=== PATIENT | female | born 1975 | race Two or more races ===

== ENCOUNTER 2018-09-24 15:28 | Inpatient (IN) | payer BC ==
[~2018-09-24] VITALS: Ht 165.1 cm; Wt 68.2 kg
[2018-09-24 15:48] VITALS: BP 108/70
--- NOTE | 2018-09-24 15:48 | NUR ---
ED Nurse Note: Pt came in due to abd pain when she eats with N/V x weeks. Had a bowel surgery 2 weeks ago at [facility]. Pt states that she was referred by Dr Ferreira for evaluation. Also noted bilateral leg + 3 pitting edema. Pt is AAO x4, ambulatory with unlabored breathing. Skin is warm and pale.
[2018-09-24] MEDS ORDERED: Isovue-300 100ml vial INJ PRN (16:00)
[2018-09-24 16:37] LABS: HEMATOCRIT 28.2 % (37.0-47.0); HEMOGLOBIN 9.3 G/DL (12.0-16.0); MEAN CORPUSCULAR VOLUME 92 FL (80-99); PLATELET COUNT 213 K/UL (150-450); RED BLOOD COUNT 3.05 M/UL (4.20-5.40); RED CELL DISTRIBUTION WIDTH 17.5 % (11.6-14.8); WHITE BLOOD COUNT 2.8 K/UL (4.8-10.8)
[2018-09-24 16:48] LABS: ANION GAP 8 mmol/L (5-15); BLOOD UREA NITROGEN 10 mg/dL (7-18); CALCIUM 6.4 MG/DL (8.5-10.1); CARBON DIOXIDE 26 MMOL/L (21-32); CHLORIDE 110 MMOL/L (98-107); CREATININE 0.7 MG/DL (0.55-1.30); POTASSIUM 3.1 MMOL/L (3.5-5.1); SODIUM 143 MMOL/L (136-145)
[2018-09-24 16:59] LABS: ALANINE AMINOTRANSFERASE 41 U/L (12-78); ALBUMIN 1.6 G/DL (3.4-5.0); ALBUMIN/GLOBULIN RATIO 0.7 (1.0-2.7); ALKALINE PHOSPHATASE 83 U/L (46-116); ASPARTATE AMINO TRANSFERASE 22 U/L (15-37); BILIRUBIN,TOTAL 0.7 MG/DL (0.2-1.0)
[2018-09-24 17:30] VITALS: BP 112/70
--- NOTE | 2018-09-24 17:57 | Diagnostic Imaging Report ---
Indication: Shortness of breath Technique: One view of the chest Comparison: none Findings: Lungs and pleural spaces are clear. There is a left chest port catheter. Impression: No acute process
--- NOTE | 2018-09-24 18:05 | NUR ---
ED Nurse Note: Blankets provided. Pt is calm and cooperative. VSS. Pt is aware of her admission.
--- NOTE | 2018-09-24 18:07 | Emergency Room Report ---
History of Present Illness General Chief Complaint: Vomiting Source: Patient Present Illness HPI Patient presents with complaints of continuous nausea vomiting Patient reports previous significant history of gastric bypass Competitions from that leading to malnutrition Patient has had previous abdominal surgeries for adhesions Recently had surgery at [facility] for similar problems Patient has not remained increasingly nauseated persistently vomiting Denies any chest pain denies any fevers or chills Patient has a Port-A-Cath which she has had for many years Also secondary to malnutrition reasons And presents for further evaluation Allergies: Coded Allergies: GABAPENTIN (Verified Allergy, Unknown, 09/24/18) METAXALONE (Verified Allergy, Unknown, 09/24/18) MORPHINE (Verified Allergy, Unknown, 09/24/18) QUETIAPINE (Verified Allergy, Unknown, 09/24/18) Patient History Past Medical History: see triage record Pertinent Family History: none Last Menstrual Period: 2008 Now: No Reviewed Nursing Documentation: PMH: Agreed; PSxH: Agreed Nursing Documentation-PMH Past Medical History: No History, Except For Hx Cardiac Problems: No - HYPOTHYROIDISM History Of Psychiatric Problem: No - ANXIETY Hx Neurological Problems: Yes - FIBROMYALGIA Review of Systems All Other Systems: negative except mentioned in HPI Physical Exam Vital Signs Date Time Temp Pulse Resp B/P (MAP) Pulse Ox O2 Delivery O2 Flow Rate FiO2 09/24/18 15:38 97.5 96 18 102/66 96 Room Air Sp02 EP Interpretation: reviewed, normal General Appearance: mild distress - Uncomfortable Head: normocephalic, atraumatic ENT: dry mucus membranes Neck: supple Respiratory: lungs clear, no retraction, no accessory muscle use Cardiovascular #1: regular rate, rhythm Gastrointestinal: other - Some questionable decreased bowel sounds diffusely however no obvious rebound effect, patient has evidence of laparoscopic surgical sites in the left in the upper lower abdominal region Musculoskeletal: normal inspection Neurologic: alert, oriented x3, responsive Psychiatric: normal inspection Skin: other - Pallor Lymphatic: no adenopathy Medical Decision Making Diagnostic Impression: Primary Impression: Vomiting Additional Impressions: Dehydration Electrolyte imbalance Nausea and vomiting ER Course With the history exam and presentation, multiple differentials considered, including but not limited to appendicitis, gastritis, cholecystitis, diverticulitis Patient has multiple comorbidities has had previous abdominal surgeries at this time the patient's abdominal exam does not reveal any obvious peritoneal findings Patient has further imaging initiated as well given the complaints however blood work reveal a low white count Electrolyte abnormality patient remains persistently nauseated and is admitted for further care Labs Test 09/24/18 16:20 09/24/18 17:55 09/25/18 04:30 White Blood Count 2.8 K/UL (4.8-10.8) 2.1 K/UL (4.8-10.8) Red Blood Count 3.05 M/UL (4.20-5.40) 2.78 M/UL (4.20-5.40) Hemoglobin 9.3 G/DL (12.0-16.0) 8.6 G/DL (12.0-16.0) Hematocrit 28.2 % (37.0-47.0) 26.4 % (37.0-47.0) Mean Corpuscular Volume 92 FL (80-99) 95 FL (80-99) Mean Corpuscular Hemoglobin 30.5 PG (27.0-31.0) 31.0 PG (27.0-31.0) Mean Corpuscular Hemoglobin Concent 33.0 G/DL (32.0-36.0) 32.6 G/DL (32.0-36.0) Red Cell Distribution Width 17.5 % (11.6-14.8) 17.9 % (11.6-14.8) Platelet Count 213 K/UL (150-450) 196 K/UL (150-450) Mean Platelet Volume 4.8 FL (6.5-10.1) 5.6 FL (6.5-10.1) Neutrophils (%) (Auto) % (45.0-75.0) % (45.0-75.0) Lymphocytes (%) (Auto) % (20.0-45.0) % (20.0-45.0) Monocytes (%) (Auto) % (1.0-10.0) % (1.0-10.0) Eosinophils (%) (Auto) % (0.0-3.0) % (0.0-3.0) Basophils (%) (Auto) % (0.0-2.0) % (0.0-2.0) Differential Total Cells Counted 100 100 Neutrophils % (Manual) 52 % (45-75) 30 % (45-75) Lymphocytes % (Manual) 36 % (20-45) 52 % (20-45) Monocytes % (Manual) 7 % (1-10) 17 % (1-10) Eosinophils % (Manual) 1 % (0-3) 1 % (0-3) Basophils % (Manual) 1 % (0-2) 0 % (0-2) Band Neutrophils 3 % (0-8) 0 % (0-8) Platelet Estimate Adequate Adequate Platelet Morphology Normal Normal Hypochromasia 1+ Anisocytosis 1+ 1+ Sodium Level 143 MMOL/L (136-145) 145 MMOL/L (136-145) Potassium Level 3.1 MMOL/L (3.5-5.1) 3.0 MMOL/L (3.5-5.1) Chloride Level 110 MMOL/L (98-107) 112 MMOL/L (98-107) Carbon Dioxide Level 26 MMOL/L (21-32) 29 MMOL/L (21-32) Anion Gap 8 mmol/L (5-15) 4 mmol/L (5-15) Blood Urea Nitrogen 10 mg/dL (7-18) 10 mg/dL (7-18) Creatinine 0.7 MG/DL (0.55-1.30) 0.9 MG/DL (0.55-1.30) Estimat Glomerular Filtration Rate > 60 mL/min (>60) > 60 mL/min (>60) Glucose Level 76 MG/DL (74-106) 110 MG/DL (74-106) Calcium Level 6.4 MG/DL (8.5-10.1) 6.9 MG/DL (8.5-10.1) Total Bilirubin 0.7 MG/DL (0.2-1.0) 0.4 MG/DL (0.2-1.0) Aspartate Amino Transf (AST/SGOT) 22 U/L (15-37) 18 U/L (15-37) Alanine Aminotransferase (ALT/SGPT) 41 U/L (12-78) 38 U/L (12-78) Alkaline Phosphatase 83 U/L (46-116) 74 U/L (46-116) Pro-B-Type Natriuretic Peptide 178 pg/mL (0-125) Total Protein 4.0 G/DL (6.4-8.2) 3.6 G/DL (6.4-8.2) Albumin 1.6 G/DL (3.4-5.0) 1.4 G/DL (3.4-5.0) Globulin 2.4 g/dL 2.2 g/dL Albumin/Globulin Ratio 0.7 (1.0-2.7) 0.6 (1.0-2.7) Urine Color Brown Urine Appearance Clear Urine pH 6 (4.5-8.0) Urine Specific [place] 1.010 (1.005-1.035) Urine Protein Negative (NEGATIVE) Urine Glucose (UA) Negative (NEGATIVE) Urine Ketones Negative (NEGATIVE) Urine Blood Negative (NEGATIVE) Urine Nitrite Negative (NEGATIVE) Urine Bilirubin 1+ (NEGATIVE) Urine Ictotest Negative (NEGATIVE) Urine Urobilinogen 8 MG/DL (0.0-1.0) Urine Leukocyte Esterase 3+ (NEGATIVE) Urine RBC 0-2 /HPF (0 - 2) Urine WBC 2-4 /HPF (0 - 2) Urine Squamous Epithelial Cells Few /LPF (NONE/OCC) Urine Bacteria Few /HPF (NONE) Hemoglobin A1c 4.7 % (4.3-6.0) Amylase Level 14 U/L (25-115) Lipase 47 U/L (73-393) Chest X-Ray Diagnostic Results Chest X-Ray Diagnostic Results : Chest X-Ray Ordered: Yes # of Views/Limited/Complete: 1 View Indication: Chest Pain EP Interpretation: Yes Interpretation: no consolidation, no effusion, no pneumothorax Impression: No acute disease Electronically Signed by: Shira Tyler DO CT/MRI/US Diagnostic Results CT/MRI/US Diagnostic Results : Impression CT abdomen pelvisIMPRESSION: Evidence of prior Marine-en-Y gastric bypass. Additional surgical clips noted anterior and midline to the enteroenteric anastomosis. There is also an anastomotic suture line in the right mid/lower abdomen as well. Correlation with surgical history is recommended. There is air-fluid levels and dilatation of portions of the proximal jejunum/biliopancreatic limb leading up to the enteroenteric anastomosis (axial image #37; coronal image #20) concerning for a degree of obstruction or stasis. No evidence of free intraperitoneal air, ascites, pneumatosis intestinalis or portal venous gas. Status post cholecystectomy. Morphis high attenuation material noted in the subcutaneous tissues of the midline anterior abdominal wall which may be surgical in etiology. Some small foci of air within the urinary bladder which may be related to recent catheterization. If there is no history of such the possibility of a fistulous connection to the bladder can be considered. Last Vital Signs Date Time Temp Pulse Resp B/P (MAP) Pulse Ox O2 Delivery O2 Flow Rate FiO2 09/24/18 15:48 96 18 Room Air 09/24/18 15:38 97.5 102/66 96 Status: improved Disposition: ADMITTED INPATIENT Condition: Serious Referrals: NON PHYSICIAN (PCP) Shira Tyler DO Sep 24, 2018 18:07
[2018-09-24 18:38] LABS: APPEARANCE,URINE CLEAR; BILIRUBIN, URINE 1+ (NEGATIVE); COLOR,URINE BROWN; GLUCOSE, URINE (UA) NEGATIVE (NEGATIVE); KETONES,URINE NEGATIVE (NEGATIVE); LEUKOCYTE ESTERASE ,URINE 3+ (NEGATIVE); NITRITE,URINE NEGATIVE (NEGATIVE); PH,URINE 6 (4.5-8.0); PROTEIN,URINE NEGATIVE (NEGATIVE); UROBILINOGEN,URINE 8 MG/DL (0.0-1.0)
--- NOTE | 2018-09-24 18:43 | NUR ---
ED Nurse Note: Tried to call for report to Med Surg unit and was told that they can receive report after 0700.
--- NOTE | 2018-09-24 19:11 | NUR ---
HAND-OFF: Report given to Donald Leahy RN.
[2018-09-24] MEDS ORDERED: PROTONIX40 MG ORAL (19:29)
[2018-09-24] MEDS ORDERED: ROBAXIN500 MG PO (19:29)
[2018-09-24] MEDS ORDERED: ZOFRAN4 M3 ORAL (19:29)
[2018-09-24] MEDS ORDERED: BUSPAR10 MG ORAL (19:29)
[2018-09-24] MEDS ORDERED: CYCLOBENZAPRINE10 MG ORAL (19:29)
[2018-09-24] MEDS ORDERED: SYNTHROID25 MCG ORAL (19:29)
[2018-09-24] MEDS ORDERED: VISTARIL50 MG ORAL (19:29)
[2018-09-24] MEDS ORDERED: MAXALT10 MG PO (19:29)
[2018-09-24 19:48] VITALS: BP 104/67
[2018-09-24 20:00] VITALS: BP 93/62
--- NOTE | 2018-09-24 20:30 | NUR ---
TRANSFER TO FLOOR: Patient transferred to [facility] 403-1 as ordered, per MD POLLY. Report given to TAWNY MCELROY. PATIENT IN STABLE CONDITION. PT TRANSFERRED TO FLOOR WITH TOWER OPERATOR. BELONGINGS LIST COMPLETED.
--- NOTE | 2018-09-24 21:00 | NUR ---
NURSE NOTES: Patient arrived from ER via gurney. Pt ambulatory, steady gait. Belongings list reviewed, cellphone at the bedside. port-a-cath noted, dressing changed. Fall and safety precautions, call light and belongings within reach.
[2018-09-24] MEDS: D5NS 1,000 ML IV SCH (22:14)
[2018-09-24] MEDS: Methocarbamol 500mg tab ORAL SCH (22:50)
[2018-09-24] MEDS ORDERED: BusPIRone 10mg Tab ORAL SCH (23:00)
[2018-09-24] MEDS: HydrOXYzine 50mg tab ORAL SCH (23:22)
[2018-09-24] MEDS: Cyclobenzaprine 10mg Tab ORAL SCH (23:23)
[2018-09-25] VITALS (7 sets, daily range): BP systolic 78–95; BP diastolic 53–64
[2018-09-25] MEDS ORDERED: HYDROcodone/Acetamin 5/325 tab ORAL PRN ×2 (01:30→07:30)
[2018-09-25] MEDS: HYDROcodone/Acetamin 10/325 tab ORAL PRN ×4 (02:03→21:14)
[2018-09-25] MEDS: Doxepin 25mg Cap ORAL SCH ×2 (02:03→20:22)
[2018-09-25 06:03] LABS: HEMATOCRIT 26.4 % (37.0-47.0); HEMOGLOBIN 8.6 G/DL (12.0-16.0); MEAN CORPUSCULAR VOLUME 95 FL (80-99); PLATELET COUNT 196 K/UL (150-450); RED BLOOD COUNT 2.78 M/UL (4.20-5.40); RED CELL DISTRIBUTION WIDTH 17.9 % (11.6-14.8)
[2018-09-25 06:23] LABS: WHITE BLOOD COUNT 2.1 K/UL (4.8-10.8)
[2018-09-25] MEDS: Levothyroxine 25mcg tab ORAL SCH (06:35)
[2018-09-25] MEDS: HydrOXYzine 50mg tab ORAL SCH ×3 (06:35→17:06)
[2018-09-25 06:43] LABS: ALANINE AMINOTRANSFERASE 38 U/L (12-78); ALBUMIN 1.4 G/DL (3.4-5.0); ALBUMIN/GLOBULIN RATIO 0.6 (1.0-2.7); ALKALINE PHOSPHATASE 74 U/L (46-116); AMYLASE 14 U/L (25-115); ANION GAP 4 mmol/L (5-15); ASPARTATE AMINO TRANSFERASE 18 U/L (15-37); BILIRUBIN,TOTAL 0.4 MG/DL (0.2-1.0); BLOOD UREA NITROGEN 10 mg/dL (7-18); CALCIUM 6.9 MG/DL (8.5-10.1); CARBON DIOXIDE 29 MMOL/L (21-32); CHLORIDE 112 MMOL/L (98-107); CREATININE 0.9 MG/DL (0.55-1.30); SODIUM 145 MMOL/L (136-145)
--- NOTE | 2018-09-25 07:30 | NUR ---
NURSE NOTES: Received pt from TAWNY MCELROY. Pt is alert and orient x4. pt is in RA, NO SOB or acute respiratory distress noted. pt has portal cath BREANA chest is running well. pt is NPO. all needs attended, bed is locked and is in the lowest position, call light within easy reach. will continue to monitor.
--- NOTE | 2018-09-25 07:43 | NUR ---
HAND-OFF: Report given to TAWNY Tracey.
--- NOTE | 2018-09-25 08:20 | NUR ---
NURSE NOTES: Dr Ferreira is aware about hypotension, WBC, K, and other lab results, ordered banana bag once, MVI, FOLIC ACID. noted nand carried out. will continue to monitor.
--- NOTE | 2018-09-25 08:50 | NUR ---
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
[2018-09-25] MEDS ORDERED: BusPIRone 10mg Tab ORAL SCH (09:00)
[2018-09-25] MEDS ORDERED: Cyclobenzaprine 10mg Tab ORAL SCH (09:00)
[2018-09-25] MEDS: D5NS 1,000 ML IV SCH ×2 (09:34→18:00)
[2018-09-25] MEDS: Enoxaparin 40mg Inj SUBQ SCH (09:36)
[2018-09-25] MEDS: Cyclobenzaprine 10mg Tab ORAL SCH ×3 (09:37→17:07)
[2018-09-25] MEDS: Methocarbamol 500mg tab ORAL SCH ×4 (09:37→20:22)
[2018-09-25] MEDS: BusPIRone 5mg Tab ORAL SCH ×3 (09:37→17:07)
--- NOTE | 2018-09-25 10:46 | Diagnostic Imaging Report ---
Indication: Abdominal pain for weeks Technique: CT of the abdomen and pelvis utilizing automated exposure control with intravenous contrast. Venous scanning performed. Axial, sagittal and coronal reformats presented. CT dose: Total DLP 822.65 mGycm; CTDI vol 15.47 mGy Comparison: None Findings: Minimal dependent atelectatic changes noted in the posterior lower lobes bilaterally. There is no pleural effusion or pneumothorax. No focal airspace consolidation is identified. Bilateral breast implants are partially imaged. Heart size is within normal limits. Portions of a Port-A-Cath are partially visualized. The patient is status post cholecystectomy. Hepatic contour is smooth. No focal hepatic mass lesion appreciated on this single phase exam. Hepatic steatosis is suggested. Hepatic veins and portal veins appear patent. No biliary ductal dilatation. Spleen is normal in size. Adrenal glands unremarkable in appearance. Pancreas is without evidence of peripancreatic inflammatory change. Pancreatic enhancement is uniform. No pancreatic ductal dilatation. Kidneys enhance symmetrically. There is no urinary tract stone or hydronephrosis bilaterally. Patient appears to be status post hysterectomy. Some air is noted within the bladder which may be related to recent catheterization. If no history of such is known then the possibility of a fistulous connection can be considered. Note that evaluation of the gastrointestinal tract is limited without the use of oral contrast. The patient is status post marine-en Y gastric bypass. Additionally there are surgical clips more anterior and medial to the enteroenteric anastomosis. There is also an anastomotic suture line in the right mid abdomen as well. Prominence and air-fluid levels within the duodenal sleep and proximal jejunum/biliopancreatic limb leading to the distal enteroenteric anastomosis which is associated is some bubbly intraluminal material concerning for degree of developing obstruction or stasis at the adjacent anastomosis. There is no free intraperitoneal air, ascites, pneumatosis intestinalis or portal venous gas. Remainder of the small bowel remains normal in caliber. Colon is normal in caliber. Abdominal aorta is normal in caliber. No acute osseous abnormality is identified. Some high attenuation material is noted in the subcutaneous tissues of the midline which may represent surgical material (axial images #49). There is no subcutaneous well-defined fluid collection to suggest abscess. IMPRESSION: Evidence of prior Marine-en-Y gastric bypass. Additional surgical clips noted anterior and midline to the enteroenteric anastomosis. There is also an anastomotic suture line in the right mid/lower abdomen as well. Correlation with surgical history is recommended. There is air-fluid levels and dilatation of portions of the proximal jejunum/biliopancreatic limb leading up to the enteroenteric anastomosis (axial image #37; coronal image #20) concerning for a degree of obstruction or stasis. No evidence of free intraperitoneal air, ascites, pneumatosis intestinalis or portal venous gas. Status post cholecystectomy. Morphis high attenuation material noted in the subcutaneous tissues of the midline anterior abdominal wall which may be surgical in etiology. Some small foci of air within the urinary bladder which may be related to recent catheterization. If there is no history of such the possibility of a fistulous connection to the bladder can be considered. Additional incidental findings as above. This corresponds with the preliminary report. The CT scanner at [facility] is accredited by the [employer] and the scans are performed using protocols designed to limit radiation exposure to as low as reasonably achievable to attain images of sufficient resolution adequate for diagnostic evaluation.
[2018-09-25] MEDS ORDERED: Folic Acid 1 MG, Magnesium Sulfate 2,000 MG, Multivitamin - 12 Injection 10 ML in Sodiu... IV ONE (11:00)
[2018-09-25] MEDS ORDERED: Thiamine 100mg in D5W 55ml IVPB ONE (11:00)
--- NOTE | 2018-09-25 11:12 | GI Initial Consult Note ---
History of Present Illness General Date patient seen: Sep 25, 2018 Time patient seen: 11:01 Reason for Hospitalization: Vomiting Referring physician: POLLY Reason for Consultation: Persistent nausea and vomiting Present Illness HPI Patient presents with complaints of continuous nausea vomiting for approximately 1 week. The patient reports chronic history of episodes of nausea and vomiting. Patient reports previous significant history of gastric bypass. The patient had her gastric bypass in 2004, she had a revision in 2012. The patient states that she had recent small bowel obstruction status post exploratory laparoscopically lysis of adhesions done at [facility] approximately 3 weeks ago. The patient does report bowel movements and passing gas. Competitions from that leading to malnutrition Patient has not remained increasingly nauseated persistently vomiting Denies any chest pain denies any fevers or chills Patient has a Port-A-Cath which she has had for many years Also secondary to malnutrition reasons And presents for further evaluation Home Meds Reported Medications Ondansetron* (ZOFRAN*) 4 Mg Tablet, 4 MG ORAL Q6H PRN for Nausea & Vomiting, TAB 09/24/18 Rizatriptan Benzoate (MAXALT) 10 Mg Tablet, 10 MG PO, TAB 09/24/18 Pantoprazole* (PROTONIX*) 40 Mg Tablet.dr, 40 MG ORAL DAILY, TAB 09/24/18 Hydroxyzine Pamoate* (VISTARIL*) 50 Mg Capsule, 100 MG ORAL EVERY 6 HOURS, #20 TAB 0 Refills 09/24/18 Buspirone Hcl* (BUSPAR*) 10 Mg Tablet, 10 MG ORAL THREE TIMES A DAY, #15 TAB 0 Refills 09/24/18 Levothyroxine Sodium* (SYNTHROID*) 25 Mcg Tablet, 50 MCG ORAL DAILY, TAB Take in the morning on an empty stomach, at least 30 minutes before food. 09/24/18 Cyclobenzaprine Hcl* (FLEXERIL*) 10 Mg Tablet, 10 MG ORAL THREE TIMES A DAY, TAB 09/24/18 Methocarbamol* (ROBAXIN*) 500 Mg Tablet, 500 MG PO QID, #28 TAB 0 Refills 09/24/18 Med list reviewed/reconciled: Yes Allergies: Coded Allergies: GABAPENTIN (Verified Allergy, Unknown, 09/24/18) METAXALONE (Verified Allergy, Unknown, 09/24/18) MORPHINE (Verified Allergy, Unknown, 09/24/18) QUETIAPINE (Verified Allergy, Unknown, 09/24/18) Patient History History Provided By: Patient, Medical Record PMH Narrative Past Medical History: No History, Except For Hx Cardiac Problems: No - HYPOTHYROIDISM History Of Psychiatric Problem: No - ANXIETY Hx Neurological Problems: Yes - FIBROMYALGIA Social History: Reports: smoking Review of Systems All Other Systems: negative except mentioned in HPI Physical Exam Vital Signs Date Time Temp Pulse Resp B/P (MAP) Pulse Ox O2 Delivery O2 Flow Rate FiO2 09/24/18 15:38 97.5 96 18 102/66 96 Room Air Sp02 EP Interpretation: reviewed, normal Labs Laboratory Tests Test 09/24/18 16:20 09/24/18 17:55 09/25/18 04:30 White Blood Count 2.8 K/UL (4.8-10.8) L 2.1 K/UL (4.8-10.8) *L Red Blood Count 3.05 M/UL (4.20-5.40) L 2.78 M/UL (4.20-5.40) L Hemoglobin 9.3 G/DL (12.0-16.0) L 8.6 G/DL (12.0-16.0) L Hematocrit 28.2 % (37.0-47.0) L 26.4 % (37.0-47.0) L Mean Corpuscular Volume 92 FL (80-99) 95 FL (80-99) Mean Corpuscular Hemoglobin 30.5 PG (27.0-31.0) 31.0 PG (27.0-31.0) Mean Corpuscular Hemoglobin Concent 33.0 G/DL (32.0-36.0) 32.6 G/DL (32.0-36.0) Red Cell Distribution Width 17.5 % (11.6-14.8) H 17.9 % (11.6-14.8) H Platelet Count 213 K/UL (150-450) 196 K/UL (150-450) Mean Platelet Volume 4.8 FL (6.5-10.1) L 5.6 FL (6.5-10.1) L Neutrophils (%) (Auto) % (45.0-75.0) % (45.0-75.0) Lymphocytes (%) (Auto) % (20.0-45.0) % (20.0-45.0) Monocytes (%) (Auto) % (1.0-10.0) % (1.0-10.0) Eosinophils (%) (Auto) % (0.0-3.0) % (0.0-3.0) Basophils (%) (Auto) % (0.0-2.0) % (0.0-2.0) Differential Total Cells Counted 100 100 Neutrophils % (Manual) 52 % (45-75) 30 % (45-75) L Lymphocytes % (Manual) 36 % (20-45) 52 % (20-45) H Monocytes % (Manual) 7 % (1-10) 17 % (1-10) H Eosinophils % (Manual) 1 % (0-3) 1 % (0-3) Basophils % (Manual) 1 % (0-2) 0 % (0-2) Band Neutrophils 3 % (0-8) 0 % (0-8) Platelet Estimate Adequate Adequate Platelet Morphology Normal Normal Hypochromasia 1+ Anisocytosis 1+ 1+ Sodium Level 143 MMOL/L (136-145) 145 MMOL/L (136-145) Potassium Level 3.1 MMOL/L (3.5-5.1) L 3.0 MMOL/L (3.5-5.1) L Chloride Level 110 MMOL/L (98-107) H 112 MMOL/L (98-107) H Carbon Dioxide Level 26 MMOL/L (21-32) 29 MMOL/L (21-32) Anion Gap 8 mmol/L (5-15) 4 mmol/L (5-15) L Blood Urea Nitrogen 10 mg/dL (7-18) 10 mg/dL (7-18) Creatinine 0.7 MG/DL (0.55-1.30) 0.9 MG/DL (0.55-1.30) Estimat Glomerular Filtration Rate > 60 mL/min (>60) > 60 mL/min (>60) Glucose Level 76 MG/DL (74-106) 110 MG/DL (74-106) H Calcium Level 6.4 MG/DL (8.5-10.1) L 6.9 MG/DL (8.5-10.1) L Total Bilirubin 0.7 MG/DL (0.2-1.0) 0.4 MG/DL (0.2-1.0) Aspartate Amino Transf (AST/SGOT) 22 U/L (15-37) 18 U/L (15-37) Alanine Aminotransferase (ALT/SGPT) 41 U/L (12-78) 38 U/L (12-78) Alkaline Phosphatase 83 U/L (46-116) 74 U/L (46-116) Pro-B-Type Natriuretic Peptide 178 pg/mL (0-125) H Total Protein 4.0 G/DL (6.4-8.2) L 3.6 G/DL (6.4-8.2) L Albumin 1.6 G/DL (3.4-5.0) L 1.4 G/DL (3.4-5.0) L Globulin 2.4 g/dL 2.2 g/dL Albumin/Globulin Ratio 0.7 (1.0-2.7) L 0.6 (1.0-2.7) L Urine Color Brown Urine Appearance Clear Urine pH 6 (4.5-8.0) Urine Specific [place] 1.010 (1.005-1.035) Urine Protein Negative (NEGATIVE) Urine Glucose (UA) Negative (NEGATIVE) Urine Ketones Negative (NEGATIVE) Urine Blood Negative (NEGATIVE) Urine Nitrite Negative (NEGATIVE) Urine Bilirubin 1+ (NEGATIVE) H Urine Ictotest Negative (NEGATIVE) Urine Urobilinogen 8 MG/DL (0.0-1.0) H Urine Leukocyte Esterase 3+ (NEGATIVE) H Urine RBC 0-2 /HPF (0 - 2) Urine WBC 2-4 /HPF (0 - 2) Urine Squamous Epithelial Cells Few /LPF (NONE/OCC) Urine Bacteria Few /HPF (NONE) Hemoglobin A1c 4.7 % (4.3-6.0) Amylase Level 14 U/L (25-115) L Lipase 47 U/L (73-393) L General Appearance: well appearing, no apparent distress, alert Head: normocephalic EENT: PERRL/EOMI, normal ENT inspection Neck: supple Respiratory: normal breath sounds, no respiratory distress Cardiovascular: normal rate Gastrointestinal: normal inspection, non tender, soft, normal bowel sounds, non -distended, other - Surgical incision site Rectal: deferred Genitourinary: no CVA tenderness Musculoskeletal: normal inspection, back normal Neurologic: normal inspection, alert, oriented x3, responsive Psychiatric: normal inspection, judgement/insight normal, memory normal Skin: normal inspection, normal color, no rash, warm/dry, palpation normal, well hydrated Lymphatic: normal inspection, no adenopathy Current Medications Current Medications Medications (Trade) Dose Ordered Sig/[place] Route PRN Reason Start Time Stop Time Status Last Admin Dose Admin Acetaminophen (Tylenol) 650 mg Q4H PRN ORAL Mild Pain/Temp > 100.5 09/24/18 22:00 10/24/18 21:59 Acetaminophen/ Hydrocodone Bitart ([place] 10/325) 1 tab QID PRN ORAL Severe Pain (Pain Scale 7-10) 09/25/18 01:30 10/02/18 01:29 09/25/18 09:38 Acetaminophen/ Hydrocodone Bitart ([place] 5/325) 1 tab Q6H PRN ORAL Moderate Breakthru Pain (5-7) 09/25/18 07:30 10/02/18 01:29 Buspirone HCl (Buspar) 10 mg THREE TIMES A DAY ORAL 09/25/18 09:00 10/25/18 08:59 09/25/18 09:37 Cyclobenzaprine HCl (Flexeril) 10 mg THREE TIMES A DAY ORAL 09/24/18 23:00 10/25/18 08:59 09/25/18 09:37 Dextrose/Sodium Chloride 1,000 ml @ 100 mls/hr Q10H IV 09/24/18 22:00 10/24/18 21:59 09/25/18 09:34 Doxepin HCl (SINEquan) 50 mg BEDTIME ORAL 09/25/18 01:30 10/25/18 01:29 09/25/18 02:03 Enoxaparin Sodium (Lovenox) 40 mg DAILY SUBQ 09/25/18 09:00 10/25/18 08:59 09/25/18 09:36 Folic Acid (Folate) 1 mg DAILY ORAL 09/26/18 09:00 10/26/18 08:59 Folic Acid 1 mg/ Magnesium Sulfate 2000 mg/ Multivitamins 10 ml/Sodium Chloride 1,014.2 ml @ 100 mls/ hr Q24H ONCE IV 09/25/18 11:00 09/25/18 21:08 Hydroxyzine HCl (Atarax) 100 mg EVERY 6 HOURS ORAL 09/25/18 00:00 10/25/18 00:00 09/25/18 06:35 Iopamidol (Isovue-300 100ml) 100 ml NOW PRN INJ Radiology Procedure 09/24/18 16:00 Levothyroxine Sodium (Synthroid) 50 mcg ACBREAKFAST ORAL 09/25/18 06:30 10/25/18 06:29 09/25/18 06:35 Methocarbamol (Robaxin) 500 mg QID ORAL 09/24/18 22:15 10/24/18 22:14 09/25/18 09:37 Multivitamins (Multivitamins) 1 tab DAILY ORAL 09/26/18 09:00 10/26/18 08:59 Ondansetron HCl (Zofran) 4 mg Q6H PRN ORAL Nausea & Vomiting 09/24/18 22:00 10/24/18 21:59 09/25/18 09:34 Pantoprazole (Protonix) 40 mg DAILY ORAL 09/25/18 09:00 10/25/18 08:59 09/25/18 09:36 Piperacillin Sod/ Tazobactam Sod 3.375 gm/Sodium Chloride 110 ml @ 27.5 mls/hr EVERY 8 HOURS IVPB 09/25/18 13:00 09/30/18 12:59 Thiamine HCl 100 mg/Dextrose 56 ml @ 112 mls/hr ONCE ONCE IVPB 09/25/18 11:00 09/25/18 11:29 GI: Plan Problems: (1) History of gastric bypass (2) Small bowel obstruction due to adhesions (3) Nausea and vomiting (4) Electrolyte imbalance (5) Dehydration (6) Vomiting Plan Abdominal pelvis CT reviewed. - Evidence of prior Marine-en-Y gastric bypass. - There is air-fluid levels and dilatation of portions of the proximal jejunum/ biliopancreatic limb leading up to the enteroenteric anastomosis concerning for a degree of obstruction or stasis. - No evidence of free intraperitoneal air, ascites, pneumatosis intestinalis or portalvenous gas. - Status post cholecystectomy. Follow up surgical recommendations, possible SBFT maintain NPO + IVFs zofran prn, reglan prn for persistent vomiting anemia work up OB stool r/o GI bleed monitor H&H, prn transfusions ppi electrolyte correction fu labs Discussed with Dr. Rosenberg. Thank you for this patient referral, we will follow. The patient was seen and examined at bedside and all new and available data was reviewed in the patients chart. I agree with the above findings, impression and plan. (Patient seen earlier today. Signature stamp does not reflect patient encounter time.). - MD Laura Mckeon,[facility] JUDICIAL CLERK Sep 25, 2018 11:12
[2018-09-25] MEDS: Piperacillin/Tazobactam 3.375 GM in NS 110 ML IVPB SCH ×2 (12:58→22:22)
--- NOTE | 2018-09-25 13:00 | NUR ---
NURSE NOTES: Dr Ferreira asked to get the number of facility to call them to send SUBOXONE for pt but pt refused to give number and asked don't call them. Dr Ferreira is aware. will continue to monitor.
--- NOTE | 2018-09-25 14:05 | NUR ---
RD ASSESSMENT & RECOMMENDATIONS SEE CARE ACTIVITY FOR COMPLETE ASSESSMENT DAILY ESTIMATED NEEDS: Needs based on Wt loss, 64.6kg 25-30 kcals/kg 9806-6697 total kcals 1-1.5 g protein/kg 65-97 g total protein 25-30 mL/kg 1341-2692 total fluid mLs NUTRITION DIAGNOSIS: Altered GI function R/T h/o multiple GI surgeries including Marine-en-Y gastric bypass and revision, s/p recent exploratory laparoscopically lysis of adhesions for SBO as evidenced by pt c/o abdominal pain, N/V. CURRENT DIET:Full Liquid diet PO DIET RECOMMENDATIONS: Advance diet as tolerated to soft diet, 6 small meals ADDITIONAL RECOMMENDATIONS: * Standing wt for accurate CBW, rec weekly wt monitoring given possible recent wt loss of >8#/5% in less than 1 mo * Neutropenic precaution to diet order- wbc=2.1* * Ensure Clear x 1 - pt reports cannot tolerate dairy based Ensure, willing to try Ensure Clear (240kcal, 8g prot each) * Monitor lytes, replete as needed (low K) * Consider DIRECTOR OF [employer]ATE[employer] MARKETING eval- pt reports dry mouth, some swallowing difficulty
--- NOTE | 2018-09-25 14:35 | Consultation ---
History of Present Illness General Date patient seen: Sep 25, 2018 Reason for Hospitalization: Vomiting Present Illness HPI this is a very pleasant 43 year old female with complex medical and surgical history. had gastric bypass years ago, cholecystectomy, reversal of gastric bypass, abdominoplasty, and only a few weeks ago required urgent laparoscopic lysis of adhesions for SBO. was home with nausea and decreased oral intake. went to see her pcp and recommended to come to ED given not tolerating oral intake, dehydration, and abdominal pain. has left chest port for hx of dehydration and prior TPN. surgery called to assist with care. states pain has been present since surgery. Allergies: Coded Allergies: GABAPENTIN (Verified Allergy, Unknown, 09/24/18) METAXALONE (Verified Allergy, Unknown, 09/24/18) MORPHINE (Verified Allergy, Unknown, 09/24/18) QUETIAPINE (Verified Allergy, Unknown, 09/24/18) Medication History Scheduled Buspirone Hcl* (Buspar*), 10 MG ORAL THREE TIMES A DAY, (Reported) Cyclobenzaprine Hcl* (Flexeril*), 10 MG ORAL THREE TIMES A DAY, (Reported) Hydroxyzine Pamoate* (Vistaril*), 100 MG ORAL EVERY 6 HOURS, (Reported) Levothyroxine Sodium* (Synthroid*), 50 MCG ORAL DAILY, (Reported) Methocarbamol* (Robaxin*), 500 MG PO QID, (Reported) Pantoprazole* (Protonix*), 40 MG ORAL DAILY, (Reported) Scheduled PRN Ondansetron* (Zofran*), 4 MG ORAL Q6H PRN for Nausea & Vomiting, (Reported) Miscellaneous Medications Rizatriptan Benzoate (Maxalt), 10 MG PO, (Reported) Patient History History Provided By: Patient, Medical Record, PMD Healthcare decision maker Resuscitation status Full Code Advanced Directive on File Review of Systems Review of Symptoms General ROS: no weight loss or fever Psychological ROS: no depression or mood changes, no memory loss Ophthalmic ROS: no visual changes or eye irritation ENT ROS: no nasal congestion, hearing loss, dizziness Allergy and Immunology ROS: no allergic symptoms or urticaria Hematological and Lymphatic ROS: no swollen glands, unusual bleeding or bruising Endocrine ROS: no polyuria, polydipsia, weight changes, temperature intolerance Respiratory ROS: no cough, shortness of breath, or wheezing Cardiovascular ROS: no chest pain or dyspnea on exertion Gastrointestinal ROS: abdominal pain, no bright red blood in stool. Musculoskeletal ROS: no myalgias or arthralgias Neurological ROS: no TIA or stroke symptoms Dermatological ROS: no new or changing skin lesions, rashes or pruritis Physical Exam Physical Exam General appearance: alert, cooperative, no distress, appears stated age Head: Normocephalic, without obvious abnormality, atraumatic Eyes: conjunctivae/corneas clear. PERRL, EOM's intact. Fundi benign Throat: Lips, mucosa, and tongue normal. Teeth and gums normal Neck: supple, symmetrical, trachea midline, no adenopathy, thyroid: not enlarged, symmetric, no tenderness/mass/nodules, no carotid bruit and no JVD Lungs: clear to auscultation bilaterally Heart: regular rate and rhythm, S1, S2 normal, no murmur, click, rub or gallop Abdomen: soft, non-tender. Bowel sounds normal. No masses, no organomegaly Extremities: extremities normal, atraumatic, no cyanosis or edema Pulses: 2+ and symmetric Skin: Skin color, texture, turgor normal. No rashes or lesions Neurologic: Grossly normal Last 24 Hour Vital Signs Date Time Temp Pulse Resp B/P (MAP) Pulse Ox O2 Delivery O2 Flow Rate FiO2 09/25/18 13:20 97.7 09/25/18 12:00 97.7 82 16 81/55 (64) 96 09/25/18 10:31 Room Air 09/25/18 10:07 97.7 09/25/18 08:00 97.7 85 17 85/53 (64) 96 09/25/18 04:00 97.5 87 20 90/54 (66) 97 09/25/18 01:46 Room Air 09/25/18 00:00 97.9 90 18 94/64 (74) 99 09/24/18 20:30 98.3 87 18 93/62 96 Room Air 80 09/24/18 20:00 98.3 87 18 93/62 (72) 96 09/24/18 19:48 97.5 80 16 104/67 100 Room Air 09/24/18 17:30 97.5 98 16 112/70 98 Room Air 09/24/18 15:48 96 18 Room Air 4/16/19 15:48 98.0 82 14 108/70 100 Room Air 09/24/18 15:38 97.5 96 18 102/66 96 Room Air Intake and Output 09/24/18 09/25/18 19:00 07:00 Intake Total 1000 ml 750 ml Balance 1000 ml 750 ml Intake Oral 50 ml IV Total 1000 ml 700 ml # Voids 1 1 Laboratory Tests Test 09/24/18 16:20 09/24/18 17:55 09/25/18 04:30 White Blood Count 2.8 K/UL (4.8-10.8) L 2.1 K/UL (4.8-10.8) *L Red Blood Count 3.05 M/UL (4.20-5.40) L 2.78 M/UL (4.20-5.40) L Hemoglobin 9.3 G/DL (12.0-16.0) L 8.6 G/DL (12.0-16.0) L Hematocrit 28.2 % (37.0-47.0) L 26.4 % (37.0-47.0) L Mean Corpuscular Volume 92 FL (80-99) 95 FL (80-99) Mean Corpuscular Hemoglobin 30.5 PG (27.0-31.0) 31.0 PG (27.0-31.0) Mean Corpuscular Hemoglobin Concent 33.0 G/DL (32.0-36.0) 32.6 G/DL (32.0-36.0) Red Cell Distribution Width 17.5 % (11.6-14.8) H 17.9 % (11.6-14.8) H Platelet Count 213 K/UL (150-450) 196 K/UL (150-450) Mean Platelet Volume 4.8 FL (6.5-10.1) L 5.6 FL (6.5-10.1) L Neutrophils (%) (Auto) % (45.0-75.0) % (45.0-75.0) Lymphocytes (%) (Auto) % (20.0-45.0) % (20.0-45.0) Monocytes (%) (Auto) % (1.0-10.0) % (1.0-10.0) Eosinophils (%) (Auto) % (0.0-3.0) % (0.0-3.0) Basophils (%) (Auto) % (0.0-2.0) % (0.0-2.0) Differential Total Cells Counted 100 100 Neutrophils % (Manual) 52 % (45-75) 30 % (45-75) L Lymphocytes % (Manual) 36 % (20-45) 52 % (20-45) H Monocytes % (Manual) 7 % (1-10) 17 % (1-10) H Eosinophils % (Manual) 1 % (0-3) 1 % (0-3) Basophils % (Manual) 1 % (0-2) 0 % (0-2) Band Neutrophils 3 % (0-8) 0 % (0-8) Platelet Estimate Adequate Adequate Platelet Morphology Normal Normal Hypochromasia 1+ Anisocytosis 1+ 1+ Sodium Level 143 MMOL/L (136-145) 145 MMOL/L (136-145) Potassium Level 3.1 MMOL/L (3.5-5.1) L 3.0 MMOL/L (3.5-5.1) L Chloride Level 110 MMOL/L (98-107) H 112 MMOL/L (98-107) H Carbon Dioxide Level 26 MMOL/L (21-32) 29 MMOL/L (21-32) Anion Gap 8 mmol/L (5-15) 4 mmol/L (5-15) L Blood Urea Nitrogen 10 mg/dL (7-18) 10 mg/dL (7-18) Creatinine 0.7 MG/DL (0.55-1.30) 0.9 MG/DL (0.55-1.30) Estimat Glomerular Filtration Rate > 60 mL/min (>60) > 60 mL/min (>60) Glucose Level 76 MG/DL (74-106) 110 MG/DL (74-106) H Calcium Level 6.4 MG/DL (8.5-10.1) L 6.9 MG/DL (8.5-10.1) L Total Bilirubin 0.7 MG/DL (0.2-1.0) 0.4 MG/DL (0.2-1.0) Aspartate Amino Transf (AST/SGOT) 22 U/L (15-37) 18 U/L (15-37) Alanine Aminotransferase (ALT/SGPT) 41 U/L (12-78) 38 U/L (12-78) Alkaline Phosphatase 83 U/L (46-116) 74 U/L (46-116) Pro-B-Type Natriuretic Peptide 178 pg/mL (0-125) H Total Protein 4.0 G/DL (6.4-8.2) L 3.6 G/DL (6.4-8.2) L Albumin 1.6 G/DL (3.4-5.0) L 1.4 G/DL (3.4-5.0) L Globulin 2.4 g/dL 2.2 g/dL Albumin/Globulin Ratio 0.7 (1.0-2.7) L 0.6 (1.0-2.7) L Urine Color Brown Urine Appearance Clear Urine pH 6 (4.5-8.0) Urine Specific [place] 1.010 (1.005-1.035) Urine Protein Negative (NEGATIVE) Urine Glucose (UA) Negative (NEGATIVE) Urine Ketones Negative (NEGATIVE) Urine Blood Negative (NEGATIVE) Urine Nitrite Negative (NEGATIVE) Urine Bilirubin 1+ (NEGATIVE) H Urine Ictotest Negative (NEGATIVE) Urine Urobilinogen 8 MG/DL (0.0-1.0) H Urine Leukocyte Esterase 3+ (NEGATIVE) H Urine RBC 0-2 /HPF (0 - 2) Urine WBC 2-4 /HPF (0 - 2) Urine Squamous Epithelial Cells Few /LPF (NONE/OCC) Urine Bacteria Few /HPF (NONE) Hemoglobin A1c 4.7 % (4.3-6.0) Amylase Level 14 U/L (25-115) L Lipase 47 U/L (73-393) L Height (Feet): 5 Height (Inches): 4.00 Weight (Pounds): 142 Medications Current Medications Medications (Trade) Dose Ordered Sig/[place] Route PRN Reason Start Time Stop Time Status Last Admin Dose Admin Acetaminophen (Tylenol) 650 mg Q4H PRN ORAL Mild Pain/Temp > 100.5 09/24/18 22:00 10/24/18 21:59 Acetaminophen/ Hydrocodone Bitart ([place] 10/325) 1 tab QID PRN ORAL Severe Pain (Pain Scale 7-10) 09/25/18 01:30 10/02/18 01:29 09/25/18 09:38 Acetaminophen/ Hydrocodone Bitart ([place] 5/325) 1 tab Q6H PRN ORAL Moderate Breakthru Pain (5-7) 09/25/18 07:30 10/02/18 01:29 Buspirone HCl (Buspar) 10 mg THREE TIMES A DAY ORAL 09/25/18 09:00 10/25/18 08:59 09/25/18 12:49 Cyclobenzaprine HCl (Flexeril) 10 mg THREE TIMES A DAY ORAL 09/24/18 23:00 10/25/18 08:59 09/25/18 12:50 Dextrose/Sodium Chloride 1,000 ml @ 100 mls/hr Q10H IV 09/24/18 22:00 10/24/18 21:59 09/25/18 09:34 Doxepin HCl (SINEquan) 50 mg BEDTIME ORAL 09/25/18 01:30 10/25/18 01:29 09/25/18 02:03 Enoxaparin Sodium (Lovenox) 40 mg DAILY SUBQ 09/25/18 09:00 10/25/18 08:59 09/25/18 09:36 Folic Acid (Folate) 1 mg DAILY ORAL 09/26/18 09:00 10/26/18 08:59 Folic Acid 1 mg/ Magnesium Sulfate 2000 mg/ Multivitamins 10 ml/Sodium Chloride 1,014.2 ml @ 100 mls/ hr Q24H ONCE IV 09/25/18 11:00 09/25/18 21:08 09/25/18 11:20 Hydroxyzine HCl (Atarax) 100 mg EVERY 6 HOURS ORAL 09/25/18 00:00 10/25/18 00:00 09/25/18 12:50 Iopamidol (Isovue-300 100ml) 100 ml NOW PRN INJ Radiology Procedure 09/24/18 16:00 Levothyroxine Sodium (Synthroid) 50 mcg ACBREAKFAST ORAL 09/25/18 06:30 10/25/18 06:29 09/25/18 06:35 Methocarbamol (Robaxin) 500 mg QID ORAL 09/24/18 22:15 10/24/18 22:14 09/25/18 12:49 Multivitamins (Multivitamins) 1 tab DAILY ORAL 09/26/18 09:00 10/26/18 08:59 Ondansetron HCl (Zofran) 4 mg Q6H PRN ORAL Nausea & Vomiting 09/24/18 22:00 10/24/18 21:59 09/25/18 09:34 Pantoprazole (Protonix) 40 mg DAILY ORAL 09/25/18 09:00 10/25/18 08:59 09/25/18 09:36 Piperacillin Sod/ Tazobactam Sod 3.375 gm/Sodium Chloride 110 ml @ 27.5 mls/hr EVERY 8 HOURS IVPB 09/25/18 13:00 09/30/18 12:59 09/25/18 12:58 Assessment/Plan Problem List: (1) Vomiting ICD Codes: R11.10 - Vomiting, unspecified SNOMED: 634075839 (2) Dehydration ICD Codes: E86.0 - Dehydration SNOMED: 81545818 (3) Electrolyte imbalance ICD Codes: E87.8 - Other disorders of electrolyte and fluid balance, not elsewhere classified SNOMED: 543641917 (4) Nausea and vomiting ICD Codes: R11.2 - Nausea with vomiting, unspecified SNOMED: 15257978 (5) Small bowel obstruction due to adhesions Assessment & Plan: CT noted exam with tenderness but incisional labs noted no acute surgical intervention planned okay for clears upper GI with small bowel follow through. am labs will follow with serial exams thank you ICD Codes: K56.50 - Intestinal adhesions [bands], unspecified as to partial versus complete obstruction SNOMED: 299416649 [facility] declaration Glynn Michelle Sep 25, 2018 14:35
[2018-09-25] MEDS ORDERED: Gastrograffin 30ml ORAL PRN (14:45)
--- NOTE | 2018-09-25 15:49 | NUR ---
NURSE NOTES: Dr menard cancelled order due to pt's heart problem and insurance. will continue to monitor.
--- NOTE | 2018-09-25 16:00 | NUR ---
NURSE NOTES: Dr Ferreira notified about BP 78/58, orders noted and carried out. will continue to monitor.
--- NOTE | 2018-09-25 16:30 | NUR ---
*-* NO INSURANCE INFORMATION IN THE BAR TO SEND CLINICALS *-*
--- NOTE | 2018-09-25 17:58 | Infectious Diseases Prog Note ---
Assessment/Plan Problems: (1) Hypotension Assessment & Plan: rule out sepsis, with H/O sepsis twice in the past , will send blood culture x2 and start zosyn and vancomycin empirically (2) Small bowel obstruction due to adhesions Assessment & Plan: S/P recent adhesions lysis recently , keep, npo, CONTINUE HYDRATION, SURGICAL EVAL (3) Dehydration Assessment & Plan: continue IVF with bolus as needed. (4) Nausea and vomiting Assessment & Plan: continue supportive care Subjective Allergies: Coded Allergies: GABAPENTIN (Verified Allergy, Unknown, 09/24/18) METAXALONE (Verified Allergy, Unknown, 09/24/18) MORPHINE (Verified Allergy, Unknown, 09/24/18) QUETIAPINE (Verified Allergy, Unknown, 09/24/18) Objective Vital Signs Last 24 Hour Vital Signs Date Time Temp Pulse Resp B/P (MAP) Pulse Ox O2 Delivery O2 Flow Rate FiO2 09/25/18 16:00 98.1 87 17 78/53 (61) 100 09/25/18 13:20 97.7 09/25/18 12:00 97.7 82 16 81/55 (64) 96 09/25/18 10:31 Room Air 09/25/18 10:07 97.7 09/25/18 08:00 97.7 85 17 85/53 (64) 96 09/25/18 04:00 97.5 87 20 90/54 (66) 97 09/25/18 01:46 Room Air 09/25/18 00:00 97.9 90 18 94/64 (74) 99 09/24/18 20:30 98.3 87 18 93/62 96 Room Air 80 09/24/18 20:00 98.3 87 18 93/62 (72) 96 09/24/18 19:48 97.5 80 16 104/67 100 Room Air Height (Feet): 5 Height (Inches): 4.00 Weight (Pounds): 142 Laboratory Tests Test 09/24/18 17:55 09/25/18 04:30 Urine Color Brown Urine Appearance Clear Urine pH 6 (4.5-8.0) Urine Specific [place] 1.010 (1.005-1.035) Urine Protein Negative (NEGATIVE) Urine Glucose (UA) Negative (NEGATIVE) Urine Ketones Negative (NEGATIVE) Urine Blood Negative (NEGATIVE) Urine Nitrite Negative (NEGATIVE) Urine Bilirubin 1+ (NEGATIVE) H Urine Ictotest Negative (NEGATIVE) Urine Urobilinogen 8 MG/DL (0.0-1.0) H Urine Leukocyte Esterase 3+ (NEGATIVE) H Urine RBC 0-2 /HPF (0 - 2) Urine WBC 2-4 /HPF (0 - 2) Urine Squamous Epithelial Cells Few /LPF (NONE/OCC) Urine Bacteria Few /HPF (NONE) White Blood Count 2.1 K/UL (4.8-10.8) *L Red Blood Count 2.78 M/UL (4.20-5.40) L Hemoglobin 8.6 G/DL (12.0-16.0) L Hematocrit 26.4 % (37.0-47.0) L Mean Corpuscular Volume 95 FL (80-99) Mean Corpuscular Hemoglobin 31.0 PG (27.0-31.0) Mean Corpuscular Hemoglobin Concent 32.6 G/DL (32.0-36.0) Red Cell Distribution Width 17.9 % (11.6-14.8) H Platelet Count 196 K/UL (150-450) Mean Platelet Volume 5.6 FL (6.5-10.1) L Neutrophils (%) (Auto) % (45.0-75.0) Lymphocytes (%) (Auto) % (20.0-45.0) Monocytes (%) (Auto) % (1.0-10.0) Eosinophils (%) (Auto) % (0.0-3.0) Basophils (%) (Auto) % (0.0-2.0) Differential Total Cells Counted 100 Neutrophils % (Manual) 30 % (45-75) L Lymphocytes % (Manual) 52 % (20-45) H Monocytes % (Manual) 17 % (1-10) H Eosinophils % (Manual) 1 % (0-3) Basophils % (Manual) 0 % (0-2) Band Neutrophils 0 % (0-8) Platelet Estimate Adequate Platelet Morphology Normal Anisocytosis 1+ Sodium Level 145 MMOL/L (136-145) Potassium Level 3.0 MMOL/L (3.5-5.1) L Chloride Level 112 MMOL/L (98-107) H Carbon Dioxide Level 29 MMOL/L (21-32) Anion Gap 4 mmol/L (5-15) L Blood Urea Nitrogen 10 mg/dL (7-18) Creatinine 0.9 MG/DL (0.55-1.30) Estimat Glomerular Filtration Rate > 60 mL/min (>60) Glucose Level 110 MG/DL (74-106) H Hemoglobin A1c 4.7 % (4.3-6.0) Calcium Level 6.9 MG/DL (8.5-10.1) L Total Bilirubin 0.4 MG/DL (0.2-1.0) Aspartate Amino Transf (AST/SGOT) 18 U/L (15-37) Alanine Aminotransferase (ALT/SGPT) 38 U/L (12-78) Alkaline Phosphatase 74 U/L (46-116) Total Protein 3.6 G/DL (6.4-8.2) L Albumin 1.4 G/DL (3.4-5.0) L Globulin 2.2 g/dL Albumin/Globulin Ratio 0.6 (1.0-2.7) L Amylase Level 14 U/L (25-115) L Lipase 47 U/L (73-393) L Current Medications Medications (Trade) Dose Ordered Sig/[place] Route PRN Reason Start Time Stop Time Status Last Admin Dose Admin Acetaminophen (Tylenol) 650 mg Q4H PRN ORAL Mild Pain/Temp > 100.5 09/24/18 22:00 10/24/18 21:59 Acetaminophen/ Hydrocodone Bitart ([place] 10/325) 1 tab QID PRN ORAL Severe Pain (Pain Scale 7-10) 09/25/18 01:30 10/02/18 01:29 09/25/18 17:08 Acetaminophen/ Hydrocodone Bitart ([place] 5/325) 1 tab Q6H PRN ORAL Moderate Breakthru Pain (5-7) 09/25/18 07:30 10/02/18 01:29 Buspirone HCl (Buspar) 10 mg THREE TIMES A DAY ORAL 09/25/18 09:00 10/25/18 08:59 09/25/18 17:07 Cyclobenzaprine HCl (Flexeril) 10 mg THREE TIMES A DAY ORAL 09/24/18 23:00 10/25/18 08:59 09/25/18 17:07 Dextrose/Sodium Chloride 1,000 ml @ 100 mls/hr Q10H IV 09/24/18 22:00 10/24/18 21:59 09/25/18 09:34 Diatrizoate Meglum/ Diatrizoate Sod (Gastrografin) 30 ml NOW PRN ORAL Radiology Procedure 09/25/18 14:45 09/28/18 14:36 Doxepin HCl (SINEquan) 50 mg BEDTIME ORAL 09/25/18 01:30 10/25/18 01:29 09/25/18 02:03 Enoxaparin Sodium (Lovenox) 40 mg DAILY SUBQ 09/25/18 09:00 10/25/18 08:59 09/25/18 09:36 Folic Acid (Folate) 1 mg DAILY ORAL 09/26/18 09:00 10/26/18 08:59 Folic Acid 1 mg/ Magnesium Sulfate 2000 mg/ Multivitamins 10 ml/Sodium Chloride 1,014.2 ml @ 100 mls/ hr Q24H ONCE IV 09/25/18 11:00 09/25/18 21:08 09/25/18 11:20 Hydroxyzine HCl (Atarax) 100 mg EVERY 6 HOURS ORAL 09/25/18 00:00 10/25/18 00:00 09/25/18 17:06 Iopamidol (Isovue-300 100ml) 100 ml NOW PRN INJ Radiology Procedure 09/24/18 16:00 Levothyroxine Sodium (Synthroid) 50 mcg ACBREAKFAST ORAL 09/25/18 06:30 10/25/18 06:29 09/25/18 06:35 Methocarbamol (Robaxin) 500 mg QID ORAL 09/24/18 22:15 10/24/18 22:14 09/25/18 17:06 Multivitamins (Multivitamins) 1 tab DAILY ORAL 09/26/18 09:00 10/26/18 08:59 Ondansetron HCl (Zofran) 4 mg Q6H PRN ORAL Nausea & Vomiting 09/24/18 22:00 10/24/18 21:59 09/25/18 09:34 Oxycodone/ Acetaminophen (Percocet 10/325) 1 tab Q4H PRN ORAL moderate to severe pain (4-10) 09/25/18 16:15 10/02/18 16:14 Pantoprazole (Protonix) 40 mg DAILY ORAL 09/25/18 09:00 10/25/18 08:59 09/25/18 09:36 Piperacillin Sod/ Tazobactam Sod 3.375 gm/Sodium Chloride 110 ml @ 27.5 mls/hr EVERY 8 HOURS IVPB 09/25/18 13:00 09/30/18 12:59 09/25/18 12:58 Oralia Mohan M.D. Sep 25, 2018 17:58
--- NOTE | 2018-09-25 18:38 | Consultation ---
History of Present Illness General Chief Complaint: Vomiting Referring physician: POLLY Reason for Consultation: Persistent nausea and vomiting Present Illness Allergies: Coded Allergies: GABAPENTIN (Verified Allergy, Unknown, 09/24/18) METAXALONE (Verified Allergy, Unknown, 09/24/18) MORPHINE (Verified Allergy, Unknown, 09/24/18) QUETIAPINE (Verified Allergy, Unknown, 09/24/18) Medication History Scheduled Buspirone Hcl* (Buspar*), 10 MG ORAL THREE TIMES A DAY, (Reported) Cyclobenzaprine Hcl* (Flexeril*), 10 MG ORAL THREE TIMES A DAY, (Reported) Hydroxyzine Pamoate* (Vistaril*), 100 MG ORAL EVERY 6 HOURS, (Reported) Levothyroxine Sodium* (Synthroid*), 50 MCG ORAL DAILY, (Reported) Methocarbamol* (Robaxin*), 500 MG PO QID, (Reported) Pantoprazole* (Protonix*), 40 MG ORAL DAILY, (Reported) Scheduled PRN Ondansetron* (Zofran*), 4 MG ORAL Q6H PRN for Nausea & Vomiting, (Reported) Miscellaneous Medications Rizatriptan Benzoate (Maxalt), 10 MG PO, (Reported) Patient History Healthcare decision maker Resuscitation status Full Code Advanced Directive on File Physical Exam Last 24 Hour Vital Signs Date Time Temp Pulse Resp B/P (MAP) Pulse Ox O2 Delivery O2 Flow Rate FiO2 09/25/18 17:37 98.1 09/25/18 17:37 98.1 09/25/18 16:00 98.1 87 17 78/53 (61) 100 09/25/18 12:00 97.7 82 16 81/55 (64) 96 09/25/18 10:31 Room Air 09/25/18 08:00 97.7 85 17 85/53 (64) 96 09/25/18 04:00 97.5 87 20 90/54 (66) 97 09/25/18 01:46 Room Air 09/25/18 00:00 97.9 90 18 94/64 (74) 99 09/24/18 20:30 98.3 87 18 93/62 96 Room Air 80 09/24/18 20:00 98.3 87 18 93/62 (72) 96 09/24/18 19:48 97.5 80 16 104/67 100 Room Air Intake and Output 09/24/18 09/25/18 18:59 06:59 Intake Total 1000 ml 750 ml Balance 1000 ml 750 ml Intake Oral 50 ml IV Total 1000 ml 700 ml # Voids 1 1 Laboratory Tests Test 09/25/18 04:30 White Blood Count 2.1 K/UL (4.8-10.8) *L Red Blood Count 2.78 M/UL (4.20-5.40) L Hemoglobin 8.6 G/DL (12.0-16.0) L Hematocrit 26.4 % (37.0-47.0) L Mean Corpuscular Volume 95 FL (80-99) Mean Corpuscular Hemoglobin 31.0 PG (27.0-31.0) Mean Corpuscular Hemoglobin Concent 32.6 G/DL (32.0-36.0) Red Cell Distribution Width 17.9 % (11.6-14.8) H Platelet Count 196 K/UL (150-450) Mean Platelet Volume 5.6 FL (6.5-10.1) L Neutrophils (%) (Auto) % (45.0-75.0) Lymphocytes (%) (Auto) % (20.0-45.0) Monocytes (%) (Auto) % (1.0-10.0) Eosinophils (%) (Auto) % (0.0-3.0) Basophils (%) (Auto) % (0.0-2.0) Differential Total Cells Counted 100 Neutrophils % (Manual) 30 % (45-75) L Lymphocytes % (Manual) 52 % (20-45) H Monocytes % (Manual) 17 % (1-10) H Eosinophils % (Manual) 1 % (0-3) Basophils % (Manual) 0 % (0-2) Band Neutrophils 0 % (0-8) Platelet Estimate Adequate Platelet Morphology Normal Anisocytosis 1+ Sodium Level 145 MMOL/L (136-145) Potassium Level 3.0 MMOL/L (3.5-5.1) L Chloride Level 112 MMOL/L (98-107) H Carbon Dioxide Level 29 MMOL/L (21-32) Anion Gap 4 mmol/L (5-15) L Blood Urea Nitrogen 10 mg/dL (7-18) Creatinine 0.9 MG/DL (0.55-1.30) Estimat Glomerular Filtration Rate > 60 mL/min (>60) Glucose Level 110 MG/DL (74-106) H Hemoglobin A1c 4.7 % (4.3-6.0) Calcium Level 6.9 MG/DL (8.5-10.1) L Total Bilirubin 0.4 MG/DL (0.2-1.0) Aspartate Amino Transf (AST/SGOT) 18 U/L (15-37) Alanine Aminotransferase (ALT/SGPT) 38 U/L (12-78) Alkaline Phosphatase 74 U/L (46-116) Total Protein 3.6 G/DL (6.4-8.2) L Albumin 1.4 G/DL (3.4-5.0) L Globulin 2.2 g/dL Albumin/Globulin Ratio 0.6 (1.0-2.7) L Amylase Level 14 U/L (25-115) L Lipase 47 U/L (73-393) L Height (Feet): 5 Height (Inches): 4.00 Weight (Pounds): 142 Medications Current Medications Medications (Trade) Dose Ordered Sig/[place] Route PRN Reason Start Time Stop Time Status Last Admin Dose Admin Acetaminophen (Tylenol) 650 mg Q4H PRN ORAL Mild Pain/Temp > 100.5 09/24/18 22:00 10/24/18 21:59 Acetaminophen/ Hydrocodone Bitart ([place] 10/325) 1 tab QID PRN ORAL Severe Pain (Pain Scale 7-10) 09/25/18 01:30 10/02/18 01:29 09/25/18 17:08 Acetaminophen/ Hydrocodone Bitart ([place] 5/325) 1 tab Q6H PRN ORAL Moderate Breakthru Pain (5-7) 09/25/18 07:30 10/02/18 01:29 Buspirone HCl (Buspar) 10 mg THREE TIMES A DAY ORAL 09/25/18 09:00 10/25/18 08:59 09/25/18 17:07 Cyclobenzaprine HCl (Flexeril) 10 mg THREE TIMES A DAY ORAL 09/24/18 23:00 10/25/18 08:59 09/25/18 17:07 Dextrose/Sodium Chloride 1,000 ml @ 100 mls/hr Q10H IV 09/24/18 22:00 10/24/18 21:59 09/25/18 09:34 Diatrizoate Meglum/ Diatrizoate Sod (Gastrografin) 30 ml NOW PRN ORAL Radiology Procedure 09/25/18 14:45 09/28/18 14:36 Doxepin HCl (SINEquan) 50 mg BEDTIME ORAL 09/25/18 01:30 10/25/18 01:29 09/25/18 02:03 Enoxaparin Sodium (Lovenox) 40 mg DAILY SUBQ 09/25/18 09:00 10/25/18 08:59 09/25/18 09:36 Folic Acid (Folate) 1 mg DAILY ORAL 09/26/18 09:00 10/26/18 08:59 Folic Acid 1 mg/ Magnesium Sulfate 2000 mg/ Multivitamins 10 ml/Sodium Chloride 1,014.2 ml @ 100 mls/ hr Q24H ONCE IV 09/25/18 11:00 09/25/18 21:08 09/25/18 11:20 Hydroxyzine HCl (Atarax) 100 mg EVERY 6 HOURS ORAL 09/25/18 00:00 10/25/18 00:00 09/25/18 17:06 Iopamidol (Isovue-300 100ml) 100 ml NOW PRN INJ Radiology Procedure 09/24/18 16:00 Levothyroxine Sodium (Synthroid) 50 mcg ACBREAKFAST ORAL 09/25/18 06:30 10/25/18 06:29 09/25/18 06:35 Methocarbamol (Robaxin) 500 mg QID ORAL 09/24/18 22:15 10/24/18 22:14 09/25/18 17:06 Multivitamins (Multivitamins) 1 tab DAILY ORAL 09/26/18 09:00 10/26/18 08:59 Ondansetron HCl (Zofran) 4 mg Q6H PRN ORAL Nausea & Vomiting 09/24/18 22:00 10/24/18 21:59 09/25/18 09:34 Oxycodone/ Acetaminophen (Percocet 10/325) 1 tab Q4H PRN ORAL moderate to severe pain (4-10) 09/25/18 16:15 10/02/18 16:14 Pantoprazole (Protonix) 40 mg DAILY ORAL 09/25/18 09:00 10/25/18 08:59 09/25/18 09:36 Piperacillin Sod/ Tazobactam Sod 3.375 gm/Sodium Chloride 110 ml @ 27.5 mls/hr EVERY 8 HOURS IVPB 09/25/18 13:00 09/30/18 12:59 09/25/18 12:58 Assessment/Plan Assessment: Hematology Consultation DOS: 09/25/18 RFC: Severe leukopenia LOLIS MD: Caty Ferreira Chief Complaint: Vomiting Present Illness HPI 43y female presents with complaints of continuous nausea vomiting Patient reports previous significant history of gastric bypass Competitions from that leading to malnutrition Patient has had previous abdominal surgeries for adhesions Recently had surgery at [facility] for similar problems Patient has not remained increasingly nauseated persistently vomiting Denies any chest pain denies any fevers or chills Patient has a Port-A-Cath which she has had for many years Also secondary to malnutrition reasons And presents for further evaluation Has been by surgery and gi as well Allergies: GABAPENTIN (Verified Allergy, Unknown, 09/24/18) METAXALONE (Verified Allergy, Unknown, 09/24/18) MORPHINE (Verified Allergy, Unknown, 09/24/18) QUETIAPINE (Verified Allergy, Unknown, 09/24/18) Past Medical History: see triage record Pertinent Family History: none Last Menstrual Period: 2008 Now: No Reviewed Nursing Documentation: PMH: Agreed; PSxH: Agreed Nursing Documentation-PMH Past Medical History: No History, Except For Hx Cardiac Problems: No - HYPOTHYROIDISM History Of Psychiatric Problem: No - ANXIETY Hx Neurological Problems: Yes - FIBROMYALGIA Review of Systems: negative except mentioned in HPI PE Vital Signs Date Time Temp Pulse Resp B/P (MAP) Pulse Ox O2 Delivery O2 Flow Rate FiO2 09/25/18 15:38 97.5 96 18 102/66 96 Room Air Vitals: reviewed, normal Gen: mild distress - Uncomfortable Head: normocephalic, atraumatic ENT: dry mucus membranes Neck: supple Respiratory: lungs clear, no retraction, no accessory muscle use Cardiovascular: regular rate, rhythm Gastrointestinal: other - Some questionable decreased bowel sounds, patient has evidence of laparoscopic surgical sites in the left in the upper lower abdominal region Musculoskeletal: normal inspection Neurologic: alert, oriented x3, responsive Psychiatric: normal inspection Skin: other - Pallor Lymphatic: no adenopathy Laboratory Tests Test 09/25/18 04:30 White Blood Count 2.1 K/UL (4.8-10.8) *L Red Blood Count 2.78 M/UL (4.20-5.40) L Hemoglobin 8.6 G/DL (12.0-16.0) L Hematocrit 26.4 % (37.0-47.0) L Mean Corpuscular Volume 95 FL (80-99) Mean Corpuscular Hemoglobin 31.0 PG (27.0-31.0) Mean Corpuscular Hemoglobin Concent 32.6 G/DL (32.0-36.0) Red Cell Distribution Width 17.9 % (11.6-14.8) H Platelet Count 196 K/UL (150-450) Mean Platelet Volume 5.6 FL (6.5-10.1) L Neutrophils (%) (Auto) % (45.0-75.0) Lymphocytes (%) (Auto) % (20.0-45.0) Monocytes (%) (Auto) % (1.0-10.0) Eosinophils (%) (Auto) % (0.0-3.0) Basophils (%) (Auto) % (0.0-2.0) Differential Total Cells Counted 100 Neutrophils % (Manual) 30 % (45-75) L Lymphocytes % (Manual) 52 % (20-45) H Monocytes % (Manual) 17 % (1-10) H Eosinophils % (Manual) 1 % (0-3) Basophils % (Manual) 0 % (0-2) Band Neutrophils 0 % (0-8) Platelet Estimate Adequate Platelet Morphology Normal Anisocytosis 1+ Sodium Level 145 MMOL/L (136-145) Potassium Level 3.0 MMOL/L (3.5-5.1) L Chloride Level 112 MMOL/L (98-107) H Carbon Dioxide Level 29 MMOL/L (21-32) Anion Gap 4 mmol/L (5-15) L Blood Urea Nitrogen 10 mg/dL (7-18) Creatinine 0.9 MG/DL (0.55-1.30) Estimat Glomerular Filtration Rate > 60 mL/min (>60) Glucose Level 110 MG/DL (74-106) H Hemoglobin A1c 4.7 % (4.3-6.0) Calcium Level 6.9 MG/DL (8.5-10.1) L Total Bilirubin 0.4 MG/DL (0.2-1.0) Aspartate Amino Transf (AST/SGOT) 18 U/L (15-37) Alanine Aminotransferase (ALT/SGPT) 38 U/L (12-78) Alkaline Phosphatase 74 U/L (46-116) Total Protein 3.6 G/DL (6.4-8.2) L Albumin 1.4 G/DL (3.4-5.0) L Globulin 2.2 g/dL Albumin/Globulin Ratio 0.6 (1.0-2.7) L Amylase Level 14 U/L (25-115) L Lipase 47 U/L (73-393) L Assessment/Recs: # Decreased white blood cell count, unspec (aka leukopenia) - wbc under 4k, could be related to infection v meds (Did have a bone marrow biopsy at [facility] with Dr. Rosenthal) obtain this record --> if the total ANC is less than 2000, consider neupogen --> continue antibiotics with ID service, appreciate recs --> medications have been reviewed --> hepatitis and hiv have been ordered --> obtain [facility] records of bone marrow biopsy completed a week ago --> consider neupogen if wbc decreases any further # Anemia of chronic disease (or of iron deficiency) due to underlying chronic medical issues, multifactorial --> Anemia workup has been ordered, rule out gi bleed --> No evidence of hemolysis is noted, peripheral smear has been reviewed. --> Hgb goal >7. Transfuse prn. --> Epogen or iron at this time is not particularly indicated --> Medications have been reviewed --> evaluate with Gi team prn --> transfuse if hgb is < 7 (will trend CBC daily) --> low threshold for gi evaluation in case has occult + # Adhesions of the abd --> may need exp lap as per surg # Nausea and vomiting --> zofran iv prn has been started # Dehydration -- on ivf prn # Electrolyte abnml as per renal The timing of this note does not necessarily reflect the time of the patient was seen. Greatly appreciate consultation! Scott Smyth MD Sep 25, 2018 18:38
--- NOTE | 2018-09-25 19:41 | NUR ---
NURSE NOTES: Received patient in bed, awake, alert, oriented, on room air, no acute distress noted, call light is within reach, bed is in low position, locked and alarm is on. Will continue to monitor for safety and comfort.
--- NOTE | 2018-09-25 19:59 | NUR ---
HAND-OFF: Report given to TAWNY MCCORMICK.
--- NOTE | 2018-09-25 23:29 | Diagnostic Imaging Report ---
APPROVED REPORT CPT Code: 98654 Present Symptoms Comments: Abdominal pain BILATERAL: Imaging reveals a patent deep venous system bilaterally. There is no evidence of thrombus within the common femoral, superficial femoral, popliteal or tibial segments. The greater saphenous veins are within normal limits. Doppler indicates normal spontaneous flow within these segments.
--- NOTE | 2018-09-25 23:45 | History and Physical Report ---
DATE OF ADMISSION: 09/24/2018 SOURCE OF INFORMATION: The patient and EMR. HISTORY OF PRESENT ILLNESS: The patient is a 43-year-old female with history of partial bowel obstruction, status post surgery in [facility]. The patient today complaining of not tolerating the p.o. diet and multiple persistent episodes of vomitus and nausea. Also complaining of swelling and edema of the lower extremities. At the time of evaluation, the patient is denying chest pain or shortness of breath. No fever. No chills. Mild abdominal pain. ALLERGIES: including morphine and Seroquel. FAMILY HISTORY: Positive for history of cancer in the mother and heart disease in the father. SOCIAL HISTORY: The patient has 4 children. Positive for prior history of heavy alcohol intake, also positive for tobacco use on a daily basis. The patient is currently actively registered in the sober living. PAST SURGICAL HISTORY: Including but not limited to bowel obstruction, status post laparoscopic surgery at [facility]. CURRENT HOSPITAL MEDICATIONS: Including but not limited to following. Buspirone, doxepin, Lovenox, levothyroxine, multivitamin. PAST MEDICAL HISTORY: History of alcoholism, , hypothyroidism, leukemia and migraine. PHYSICAL EXAMINATION: VITAL SIGNS: Blood pressure of 100/80, temperature 98.2, pulse oximetry 98% on room air, respiratory rate 18. HEAD AND NECK: Atraumatic and normocephalic. CHEST: Clear to auscultation. HEART: S1 and S2. Regular rate and rhythm. ABDOMEN: Soft. No organomegaly. MUSCULOSKELETAL: Positive for 2+ edema in the lower extremities. NEUROLOGIC: Awake, alert, and oriented x3. LABORATORY DATA: Labs dated September 24, shows WBC 2.8, hemoglobin 9.3, platelets 213,000. Sodium 132, potassium 3.1, BUN 10, creatinine 0.7, albumin 1.6. ASSESSMENT: 1. Abdominal pain, status post small-bowel obstruction surgery at [facility], 2. Cachexia. 3. Alcohol Abuse, h.o of. 4. Anemia, microcytic. 5. Leukemia - history of, reported by the patient. 6. Hypokalemia. 7. GI/DVT prophylaxis. PLAN OF CARE: I will consult GI and Surgeron. We will keep the patient NPO.Nutrition consult. We will hold on the Lovenox. We have consulted psychiatrist regarding the need for tapering on the psychotropic medication causing potential bone marrow suppression . Caty Ferreira M.D. DR: VERONICA JOB#: [id number] CC: JACKELINE
[2018-09-26] VITALS: BP 81/55
[2018-09-26] MEDS: HydrOXYzine 50mg tab ORAL SCH ×4 (00:24→18:38)
[2018-09-26] MEDS: Vancomycin 1.25gm Premix q24h IVPB SCH ×2 (00:25→12:21)
[2018-09-26] MEDS: HYDROcodone/Acetamin 10/325 tab ORAL PRN ×3 (01:57→12:22)
[2018-09-26 04:00] VITALS: BP 78/56
[2018-09-26] MEDS: D5NS 1,000 ML IV SCH ×2 (04:56→14:00)
[2018-09-26 05:09] LABS: HEMATOCRIT 27.6 % (37.0-47.0); HEMOGLOBIN 8.7 G/DL (12.0-16.0); MEAN CORPUSCULAR VOLUME 97 FL (80-99); PLATELET COUNT 205 K/UL (150-450); RED BLOOD COUNT 2.85 M/UL (4.20-5.40); RED CELL DISTRIBUTION WIDTH 18.7 % (11.6-14.8)
[2018-09-26] MEDS: Piperacillin/Tazobactam 3.375 GM in NS 110 ML IVPB SCH ×3 (05:12→22:18)
--- NOTE | 2018-09-26 05:21 | NUR ---
NURSE NOTES: Notified MD of the WBC value of 2.0.
[2018-09-26 05:22] LABS: INR 1.2 (0.9-1.1)
[2018-09-26] MEDS: Levothyroxine 25mcg tab ORAL SCH (05:59)
[2018-09-26 06:04] LABS: ALANINE AMINOTRANSFERASE 37 U/L (12-78); ALBUMIN 1.3 G/DL (3.4-5.0); ALBUMIN/GLOBULIN RATIO 0.6 (1.0-2.7); ALKALINE PHOSPHATASE 78 U/L (46-116); ANION GAP 6 mmol/L (5-15); ASPARTATE AMINO TRANSFERASE 22 U/L (15-37); BILIRUBIN,TOTAL 0.5 MG/DL (0.2-1.0); BLOOD UREA NITROGEN 8 mg/dL (7-18); CALCIUM 6.7 MG/DL (8.5-10.1); CARBON DIOXIDE 25 MMOL/L (21-32); CHLORIDE 113 MMOL/L (98-107); CREATININE 0.9 MG/DL (0.55-1.30); FERRITIN 95 NG/ML (8-388); POTASSIUM 3.6 MMOL/L (3.5-5.1); SODIUM 144 MMOL/L (136-145)
[2018-09-26 06:29] LABS: % IRON SATURATION 77 % (15-50); IRON 77 ug/dL (50-175); TOTAL IRON BINDING CAPACITY 100 ug/dL (250-450)
--- NOTE | 2018-09-26 06:55 | NUR ---
HAND-OFF: Report given to Sukhdeep HECTOR.
--- NOTE | 2018-09-26 07:45 | NUR ---
NURSE NOTES: Received patient on bed, awake. Portacath left upper chest intact and patent. Bed in low and locked position, call light in reach. No signs of respiratory distress. Patient complains of pain will give scheduled and PRN medications. Room board updated, will continue to monitor.
[2018-09-26 08:00] VITALS: BP 80/58
--- NOTE | 2018-09-26 08:24 | NUR ---
NURSE NOTES: Patient WBC is 2.0. MD Ferreira aware. Notified MD Smyth.
[2018-09-26] MEDS: Methocarbamol 500mg tab ORAL SCH ×4 (09:06→19:59)
[2018-09-26] MEDS: Cyclobenzaprine 10mg Tab ORAL SCH ×3 (09:06→18:39)
[2018-09-26] MEDS: BusPIRone 5mg Tab ORAL SCH ×3 (09:06→18:38)
[2018-09-26] MEDS: Enoxaparin 40mg Inj SUBQ SCH (09:07)
--- NOTE | 2018-09-26 10:10 | NUR ---
NURSE NOTES: Patient off floor for procedure.
--- NOTE | 2018-09-26 10:43 | GI Progress Note ---
Assessment/Plan Problems: (1) Nausea and vomiting ICD Codes: R11.2 - Nausea with vomiting, unspecified SNOMED: 18485946 (2) Dehydration ICD Codes: E86.0 - Dehydration SNOMED: 59980186 (3) Small bowel obstruction due to adhesions ICD Codes: K56.50 - Intestinal adhesions [bands], unspecified as to partial versus complete obstruction SNOMED: 439682193 (4) History of gastric bypass ICD Codes: Z98.84 - Bariatric surgery status SNOMED: 057408933 (5) Electrolyte imbalance ICD Codes: E87.8 - Other disorders of electrolyte and fluid balance, not elsewhere classified SNOMED: 391759281 Status: stable Status Narrative Discussed Dr. Rosenberg Assessment/Plan Abdominal pelvis CT reviewed. - Evidence of prior Marine-en-Y gastric bypass. - There is air-fluid levels and dilatation of portions of the proximal jejunum/ biliopancreatic limb leading up to the enteroenteric anastomosis concerning for a degree of obstruction or stasis. - No evidence of free intraperitoneal air, ascites, pneumatosis intestinalis or portalvenous gas. - Status post cholecystectomy. Follow up surgical recommendations, patient scheduled for upper GI series with small bowel follow-through regular diet zofran prn, reglan prn for persistent vomiting anemia work up OB stool r/o GI bleed monitor H&H, prn transfusions ppi electrolyte correction fu labs The patient was seen and examined at bedside and all new and available data was reviewed in the patients chart. I agree with the above findings, impression and plan. (Patient seen earlier today. Signature stamp does not reflect patient encounter time.). - Teddy Rosenberg MD Subjective Subjective No nausea or vomiting today Objective Last 24 Hour Vital Signs Date Time Temp Pulse Resp B/P (MAP) Pulse Ox O2 Delivery O2 Flow Rate FiO2 09/26/18 09:00 Room Air 09/26/18 08:00 97.7 86 18 80/58 (65) 98 09/26/18 04:00 97.6 85 17 78/56 (63) 09/26/18 00:00 98.2 83 20 81/55 (64) 83 09/25/18 21:00 Room Air 09/25/18 20:00 97.9 64 20 81/54 (63) 64 09/25/18 18:00 95/60 (72) 4/17/19 17:37 98.1 09/25/18 17:37 98.1 09/25/18 16:00 98.1 87 17 78/53 (61) 100 09/25/18 12:00 97.7 82 16 81/55 (64) 96 Intake and Output 09/25/18 09/26/18 18:59 06:59 Intake Total 2346.0 ml 700 ml Balance 2346.0 ml 700 ml Intake Oral 680 ml IV Total 1666.0 ml 700 ml # Voids 3 2 # Bowel Movements 1 Laboratory Tests Test 09/26/18 04:15 White Blood Count 2.0 K/UL (4.8-10.8) *L Red Blood Count 2.85 M/UL (4.20-5.40) L Hemoglobin 8.7 G/DL (12.0-16.0) L Hematocrit 27.6 % (37.0-47.0) L Mean Corpuscular Volume 97 FL (80-99) Mean Corpuscular Hemoglobin 30.7 PG (27.0-31.0) Mean Corpuscular Hemoglobin Concent 31.7 G/DL (32.0-36.0) L Red Cell Distribution Width 18.7 % (11.6-14.8) H Platelet Count 205 K/UL (150-450) Mean Platelet Volume 5.2 FL (6.5-10.1) L Neutrophils (%) (Auto) % (45.0-75.0) Lymphocytes (%) (Auto) % (20.0-45.0) Monocytes (%) (Auto) % (1.0-10.0) Eosinophils (%) (Auto) % (0.0-3.0) Basophils (%) (Auto) % (0.0-2.0) Differential Total Cells Counted 100 Neutrophils % (Manual) 16 % (45-75) L Lymphocytes % (Manual) 68 % (20-45) H Monocytes % (Manual) 13 % (1-10) H Eosinophils % (Manual) 2 % (0-3) Basophils % (Manual) 1 % (0-2) Band Neutrophils 0 % (0-8) Platelet Estimate Adequate Platelet Morphology Normal Hypochromasia 1+ Anisocytosis 1+ Reticulocyte Count 2.8 % (0.0-2.0) H Prothrombin Time 12.4 SEC (9.30-11.50) H Prothromb Time International Ratio 1.2 (0.9-1.1) H Activated Partial Thromboplast Time 26 SEC (23-33) Sodium Level 144 MMOL/L (136-145) Potassium Level 3.6 MMOL/L (3.5-5.1) Chloride Level 113 MMOL/L (98-107) H Carbon Dioxide Level 25 MMOL/L (21-32) Anion Gap 6 mmol/L (5-15) Blood Urea Nitrogen 8 mg/dL (7-18) Creatinine 0.9 MG/DL (0.55-1.30) Estimat Glomerular Filtration Rate > 60 mL/min (>60) Glucose Level 87 MG/DL (74-106) Calcium Level 6.7 MG/DL (8.5-10.1) L Iron Level 77 ug/dL (50-175) Total Iron Binding Capacity 100 ug/dL (250-450) L Percent Iron Saturation 77 % (15-50) H Unsaturated Iron Binding 23 ug/dL (112-346) L Ferritin 95 NG/ML (8-388) Total Bilirubin 0.5 MG/DL (0.2-1.0) Aspartate Amino Transf (AST/SGOT) 22 U/L (15-37) Alanine Aminotransferase (ALT/SGPT) 37 U/L (12-78) Alkaline Phosphatase 78 U/L (46-116) Total Protein 3.6 G/DL (6.4-8.2) L Albumin 1.3 G/DL (3.4-5.0) L Globulin 2.3 g/dL Albumin/Globulin Ratio 0.6 (1.0-2.7) L Carcinoembryonic Antigen Pending Vitamin B12 Level 1840 PG/ML (193-986) H Folate 22.5 NG/ML (8.6-58.9) Thyroid Stimulating Hormone (TSH) 3.909 uiU/mL (0.358-3.740) Free Thyroxine 0.91 NG/DL (0.76-1.46) Cortisol AM Sample Pending Height (Feet): 5 Height (Inches): 4.00 Weight (Pounds): 142 General Appearance: WD/WN, no apparent distress, alert Cardiovascular: normal rate Respiratory/Chest: normal breath sounds, no respiratory distress Abdominal Exam: normal bowel sounds, non tender, soft Extremities: normal range of motion, non-tender Cassie Sanchez NP Sep 26, 2018 10:43
[2018-09-26 12:00] VITALS: BP 92/66
--- NOTE | 2018-09-26 13:06 | General Progress Note ---
Assessment/Plan Plan: S: I am feeling pain all over O: tolerating only liquid diet PHYSICAL EXAMINATION: HEAD AND NECK: Atraumatic and normocephalic. CHEST: Clear to auscultation. HEART: S1 and S2. Regular rate and rhythm. ABDOMEN: Soft. No organomegaly. MUSCULOSKELETAL: Positive for 2+ edema in the lower extremities. NEUROLOGIC: Awake, alert, and oriented x3. meds: including Vanco and zosyn ASSESSMENT: 1. Abdominal pain, status post small-bowel obstruction surgery at [facility], 2. Cachexia. Sever Protein malnourishment 3. Alcohol Abuse, h.o of. 4. Anemia, microcytic. 5. Leukemia - history of, reported by the patient. 6. Hypokalemia. 7. GI/DVT prophylaxis. Plan: HypoAlbuminemia Will optimize pain medication Subjective Allergies: Coded Allergies: GABAPENTIN (Verified Allergy, Unknown, 09/24/18) METAXALONE (Verified Allergy, Unknown, 09/24/18) MORPHINE (Verified Allergy, Unknown, 09/24/18) QUETIAPINE (Verified Allergy, Unknown, 09/24/18) Objective Last 24 Hour Vital Signs Date Time Temp Pulse Resp B/P (MAP) Pulse Ox O2 Delivery O2 Flow Rate FiO2 09/26/18 09:00 Room Air 09/26/18 08:00 97.7 86 18 80/58 (65) 98 09/26/18 04:00 97.6 85 17 78/56 (63) 09/26/18 00:00 98.2 83 20 81/55 (64) 83 09/25/18 21:00 Room Air 09/25/18 20:00 97.9 64 20 81/54 (63) 64 09/25/18 18:00 95/60 (72) 09/25/18 17:37 98.1 09/25/18 17:37 98.1 09/25/18 16:00 98.1 87 17 78/53 (61) 100 Intake and Output 09/25/18 09/26/18 19:00 07:00 Intake Total 2346.0 ml 700 ml Balance 2346.0 ml 700 ml Intake Oral 680 ml IV Total 1666.0 ml 700 ml # Voids 3 2 # Bowel Movements 1 Laboratory Tests 09/26/18 04:15: White Blood Count 2.0*L, Red Blood Count 2.85L, Hemoglobin 8.7L, Hematocrit 27.6L, Mean Corpuscular Volume 97, Mean Corpuscular Hemoglobin 30.7, Mean Corpuscular Hemoglobin Concent 31.7L, Red Cell Distribution Width 18.7H, Platelet Count 205, Mean Platelet Volume 5.2L, Neutrophils (%) (Auto) , Lymphocytes (%) (Auto) , Monocytes (%) (Auto) , Eosinophils (%) (Auto) , Basophils (%) (Auto) , Differential Total Cells Counted 100, Neutrophils % ( Manual) 16L, Lymphocytes % (Manual) 68H, Monocytes % (Manual) 13H, Eosinophils % (Manual) 2, Basophils % (Manual) 1, Band Neutrophils 0, Platelet Estimate Adequate, Platelet Morphology Normal, Hypochromasia 1+, Anisocytosis 1+, Reticulocyte Count 2.8H, Prothrombin Time 12.4H, Prothromb Time International Ratio 1.2H, Activated Partial Thromboplast Time 26, Sodium Level 144, Potassium Level 3.6, Chloride Level 113H, Carbon Dioxide Level 25, Anion Gap 6, Blood Urea Nitrogen 8, Creatinine 0.9, Estimat Glomerular Filtration Rate > 60, Glucose Level 87, Calcium Level 6.7L, Iron Level 77, Total Iron Binding Capacity 100L, Percent Iron Saturation 77H, Unsaturated Iron Binding 23L, Ferritin 95, Total Bilirubin 0.5, Aspartate Amino Transf (AST/SGOT) 22, Alanine Aminotransferase (ALT/SGPT) 37, Alkaline Phosphatase 78, Total Protein 3.6L, Albumin 1.3L, Globulin 2.3, Albumin/Globulin Ratio 0.6L, Carcinoembryonic Antigen [Pending], Vitamin B12 Level 1840H, Folate 22.5, Thyroid Stimulating Hormone (TSH) 3.909H, Free Thyroxine 0.91, Cortisol AM Sample [Pending] Height (Feet): 5 Height (Inches): 4.00 Weight (Pounds): 142 Caty Ferreira MD Sep 26, 2018 13:06
--- NOTE | 2018-09-26 13:44 | NUR ---
*-* NO INSURANCE INFORMATION IN THE BAR TO SEND CLINICALS *-*
--- NOTE | 2018-09-26 14:03 | Diagnostic Imaging Report ---
Indication: Abdominal pain history of obstruction Technique: Upper GI series is obtained. Medical Research Associate radiograph were obtained. Subsequently patient ingested water-soluble contrast and multiple fluoroscopic images were obtained up to one hour post enteric contrast administration. Comparison: CT abdomen pelvis 09/24/2018 Findings: Medical Research Associate radiograph demonstrates surgical material projecting in the region of the epigastrium as well as some surgical clips in the right upper quadrant. Additional surgical material material noted in the mid abdomen on both sides of the spine as well as a surgical clip in the pelvis. Oral contrast was administered. Imaged 15 minutes after oral contrast demonstrate prompt passage of contrast into the alimentary limb and through the small bowel. Administered enteric contrast reaches the ascending colon by 30 minutes. By 45 minutes contrast is noted in the descending colon. Throughout the study there is a prominent loop of small bowel noted projecting to the right of the spine most likely presenting the dilated loop of proximal jejunum adjacent to the enteric anastomosis noted on CT. This is concerning for a degree of partial obstruction versus stasis versus impediment of flow across the biliopancreatic limb. IMPRESSION: No evidence of obstruction of the alimentary limb or distal small bowel. Administered oral contrast reaches the colon by 30 minutes. Mild distention of a loop of small bowel to the right of the spine in the region of the anastomosis of the biliopancreatic limb consistent with findings of CT 09/24/2018. Again, findings are concerning for a degree of either stasis or obstruction.
[2018-09-26] MEDS: oxyCONTIN 10mg tab ORAL SCH ×2 (14:07→19:59)
--- NOTE | 2018-09-26 15:23 | Surgery Progress Note ---
Surgery Progress Note Subjective Additional Comments no acute events. had upper gi study today. states some emesis of contrast as it did not taste well. labs noted. exam stable. min abd pain Objective Last 24 Hour Vital Signs Date Time Temp Pulse Resp B/P (MAP) Pulse Ox O2 Delivery O2 Flow Rate FiO2 09/26/18 12:00 97.9 84 19 92/66 (75) 99 09/26/18 09:00 Room Air 09/26/18 08:00 97.7 86 18 80/58 (65) 98 09/26/18 04:00 97.6 85 17 78/56 (63) 09/26/18 00:00 98.2 83 20 81/55 (64) 83 09/25/18 21:00 Room Air 09/25/18 20:00 97.9 64 20 81/54 (63) 64 09/25/18 18:00 95/60 (72) 09/25/18 17:37 98.1 09/25/18 17:37 98.1 09/25/18 16:00 98.1 87 17 78/53 (61) 100 I&O Intake and Output 09/25/18 09/26/18 19:00 07:00 Intake Total 2346.0 ml 700 ml Balance 2346.0 ml 700 ml Intake Oral 680 ml IV Total 1666.0 ml 700 ml # Voids 3 2 # Bowel Movements 1 Dressing: dry Wound: clean Drains: none Cardiovascular: RSR Respiratory: clear Abdomen: soft, flat, non-tender, present bowel sounds Extremities: no cyanosis Laboratory Tests Test 09/26/18 04:15 White Blood Count 2.0 K/UL (4.8-10.8) *L Red Blood Count 2.85 M/UL (4.20-5.40) L Hemoglobin 8.7 G/DL (12.0-16.0) L Hematocrit 27.6 % (37.0-47.0) L Mean Corpuscular Volume 97 FL (80-99) Mean Corpuscular Hemoglobin 30.7 PG (27.0-31.0) Mean Corpuscular Hemoglobin Concent 31.7 G/DL (32.0-36.0) L Red Cell Distribution Width 18.7 % (11.6-14.8) H Platelet Count 205 K/UL (150-450) Mean Platelet Volume 5.2 FL (6.5-10.1) L Neutrophils (%) (Auto) % (45.0-75.0) Lymphocytes (%) (Auto) % (20.0-45.0) Monocytes (%) (Auto) % (1.0-10.0) Eosinophils (%) (Auto) % (0.0-3.0) Basophils (%) (Auto) % (0.0-2.0) Differential Total Cells Counted 100 Neutrophils % (Manual) 16 % (45-75) L Lymphocytes % (Manual) 68 % (20-45) H Monocytes % (Manual) 13 % (1-10) H Eosinophils % (Manual) 2 % (0-3) Basophils % (Manual) 1 % (0-2) Band Neutrophils 0 % (0-8) Platelet Estimate Adequate Platelet Morphology Normal Hypochromasia 1+ Anisocytosis 1+ Reticulocyte Count 2.8 % (0.0-2.0) H Prothrombin Time 12.4 SEC (9.30-11.50) H Prothromb Time International Ratio 1.2 (0.9-1.1) H Activated Partial Thromboplast Time 26 SEC (23-33) Sodium Level 144 MMOL/L (136-145) Potassium Level 3.6 MMOL/L (3.5-5.1) Chloride Level 113 MMOL/L (98-107) H Carbon Dioxide Level 25 MMOL/L (21-32) Anion Gap 6 mmol/L (5-15) Blood Urea Nitrogen 8 mg/dL (7-18) Creatinine 0.9 MG/DL (0.55-1.30) Estimat Glomerular Filtration Rate > 60 mL/min (>60) Glucose Level 87 MG/DL (74-106) Calcium Level 6.7 MG/DL (8.5-10.1) L Iron Level 77 ug/dL (50-175) Total Iron Binding Capacity 100 ug/dL (250-450) L Percent Iron Saturation 77 % (15-50) H Unsaturated Iron Binding 23 ug/dL (112-346) L Ferritin 95 NG/ML (8-388) Total Bilirubin 0.5 MG/DL (0.2-1.0) Aspartate Amino Transf (AST/SGOT) 22 U/L (15-37) Alanine Aminotransferase (ALT/SGPT) 37 U/L (12-78) Alkaline Phosphatase 78 U/L (46-116) Total Protein 3.6 G/DL (6.4-8.2) L Albumin 1.3 G/DL (3.4-5.0) L Globulin 2.3 g/dL Albumin/Globulin Ratio 0.6 (1.0-2.7) L Carcinoembryonic Antigen Pending Vitamin B12 Level 1840 PG/ML (193-986) H Folate 22.5 NG/ML (8.6-58.9) Thyroid Stimulating Hormone (TSH) 3.909 uiU/mL (0.358-3.740) Free Thyroxine 0.91 NG/DL (0.76-1.46) Cortisol AM Sample Pending Plan Problems: (1) Vomiting (2) Dehydration (3) Electrolyte imbalance (4) Nausea and vomiting (5) Small bowel obstruction due to adhesions Assessment & Plan: CT noted exam with tenderness but incisional labs noted upper GI without obstruction no acute surgical intervention planned okay for diet am labs will follow with serial exams thank you Glynn Michelle Sep 26, 2018 15:23
--- NOTE | 2018-09-26 15:29 | NUR ---
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
[2018-09-26 16:00] VITALS: BP 88/61
--- NOTE | 2018-09-26 17:14 | Infectious Diseases Prog Note ---
Assessment/Plan Problems: (1) Hypotension Assessment & Plan: rule out sepsis, with H/O sepsis twice in the past , await blood culture x2 , continue zosyn and vancomycin empirically. will stop antibiotics if no evidence of bacterial growth in 24 hours (2) Small bowel obstruction due to adhesions Assessment & Plan: S/P recent adhesions lysis recently , advance diet as tolerated , continue hydration and pain management as needed (3) Dehydration Assessment & Plan: continue IVF with bolus as needed. (4) Nausea and vomiting Assessment & Plan: continue supportive care Subjective Constitutional: Reports: anorexia HEENT: Reports: no symptoms Respiratory: Reports: no symptoms Breasts: Reports: no symptoms Cardiovascular: Reports: no symptoms Gastrointestinal/Abdominal: Reports: nausea, bloating Genitourinary: Reports: no symptoms Neurologic: Reports: no symptoms Psychiatric: Reports: no symptoms Skin: Reports: no symptoms Endocrine: Reports: no symptoms Hematologic: Reports: no symptoms Musculoskeletal: Reports: no symptoms Allergies: Coded Allergies: GABAPENTIN (Verified Allergy, Unknown, 09/24/18) METAXALONE (Verified Allergy, Unknown, 09/24/18) MORPHINE (Verified Allergy, Unknown, 09/24/18) QUETIAPINE (Verified Allergy, Unknown, 09/24/18) Objective Vital Signs Last 24 Hour Vital Signs Date Time Temp Pulse Resp B/P (MAP) Pulse Ox O2 Delivery O2 Flow Rate FiO2 09/26/18 12:00 97.9 84 19 92/66 (75) 99 09/26/18 09:00 Room Air 09/26/18 08:00 97.7 86 18 80/58 (65) 98 09/26/18 04:00 97.6 85 17 78/56 (63) 09/26/18 00:00 98.2 83 20 81/55 (64) 83 09/25/18 21:00 Room Air 09/25/18 20:00 97.9 64 20 81/54 (63) 64 09/25/18 18:00 95/60 (72) 09/25/18 17:37 98.1 09/25/18 17:37 98.1 Height (Feet): 5 Height (Inches): 4.00 Weight (Pounds): 142 General Appearance: no acute distress, cachetic HEENT: normocephalic, atraumatic, anicteric, mucous membranes moist, PERRL Respiratory/Chest: chest wall non-tender, lungs clear, normal breath sounds, no respiratory distress, no accessory muscle use Cardiovascular: normal peripheral pulses, normal rate, regular rhythm, no gallop/murmur, no JVD Abdomen: normal bowel sounds, soft, non tender, no organomegaly, non distended , no mass, no scars Genitourinary: normal external genitalia Extremities: no cyanosis, no clubbing Skin: no rash, no lesions, no ulcers Neurologic/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 normal, alert, oriented x 3, responsive Lymphatic: no neck adenopathy, no groin adenopathy Musculoskeletal: normal muscle bulk, no effusion Laboratory Tests Test 09/26/18 04:15 White Blood Count 2.0 K/UL (4.8-10.8) *L Red Blood Count 2.85 M/UL (4.20-5.40) L Hemoglobin 8.7 G/DL (12.0-16.0) L Hematocrit 27.6 % (37.0-47.0) L Mean Corpuscular Volume 97 FL (80-99) Mean Corpuscular Hemoglobin 30.7 PG (27.0-31.0) Mean Corpuscular Hemoglobin Concent 31.7 G/DL (32.0-36.0) L Red Cell Distribution Width 18.7 % (11.6-14.8) H Platelet Count 205 K/UL (150-450) Mean Platelet Volume 5.2 FL (6.5-10.1) L Neutrophils (%) (Auto) % (45.0-75.0) Lymphocytes (%) (Auto) % (20.0-45.0) Monocytes (%) (Auto) % (1.0-10.0) Eosinophils (%) (Auto) % (0.0-3.0) Basophils (%) (Auto) % (0.0-2.0) Differential Total Cells Counted 100 Neutrophils % (Manual) 16 % (45-75) L Lymphocytes % (Manual) 68 % (20-45) H Monocytes % (Manual) 13 % (1-10) H Eosinophils % (Manual) 2 % (0-3) Basophils % (Manual) 1 % (0-2) Band Neutrophils 0 % (0-8) Platelet Estimate Adequate Platelet Morphology Normal Hypochromasia 1+ Anisocytosis 1+ Reticulocyte Count 2.8 % (0.0-2.0) H Prothrombin Time 12.4 SEC (9.30-11.50) H Prothromb Time International Ratio 1.2 (0.9-1.1) H Activated Partial Thromboplast Time 26 SEC (23-33) Sodium Level 144 MMOL/L (136-145) Potassium Level 3.6 MMOL/L (3.5-5.1) Chloride Level 113 MMOL/L (98-107) H Carbon Dioxide Level 25 MMOL/L (21-32) Anion Gap 6 mmol/L (5-15) Blood Urea Nitrogen 8 mg/dL (7-18) Creatinine 0.9 MG/DL (0.55-1.30) Estimat Glomerular Filtration Rate > 60 mL/min (>60) Glucose Level 87 MG/DL (74-106) Calcium Level 6.7 MG/DL (8.5-10.1) L Iron Level 77 ug/dL (50-175) Total Iron Binding Capacity 100 ug/dL (250-450) L Percent Iron Saturation 77 % (15-50) H Unsaturated Iron Binding 23 ug/dL (112-346) L Ferritin 95 NG/ML (8-388) Total Bilirubin 0.5 MG/DL (0.2-1.0) Aspartate Amino Transf (AST/SGOT) 22 U/L (15-37) Alanine Aminotransferase (ALT/SGPT) 37 U/L (12-78) Alkaline Phosphatase 78 U/L (46-116) Total Protein 3.6 G/DL (6.4-8.2) L Albumin 1.3 G/DL (3.4-5.0) L Globulin 2.3 g/dL Albumin/Globulin Ratio 0.6 (1.0-2.7) L Carcinoembryonic Antigen Pending Vitamin B12 Level 1840 PG/ML (193-986) H Folate 22.5 NG/ML (8.6-58.9) Thyroid Stimulating Hormone (TSH) 3.909 uiU/mL (0.358-3.740) Free Thyroxine 0.91 NG/DL (0.76-1.46) Cortisol AM Sample Pending Current Medications Medications (Trade) Dose Ordered Sig/[place] Route PRN Reason Start Time Stop Time Status Last Admin Dose Admin Acetaminophen (Tylenol) 650 mg Q4H PRN ORAL Mild Pain/Temp > 100.5 09/24/18 22:00 10/24/18 21:59 Buspirone HCl (Buspar) 10 mg THREE TIMES A DAY ORAL 09/25/18 09:00 10/25/18 08:59 09/26/18 14:06 Cyclobenzaprine HCl (Flexeril) 10 mg THREE TIMES A DAY ORAL 09/24/18 23:00 10/25/18 08:59 09/26/18 14:06 Dextrose/Sodium Chloride 1,000 ml @ 100 mls/hr Q10H IV 09/24/18 22:00 10/24/18 21:59 09/26/18 04:56 Diatrizoate Meglum/ Diatrizoate Sod (Gastrografin) 30 ml NOW PRN ORAL Radiology Procedure 09/25/18 14:45 09/28/18 14:36 Doxepin HCl (SINEquan) 50 mg BEDTIME ORAL 09/25/18 01:30 10/25/18 01:29 09/25/18 20:22 Folic Acid (Folate) 1 mg DAILY ORAL 09/26/18 09:00 10/26/18 08:59 09/26/18 09:06 Hydroxyzine HCl (Atarax) 100 mg EVERY 6 HOURS ORAL 09/25/18 00:00 10/25/18 00:00 09/26/18 12:21 Iopamidol (Isovue-300 100ml) 100 ml NOW PRN INJ Radiology Procedure 09/24/18 16:00 Levothyroxine Sodium (Synthroid) 50 mcg ACBREAKFAST ORAL 09/25/18 06:30 10/25/18 06:29 09/26/18 05:59 Methocarbamol (Robaxin) 500 mg QID ORAL 09/24/18 22:15 10/24/18 22:14 09/26/18 14:06 Multivitamins (Multivitamins) 1 tab DAILY ORAL 09/26/18 09:00 10/26/18 08:59 09/26/18 09:06 Ondansetron HCl (Zofran) 4 mg Q6H PRN ORAL Nausea & Vomiting 09/24/18 22:00 10/24/18 21:59 09/26/18 12:28 Oxycodone HCl (OxyCONTIN) 10 mg Q12HR ORAL 09/26/18 13:20 10/03/18 13:19 09/26/18 14:07 Oxycodone HCl (Roxicodone) 5 mg Q4H PRN ORAL Breakthrough Pain 09/26/18 13:20 10/03/18 13:19 Pantoprazole (Protonix) 40 mg DAILY ORAL 09/25/18 09:00 10/25/18 08:59 09/26/18 09:06 Piperacillin Sod/ Tazobactam Sod 3.375 gm/Sodium Chloride 110 ml @ 27.5 mls/hr EVERY 8 HOURS IVPB 09/25/18 13:00 09/30/18 12:59 09/26/18 14:07 Vancomycin HCl (Vanco rx to dose) 1 ea DAILY PRN MISC Per rx protocol 09/25/18 22:15 10/25/18 22:14 Vancomycin HCl/ Dextrose 275 ml @ 183.333 mls/hr Q12H IVPB 09/25/18 23:00 09/30/18 22:59 09/26/18 12:21 Oralia Mohan M.D. Sep 26, 2018 17:14
--- NOTE | 2018-09-26 18:36 | General Progress Note ---
Assessment/Plan Assessment: Assessment/Recs: # PANCYTOPENIA, CHRONIC -- with Decreased white blood cell count, unspec (aka leukopenia) - wbc under 4k, could be related to infection v meds v ethanol use she reports. Bone marrow biopsy from [facility] 09/[address] Pena show hypocellular marrow with trilineage hematopoiesis with no evidence of dysplasia , no evidence of myelophystic process, lymphoma, granduloma or metastatic disease, rare small lympjh aggregates is snoted and potentially some small deccreased iron storage, and normal karyotype, flow cytometry is negative for any blast population --> if the total ANC is less than 2000, consider neupogen --> continue antibiotics with ID service, appreciate recs --> medications have been reviewed --> hepatitis and hiv have been ordered --> consider neupogen if wbc decreases any further --> recommend better diet, does have severe protein caloric malnutrition # Anemia of chronic disease due to underlying chronic medical issues, multifactorial --> Anemia workup has been ordered, rule out gi bleed --> No evidence of hemolysis is noted, peripheral smear has been reviewed. --> Hgb goal >7. Transfuse prn. --> Epogen or iron at this time is not particularly indicated --> Medications have been reviewed --> evaluate with Gi team prn --> transfuse if hgb is < 7 (will trend CBC daily) --> low threshold for gi evaluation in case has occult + # Adhesions of the abd --> may need exp lap as per surg # Nausea and vomiting --> zofran iv prn has been started # Dehydration -- on ivf prn # Electrolyte abnml as per renal The timing of this note does not necessarily reflect the time of the patient was seen. Greatly appreciate consultation! Subjective HEENT: Denies: no symptoms, eye pain, blurred vision, tearing, double vision, ear pain, ear discharge, nose pain, nose congestion, throat pain, throat swelling, mouth pain, mouth swelling, other Cardiovascular: Denies: no symptoms, chest pain, edema, irregular heart rate, lightheadedness, palpitations, syncope, other Gastrointestinal/Abdominal: Denies: no symptoms, abdomen distended, abdominal pain, black stools, tarry stools, blood in stool, constipated, diarrhea, difficulty swallowing, nausea, poor appetite, poor fluid intake, rectal bleeding , vomiting, other Genitourinary: Denies: no symptoms, burning, discharge, frequency, flank pain, hematuria, incontinence, pain, urgency, other Neurologic/Psychiatric: Denies: no symptoms, anxiety, depressed, emotional problems, headache, numbness, paresthesia, pre-existing deficit, seizure, tingling, tremors, weakness, other Allergies: Coded Allergies: GABAPENTIN (Verified Allergy, Unknown, 09/24/18) METAXALONE (Verified Allergy, Unknown, 09/24/18) MORPHINE (Verified Allergy, Unknown, 09/24/18) QUETIAPINE (Verified Allergy, Unknown, 09/24/18) Subjective 09/26: no events, no fevers or chills, no changes, labs reviewed Objective Last 24 Hour Vital Signs Date Time Temp Pulse Resp B/P (MAP) Pulse Ox O2 Delivery O2 Flow Rate FiO2 09/26/18 16:00 98.0 80 19 88/61 (70) 100 09/26/18 12:00 97.9 84 19 92/66 (75) 99 09/26/18 09:00 Room Air 09/26/18 08:00 97.7 86 18 80/58 (65) 98 09/26/18 04:00 97.6 85 17 78/56 (63) 09/26/18 00:00 98.2 83 20 81/55 (64) 83 09/25/18 21:00 Room Air 09/25/18 20:00 97.9 64 20 81/54 (63) 64 Intake and Output 09/25/18 09/26/18 19:00 07:00 Intake Total 2346.0 ml 700 ml Balance 2346.0 ml 700 ml Intake Oral 680 ml IV Total 1666.0 ml 700 ml # Voids 3 2 # Bowel Movements 1 Laboratory Tests 09/26/18 04:15: White Blood Count 2.0*L, Red Blood Count 2.85L, Hemoglobin 8.7L, Hematocrit 27.6L, Mean Corpuscular Volume 97, Mean Corpuscular Hemoglobin 30.7, Mean Corpuscular Hemoglobin Concent 31.7L, Red Cell Distribution Width 18.7H, Platelet Count 205, Mean Platelet Volume 5.2L, Neutrophils (%) (Auto) , Lymphocytes (%) (Auto) , Monocytes (%) (Auto) , Eosinophils (%) (Auto) , Basophils (%) (Auto) , Differential Total Cells Counted 100, Neutrophils % ( Manual) 16L, Lymphocytes % (Manual) 68H, Monocytes % (Manual) 13H, Eosinophils % (Manual) 2, Basophils % (Manual) 1, Band Neutrophils 0, Platelet Estimate Adequate, Platelet Morphology Normal, Hypochromasia 1+, Anisocytosis 1+, Reticulocyte Count 2.8H, Prothrombin Time 12.4H, Prothromb Time International Ratio 1.2H, Activated Partial Thromboplast Time 26, Sodium Level 144, Potassium Level 3.6, Chloride Level 113H, Carbon Dioxide Level 25, Anion Gap 6, Blood Urea Nitrogen 8, Creatinine 0.9, Estimat Glomerular Filtration Rate > 60, Glucose Level 87, Calcium Level 6.7L, Iron Level 77, Total Iron Binding Capacity 100L, Percent Iron Saturation 77H, Unsaturated Iron Binding 23L, Ferritin 95, Total Bilirubin 0.5, Aspartate Amino Transf (AST/SGOT) 22, Alanine Aminotransferase (ALT/SGPT) 37, Alkaline Phosphatase 78, Total Protein 3.6L, Albumin 1.3L, Globulin 2.3, Albumin/Globulin Ratio 0.6L, Carcinoembryonic Antigen [Pending], Vitamin B12 Level 1840H, Folate 22.5, Thyroid Stimulating Hormone (TSH) 3.909H, Free Thyroxine 0.91, Cortisol AM Sample [Pending] Height (Feet): 5 Height (Inches): 4.00 Weight (Pounds): 142 Objective Gen: mild distress - Uncomfortable Head: normocephalic, atraumatic ENT: dry mucus membranes Neck: supple Respiratory: lungs clear, no retraction, no accessory muscle use Cardiovascular: regular rate, rhythm Gastrointestinal: other - Some questionable decreased bowel sounds, patient has evidence of laparoscopic surgical sites in the left in the upper lower abdominal region Musculoskeletal: normal inspection Neurologic: alert, oriented x3, responsive Psychiatric: normal inspection Skin: other - Pallor Lymphatic: no adenopathy Scott Smyth MD Sep 26, 2018 18:36
--- NOTE | 2018-09-26 19:36 | NUR ---
HAND-OFF: Report given to TAWNY Randall.
--- NOTE | 2018-09-26 19:47 | NUR ---
NURSE NOTES: Received patient in bed, awake, alert, oriented, VSS, afebrile, no acute distress noted. Call light is within reach, bed is in low position, locked and alarm is on. Will continue to monitor for safety and comfort.
[2018-09-26] MEDS: Doxepin 25mg Cap ORAL SCH (19:59)
[2018-09-26 20:00] VITALS: BP 113/67
--- NOTE | 2018-09-26 22:00 | Consultation ---
DATE OF CONSULTATION: 09/26/2018 INFECTIOUS DISEASES CONSULTATION CONSULTING PHYSICIAN: Oralia Mohan M.D. REQUESTING PHYSICIAN: Caty Ferreira M.D. REASON FOR CONSULTATION: Hypotension and possible sepsis in a patient who had recent small-bowel adhesions lysis with history of sepsis twice in the past and recommendation for antibiotics treatment. HISTORY OF PRESENT ILLNESS: The patient is a 43-year-old female, originally from [place] with history of gastric bypass surgery, goes back to 2004 who underwent revision in 2011, which was complicated with adhesions, led to multiple surgeries and malnutrition with history of TPN. The patient had her recent small-bowel adhesion lysis surgery at [facility] in September of 2018 and she was found to be pancytopenic at that time, so she received blood transfusion and Neupogen injection to improve her WBC. 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 The patient developed persistent nausea and vomiting for the last 48 hours and she could not tolerate anything by mouth, became dehydrated, so she was brought into [facility] for evaluation. The patient had a CT scan, which showed evidence of small bowel obstruction, mainly at Marine-en-Y loop. The patient's blood pressure was found to be low in spite of being on hydration, which is concerning for sepsis and she had a significant history. So, Infectious Disease consultation was requested for antibiotics treatment and further management. The patient complained of persistent abdominal pain with recurrent nausea and vomiting. No fever or chills. No redness or tenderness at the Port-A-Cath site. No other associated symptoms. REVIEW OF SYSTEMS: A 14-point of system reviewed were all negative apart from the one I mentioned above in my history and physical. PAST MEDICAL HISTORY: Significant for hypothyroidism, anxiety, fibromyalgia, morbid obesity, status post gastric bypass surgery, later adhesion lysis on multiple occasion, and pancytopenia, status post bone marrow biopsy. PAST SURGICAL HISTORY: She had gastric bypass surgery in 2004, gastric revision surgery in 2011, and recently small-bowel adhesions lysis in September of 2018 and bone marrow biopsy. FAMILY HISTORY: Not contributory. SOCIAL HISTORY: The patient lives originally in [place]. She travelled to [place] occasionally. She lives with . No employment. Denied using any drugs, tobacco, or alcohol. ALLERGIES: She is allergic to gabapentin, metaxalone, morphine, and quetiapine. MEDICATIONS: The patient is on OxyContin, oxycodone, multivitamin, folate, pantoprazole, BuSpar, Synthroid, doxepin, Atarax, Flexeril, Robaxin, Zofran, and Tylenol. LABORATORY DATA: Labs showed white count of 2.1, hemoglobin of 8.6, and platelet count of 196,000. BUN of 10, creatinine of 0.9. AST of 18, ALT of 38, alkaline phosphatase of 74. Amylase of 14, lipase of 47. Urinalysis showed +3 leukocyte esterase, wbc's 2 to 4, and few bacteria. IMAGING: Chest x-ray showed no acute process on admission. CT scan of abdomen and pelvis with contrast on admission showed Marine-en-Y gastric bypass with additional surgical clips, anterior and midline to the enteroenteric anastomosis, anatomic suture line in the right mid lower abdomen, air-filled fluids and dilatation of a portion of the proximal jejunum by the pancreatic limb, bleeding up to the enteroenteric anastomosis, concerning for degree of obstruction or stasis. No free air, intraperitoneal air, ascites, Pneumatosis intestinalis, or portal venous gas. PHYSICAL EXAMINATION: VITAL SIGNS: Temperature 97.7, pulse 82, respiration 16, blood pressure 81/55, and saturation 96% on room air. GENERAL: Young female, lying in bed, malnourished and looking awake, alert, and not in acute distress. HEENT: Normocephalic, atraumatic. Pupils are reactive to light. Pale sclerae. Moist oral mucosa. No exudate or thrush. Poor dental hygiene. NECK: Supple. No lymphadenopathy. CARDIOVASCULAR: Regular rate and rhythm. No murmur or gallop. LUNGS: Clear bilaterally. Diminished breathing sounds at the bases. No wheezing or rhonchi. ABDOMEN: Soft, tender, not distended. Hypoactive bowel sounds. Multiple skin scars. Wound, dry and clean with no drainage or dehiscences at the previous surgical incision. No rebound. No organomegaly. No ascites. EXTREMITIES: No edema or cyanosis. SKIN: No rash. No hives. No ulceration. ASSESSMENT AND RECOMMENDATION: 1. Hypotension, rule out sepsis. We will send blood culture x2. The patient was noted to have sepsis in the past with chronic Port-A-Cath in place. We will start Zosyn and vancomycin, empiric coverage pending blood culture. We will discontinue antibiotics if no evidence of bacterial growth within 24 hours. 2. Small bowel obstruction due to adhesions, status post recent adhesion lysis surgery. Keep NPO. Continue hydration. Surgical evaluation as needed. 3. Dehydration. Continue IV fluids with bolus as needed and IV fluids with electrolyte replacement. 4. Nausea and vomiting. Continue supportive care and nausea medication as per primary team. Thank you for the consult. ID will continue to follow. Please feel free to call with any question. Oralia Mohan M.D. DR: GARRETT JOB#: [id number] CC:
[2018-09-27] MEDS: HydrOXYzine 50mg tab ORAL SCH ×4 (00:37→18:36)
[2018-09-27] MEDS: Vancomycin 1.25gm Premix q24h IVPB SCH (00:37)
[2018-09-27] MEDS: oxyCODONE 5mg IR tab ORAL PRN ×2 (03:46→14:32)
[2018-09-27 04:00] VITALS: BP 108/60
[2018-09-27 05:14] LABS: HEMATOCRIT 26.2 % (37.0-47.0); HEMOGLOBIN 8.8 G/DL (12.0-16.0); MEAN CORPUSCULAR VOLUME 94 FL (80-99); PLATELET COUNT 200 K/UL (150-450); RED BLOOD COUNT 2.78 M/UL (4.20-5.40); RED CELL DISTRIBUTION WIDTH 18.3 % (11.6-14.8); WHITE BLOOD COUNT 2.4 K/UL (4.8-10.8)
[2018-09-27 05:19] LABS: ANION GAP 5 mmol/L (5-15); BLOOD UREA NITROGEN 9 mg/dL (7-18); CALCIUM 6.8 MG/DL (8.5-10.1); CARBON DIOXIDE 27 MMOL/L (21-32); CHLORIDE 112 MMOL/L (98-107); PHOSPHORUS 3.7 MG/DL (2.5-4.9); POTASSIUM 3.4 MMOL/L (3.5-5.1); SODIUM 144 MMOL/L (136-145)
[2018-09-27] MEDS: Levothyroxine 25mcg tab ORAL SCH (06:14)
[2018-09-27] MEDS: Piperacillin/Tazobactam 3.375 GM in NS 110 ML IVPB SCH (06:15)
--- NOTE | 2018-09-27 07:00 | NUR ---
HAND-OFF: Report given to Evon HECTOR.
--- NOTE | 2018-09-27 07:59 | NUR ---
NURSE NOTES: Follow up required with MD. Pt complaining of heartburn, does not have medication for it. Pt is also on Robaxin and Oxycodone. base line bp 80/60 will inform
[2018-09-27 08:00] VITALS: BP 97/70
--- NOTE | 2018-09-27 08:25 | NUR ---
NURSE NOTES: phoned parameters obtained for Oxycodone 10 mg to hold for systolic bp less than 90, He also gave orders for Protonix 40 mg IV q 12. Per pt prefers IV Protonix. Did not understand pt teaching in regards to narcotics diminishing blood pressure. Refered to pharmacy for cross sensitivity to Morphine. Pt has been tolerating Oxycodone
[2018-09-27 08:36] LABS: ALANINE AMINOTRANSFERASE 37 U/L (12-78); ALBUMIN 1.4 G/DL (3.4-5.0); ALKALINE PHOSPHATASE 78 U/L (46-116); ASPARTATE AMINO TRANSFERASE 20 U/L (15-37); BILIRUBIN,DIRECT 0.2 MG/DL (0.0-0.3); BILIRUBIN,TOTAL 0.4 MG/DL (0.2-1.0)
[2018-09-27] MEDS: Sucralfate 1gm tab ORAL SCH ×4 (08:39→21:02)
[2018-09-27] MEDS: BusPIRone 5mg Tab ORAL SCH ×3 (08:39→18:36)
[2018-09-27] MEDS: Cyclobenzaprine 10mg Tab ORAL SCH ×3 (08:40→18:37)
[2018-09-27] MEDS ORDERED: Pantoprazole Inj IVP SCH (09:00)
--- NOTE | 2018-09-27 09:21 | Consultation ---
Consult Note Consult Note asked to evaluate at the request of Dr garcia data reviewed patient interviewed and examined Assessment/Plan Severe HypoAlbuminemia, WITHOUT PROTEINURIA per ua likely nutritional and related to liver disease HypoCalcemia , fairly corrects by Hypoalbuminemia Leukopenia and Anemia , likely of chronic disease UTI Low cortisol level Hypotension Suggest: Vit D Hydrocortisone correct electrolytes antibiotics per consultants Umberto Causye MD Sep 27, 2018 09:21
[2018-09-27] MEDS ORDERED: Vitamin D 50,000 units cap ORAL SCH (09:30)
[2018-09-27] MEDS ORDERED: Hydrocortisone 100mg Inj IV SCH (09:30)
[2018-09-27] MEDS: oxyCONTIN 10mg tab ORAL SCH ×2 (09:35→21:03)
[2018-09-27 10:00] LABS: CHOLESTEROL 81 MG/DL (< 200); HDL CHOLESTEROL 53 MG/DL (40-60); TRIGLYCERIDES 55 MG/DL (30-150)
[2018-09-27] MEDS: Methocarbamol 500mg tab ORAL SCH ×4 (10:43→22:12)
--- NOTE | 2018-09-27 10:55 | Physician Query ---
Clarification is required for compliance, coding accuracy, and to reflect severity of illness for this patient Dear Dr. Mohan Date: 09/27/[address] and place X in appropriate box Patient is admitted with small bowel obstruction. Rule out Sepsis has been documented in medical records. WBC: 2.8 HR: 96 RR: 18 BP: 102/66 Rx: IV Zosyn, Vancomysin Can you please clarify the status of diagnosis Sepsis? [ ] Treated and resolved [ ] Currently under treatment [ ] Presumed and treated [ ] Still being worked up [ ] Ruled out Present on Admission: [ ] Yes [ ] No [ ] Clinically Undetermined Physician signature Date Please also document in your Progress Notes and/or Discharge Summary and indicate if the condition was present on admission.
[2018-09-27] MEDS: D5NS 1,000 ML IV SCH ×2 (11:54)
[2018-09-27 12:00] VITALS: BP 114/72
--- NOTE | 2018-09-27 12:03 | NUR ---
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 98.0 HR 92 RR 19 B/P 113/67 WBC 2.4 H/H 8.8/26.2 K 3.4 IS: SOLU CORTEF IV IVF D5NS @ 50ML/HR ZOSYN IV VANCO IV MED/SURG STATUS
[2018-09-27] MEDS ORDERED: Docusate 100mg cap ORAL SCH (13:00)
--- NOTE | 2018-09-27 13:00 | Initial Psychiatric Evaluation ---
Psychiatry Consultation Psychiatry Consultation Chief Complaint: Vomiting History of Present Illness: 43-year-old female with history of mdd, anxiety, partial bowel obstruction, status post surgery in [facility]. In addition, the pt has a hx of alcohol dependence. the pt has severe anxiety and depression. the pt stated that she was coming from a sober living. the pt stated that most of the antidepressants and antipsychotic made her more "crazy." Allergies: Coded Allergies: GABAPENTIN (Verified Allergy, Unknown, 09/24/18) METAXALONE (Verified Allergy, Unknown, 09/24/18) MORPHINE (Verified Allergy, Unknown, 09/24/18) QUETIAPINE (Verified Allergy, Unknown, 09/24/18) Medication History Scheduled Buspirone Hcl* (Buspar*), 10 MG ORAL THREE TIMES A DAY, (Reported) Cyclobenzaprine Hcl* (Flexeril*), 10 MG ORAL THREE TIMES A DAY, (Reported) Hydrocortisone (Cortef), 50 MG ORAL DAILY@0700 Hydrocortisone (Cortef), 25 MG ORAL DAILY@1400 Hydroxyzine Pamoate* (Vistaril*), 100 MG ORAL EVERY 6 HOURS, (Reported) Levothyroxine Sodium* (Synthroid*), 50 MCG ORAL DAILY, (Reported) Methocarbamol* (Robaxin*), 500 MG PO QID, (Reported) Pantoprazole* (Protonix*), 40 MG ORAL DAILY, (Reported) Potassium Chloride (K-Tab ER), 40 MEQ ORAL BID Scheduled PRN Ondansetron* (Zofran*), 4 MG ORAL Q6H PRN for Nausea & Vomiting, (Reported) Sumatriptan Succinate* (Imitrex*), 25 MG ORAL Q6H PRN Miscellaneous Medications Rizatriptan Benzoate (Maxalt), 10 MG PO, (Reported) Objective Data Height (Feet): 5 Height (Inches): 4.00 Weight (Pounds): 142 Sugey Meléndez MD Sep 27, 2018 13:00
--- NOTE | 2018-09-27 13:02 | NUR ---
NURSE NOTES: Jalilpar did not save given.
[2018-09-27] MEDS: Hydrocortisone 100mg Inj IV SCH ×2 (13:20→22:13)
[2018-09-27] MEDS: Thiamine HCl 100 MG in D5W 55 ML IVPB SCH (13:21)
--- NOTE | 2018-09-27 13:52 | NUR ---
*-* NO INSURANCE INFORMATION IN THE BAR TO SEND CLINICALS *-*
--- NOTE | 2018-09-27 14:54 | Surgery Progress Note ---
Surgery Progress Note Subjective Additional Comments GERD symptoms today no n/v/f/c. tolerating some diet +flatus +BM no pain Objective Last 24 Hour Vital Signs Date Time Temp Pulse Resp B/P (MAP) Pulse Ox O2 Delivery O2 Flow Rate FiO2 09/27/18 04:00 98.3 78 18 108/60 (76) 09/26/18 21:53 Room Air 09/26/18 20:43 98.0 09/26/18 20:00 98.0 92 18 113/67 (82) 09/26/18 16:00 98.0 80 19 88/61 (70) 100 I&O Intake and Output 09/26/18 09/27/18 19:00 07:00 Intake Total 1295.000 ml 340 ml Output Total 900 ml Balance 1295.000 ml -560 ml Intake Oral 500 ml IV Total 795.000 ml 100 ml Other 240 ml Output Urine Total 900 ml # Bowel Movements 1 Cardiovascular: RSR Respiratory: clear Abdomen: soft, flat, non-tender, present bowel sounds, non-distended Extremities: no tenderness, no cyanosis Laboratory Tests Test 09/26/18 19:05 09/27/18 04:25 09/27/18 10:50 Stool Occult Blood Negative (NEGATIVE) White Blood Count 2.4 K/UL (4.8-10.8) L Red Blood Count 2.78 M/UL (4.20-5.40) L Hemoglobin 8.8 G/DL (12.0-16.0) L Hematocrit 26.2 % (37.0-47.0) L Mean Corpuscular Volume 94 FL (80-99) Mean Corpuscular Hemoglobin 31.7 PG (27.0-31.0) H Mean Corpuscular Hemoglobin Concent 33.6 G/DL (32.0-36.0) Red Cell Distribution Width 18.3 % (11.6-14.8) H Platelet Count 200 K/UL (150-450) Mean Platelet Volume 5.1 FL (6.5-10.1) L Neutrophils (%) (Auto) % (45.0-75.0) Lymphocytes (%) (Auto) % (20.0-45.0) Monocytes (%) (Auto) % (1.0-10.0) Eosinophils (%) (Auto) % (0.0-3.0) Basophils (%) (Auto) % (0.0-2.0) Differential Total Cells Counted 100 Neutrophils % (Manual) 40 % (45-75) L Lymphocytes % (Manual) 45 % (20-45) Monocytes % (Manual) 6 % (1-10) Eosinophils % (Manual) 7 % (0-3) H Basophils % (Manual) 2 % (0-2) Band Neutrophils 0 % (0-8) Platelet Estimate Adequate Platelet Morphology Normal Hypochromasia 2+ Anisocytosis 2+ Spherocytes 1+ Erythrocyte Sedimentation Rate 1 MM/HR (0-20) Sodium Level 144 MMOL/L (136-145) Potassium Level 3.4 MMOL/L (3.5-5.1) L Chloride Level 112 MMOL/L (98-107) H Carbon Dioxide Level 27 MMOL/L (21-32) Anion Gap 5 mmol/L (5-15) Blood Urea Nitrogen 9 mg/dL (7-18) Creatinine 1.0 MG/DL (0.55-1.30) Estimat Glomerular Filtration Rate > 60 mL/min (>60) Glucose Level 101 MG/DL (74-106) Calcium Level 6.8 MG/DL (8.5-10.1) L Phosphorus Level 3.7 MG/DL (2.5-4.9) Magnesium Level 1.9 MG/DL (1.8-2.4) Total Bilirubin 0.4 MG/DL (0.2-1.0) Direct Bilirubin 0.2 MG/DL (0.0-0.3) Gamma Glutamyl Transpeptidase 34 U/L (5-85) Aspartate Amino Transf (AST/SGOT) 20 U/L (15-37) Alanine Aminotransferase (ALT/SGPT) 37 U/L (12-78) Alkaline Phosphatase 78 U/L (46-116) C-Reactive Protein, Quantitative < 0.4 mg/dL (0.00-0.90) Total Protein 3.7 G/DL (6.4-8.2) L Albumin 1.4 G/DL (3.4-5.0) L Triglycerides Level 55 MG/DL (30-150) Cholesterol Level 81 MG/DL (< 200) LDL Cholesterol 18 mg/dL (<100) HDL Cholesterol 53 MG/DL (40-60) Cholesterol/HDL Ratio 1.5 (3.3-4.4) L Vancomycin Level Trough 25.1 ug/mL (5.0-12.0) H Anti-Nuclear Antibody Screen Pending Plan Problems: (1) Vomiting (2) Dehydration (3) Electrolyte imbalance (4) Nausea and vomiting (5) Small bowel obstruction due to adhesions Assessment & Plan: CT noted exam with tenderness but incisional labs noted upper GI without obstruction no acute surgical intervention planned okay for diet PPI am labs will follow with serial exams thank you Glynn Michelle Sep 27, 2018 14:54
--- NOTE | 2018-09-27 15:28 | General Progress Note ---
Subjective Allergies: Coded Allergies: GABAPENTIN (Verified Allergy, Unknown, 09/24/18) METAXALONE (Verified Allergy, Unknown, 09/24/18) MORPHINE (Verified Allergy, Unknown, 09/24/18) QUETIAPINE (Verified Allergy, Unknown, 09/24/18) Subjective feels cannot eat on pain medications wants to have an endoscopy sunday for abd pain also wants f/u [facility] last exam 2 years ago Objective Last 24 Hour Vital Signs Date Time Temp Pulse Resp B/P (MAP) Pulse Ox O2 Delivery O2 Flow Rate FiO2 09/27/18 04:00 98.3 78 18 108/60 (76) 09/26/18 21:53 Room Air 09/26/18 20:43 98.0 09/26/18 20:00 98.0 92 18 113/67 (82) 09/26/18 16:00 98.0 80 19 88/61 (70) 100 Intake and Output 09/26/18 09/27/18 19:00 07:00 Intake Total 1295.000 ml 340 ml Output Total 900 ml Balance 1295.000 ml -560 ml Intake Oral 500 ml IV Total 795.000 ml 100 ml Other 240 ml Output Urine Total 900 ml # Bowel Movements 1 Laboratory Tests 09/26/18 19:05: Stool Occult Blood Negative 09/27/18 04:25: White Blood Count 2.4L, Red Blood Count 2.78L, Hemoglobin 8.8L, Hematocrit 26.2L , Mean Corpuscular Volume 94, Mean Corpuscular Hemoglobin 31.7H, Mean Corpuscular Hemoglobin Concent 33.6, Red Cell Distribution Width 18.3H, Platelet Count 200, Mean Platelet Volume 5.1L, Neutrophils (%) (Auto) , Lymphocytes (%) (Auto) , Monocytes (%) (Auto) , Eosinophils (%) (Auto) , Basophils (%) (Auto) , Differential Total Cells Counted 100, Neutrophils % ( Manual) 40L, Lymphocytes % (Manual) 45, Monocytes % (Manual) 6, Eosinophils % ( Manual) 7H, Basophils % (Manual) 2, Band Neutrophils 0, Platelet Estimate Adequate, Platelet Morphology Normal, Hypochromasia 2+, Anisocytosis 2+, Spherocytes 1+, Erythrocyte Sedimentation Rate 1, Sodium Level 144, Potassium Level 3.4L, Chloride Level 112H, Carbon Dioxide Level 27, Anion Gap 5, Blood Urea Nitrogen 9, Creatinine 1.0, Estimat Glomerular Filtration Rate > 60, Glucose Level 101, Calcium Level 6.8L, Phosphorus Level 3.7, Magnesium Level 1.9 , Total Bilirubin 0.4, Direct Bilirubin 0.2, Gamma Glutamyl Transpeptidase 34, Aspartate Amino Transf (AST/SGOT) 20, Alanine Aminotransferase (ALT/SGPT) 37, Alkaline Phosphatase 78, C-Reactive Protein, Quantitative < 0.4, Total Protein 3.7L, Albumin 1.4L, Triglycerides Level 55, Cholesterol Level 81, LDL Cholesterol 18, HDL Cholesterol 53, Cholesterol/HDL Ratio 1.5L 09/27/18 10:50: Vancomycin Level Trough 25.1H, Anti-Nuclear Antibody Screen [Pending] Height (Feet): 5 Height (Inches): 4.00 Weight (Pounds): 142 Objective Thin WW NCAT supple CTA RR abd soft, mild diffuse TTP no edema Suraj Esquivel MD Sep 27, 2018 15:28
--- NOTE | 2018-09-27 15:48 | NUR ---
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
[2018-09-27 16:00] VITALS: BP 114/76
--- NOTE | 2018-09-27 16:23 | Infectious Diseases Prog Note ---
Assessment/Plan Problems: (1) Hypotension Assessment & Plan: no evidence of sepsis, with negative blood culture x2 , will stop zosyn and vancomycin empirically. (2) Small bowel obstruction due to adhesions Assessment & Plan: S/P recent adhesions lysis recently , advance diet as tolerated , continue hydration and pain management as needed (3) Dehydration Assessment & Plan: continue IVF with bolus as needed. (4) Nausea and vomiting Assessment & Plan: continue supportive care (5) Diarrhea Assessment & Plan: will send stool for C diff , continue hydration Subjective Constitutional: Reports: no symptoms HEENT: Reports: no symptoms Respiratory: Reports: no symptoms Breasts: Reports: no symptoms Cardiovascular: Reports: no symptoms Gastrointestinal/Abdominal: Reports: nausea, diarrhea, bloating Genitourinary: Reports: no symptoms Neurologic: Reports: no symptoms Psychiatric: Reports: no symptoms Skin: Reports: no symptoms Endocrine: Reports: no symptoms Hematologic: Reports: no symptoms Musculoskeletal: Reports: no symptoms Allergies: Coded Allergies: GABAPENTIN (Verified Allergy, Unknown, 09/24/18) METAXALONE (Verified Allergy, Unknown, 09/24/18) MORPHINE (Verified Allergy, Unknown, 09/24/18) QUETIAPINE (Verified Allergy, Unknown, 09/24/18) Objective Vital Signs Last 24 Hour Vital Signs Date Time Temp Pulse Resp B/P (MAP) Pulse Ox O2 Delivery O2 Flow Rate FiO2 09/27/18 04:00 98.3 78 18 108/60 (76) 09/26/18 21:53 Room Air 09/26/18 20:43 98.0 09/26/18 20:00 98.0 92 18 113/67 (82) Height (Feet): 5 Height (Inches): 4.00 Weight (Pounds): 142 General Appearance: WD/WN, no acute distress HEENT: normocephalic, atraumatic, anicteric, mucous membranes moist, PERRL Respiratory/Chest: chest wall non-tender, lungs clear, normal breath sounds, no respiratory distress, no accessory muscle use Cardiovascular: normal peripheral pulses, normal rate, regular rhythm, no gallop/murmur, no JVD Abdomen: soft, non tender, no organomegaly, no mass, no scars, hypoactive bowel sounds, distended Extremities: no cyanosis, no clubbing Skin: no rash, no lesions, no ulcers 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, no motor/sensory deficits, alert, oriented x 3, responsive Lymphatic: no neck adenopathy, no groin adenopathy Musculoskeletal: normal muscle bulk, no effusion Microbiology Date/Time Source Procedure Growth Status 09/25/18 11:50 Blood Blood Culture - Preliminary NO GROWTH AFTER 24 HOURS Resulted 09/25/18 11:40 Blood Blood Culture - Preliminary NO GROWTH AFTER 24 HOURS Resulted Laboratory Tests Test 09/26/18 19:05 09/27/18 04:25 09/27/18 10:50 Stool Occult Blood Negative (NEGATIVE) White Blood Count 2.4 K/UL (4.8-10.8) L Red Blood Count 2.78 M/UL (4.20-5.40) L Hemoglobin 8.8 G/DL (12.0-16.0) L Hematocrit 26.2 % (37.0-47.0) L Mean Corpuscular Volume 94 FL (80-99) Mean Corpuscular Hemoglobin 31.7 PG (27.0-31.0) H Mean Corpuscular Hemoglobin Concent 33.6 G/DL (32.0-36.0) Red Cell Distribution Width 18.3 % (11.6-14.8) H Platelet Count 200 K/UL (150-450) Mean Platelet Volume 5.1 FL (6.5-10.1) L Neutrophils (%) (Auto) % (45.0-75.0) Lymphocytes (%) (Auto) % (20.0-45.0) Monocytes (%) (Auto) % (1.0-10.0) Eosinophils (%) (Auto) % (0.0-3.0) Basophils (%) (Auto) % (0.0-2.0) Differential Total Cells Counted 100 Neutrophils % (Manual) 40 % (45-75) L Lymphocytes % (Manual) 45 % (20-45) Monocytes % (Manual) 6 % (1-10) Eosinophils % (Manual) 7 % (0-3) H Basophils % (Manual) 2 % (0-2) Band Neutrophils 0 % (0-8) Platelet Estimate Adequate Platelet Morphology Normal Hypochromasia 2+ Anisocytosis 2+ Spherocytes 1+ Erythrocyte Sedimentation Rate 1 MM/HR (0-20) Sodium Level 144 MMOL/L (136-145) Potassium Level 3.4 MMOL/L (3.5-5.1) L Chloride Level 112 MMOL/L (98-107) H Carbon Dioxide Level 27 MMOL/L (21-32) Anion Gap 5 mmol/L (5-15) Blood Urea Nitrogen 9 mg/dL (7-18) Creatinine 1.0 MG/DL (0.55-1.30) Estimat Glomerular Filtration Rate > 60 mL/min (>60) Glucose Level 101 MG/DL (74-106) Calcium Level 6.8 MG/DL (8.5-10.1) L Phosphorus Level 3.7 MG/DL (2.5-4.9) Magnesium Level 1.9 MG/DL (1.8-2.4) Total Bilirubin 0.4 MG/DL (0.2-1.0) Direct Bilirubin 0.2 MG/DL (0.0-0.3) Gamma Glutamyl Transpeptidase 34 U/L (5-85) Aspartate Amino Transf (AST/SGOT) 20 U/L (15-37) Alanine Aminotransferase (ALT/SGPT) 37 U/L (12-78) Alkaline Phosphatase 78 U/L (46-116) C-Reactive Protein, Quantitative < 0.4 mg/dL (0.00-0.90) Total Protein 3.7 G/DL (6.4-8.2) L Albumin 1.4 G/DL (3.4-5.0) L Triglycerides Level 55 MG/DL (30-150) Cholesterol Level 81 MG/DL (< 200) LDL Cholesterol 18 mg/dL (<100) HDL Cholesterol 53 MG/DL (40-60) Cholesterol/HDL Ratio 1.5 (3.3-4.4) L Vancomycin Level Trough 25.1 ug/mL (5.0-12.0) H Anti-Nuclear Antibody Screen Pending Current Medications Medications (Trade) Dose Ordered Sig/C[place]etano Route PRN Reason Start Time Stop Time Status Last Admin Dose Admin Acetaminophen (Tylenol) 650 mg Q4H PRN ORAL Mild Pain/Temp > 100.5 09/24/18 22:00 10/24/18 21:59 Buspirone HCl (Buspar) 15 mg THREE TIMES A DAY ORAL 09/27/18 18:00 10/27/18 17:59 Calcium Carbonate (Tums) 1,000 mg Q4H PRN ORAL reflux symptoms 09/27/18 15:00 10/27/18 14:59 Cyclobenzaprine HCl (Flexeril) 10 mg THREE TIMES A DAY ORAL 09/24/18 23:00 10/25/18 08:59 09/27/18 12:47 Dextrose/Sodium Chloride 1,000 ml @ 50 mls/hr Q20H IV 09/27/18 09:45 10/24/18 09:44 09/27/18 11:54 Diatrizoate Meglum/ Diatrizoate Sod (Gastrografin) 30 ml NOW PRN ORAL Radiology Procedure 09/25/18 14:45 09/28/18 14:36 Docusate Sodium (Colace) 100 mg THREE TIMES A DAY ORAL 09/27/18 13:00 10/27/18 12:59 Doxepin HCl (SINEquan) 50 mg BEDTIME ORAL 09/25/18 01:30 10/25/18 01:29 09/26/18 19:59 Ergocalciferol (Drisdol) 50,000 intlu QWEEK ORAL 09/27/18 09:30 10/27/18 09:29 09/27/18 11:54 Folic Acid (Folate) 1 mg DAILY ORAL 09/26/18 09:00 10/26/18 08:59 09/27/18 08:39 Hydrocortisone (Solu-CORTEF) 100 mg EVERY 8 HOURS IV 09/27/18 14:00 09/28/18 06:01 09/27/18 13:20 Hydroxyzine HCl (Atarax) 100 mg EVERY 6 HOURS ORAL 09/25/18 00:00 10/25/18 00:00 09/27/18 12:46 Levothyroxine Sodium (Synthroid) 50 mcg ACBREAKFAST ORAL 09/25/18 06:30 10/25/18 06:29 09/27/18 06:14 Methocarbamol (Robaxin) 500 mg QID ORAL 09/24/18 22:15 10/24/18 22:14 09/27/18 13:20 Multivitamins (Multivitamins) 1 tab DAILY ORAL 09/26/18 09:00 10/26/18 08:59 09/27/18 08:39 Ondansetron HCl (Zofran) 4 mg Q6H PRN ORAL Nausea & Vomiting 09/24/18 22:00 10/24/18 21:59 09/27/18 08:02 Oxycodone HCl (OxyCONTIN) 10 mg Q12HR ORAL 09/27/18 09:00 10/03/18 13:19 09/27/18 09:35 Oxycodone HCl (Roxicodone) 5 mg Q4H PRN ORAL Breakthrough Pain 09/26/18 13:20 10/03/18 13:19 09/27/18 14:32 Pantoprazole (Protonix) 40 mg DAILY ORAL 09/25/18 09:00 10/25/18 08:59 09/27/18 08:39 Potassium Chloride (K-Dur) 40 meq DAILY ORAL 09/27/18 09:30 10/27/18 09:29 09/27/18 11:54 Sucralfate (Carafate) 1 gm FOUR TIMES A DAY ORAL 09/27/18 09:00 10/27/18 08:59 09/27/18 08:39 Thiamine HCl 100 mg/Dextrose 56 ml @ 112 mls/hr Q24H IVPB 09/27/18 12:00 10/27/18 11:59 09/27/18 13:21 Oralia Mohan M.D. Sep 27, 2018 16:22
--- NOTE | 2018-09-27 17:31 | General Progress Note ---
Assessment/Plan Assessment: Assessment/Recs: # PANCYTOPENIA, CHRONIC -- with Decreased white blood cell count, unspec (aka leukopenia) - wbc under 4k, could be related to infection v meds v ethanol use she reports. Bone marrow biopsy from [facility] 09/[address] Pena show hypocellular marrow with trilineage hematopoiesis with no evidence of dysplasia , no evidence of myelophystic process, lymphoma, granduloma or metastatic disease, rare small lympjh aggregates is snoted and potentially some small deccreased iron storage, and normal karyotype, flow cytometry is negative for any blast population --> if the total ANC is less than 2000, consider neupogen --> continue antibiotics with ID service, appreciate recs --> medications have been reviewed --> hepatitis and hiv have been ordered --> consider neupogen if wbc decreases any further --> recommend better diet, does have severe protein caloric malnutrition --> lupus anticoag ab ordered # Anemia of chronic disease due to underlying chronic medical issues, multifactorial --> Anemia workup has been ordered, rule out gi bleed --> No evidence of hemolysis is noted, peripheral smear has been reviewed. --> Hgb goal >7. Transfuse prn. --> Epogen or iron at this time is not particularly indicated --> Medications have been reviewed --> evaluate with Gi team prn --> transfuse if hgb is < 7 (will trend CBC daily) --> low threshold for gi evaluation in case has occult + # Adhesions of the abd --> may need exp lap as per surg # Nausea and vomiting --> zofran iv prn has been started # Dehydration -- on ivf prn # Electrolyte abnml as per renal The timing of this note does not necessarily reflect the time of the patient was seen. Greatly appreciate consultation! Subjective Constitutional: Denies: no symptoms, chills, diaphoresis, fever, malaise, weakness, other HEENT: Denies: no symptoms, eye pain, blurred vision, tearing, double vision, ear pain, ear discharge, nose pain, nose congestion, throat pain, throat swelling, mouth pain, mouth swelling, other Cardiovascular: Denies: no symptoms, chest pain, edema, irregular heart rate, lightheadedness, palpitations, syncope, other Respiratory: Denies: no symptoms, cough, orthopnea, shortness of breath, SOB with excertion, SOB at rest, sputum, stridor, wheezing, other Gastrointestinal/Abdominal: Denies: no symptoms, abdomen distended, abdominal pain, black stools, tarry stools, blood in stool, constipated, diarrhea, difficulty swallowing, nausea, poor appetite, poor fluid intake, rectal bleeding , vomiting, other Genitourinary: Denies: no symptoms, burning, discharge, frequency, flank pain, hematuria, incontinence, pain, urgency, other Neurologic/Psychiatric: Denies: no symptoms, anxiety, depressed, emotional problems, headache, numbness, paresthesia, pre-existing deficit, seizure, tingling, tremors, weakness, other Endocrine: Denies: no symptoms, excessive sweating, flushing, intolerance to cold, intolerance to heat, increased hunger, increased thirst, increased urine, unexplained weight gain, unexplained weight loss, other Allergies: Coded Allergies: GABAPENTIN (Verified Allergy, Unknown, 09/24/18) METAXALONE (Verified Allergy, Unknown, 09/24/18) MORPHINE (Verified Allergy, Unknown, 09/24/18) QUETIAPINE (Verified Allergy, Unknown, 09/24/18) Subjective 09/26: no events, no fevers or chills, no changes, labs reviewed 09/27: wbc is better, no complaints, no changes noted Objective Last 24 Hour Vital Signs Date Time Temp Pulse Resp B/P (MAP) Pulse Ox O2 Delivery O2 Flow Rate FiO2 09/27/18 04:00 98.3 78 18 108/60 (76) 09/26/18 21:53 Room Air 09/26/18 20:43 98.0 09/26/18 20:00 98.0 92 18 113/67 (82) Intake and Output 09/26/18 09/27/18 19:00 07:00 Intake Total 1295.000 ml 340 ml Output Total 900 ml Balance 1295.000 ml -560 ml Intake Oral 500 ml IV Total 795.000 ml 100 ml Other 240 ml Output Urine Total 900 ml # Bowel Movements 1 Laboratory Tests 09/26/18 19:05: Stool Occult Blood Negative 09/27/18 04:25: White Blood Count 2.4L, Red Blood Count 2.78L, Hemoglobin 8.8L, Hematocrit 26.2L , Mean Corpuscular Volume 94, Mean Corpuscular Hemoglobin 31.7H, Mean Corpuscular Hemoglobin Concent 33.6, Red Cell Distribution Width 18.3H, Platelet Count 200, Mean Platelet Volume 5.1L, Neutrophils (%) (Auto) , Lymphocytes (%) (Auto) , Monocytes (%) (Auto) , Eosinophils (%) (Auto) , Basophils (%) (Auto) , Differential Total Cells Counted 100, Neutrophils % ( Manual) 40L, Lymphocytes % (Manual) 45, Monocytes % (Manual) 6, Eosinophils % ( Manual) 7H, Basophils % (Manual) 2, Band Neutrophils 0, Platelet Estimate Adequate, Platelet Morphology Normal, Hypochromasia 2+, Anisocytosis 2+, Spherocytes 1+, Erythrocyte Sedimentation Rate 1, Sodium Level 144, Potassium Level 3.4L, Chloride Level 112H, Carbon Dioxide Level 27, Anion Gap 5, Blood Urea Nitrogen 9, Creatinine 1.0, Estimat Glomerular Filtration Rate > 60, Glucose Level 101, Calcium Level 6.8L, Phosphorus Level 3.7, Magnesium Level 1.9 , Total Bilirubin 0.4, Direct Bilirubin 0.2, Gamma Glutamyl Transpeptidase 34, Aspartate Amino Transf (AST/SGOT) 20, Alanine Aminotransferase (ALT/SGPT) 37, Alkaline Phosphatase 78, C-Reactive Protein, Quantitative < 0.4, Total Protein 3.7L, Albumin 1.4L, Triglycerides Level 55, Cholesterol Level 81, LDL Cholesterol 18, HDL Cholesterol 53, Cholesterol/HDL Ratio 1.5L 09/27/18 10:50: Vancomycin Level Trough 25.1H, Anti-Nuclear Antibody Screen [Pending] Height (Feet): 5 Height (Inches): 4.00 Weight (Pounds): 142 Objective Gen: mild distress - Uncomfortable Head: normocephalic, atraumatic ENT: dry mucus membranes Neck: supple Respiratory: lungs clear, no retraction, no accessory muscle use Cardiovascular: regular rate, rhythm Gastrointestinal: other - Some questionable decreased bowel sounds, patient has evidence of laparoscopic surgical sites in the left in the upper lower abdominal region Musculoskeletal: normal inspection Neurologic: alert, oriented x3, responsive Psychiatric: normal inspection Skin: other - Pallor Lymphatic: no adenopathy Scott Smyth MD Sep 27, 2018 17:31
--- NOTE | 2018-09-27 18:30 | NUR ---
NURSE NOTES: Pt has multiple sedative medications and has a pattern of low blood pressure. medications spaced out. For safety reasons . Pt does not accept pt education for safety measures , becomes very upset. Pt states she takes all of her medications together at home. Pt stated " You guys do not know your medicine, that is a muscle relaxant. Pt made aware that the heart is a muscle' " she nodded her head no'" Pt has emotional complex behavior crying when medications are given stating " Pills hurt going down" Pt complaining of esophageal irritation, requesting OxyContin for pain . Pt educated on stomach acid causing irritation, mechanism of Carafate explained Pt lacks safety awareness for medication. .
[2018-09-27 20:00] VITALS: BP 113/71
--- NOTE | 2018-09-27 20:00 | NUR ---
NURSE NOTES: Lab draw endorsed to oncoming nurse
--- NOTE | 2018-09-27 20:17 | NUR ---
HAND-OFF: Report given to Gene made aware of new parameters for Oxycontin 10mg.
--- NOTE | 2018-09-27 20:18 | NUR ---
NURSE NOTES: Received patient in bed. A&OX4. Port a cath noted on left chest, patent and intact. at bedside. Remind collect stool sample, patient fully understood. Bed in lowest position. Call light within reach. Will continue to monitor.
[2018-09-27] MEDS ORDERED: Vancomycin 1gm/D5W 275ml IVPB SCH ×2 (21:00)
[2018-09-27] MEDS: Tums 500mg ORAL PRN (21:02)
[2018-09-27] MEDS: Doxepin 25mg Cap ORAL SCH (21:02)
--- NOTE | 2018-09-27 22:00 | NUR ---
NURSE NOTES: Patient c/o migraine and asking Imitrex. Obtained Imitrex 25mg po q6hr prn order from Dr. Ferreira.
[2018-09-27] MEDS: SUMAtriptan 50mg tab ORAL PRN (22:13)
--- NOTE | 2018-09-27 22:13 | NUR ---
NURSE NOTES: Imitrex 25mg was given at 2213 but it didn't saved. Manually input the system.
[2018-09-28] VITALS: BP 119/72
[2018-09-28] MEDS: HydrOXYzine 50mg tab ORAL SCH ×5 (00:36→23:17)
[2018-09-28 04:00] VITALS: BP 124/80
[2018-09-28] MEDS: Hydrocortisone 100mg Inj IV SCH (06:29)
[2018-09-28] MEDS: Levothyroxine 25mcg tab ORAL SCH (06:30)
[2018-09-28] MEDS: D5NS 1,000 ML IV SCH (06:30)
[2018-09-28] MEDS: oxyCODONE 5mg IR tab ORAL PRN ×4 (06:43→23:17)
--- NOTE | 2018-09-28 07:30 | NUR ---
HAND-OFF: Report given to Lino HECTOR.
[2018-09-28 08:00] VITALS: BP 101/73
--- NOTE | 2018-09-28 08:15 | NUR ---
NURSE NOTES: received report from TAWNY Mayers. patient in bed alert, verbally responsive. no respiratory distress noted. portal cath on lt upper chest. intact. bed in the lowest position . call light within reach. will continue to monitor.
[2018-09-28] MEDS: Methocarbamol 500mg tab ORAL SCH ×5 (09:00→20:18)
[2018-09-28] MEDS: Sucralfate 1gm tab ORAL SCH ×4 (09:01→20:17)
[2018-09-28] MEDS: BusPIRone 5mg Tab ORAL SCH ×3 (09:01→17:59)
[2018-09-28] MEDS: oxyCONTIN 10mg tab ORAL SCH ×2 (09:02→20:17)
[2018-09-28] MEDS: Cyclobenzaprine 10mg Tab ORAL SCH ×3 (09:02→17:59)
[2018-09-28 12:00] VITALS: BP 104/75
[2018-09-28] MEDS: Thiamine HCl 100 MG in D5W 55 ML IVPB SCH (12:29)
[2018-09-28 13:40] LABS: HEMATOCRIT 30.5 % (37.0-47.0); MEAN CORPUSCULAR VOLUME 95 FL (80-99); PLATELET COUNT 238 K/UL (150-450); RED BLOOD COUNT 3.21 M/UL (4.20-5.40); WHITE BLOOD COUNT 2.6 K/UL (4.8-10.8)
--- NOTE | 2018-09-28 13:59 | Internal Med Progress Note ---
Subjective Date of Service: Sep 27, 2018 Physician Name Adam Figueroa Attending Physician Caty Ferreira MD Current Medications Medications (Trade) Dose Ordered Sig/Cayetano Route PRN Reason Start Time Stop Time Status Last Admin Dose Admin Acetaminophen (Tylenol) 650 mg Q4H PRN ORAL Mild Pain/Temp > 100.5 09/24/18 22:00 10/24/18 21:59 Buspirone HCl (Buspar) 15 mg THREE TIMES A DAY ORAL 09/27/18 18:00 10/27/18 17:59 09/28/18 13:09 Calcium Carbonate (Tums) 1,000 mg Q4H PRN ORAL reflux symptoms 09/27/18 15:00 10/27/18 14:59 09/27/18 21:02 Chlorhexidine Gluconate (Светлана-Hex 2%) 1 applic DAILY@2000 TOPIC 09/28/18 20:00 10/28/18 19:59 Cyclobenzaprine HCl (Flexeril) 10 mg THREE TIMES A DAY ORAL 09/24/18 23:00 10/25/18 08:59 09/28/18 13:10 Dextrose/Sodium Chloride 1,000 ml @ 50 mls/hr Q20H IV 09/27/18 09:45 10/24/18 09:44 09/28/18 06:30 Diatrizoate Meglum/ Diatrizoate Sod (Gastrografin) 30 ml NOW PRN ORAL Radiology Procedure 09/25/18 14:45 09/28/18 14:36 Doxepin HCl (SINEquan) 50 mg BEDTIME ORAL 09/25/18 01:30 10/25/18 01:29 09/27/18 21:02 Ergocalciferol (Drisdol) 50,000 intlu QWEEK ORAL 09/27/18 09:30 10/27/18 09:29 09/27/18 11:54 Folic Acid (Folate) 1 mg DAILY ORAL 09/26/18 09:00 10/26/18 08:59 09/28/18 09:02 Hydroxyzine HCl (Atarax) 100 mg EVERY 6 HOURS ORAL 09/25/18 00:00 10/25/18 00:00 09/28/18 11:54 Levothyroxine Sodium (Synthroid) 50 mcg ACBREAKFAST ORAL 09/25/18 06:30 10/25/18 06:29 09/28/18 06:30 Methocarbamol (Robaxin) 500 mg QID ORAL 09/24/18 22:15 10/24/18 22:14 09/28/18 13:09 Multivitamins (Multivitamins) 1 tab DAILY ORAL 09/26/18 09:00 10/26/18 08:59 09/28/18 09:02 Ondansetron HCl (Zofran) 4 mg Q6H PRN ORAL Nausea & Vomiting 09/24/18 22:00 10/24/18 21:59 09/27/18 08:02 Oxycodone HCl (OxyCONTIN) 10 mg Q12HR ORAL 09/27/18 09:00 10/03/18 13:19 09/28/18 09:02 Oxycodone HCl (Roxicodone) 5 mg Q4H PRN ORAL Breakthrough Pain 09/26/18 13:20 10/03/18 13:19 09/28/18 11:54 Pantoprazole (Protonix) 40 mg DAILY ORAL 09/25/18 09:00 10/25/18 08:59 09/28/18 09:01 Potassium Chloride (K-Dur) 40 meq DAILY ORAL 09/27/18 09:30 10/27/18 09:29 09/28/18 09:01 Sucralfate (Carafate) 1 gm FOUR TIMES A DAY ORAL 09/27/18 09:00 10/27/18 08:59 09/28/18 13:09 Sumatriptan Succinate (Imitrex) 25 mg Q6H PRN ORAL For Headache 09/27/18 22:00 10/27/18 21:59 09/27/18 22:13 Thiamine HCl 100 mg/Dextrose 56 ml @ 112 mls/hr Q24H IVPB 09/27/18 12:00 10/27/18 11:59 09/28/18 12:29 Allergies: Coded Allergies: GABAPENTIN (Verified Allergy, Unknown, 09/24/18) METAXALONE (Verified Allergy, Unknown, 09/24/18) MORPHINE (Verified Allergy, Unknown, 09/24/18) QUETIAPINE (Verified Allergy, Unknown, 09/24/18) ROS Limited/Unobtainable: No Constitutional: Reports: no symptoms HEENT: Reports: no symptoms Cardiovascular: Reports: no symptoms Respiratory: Reports: no symptoms Gastrointestinal/Abdominal: Reports: abdominal pain, nausea Genitourinary: Reports: no symptoms Neurologic/Psychiatric: Reports: no symptoms Subjective 43 YO F admitted with nausea and vomiting. Now partial small bowel obstruction. Cover for Int Archie - Dr Ferreira Objective Last Vital Signs Date Time Temp Pulse Resp B/P (MAP) Pulse Ox O2 Delivery O2 Flow Rate FiO2 09/28/18 08:00 96.8 78 16 101/73 (82) 97 09/27/18 21:00 Room Air General Appearance: WD/WN, no apparent distress, alert EENT: PERRL/EOMI, normal ENT inspection Neck: non-tender, normal alignment, supple, normal inspection Cardiovascular: normal peripheral pulses, normal rate, regular rhythm, no gallop/murmur, no JVD Respiratory/Chest: chest wall non-tender, lungs clear, normal breath sounds, no respiratory distress, no accessory muscle use Abdomen: normal bowel sounds, soft, no organomegaly, no mass, decreased bowel sounds, tender Extremities: normal range of motion 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, no motor/sensory deficits Skin: normal pigmentation, warm/dry Laboratory Tests Test 09/27/18 21:30 09/28/18 13:20 Lupus Anticoagulant Pending Lupus Anticoagulant PTT Baseline Pending Lupus Anticoag DRVVT Screen Ratio Pending DRVVT Confirmation Interpretation Pending Hexagonal Phase Comment Pending White Blood Count 2.6 K/UL (4.8-10.8) L Red Blood Count 3.21 M/UL (4.20-5.40) L Hemoglobin 10.0 G/DL (12.0-16.0) L Hematocrit 30.5 % (37.0-47.0) L Mean Corpuscular Volume 95 FL (80-99) Mean Corpuscular Hemoglobin 31.1 PG (27.0-31.0) H Mean Corpuscular Hemoglobin Concent 32.8 G/DL (32.0-36.0) Red Cell Distribution Width 18.0 % (11.6-14.8) H Platelet Count 238 K/UL (150-450) Mean Platelet Volume 5.6 FL (6.5-10.1) L Neutrophils (%) (Auto) % (45.0-75.0) Lymphocytes (%) (Auto) % (20.0-45.0) Monocytes (%) (Auto) % (1.0-10.0) Eosinophils (%) (Auto) % (0.0-3.0) Basophils (%) (Auto) % (0.0-2.0) Neutrophils % (Manual) Pending Lymphocytes % (Manual) Pending Platelet Estimate Pending Platelet Morphology Pending Sodium Level Pending Potassium Level Pending Chloride Level Pending Carbon Dioxide Level Pending Blood Urea Nitrogen Pending Creatinine Pending Estimat Glomerular Filtration Rate Pending Glucose Level Pending Calcium Level Pending Total Bilirubin Pending Aspartate Amino Transf (AST/SGOT) Pending Alanine Aminotransferase (ALT/SGPT) Pending Alkaline Phosphatase Pending Total Protein Pending Albumin Pending Globulin Pending Intake and Output 09/27/18 09/28/18 19:00 07:00 Intake Total 50 ml 1350 ml Balance 50 ml 1350 ml Intake Oral 800 ml IV Total 50 ml 550 ml # Voids 4 Assessment/Plan Problem List: (1) Pancytopenia Assessment & Plan: See Heme note. (2) Nausea and vomiting Assessment & Plan: Continue zofran (3) Dehydration (4) Small bowel obstruction due to adhesions Assessment & Plan: Await Upper GI with bowel follow through. S/P surgery at [facility]. See GI note Status: not improved Adam Figueroa MD Sep 28, 2018 13:59
--- NOTE | 2018-09-28 14:01 | Internal Med Progress Note ---
Subjective Date of Service: Sep 28, 2018 Physician Name Adam Figueroa Attending Physician Caty Ferreira MD Current Medications Medications (Trade) Dose Ordered Sig/Cayetano Route PRN Reason Start Time Stop Time Status Last Admin Dose Admin Acetaminophen (Tylenol) 650 mg Q4H PRN ORAL Mild Pain/Temp > 100.5 09/24/18 22:00 10/24/18 21:59 Buspirone HCl (Buspar) 15 mg THREE TIMES A DAY ORAL 09/27/18 18:00 10/27/18 17:59 09/28/18 13:09 Calcium Carbonate (Tums) 1,000 mg Q4H PRN ORAL reflux symptoms 09/27/18 15:00 10/27/18 14:59 09/27/18 21:02 Chlorhexidine Gluconate (Светлана-Hex 2%) 1 applic DAILY@2000 TOPIC 09/28/18 20:00 10/28/18 19:59 Cyclobenzaprine HCl (Flexeril) 10 mg THREE TIMES A DAY ORAL 09/24/18 23:00 10/25/18 08:59 09/28/18 13:10 Dextrose/Sodium Chloride 1,000 ml @ 50 mls/hr Q20H IV 09/27/18 09:45 10/24/18 09:44 09/28/18 06:30 Diatrizoate Meglum/ Diatrizoate Sod (Gastrografin) 30 ml NOW PRN ORAL Radiology Procedure 09/25/18 14:45 09/28/18 14:36 Doxepin HCl (SINEquan) 50 mg BEDTIME ORAL 09/25/18 01:30 10/25/18 01:29 09/27/18 21:02 Ergocalciferol (Drisdol) 50,000 intlu QWEEK ORAL 09/27/18 09:30 10/27/18 09:29 09/27/18 11:54 Folic Acid (Folate) 1 mg DAILY ORAL 09/26/18 09:00 10/26/18 08:59 09/28/18 09:02 Hydroxyzine HCl (Atarax) 100 mg EVERY 6 HOURS ORAL 09/25/18 00:00 10/25/18 00:00 09/28/18 11:54 Levothyroxine Sodium (Synthroid) 50 mcg ACBREAKFAST ORAL 09/25/18 06:30 10/25/18 06:29 09/28/18 06:30 Methocarbamol (Robaxin) 500 mg QID ORAL 09/24/18 22:15 10/24/18 22:14 09/28/18 13:09 Multivitamins (Multivitamins) 1 tab DAILY ORAL 09/26/18 09:00 10/26/18 08:59 09/28/18 09:02 Ondansetron HCl (Zofran) 4 mg Q6H PRN ORAL Nausea & Vomiting 09/24/18 22:00 10/24/18 21:59 09/27/18 08:02 Oxycodone HCl (OxyCONTIN) 10 mg Q12HR ORAL 09/27/18 09:00 10/03/18 13:19 09/28/18 09:02 Oxycodone HCl (Roxicodone) 5 mg Q4H PRN ORAL Breakthrough Pain 09/26/18 13:20 10/03/18 13:19 09/28/18 11:54 Pantoprazole (Protonix) 40 mg DAILY ORAL 09/25/18 09:00 10/25/18 08:59 09/28/18 09:01 Potassium Chloride (K-Dur) 40 meq DAILY ORAL 09/27/18 09:30 10/27/18 09:29 09/28/18 09:01 Sucralfate (Carafate) 1 gm FOUR TIMES A DAY ORAL 09/27/18 09:00 10/27/18 08:59 09/28/18 13:09 Sumatriptan Succinate (Imitrex) 25 mg Q6H PRN ORAL For Headache 09/27/18 22:00 10/27/18 21:59 09/27/18 22:13 Thiamine HCl 100 mg/Dextrose 56 ml @ 112 mls/hr Q24H IVPB 09/27/18 12:00 10/27/18 11:59 09/28/18 12:29 Allergies: Coded Allergies: GABAPENTIN (Verified Allergy, Unknown, 09/24/18) METAXALONE (Verified Allergy, Unknown, 09/24/18) MORPHINE (Verified Allergy, Unknown, 09/24/18) QUETIAPINE (Verified Allergy, Unknown, 09/24/18) ROS Limited/Unobtainable: No Constitutional: Reports: no symptoms HEENT: Reports: no symptoms Cardiovascular: Reports: no symptoms Respiratory: Reports: no symptoms Gastrointestinal/Abdominal: Reports: abdominal pain, nausea Genitourinary: Reports: no symptoms Neurologic/Psychiatric: Reports: no symptoms Subjective 43 YO F admitted with nausea and vomiting. Now partial small bowel obstruction. Cover for Int [facility]chie - Dr Ferreira Objective Last Vital Signs Date Time Temp Pulse Resp B/P (MAP) Pulse Ox O2 Delivery O2 Flow Rate FiO2 09/28/18 08:00 96.8 78 16 101/73 (82) 97 09/27/18 21:00 Room Air Laboratory Tests Test 09/27/18 21:30 09/28/18 13:20 Lupus Anticoagulant Pending Lupus Anticoagulant PTT Baseline Pending Lupus Anticoag DRVVT Screen Ratio Pending DRVVT Confirmation Interpretation Pending Hexagonal Phase Comment Pending White Blood Count 2.6 K/UL (4.8-10.8) L Red Blood Count 3.21 M/UL (4.20-5.40) L Hemoglobin 10.0 G/DL (12.0-16.0) L Hematocrit 30.5 % (37.0-47.0) L Mean Corpuscular Volume 95 FL (80-99) Mean Corpuscular Hemoglobin 31.1 PG (27.0-31.0) H Mean Corpuscular Hemoglobin Concent 32.8 G/DL (32.0-36.0) Red Cell Distribution Width 18.0 % (11.6-14.8) H Platelet Count 238 K/UL (150-450) Mean Platelet Volume 5.6 FL (6.5-10.1) L Neutrophils (%) (Auto) % (45.0-75.0) Lymphocytes (%) (Auto) % (20.0-45.0) Monocytes (%) (Auto) % (1.0-10.0) Eosinophils (%) (Auto) % (0.0-3.0) Basophils (%) (Auto) % (0.0-2.0) Neutrophils % (Manual) Pending Lymphocytes % (Manual) Pending Platelet Estimate Pending Platelet Morphology Pending Sodium Level Pending Potassium Level Pending Chloride Level Pending Carbon Dioxide Level Pending Blood Urea Nitrogen Pending Creatinine Pending Estimat Glomerular Filtration Rate Pending Glucose Level Pending Calcium Level Pending Total Bilirubin Pending Aspartate Amino Transf (AST/SGOT) Pending Alanine Aminotransferase (ALT/SGPT) Pending Alkaline Phosphatase Pending Total Protein Pending Albumin Pending Globulin Pending Intake and Output 09/27/18 09/28/18 19:00 07:00 Intake Total 50 ml 1350 ml Balance 50 ml 1350 ml Intake Oral 800 ml IV Total 50 ml 550 ml # Voids 4 Objective General Appearance: WD/WN, no apparent distress, alert EENT: PERRL/EOMI, normal ENT inspection Neck: non-tender, normal alignment, supple, normal inspection Cardiovascular: normal peripheral pulses, normal rate, regular rhythm, no gallop/murmur, no JVD Respiratory/Chest: chest wall non-tender, lungs clear, normal breath sounds, no respiratory distress, no accessory muscle use Abdomen: normal bowel sounds, soft, no organomegaly, no mass, decreased bowel sounds, tender Extremities: normal range of motion 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 (2) Nausea and vomiting Assessment & Plan: Continue zofran (3) Dehydration (4) Small bowel obstruction due to adhesions Assessment & Plan: See Upper GI with sm bowel follow through. S/P surgery at [facility]. See GI note Status: not improved Adam Figueroa MD Sep 28, 2018 14:01
[2018-09-28 14:07] LABS: ALANINE AMINOTRANSFERASE 40 U/L (12-78); ALBUMIN 1.7 G/DL (3.4-5.0); ALBUMIN/GLOBULIN RATIO 0.6 (1.0-2.7); ALKALINE PHOSPHATASE 99 U/L (46-116); ANION GAP 5 mmol/L (5-15); ASPARTATE AMINO TRANSFERASE 17 U/L (15-37); BILIRUBIN,TOTAL 0.5 MG/DL (0.2-1.0); BLOOD UREA NITROGEN 4 mg/dL (7-18); CALCIUM 7.4 MG/DL (8.5-10.1); CARBON DIOXIDE 26 MMOL/L (21-32); CHLORIDE 107 MMOL/L (98-107); CREATININE 0.8 MG/DL (0.55-1.30); POTASSIUM 3.5 MMOL/L (3.5-5.1); SODIUM 138 MMOL/L (136-145)
--- NOTE | 2018-09-28 15:29 | Infectious Diseases Prog Note ---
Assessment/Plan Problems: (1) Hypotension Assessment & Plan: no evidence of sepsis, with negative blood culture x2 , monitor off antibiotics (2) Small bowel obstruction due to adhesions Assessment & Plan: S/P recent adhesions lysis recently , advance diet as tolerated , continue hydration and pain management as needed (3) Dehydration Assessment & Plan: continue IVF with bolus as needed. (4) Nausea and vomiting Assessment & Plan: continue supportive care (5) Diarrhea Assessment & Plan: await stool for C diff , continue hydration Subjective Constitutional: Reports: no symptoms HEENT: Reports: no symptoms Respiratory: Reports: no symptoms Breasts: Reports: no symptoms Cardiovascular: Reports: no symptoms Gastrointestinal/Abdominal: Reports: nausea, diarrhea, bloating Genitourinary: Reports: no symptoms Neurologic: Reports: no symptoms Psychiatric: Reports: no symptoms Skin: Reports: no symptoms Endocrine: Reports: no symptoms Hematologic: Reports: no symptoms Musculoskeletal: Reports: no symptoms Allergies: Coded Allergies: GABAPENTIN (Verified Allergy, Unknown, 09/24/18) METAXALONE (Verified Allergy, Unknown, 09/24/18) MORPHINE (Verified Allergy, Unknown, 09/24/18) QUETIAPINE (Verified Allergy, Unknown, 09/24/18) Objective Vital Signs Last 24 Hour Vital Signs Date Time Temp Pulse Resp B/P (MAP) Pulse Ox O2 Delivery O2 Flow Rate FiO2 09/28/18 12:00 97.5 95 16 104/75 (85) 97 09/28/18 09:00 Room Air 09/28/18 08:00 96.8 78 16 101/73 (82) 97 09/28/18 04:00 98.7 73 16 124/80 (95) 94 09/28/18 00:00 98.2 75 16 119/72 (88) 96 09/27/18 21:00 Room Air 09/27/18 20:00 98.3 87 18 113/71 (85) 98 09/27/18 16:00 97.8 92 16 114/76 (89) Height (Feet): 5 Height (Inches): 4.00 Weight (Pounds): 142 General Appearance: WD/WN, no acute distress HEENT: normocephalic, atraumatic, anicteric, mucous membranes moist, EOMI, pharynx normal, supple, no JVD Respiratory/Chest: chest wall non-tender, lungs clear, normal breath sounds, no respiratory distress, no accessory muscle use Cardiovascular: normal peripheral pulses, normal rate, regular rhythm, no gallop/murmur, no JVD Abdomen: soft, non tender, no organomegaly, non distended, no mass, no scars, hypoactive bowel sounds Genitourinary: normal external genitalia Extremities: no cyanosis, no clubbing Skin: no rash, no lesions, no ulcers 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, no motor/sensory deficits, abnormal gait, alert, oriented x 3, responsive Lymphatic: no neck adenopathy, no groin adenopathy Musculoskeletal: normal muscle bulk, no effusion Laboratory Tests Test 09/27/18 21:30 09/28/18 13:20 Lupus Anticoagulant Pending Lupus Anticoagulant PTT Baseline Pending Lupus Anticoag DRVVT Screen Ratio Pending DRVVT Confirmation Interpretation Pending Hexagonal Phase Comment Pending White Blood Count 2.6 K/UL (4.8-10.8) L Red Blood Count 3.21 M/UL (4.20-5.40) L Hemoglobin 10.0 G/DL (12.0-16.0) L Hematocrit 30.5 % (37.0-47.0) L Mean Corpuscular Volume 95 FL (80-99) Mean Corpuscular Hemoglobin 31.1 PG (27.0-31.0) H Mean Corpuscular Hemoglobin Concent 32.8 G/DL (32.0-36.0) Red Cell Distribution Width 18.0 % (11.6-14.8) H Platelet Count 238 K/UL (150-450) Mean Platelet Volume 5.6 FL (6.5-10.1) L Neutrophils (%) (Auto) % (45.0-75.0) Lymphocytes (%) (Auto) % (20.0-45.0) Monocytes (%) (Auto) % (1.0-10.0) Eosinophils (%) (Auto) % (0.0-3.0) Basophils (%) (Auto) % (0.0-2.0) Differential Total Cells Counted 100 Neutrophils % (Manual) 68 % (45-75) Lymphocytes % (Manual) 30 % (20-45) Monocytes % (Manual) 2 % (1-10) Eosinophils % (Manual) 0 % (0-3) Basophils % (Manual) 0 % (0-2) Band Neutrophils 0 % (0-8) Platelet Estimate Adequate Platelet Morphology Normal Anisocytosis 1+ Sodium Level 138 MMOL/L (136-145) Potassium Level 3.5 MMOL/L (3.5-5.1) Chloride Level 107 MMOL/L (98-107) Carbon Dioxide Level 26 MMOL/L (21-32) Anion Gap 5 mmol/L (5-15) Blood Urea Nitrogen 4 mg/dL (7-18) L Creatinine 0.8 MG/DL (0.55-1.30) Estimat Glomerular Filtration Rate > 60 mL/min (>60) Glucose Level 162 MG/DL (74-106) H Calcium Level 7.4 MG/DL (8.5-10.1) L Total Bilirubin 0.5 MG/DL (0.2-1.0) Aspartate Amino Transf (AST/SGOT) 17 U/L (15-37) Alanine Aminotransferase (ALT/SGPT) 40 U/L (12-78) Alkaline Phosphatase 99 U/L (46-116) Total Protein 4.5 G/DL (6.4-8.2) L Albumin 1.7 G/DL (3.4-5.0) L Globulin 2.8 g/dL Albumin/Globulin Ratio 0.6 (1.0-2.7) L Current Medications Medications (Trade) Dose Ordered Sig/Cayetano Route PRN Reason Start Time Stop Time Status Last Admin Dose Admin Acetaminophen (Tylenol) 650 mg Q4H PRN ORAL Mild Pain/Temp > 100.5 09/24/18 22:00 10/24/18 21:59 Buspirone HCl (Buspar) 15 mg THREE TIMES A DAY ORAL 09/27/18 18:00 10/27/18 17:59 09/28/18 13:09 Calcium Carbonate (Tums) 1,000 mg Q4H PRN ORAL reflux symptoms 09/27/18 15:00 10/27/18 14:59 09/27/18 21:02 Chlorhexidine Gluconate (Светлана-Hex 2%) 1 applic DAILY@1999 TOPIC 09/28/18 20:00 10/28/18 19:59 Cyclobenzaprine HCl (Flexeril) 10 mg THREE TIMES A DAY ORAL 09/24/18 23:00 5/17/19 08:59 09/28/18 13:10 Dextrose/Sodium Chloride 1,000 ml @ 50 mls/hr Q20H IV 09/27/18 09:45 10/24/18 09:44 09/28/18 06:30 Doxepin HCl (SINEquan) 50 mg BEDTIME ORAL 09/25/18 01:30 10/25/18 01:29 09/27/18 21:02 Ergocalciferol (Drisdol) 50,000 intlu QWEEK ORAL 09/27/18 09:30 10/27/18 09:29 09/27/18 11:54 Folic Acid (Folate) 1 mg DAILY ORAL 09/26/18 09:00 10/26/18 08:59 09/28/18 09:02 Hydroxyzine HCl (Atarax) 100 mg EVERY 6 HOURS ORAL 09/25/18 00:00 10/25/18 00:00 09/28/18 11:54 Levothyroxine Sodium (Synthroid) 50 mcg ACBREAKFAST ORAL 09/25/18 06:30 10/25/18 06:29 09/28/18 06:30 Methocarbamol (Robaxin) 500 mg QID ORAL 09/24/18 22:15 10/24/18 22:14 09/28/18 13:09 Multivitamins (Multivitamins) 1 tab DAILY ORAL 09/26/18 09:00 10/26/18 08:59 09/28/18 09:02 Ondansetron HCl (Zofran) 4 mg Q6H PRN IVP Nausea & Vomiting 09/28/18 14:45 10/28/18 14:44 Oxycodone HCl (OxyCONTIN) 30 mg Q12HR ORAL 09/28/18 21:00 10/03/18 13:19 Oxycodone HCl (Roxicodone) 10 mg Q4H PRN ORAL Breakthrough Pain 09/28/18 14:30 10/03/18 14:29 Pantoprazole (Protonix) 40 mg DAILY ORAL 09/25/18 09:00 10/25/18 08:59 09/28/18 09:01 Potassium Chloride (K-Dur) 40 meq DAILY ORAL 09/27/18 09:30 10/27/18 09:29 09/28/18 09:01 Sucralfate (Carafate) 1 gm FOUR TIMES A DAY ORAL 09/27/18 09:00 10/27/18 08:59 09/28/18 13:09 Sumatriptan Succinate (Imitrex) 25 mg Q6H PRN ORAL For Headache 09/27/18 22:00 10/27/18 21:59 09/27/18 22:13 Thiamine HCl 100 mg/Dextrose 56 ml @ 112 mls/hr Q24H IVPB 09/27/18 12:00 10/27/18 11:59 09/28/18 12:29 Oralia Mohan M.D. Sep 28, 2018 15:29
[2018-09-28 16:00] VITALS: BP 124/90
[2018-09-28] MEDS: SUMAtriptan 50mg tab ORAL PRN (16:03)
--- NOTE | 2018-09-28 17:30 | Surgery Progress Note ---
Surgery Progress Note Subjective Additional Comments no acute events. feeling better. pain improved. tolerating diet. less reflux today. Objective Last 24 Hour Vital Signs Date Time Temp Pulse Resp B/P (MAP) Pulse Ox O2 Delivery O2 Flow Rate FiO2 09/28/18 16:00 98.9 98 19 124/90 (101) 97 09/28/18 12:00 97.5 95 16 104/75 (85) 97 09/28/18 09:00 Room Air 09/28/18 08:00 96.8 78 16 101/73 (82) 97 09/28/18 04:00 98.7 73 16 124/80 (95) 94 09/28/18 00:00 98.2 75 16 119/72 (88) 96 09/27/18 21:00 Room Air 09/27/18 20:00 98.3 87 18 113/71 (85) 98 I&O Intake and Output 09/27/18 09/28/18 19:00 07:00 Intake Total 50 ml 1350 ml Balance 50 ml 1350 ml Intake Oral 800 ml IV Total 50 ml 550 ml # Voids 4 Dressing: dry Wound: clean Cardiovascular: RSR Respiratory: clear Abdomen: soft, flat, non-tender, present bowel sounds Extremities: no tenderness, no cyanosis Laboratory Tests Test 09/27/18 21:30 09/28/18 13:20 Lupus Anticoagulant Pending Lupus Anticoagulant PTT Baseline Pending Lupus Anticoag DRVVT Screen Ratio Pending DRVVT Confirmation Interpretation Pending Hexagonal Phase Comment Pending White Blood Count 2.6 K/UL (4.8-10.8) L Red Blood Count 3.21 M/UL (4.20-5.40) L Hemoglobin 10.0 G/DL (12.0-16.0) L Hematocrit 30.5 % (37.0-47.0) L Mean Corpuscular Volume 95 FL (80-99) Mean Corpuscular Hemoglobin 31.1 PG (27.0-31.0) H Mean Corpuscular Hemoglobin Concent 32.8 G/DL (32.0-36.0) Red Cell Distribution Width 18.0 % (11.6-14.8) H Platelet Count 238 K/UL (150-450) Mean Platelet Volume 5.6 FL (6.5-10.1) L Neutrophils (%) (Auto) % (45.0-75.0) Lymphocytes (%) (Auto) % (20.0-45.0) Monocytes (%) (Auto) % (1.0-10.0) Eosinophils (%) (Auto) % (0.0-3.0) Basophils (%) (Auto) % (0.0-2.0) Differential Total Cells Counted 100 Neutrophils % (Manual) 68 % (45-75) Lymphocytes % (Manual) 30 % (20-45) Monocytes % (Manual) 2 % (1-10) Eosinophils % (Manual) 0 % (0-3) Basophils % (Manual) 0 % (0-2) Band Neutrophils 0 % (0-8) Platelet Estimate Adequate Platelet Morphology Normal Anisocytosis 1+ Sodium Level 138 MMOL/L (136-145) Potassium Level 3.5 MMOL/L (3.5-5.1) Chloride Level 107 MMOL/L (98-107) Carbon Dioxide Level 26 MMOL/L (21-32) Anion Gap 5 mmol/L (5-15) Blood Urea Nitrogen 4 mg/dL (7-18) L Creatinine 0.8 MG/DL (0.55-1.30) Estimat Glomerular Filtration Rate > 60 mL/min (>60) Glucose Level 162 MG/DL (74-106) H Calcium Level 7.4 MG/DL (8.5-10.1) L Total Bilirubin 0.5 MG/DL (0.2-1.0) Aspartate Amino Transf (AST/SGOT) 17 U/L (15-37) Alanine Aminotransferase (ALT/SGPT) 40 U/L (12-78) Alkaline Phosphatase 99 U/L (46-116) Total Protein 4.5 G/DL (6.4-8.2) L Albumin 1.7 G/DL (3.4-5.0) L Globulin 2.8 g/dL Albumin/Globulin Ratio 0.6 (1.0-2.7) L Plan Problems: (1) Vomiting (2) Dehydration (3) Electrolyte imbalance (4) Nausea and vomiting (5) Small bowel obstruction due to adhesions Assessment & Plan: CT noted exam with tenderness but incisional labs noted upper GI without obstruction possible endoscopy by GI no acute surgical intervention planned okay for diet PPI am labs will follow with serial exams thank you Glynn Michelle Sep 28, 2018 17:30
--- NOTE | 2018-09-28 17:48 | Nephrology Progress Note ---
Assessment/Plan Problem List: (1) Dehydration (2) Hypotension (3) UTI (urinary tract infection) (4) Hypocalcemia Assessment Severe HypoAlbuminemia, WITHOUT PROTEINURIA per ua likely nutritional and related to liver disease HypoCalcemia , fairly corrects by Hypoalbuminemia Leukopenia and Anemia , likely of chronic disease UTI Low cortisol level Hypotension Plan stable from renal stand Vit D Hydrocortisone maintenence dose correct electrolytes antibiotics per consultants Subjective ROS Limited/Unobtainable: No Constitutional: Reports: malaise Objective Objective Last 24 Hour Vital Signs Date Time Temp Pulse Resp B/P (MAP) Pulse Ox O2 Delivery O2 Flow Rate FiO2 09/28/18 16:00 98.9 98 19 124/90 (101) 97 09/28/18 12:00 97.5 95 16 104/75 (85) 97 09/28/18 09:00 Room Air 09/28/18 08:00 96.8 78 16 101/73 (82) 97 09/28/18 04:00 98.7 73 16 124/80 (95) 94 09/28/18 00:00 98.2 75 16 119/72 (88) 96 09/27/18 21:00 Room Air 09/27/18 20:00 98.3 87 18 113/71 (85) 98 Intake and Output 09/27/18 09/28/18 19:00 07:00 Intake Total 50 ml 1350 ml Balance 50 ml 1350 ml Intake Oral 800 ml IV Total 50 ml 550 ml # Voids 4 Laboratory Tests 09/27/18 21:30: Lupus Anticoagulant [Pending], Lupus Anticoagulant PTT Baseline [Pending], Lupus Anticoag DRVVT Screen Ratio [Pending], DRVVT Confirmation Interpretation [ Pending], Hexagonal Phase Comment [Pending] 09/28/18 13:20: White Blood Count 2.6L, Red Blood Count 3.21L, Hemoglobin 10.0L, Hematocrit 30.5L, Mean Corpuscular Volume 95, Mean Corpuscular Hemoglobin 31.1H, Mean Corpuscular Hemoglobin Concent 32.8, Red Cell Distribution Width 18.0H, Platelet Count 238, Mean Platelet Volume 5.6L, Neutrophils (%) (Auto) , Lymphocytes (%) (Auto) , Monocytes (%) (Auto) , Eosinophils (%) (Auto) , Basophils (%) (Auto) , Differential Total Cells Counted 100, Neutrophils % ( Manual) 68, Lymphocytes % (Manual) 30, Monocytes % (Manual) 2, Eosinophils % ( Manual) 0, Basophils % (Manual) 0, Band Neutrophils 0, Platelet Estimate Adequate, Platelet Morphology Normal, Anisocytosis 1+, Sodium Level 138, Potassium Level 3.5, Chloride Level 107, Carbon Dioxide Level 26, Anion Gap 5, Blood Urea Nitrogen 4L, Creatinine 0.8, Estimat Glomerular Filtration Rate > 60 , Glucose Level 162H, Calcium Level 7.4L, Total Bilirubin 0.5, Aspartate Amino Transf (AST/SGOT) 17, Alanine Aminotransferase (ALT/SGPT) 40, Alkaline Phosphatase 99, Total Protein 4.5L, Albumin 1.7L, Globulin 2.8, Albumin/ Globulin Ratio 0.6L Height (Feet): 5 Height (Inches): 4.00 Weight (Pounds): 142 General Appearance: no apparent distress, other - facial redness Cardiovascular: normal rate Respiratory/Chest: lungs clear Abdomen: soft Umberto Causey MD Sep 28, 2018 17:48
--- NOTE | 2018-09-28 18:16 | General Progress Note ---
Assessment/Plan Plan: Assessment/Plan Problems: (1) Nausea and vomiting ICD Codes: R11.2 - Nausea with vomiting, unspecified SNOMED: 49089731 (2) Dehydration ICD Codes: E86.0 - Dehydration SNOMED: 80752629 (3) Small bowel obstruction due to adhesions ICD Codes: K56.50 - Intestinal adhesions [bands], unspecified as to partial versus complete obstruction SNOMED: 164943202 (4) History of gastric bypass ICD Codes: Z98.84 - Bariatric surgery status SNOMED: 871116141 (5) Electrolyte imbalance ICD Codes: E87.8 - Other disorders of electrolyte and fluid balance, not elsewhere classified SNOMED: 154084186 Status: stable Assessment/Plan Abdominal pelvis CT reviewed. - Evidence of prior Marine-en-Y gastric bypass. - There is air-fluid levels and dilatation of portions of the proximal jejunum/ biliopancreatic limb leading up to the enteroenteric anastomosis concerning for a degree of obstruction or stasis. - No evidence of free intraperitoneal air, ascites, pneumatosis intestinalis or portalvenous gas. - Status post cholecystectomy. regular diet zofran prn, reglan prn for persistent vomiting anemia work up OB stool r/o GI bleed monitor H&H, prn transfusions ppi electrolyte correction fu labs possible EGD per Dr. Rosenberg Subjective Allergies: Coded Allergies: GABAPENTIN (Verified Allergy, Unknown, 09/24/18) METAXALONE (Verified Allergy, Unknown, 09/24/18) MORPHINE (Verified Allergy, Unknown, 09/24/18) QUETIAPINE (Verified Allergy, Unknown, 09/24/18) Subjective No new symptoms po intake poor Objective Last 24 Hour Vital Signs Date Time Temp Pulse Resp B/P (MAP) Pulse Ox O2 Delivery O2 Flow Rate FiO2 09/28/18 16:00 98.9 98 19 124/90 (101) 97 09/28/18 12:00 97.5 95 16 104/75 (85) 97 09/28/18 09:00 Room Air 09/28/18 08:00 96.8 78 16 101/73 (82) 97 09/28/18 04:00 98.7 73 16 124/80 (95) 94 09/28/18 00:00 98.2 75 16 119/72 (88) 96 09/27/18 21:00 Room Air 09/27/18 20:00 98.3 87 18 113/71 (85) 98 Intake and Output 09/27/18 09/28/18 19:00 07:00 Intake Total 50 ml 1350 ml Balance 50 ml 1350 ml Intake Oral 800 ml IV Total 50 ml 550 ml # Voids 4 Laboratory Tests 09/27/18 21:30: Lupus Anticoagulant [Pending], Lupus Anticoagulant PTT Baseline [Pending], Lupus Anticoag DRVVT Screen Ratio [Pending], DRVVT Confirmation Interpretation [ Pending], Hexagonal Phase Comment [Pending] 09/28/18 13:20: White Blood Count 2.6L, Red Blood Count 3.21L, Hemoglobin 10.0L, Hematocrit 30.5L, Mean Corpuscular Volume 95, Mean Corpuscular Hemoglobin 31.1H, Mean Corpuscular Hemoglobin Concent 32.8, Red Cell Distribution Width 18.0H, Platelet Count 238, Mean Platelet Volume 5.6L, Neutrophils (%) (Auto) , Lymphocytes (%) (Auto) , Monocytes (%) (Auto) , Eosinophils (%) (Auto) , Basophils (%) (Auto) , Differential Total Cells Counted 100, Neutrophils % ( Manual) 68, Lymphocytes % (Manual) 30, Monocytes % (Manual) 2, Eosinophils % ( Manual) 0, Basophils % (Manual) 0, Band Neutrophils 0, Platelet Estimate Adequate, Platelet Morphology Normal, Anisocytosis 1+, Sodium Level 138, Potassium Level 3.5, Chloride Level 107, Carbon Dioxide Level 26, Anion Gap 5, Blood Urea Nitrogen 4L, Creatinine 0.8, Estimat Glomerular Filtration Rate > 60 , Glucose Level 162H, Calcium Level 7.4L, Total Bilirubin 0.5, Aspartate Amino Transf (AST/SGOT) 17, Alanine Aminotransferase (ALT/SGPT) 40, Alkaline Phosphatase 99, Total Protein 4.5L, Albumin 1.7L, Globulin 2.8, Albumin/ Globulin Ratio 0.6L Height (Feet): 5 Height (Inches): 4.00 Weight (Pounds): 142 Objective Thin WW NCAT supple CTA RR abd soft, mild diffuse TTP no edema Suraj Esquivel MD Sep 28, 2018 18:16
--- NOTE | 2018-09-28 19:20 | NUR ---
CASE MANAGEMENT: REVIEW SI: DEHYDRATION . SBO T 97.5 HR 95 RR 16 HR 101/73 SAT 97% ROOM AIR WBC 2.6 H/H 10.0/30.5 IS: HYDROCORTISONE PO QD FLEXERIL PO TID ROBAXIN PO QID MED/SURG STATUS DCP: PATIENT IS FROM
--- NOTE | 2018-09-28 19:46 | NUR ---
HAND-OFF: Report given to kia harrison RN.
--- NOTE | 2018-09-28 19:46 | NUR ---
NURSE NOTES: Received patient in bed. A&OX4. Port a cath noted on left chest, patent and intact. at bedside. Remind to collect urine sample for UC. Bed in lowest position. Call light within reach. Will continue to monitor.
[2018-09-28 19:58] VITALS: BP 117/73
[2018-09-28] MEDS: Dyna-Hex 2% Top Sol 2oz TOPIC SCH (20:17)
[2018-09-28] MEDS: Doxepin 25mg Cap ORAL SCH (20:17)
[2018-09-28] MEDS: Tums 500mg ORAL PRN (20:29)
--- NOTE | 2018-09-28 23:43 | Psych Consult Progress Note ---
Psychiatry Progress Note Psychiatry Progress Note Medications Current Medications Medications (Trade) Dose Ordered Sig/Cayetano Route PRN Reason Start Time Stop Time Status Last Admin Dose Admin Acetaminophen (Tylenol) 650 mg Q4H PRN ORAL Mild Pain/Temp > 100.5 09/24/18 22:00 10/24/18 21:59 Buspirone HCl (Buspar) 15 mg THREE TIMES A DAY ORAL 09/27/18 18:00 10/27/18 17:59 09/28/18 17:59 Calcium Carbonate (Tums) 1,000 mg Q4H PRN ORAL reflux symptoms 09/27/18 15:00 10/27/18 14:59 09/28/18 20:29 Chlorhexidine Gluconate (Светлана-Hex 2%) 1 applic DAILY@2000 TOPIC 09/28/18 20:00 10/28/18 19:59 09/28/18 20:17 Cyclobenzaprine HCl (Flexeril) 10 mg THREE TIMES A DAY ORAL 09/24/18 23:00 10/25/18 08:59 09/28/18 17:59 Doxepin HCl (SINEquan) 50 mg BEDTIME ORAL 09/25/18 01:30 10/25/18 01:29 09/28/18 20:17 Ergocalciferol (Drisdol) 50,000 intlu QWEEK ORAL 09/27/18 09:30 10/27/18 09:29 09/27/18 11:54 Folic Acid (Folate) 1 mg DAILY ORAL 09/26/18 09:00 10/26/18 08:59 09/28/18 09:02 Hydrocortisone (Cortef) 25 mg DAILY@1400 ORAL 09/29/18 14:00 10/29/18 13:59 Hydrocortisone (Cortef) 50 mg DAILY@0700 ORAL 09/29/18 07:00 10/29/18 06:59 Hydroxyzine HCl (Atarax) 100 mg EVERY 6 HOURS ORAL 09/25/18 00:00 10/25/18 00:00 09/28/18 23:17 Levothyroxine Sodium (Synthroid) 50 mcg ACBREAKFAST ORAL 09/25/18 06:30 10/25/18 06:29 09/28/18 06:30 Methocarbamol (Robaxin) 500 mg QID ORAL 09/24/18 22:15 10/24/18 22:14 09/28/18 20:18 Multivitamins (Multivitamins) 1 tab DAILY ORAL 09/26/18 09:00 10/26/18 08:59 09/28/18 09:02 Ondansetron HCl (Zofran) 4 mg Q6H PRN IVP Nausea & Vomiting 09/28/18 14:45 10/28/18 14:44 09/28/18 16:01 Oxycodone HCl (OxyCONTIN) 30 mg Q12HR ORAL 09/28/18 21:00 10/03/18 13:19 09/28/18 20:17 Oxycodone HCl (Roxicodone) 10 mg Q4H PRN ORAL Breakthrough Pain 09/28/18 14:30 10/03/18 14:29 09/28/18 23:17 Pantoprazole (Protonix) 40 mg DAILY ORAL 09/25/18 09:00 10/25/18 08:59 09/28/18 09:01 Potassium Chloride (K-Dur) 40 meq DAILY ORAL 09/27/18 09:30 10/27/18 09:29 09/28/18 09:01 Sucralfate (Carafate) 1 gm FOUR TIMES A DAY ORAL 09/27/18 09:00 10/27/18 08:59 09/28/18 20:17 Sumatriptan Succinate (Imitrex) 25 mg Q6H PRN ORAL For Headache 09/27/18 22:00 10/27/18 21:59 09/28/18 16:03 Thiamine HCl (Vitamin B1) 100 mg DAILY ORAL 09/29/18 09:00 10/29/18 08:59 Neurological/Psychiatric: Reports: anxiety, depressed, emotional problems Allergies: Coded Allergies: GABAPENTIN (Verified Allergy, Unknown, 09/24/18) METAXALONE (Verified Allergy, Unknown, 09/24/18) MORPHINE (Verified Allergy, Unknown, 09/24/18) QUETIAPINE (Verified Allergy, Unknown, 09/24/18) Objective Data Height (Feet): 5 Height (Inches): 4.00 Weight (Pounds): 142 General Appearance: WD/WN, no apparent distress, alert Appearance: well groomed Behavior Mannerisms: good eye contact Mental Status Exam - Mood: anxious Mental Status Exam - Thought P: logical Mental Status Exam - Suicidal: not present Assessment/Plan Problem List: (1) Anxiety disorder ICD Codes: F41.9 - Anxiety disorder, unspecified SNOMED: 476109733 (2) Alcohol dependence ICD Codes: F10.20 - Alcohol dependence, uncomplicated SNOMED: 22015133 Sugey Meléndez MD Sep 28, 2018 23:43
[2018-09-29] VITALS: BP 105/82
[2018-09-29 01:30] LABS: APPEARANCE,URINE CLEAR; BILIRUBIN, URINE NEGATIVE (NEGATIVE); COLOR,URINE PALE YELLOW; GLUCOSE, URINE (UA) NEGATIVE (NEGATIVE); KETONES,URINE NEGATIVE (NEGATIVE); LEUKOCYTE ESTERASE ,URINE NEGATIVE (NEGATIVE); NITRITE,URINE NEGATIVE (NEGATIVE); PH,URINE 7 (4.5-8.0); PROTEIN,URINE NEGATIVE (NEGATIVE); UROBILINOGEN,URINE NORMAL MG/DL (0.0-1.0)
[2018-09-29] MEDS: oxyCODONE 5mg IR tab ORAL PRN ×3 (03:12→23:44)
[2018-09-29 04:40] VITALS: BP 118/89
[2018-09-29] MEDS: Levothyroxine 25mcg tab ORAL SCH (05:29)
[2018-09-29] MEDS: HydrOXYzine 50mg tab ORAL SCH ×4 (05:30→23:44)
[2018-09-29] MEDS: Hydrocortisone 20mg tab ORAL SCH (07:03)
[2018-09-29] MEDS: SUMAtriptan 50mg tab ORAL PRN (07:13)
[2018-09-29 07:16] LABS: BASOPHILS % (AUTO) 1.2 % (0.0-2.0); EOSINOPHILS % (AUTO) 1.2 % (0.0-3.0); HEMATOCRIT 27.3 % (37.0-47.0); HEMOGLOBIN 8.8 G/DL (12.0-16.0); MEAN CORPUSCULAR VOLUME 96 FL (80-99); MONOCYTES % (AUTO) 10.2 % (1.0-10.0); NEUTROPHILS % (AUTO) 46.5 % (45.0-75.0); PLATELET COUNT 212 K/UL (150-450); RED BLOOD COUNT 2.83 M/UL (4.20-5.40); RED CELL DISTRIBUTION WIDTH 18.1 % (11.6-14.8); WHITE BLOOD COUNT 3.9 K/UL (4.8-10.8)
--- NOTE | 2018-09-29 07:40 | NUR ---
HAND-OFF: Report given to TAWNY Huynh.
[2018-09-29] MEDS: Tums 500mg ORAL PRN (07:43)
[2018-09-29 08:00] VITALS: BP 114/77
--- NOTE | 2018-09-29 08:00 | NUR ---
NURSE NOTES: received report from TAWNY [place]. patient in bed. AOx4. verbally responsive. no respiratory distress noted. portal cath on left upper chest intact. bed in the lowest position. call light within reach. will continue to monitor.
[2018-09-29 08:53] LABS: ALANINE AMINOTRANSFERASE 38 U/L (12-78); ALBUMIN 1.5 G/DL (3.4-5.0); ALBUMIN/GLOBULIN RATIO 0.6 (1.0-2.7); ALKALINE PHOSPHATASE 85 U/L (46-116); ANION GAP 9 mmol/L (5-15); ASPARTATE AMINO TRANSFERASE 18 U/L (15-37); BILIRUBIN,TOTAL 0.3 MG/DL (0.2-1.0); BLOOD UREA NITROGEN 6 mg/dL (7-18); CALCIUM 7.2 MG/DL (8.5-10.1); CARBON DIOXIDE 24 MMOL/L (21-32); CHLORIDE 111 MMOL/L (98-107); CREATININE 0.8 MG/DL (0.55-1.30); GAMMA GLUTAMYL TRANSPEPTIDASE 38 U/L (5-85); PHOSPHORUS 2.9 MG/DL (2.5-4.9); POTASSIUM 3.4 MMOL/L (3.5-5.1); SODIUM 144 MMOL/L (136-145)
[2018-09-29] MEDS: Sucralfate 1gm tab ORAL SCH ×4 (09:23→20:02)
[2018-09-29] MEDS: BusPIRone 5mg Tab ORAL SCH ×3 (09:23→17:54)
[2018-09-29] MEDS: Cyclobenzaprine 10mg Tab ORAL SCH ×3 (09:24→17:54)
[2018-09-29] MEDS: Thiamine 100mg tab ORAL SCH (09:24)
[2018-09-29] MEDS: oxyCONTIN 10mg tab ORAL SCH ×2 (09:25→20:02)
--- NOTE | 2018-09-29 11:14 | Nephrology Progress Note ---
Assessment/Plan Problem List: (1) Dehydration (2) Hypotension (3) UTI (urinary tract infection) (4) Hypocalcemia Assessment Severe HypoAlbuminemia, WITHOUT PROTEINURIA per ua likely nutritional and related to liver disease HypoCalcemia , fairly corrects by Hypoalbuminemia Leukopenia and Anemia , likely of chronic disease UTI Low cortisol level Hypotension Plan mag and K supplement stable from renal stand Vit D Hydrocortisone maintenance dose correct electrolytes antibiotics per consultants Subjective ROS Limited/Unobtainable: No Constitutional: Reports: malaise, weakness Objective Objective Last 24 Hour Vital Signs Date Time Temp Pulse Resp B/P (MAP) Pulse Ox O2 Delivery O2 Flow Rate FiO2 09/29/18 09:00 Room Air 09/29/18 08:00 97.8 78 16 114/77 (89) 97 09/29/18 04:40 97.9 84 19 118/89 (99) 100 09/29/18 00:00 97.9 89 18 105/82 (90) 100 09/28/18 21:00 Room Air 09/28/18 20:47 98.1 09/28/18 19:58 98.1 86 19 117/73 (88) 97 09/28/18 16:00 98.9 98 19 124/90 (101) 97 09/28/18 12:00 97.5 95 16 104/75 (85) 97 Intake and Output 09/28/18 09/29/18 19:00 07:00 Intake Total 500 ml Balance 500 ml Other 500 ml # Voids 3 Laboratory Tests 09/28/18 13:20: White Blood Count 2.6L, Red Blood Count 3.21L, Hemoglobin 10.0L, Hematocrit 30.5L, Mean Corpuscular Volume 95, Mean Corpuscular Hemoglobin 31.1H, Mean Corpuscular Hemoglobin Concent 32.8, Red Cell Distribution Width 18.0H, Platelet Count 238, Mean Platelet Volume 5.6L, Neutrophils (%) (Auto) , Lymphocytes (%) (Auto) , Monocytes (%) (Auto) , Eosinophils (%) (Auto) , Basophils (%) (Auto) , Differential Total Cells Counted 100, Neutrophils % ( Manual) 68, Lymphocytes % (Manual) 30, Monocytes % (Manual) 2, Eosinophils % ( Manual) 0, Basophils % (Manual) 0, Band Neutrophils 0, Platelet Estimate Adequate, Platelet Morphology Normal, Anisocytosis 1+, Sodium Level 138, Potassium Level 3.5, Chloride Level 107, Carbon Dioxide Level 26, Anion Gap 5, Blood Urea Nitrogen 4L, Creatinine 0.8, Estimat Glomerular Filtration Rate > 60 , Glucose Level 162H, Calcium Level 7.4L, Total Bilirubin 0.5, Aspartate Amino Transf (AST/SGOT) 17, Alanine Aminotransferase (ALT/SGPT) 40, Alkaline Phosphatase 99, Total Protein 4.5L, Albumin 1.7L, Globulin 2.8, Albumin/ Globulin Ratio 0.6L 09/28/18 23:59: Urine Color Pale yellow, Urine Appearance Clear, Urine pH 7, Urine Specific [place] 1.005, Urine Protein Negative, Urine Glucose (UA) Negative, Urine Ketones Negative, Urine Blood Negative, Urine Nitrite Negative, Urine Bilirubin Negative, Urine Urobilinogen Normal, Urine Leukocyte Esterase Negative, Urine RBC 0-2, Urine WBC 0, Urine Squamous Epithelial Cells Few, Urine Bacteria None 09/29/18 05:40: White Blood Count 3.9L, Red Blood Count 2.83L, Hemoglobin 8.8L, Hematocrit 27.3L , Mean Corpuscular Volume 96, Mean Corpuscular Hemoglobin 31.1H, Mean Corpuscular Hemoglobin Concent 32.3, Red Cell Distribution Width 18.1H, Platelet Count 212, Mean Platelet Volume 5.7L, Neutrophils (%) (Auto) 46.5, Lymphocytes (%) (Auto) 41.0, Monocytes (%) (Auto) 10.2H, Eosinophils (%) (Auto) 1.2, Basophils (%) (Auto) 1.2, Sodium Level 144, Potassium Level 3.4L, Chloride Level 111H, Carbon Dioxide Level 24, Anion Gap 9, Blood Urea Nitrogen 6L, Creatinine 0.8, Estimat Glomerular Filtration Rate > 60, Glucose Level 87, Calcium Level 7.2L, Total Bilirubin 0.3, Aspartate Amino Transf (AST/SGOT) 18, Alanine Aminotransferase (ALT/SGPT) 38, Alkaline Phosphatase 85, Total Protein 4.0L, Albumin 1.5L, Globulin 2.5, Albumin/Globulin Ratio 0.6L, Erythrocyte Sedimentation Rate 2, Uric Acid 2.5L, Phosphorus Level 2.9, Magnesium Level 1.7L , Gamma Glutamyl Transpeptidase 38 Height (Feet): 5 Height (Inches): 4.00 Weight (Pounds): 142 General Appearance: no apparent distress Objective no change Umberto Causey MD Sep 29, 2018 11:14
--- NOTE | 2018-09-29 11:33 | General Progress Note ---
Assessment/Plan Plan: (1) Nausea and vomiting ICD Codes: R11.2 - Nausea with vomiting, unspecified SNOMED: 07348326 (2) Dehydration ICD Codes: E86.0 - Dehydration SNOMED: 93382648 (3) Small bowel obstruction due to adhesions ICD Codes: K56.50 - Intestinal adhesions [bands], unspecified as to partial versus complete obstruction SNOMED: 094203665 (4) History of gastric bypass ICD Codes: Z98.84 - Bariatric surgery status SNOMED: 739199970 (5) Electrolyte imbalance ICD Codes: E87.8 - Other disorders of electrolyte and fluid balance, not elsewhere classified SNOMED: 148694923 Status: stable Assessment/Plan Abdominal pelvis CT reviewed. - Evidence of prior Marine-en-Y gastric bypass. - There is air-fluid levels and dilatation of portions of the proximal jejunum/ biliopancreatic limb leading up to the enteroenteric anastomosis concerning for a degree of obstruction or stasis. - No evidence of free intraperitoneal air, ascites, pneumatosis intestinalis or portalvenous gas. - Status post cholecystectomy. regular diet zofran prn, reglan prn for persistent vomiting anemia work up OB stool r/o GI bleed monitor H&H, prn transfusions ppi electrolyte correction fu labs possible EGD per Dr. Rosenberg Subjective Allergies: Coded Allergies: GABAPENTIN (Verified Allergy, Unknown, 09/24/18) METAXALONE (Verified Allergy, Unknown, 09/24/18) MORPHINE (Verified Allergy, Unknown, 09/24/18) QUETIAPINE (Verified Allergy, Unknown, 09/24/18) Subjective c/o abd pain po intake poor wants to have EGD Objective Last 24 Hour Vital Signs Date Time Temp Pulse Resp B/P (MAP) Pulse Ox O2 Delivery O2 Flow Rate FiO2 09/29/18 09:00 Room Air 09/29/18 08:00 97.8 78 16 114/77 (89) 97 09/29/18 04:40 97.9 84 19 118/89 (99) 100 09/29/18 00:00 97.9 89 18 105/82 (90) 100 09/28/18 21:00 Room Air 09/28/18 20:47 98.1 09/28/18 19:58 98.1 86 19 117/73 (88) 97 09/28/18 16:00 98.9 98 19 124/90 (101) 97 09/28/18 12:00 97.5 95 16 104/75 (85) 97 Intake and Output 09/28/18 09/29/18 19:00 07:00 Intake Total 500 ml Balance 500 ml Other 500 ml # Voids 3 Laboratory Tests 09/28/18 13:20: White Blood Count 2.6L, Red Blood Count 3.21L, Hemoglobin 10.0L, Hematocrit 30.5L, Mean Corpuscular Volume 95, Mean Corpuscular Hemoglobin 31.1H, Mean Corpuscular Hemoglobin Concent 32.8, Red Cell Distribution Width 18.0H, Platelet Count 238, Mean Platelet Volume 5.6L, Neutrophils (%) (Auto) , Lymphocytes (%) (Auto) , Monocytes (%) (Auto) , Eosinophils (%) (Auto) , Basophils (%) (Auto) , Differential Total Cells Counted 100, Neutrophils % ( Manual) 68, Lymphocytes % (Manual) 30, Monocytes % (Manual) 2, Eosinophils % ( Manual) 0, Basophils % (Manual) 0, Band Neutrophils 0, Platelet Estimate Adequate, Platelet Morphology Normal, Anisocytosis 1+, Sodium Level 138, Potassium Level 3.5, Chloride Level 107, Carbon Dioxide Level 26, Anion Gap 5, Blood Urea Nitrogen 4L, Creatinine 0.8, Estimat Glomerular Filtration Rate > 60 , Glucose Level 162H, Calcium Level 7.4L, Total Bilirubin 0.5, Aspartate Amino Transf (AST/SGOT) 17, Alanine Aminotransferase (ALT/SGPT) 40, Alkaline Phosphatase 99, Total Protein 4.5L, Albumin 1.7L, Globulin 2.8, Albumin/ Globulin Ratio 0.6L 09/28/18 23:59: Urine Color Pale yellow, Urine Appearance Clear, Urine pH 7, Urine Specific [place] 1.005, Urine Protein Negative, Urine Glucose (UA) Negative, Urine Ketones Negative, Urine Blood Negative, Urine Nitrite Negative, Urine Bilirubin Negative, Urine Urobilinogen Normal, Urine Leukocyte Esterase Negative, Urine RBC 0-2, Urine WBC 0, Urine Squamous Epithelial Cells Few, Urine Bacteria None 09/29/18 05:40: White Blood Count 3.9L, Red Blood Count 2.83L, Hemoglobin 8.8L, Hematocrit 27.3L , Mean Corpuscular Volume 96, Mean Corpuscular Hemoglobin 31.1H, Mean Corpuscular Hemoglobin Concent 32.3, Red Cell Distribution Width 18.1H, Platelet Count 212, Mean Platelet Volume 5.7L, Neutrophils (%) (Auto) 46.5, Lymphocytes (%) (Auto) 41.0, Monocytes (%) (Auto) 10.2H, Eosinophils (%) (Auto) 1.2, Basophils (%) (Auto) 1.2, Sodium Level 144, Potassium Level 3.4L, Chloride Level 111H, Carbon Dioxide Level 24, Anion Gap 9, Blood Urea Nitrogen 6L, Creatinine 0.8, Estimat Glomerular Filtration Rate > 60, Glucose Level 87, Calcium Level 7.2L, Total Bilirubin 0.3, Aspartate Amino Transf (AST/SGOT) 18, Alanine Aminotransferase (ALT/SGPT) 38, Alkaline Phosphatase 85, Total Protein 4.0L, Albumin 1.5L, Globulin 2.5, Albumin/Globulin Ratio 0.6L, Erythrocyte Sedimentation Rate 2, Uric Acid 2.5L, Phosphorus Level 2.9, Magnesium Level 1.7L , Gamma Glutamyl Transpeptidase 38 Height (Feet): 5 Height (Inches): 4.00 Weight (Pounds): 142 Objective Thin WW NCAT supple CTA RR abd soft, mild diffuse TTP no edema Suraj Esquivle MD Sep 29, 2018 11:33
[2018-09-29 12:00] VITALS: BP 114/79
[2018-09-29] MEDS: Methocarbamol 500mg tab ORAL SCH ×3 (13:17→20:02)
--- NOTE | 2018-09-29 13:59 | Internal Med Progress Note ---
Subjective Date of Service: Sep 29, 2018 Physician Name Figueroa,Adam Attending Physician Caty Ferreira MD Current Medications Medications (Trade) Dose Ordered Sig/Cayetano Route PRN Reason Start Time Stop Time Status Last Admin Dose Admin Acetaminophen (Tylenol) 650 mg Q4H PRN ORAL Mild Pain/Temp > 100.5 09/24/18 22:00 10/24/18 21:59 Buspirone HCl (Buspar) 15 mg THREE TIMES A DAY ORAL 09/27/18 18:00 10/27/18 17:59 09/29/18 13:17 Calcium Carbonate (Tums) 1,000 mg Q4H PRN ORAL reflux symptoms 09/27/18 15:00 10/27/18 14:59 09/29/18 07:43 Chlorhexidine Gluconate (Светлана-Hex 2%) 1 applic DAILY@2000 TOPIC 09/28/18 20:00 10/28/18 19:59 09/28/18 20:17 Cyclobenzaprine HCl (Flexeril) 10 mg THREE TIMES A DAY ORAL 09/24/18 23:00 10/25/18 08:59 09/29/18 13:19 Doxepin HCl (SINEquan) 50 mg BEDTIME ORAL 09/25/18 01:30 10/25/18 01:29 09/28/18 20:17 Ergocalciferol (Drisdol) 50,000 intlu QWEEK ORAL 09/27/18 09:30 10/27/18 09:29 09/27/18 11:54 Folic Acid (Folate) 1 mg DAILY ORAL 09/26/18 09:00 10/26/18 08:59 09/29/18 09:23 Hydrocortisone (Cortef) 25 mg DAILY@1400 ORAL 09/29/18 14:00 10/29/18 13:59 09/29/18 13:18 Hydrocortisone (Cortef) 50 mg DAILY@0700 ORAL 09/29/18 07:00 10/29/18 06:59 09/29/18 07:03 Hydroxyzine HCl (Atarax) 100 mg EVERY 6 HOURS ORAL 09/25/18 00:00 10/25/18 00:00 09/29/18 11:37 Levothyroxine Sodium (Synthroid) 50 mcg ACBREAKFAST ORAL 09/25/18 06:30 10/25/18 06:29 09/29/18 05:29 Magnesium Sulfate 100 ml @ 100 mls/hr Q1H IVPB 09/29/18 11:15 09/29/18 15:14 09/29/18 13:17 Methocarbamol (Robaxin) 500 mg QID ORAL 09/24/18 22:15 10/24/18 22:14 09/29/18 13:17 Multivitamins (Multivitamins) 1 tab DAILY ORAL 09/26/18 09:00 10/26/18 08:59 09/29/18 09:24 Ondansetron HCl (Zofran) 4 mg Q6H PRN IVP Nausea & Vomiting 09/28/18 14:45 10/28/18 14:44 09/29/18 07:35 Oxycodone HCl (OxyCONTIN) 30 mg Q12HR ORAL 09/28/18 21:00 10/03/18 13:19 09/29/18 09:25 Oxycodone HCl (Roxicodone) 10 mg Q4H PRN ORAL Breakthrough Pain 09/28/18 14:30 10/03/18 14:29 09/29/18 13:45 Pantoprazole (Protonix) 40 mg DAILY ORAL 09/25/18 09:00 10/25/18 08:59 09/29/18 09:22 Potassium Chloride (K-Dur) 40 meq BID ORAL 09/29/18 18:00 10/27/18 09:29 Sucralfate (Carafate) 1 gm FOUR TIMES A DAY ORAL 09/27/18 09:00 10/27/18 08:59 09/29/18 13:19 Sumatriptan Succinate (Imitrex) 25 mg Q6H PRN ORAL For Headache 09/27/18 22:00 10/27/18 21:59 09/29/18 07:13 Thiamine HCl (Vitamin B1) 100 mg DAILY ORAL 09/29/18 09:00 10/29/18 08:59 09/29/18 09:24 Allergies: Coded Allergies: GABAPENTIN (Verified Allergy, Unknown, 09/24/18) METAXALONE (Verified Allergy, Unknown, 09/24/18) MORPHINE (Verified Allergy, Unknown, 09/24/18) QUETIAPINE (Verified Allergy, Unknown, 09/24/18) ROS Limited/Unobtainable: No Constitutional: Reports: no symptoms HEENT: Reports: no symptoms Cardiovascular: Reports: no symptoms Respiratory: Reports: no symptoms Gastrointestinal/Abdominal: Reports: no symptoms Genitourinary: Reports: no symptoms Neurologic/Psychiatric: Reports: no symptoms Subjective 43 YO F admitted with nausea and vomiting. Now partial small bowel obstruction. Cover for Int Archie - Dr Ferreira. Await possible endoscopy Objective Last Vital Signs Date Time Temp Pulse Resp B/P (MAP) Pulse Ox O2 Delivery O2 Flow Rate FiO2 09/29/18 12:00 98.0 84 18 114/79 (91) 100 09/29/18 09:00 Room Air Laboratory Tests Test 09/28/18 23:59 09/29/18 05:40 Urine Color Pale yellow Urine Appearance Clear Urine pH 7 (4.5-8.0) Urine Specific [place] 1.005 (1.005-1.035) Urine Protein Negative (NEGATIVE) Urine Glucose (UA) Negative (NEGATIVE) Urine Ketones Negative (NEGATIVE) Urine Blood Negative (NEGATIVE) Urine Nitrite Negative (NEGATIVE) Urine Bilirubin Negative (NEGATIVE) Urine Urobilinogen Normal MG/DL (0.0-1.0) Urine Leukocyte Esterase Negative (NEGATIVE) Urine RBC 0-2 /HPF (0 - 2) Urine WBC 0 /HPF (0 - 2) Urine Squamous Epithelial Cells Few /LPF (NONE/OCC) Urine Bacteria None /HPF (NONE) White Blood Count 3.9 K/UL (4.8-10.8) L Red Blood Count 2.83 M/UL (4.20-5.40) L Hemoglobin 8.8 G/DL (12.0-16.0) L Hematocrit 27.3 % (37.0-47.0) L Mean Corpuscular Volume 96 FL (80-99) Mean Corpuscular Hemoglobin 31.1 PG (27.0-31.0) H Mean Corpuscular Hemoglobin Concent 32.3 G/DL (32.0-36.0) Red Cell Distribution Width 18.1 % (11.6-14.8) H Platelet Count 212 K/UL (150-450) Mean Platelet Volume 5.7 FL (6.5-10.1) L Neutrophils (%) (Auto) 46.5 % (45.0-75.0) Lymphocytes (%) (Auto) 41.0 % (20.0-45.0) Monocytes (%) (Auto) 10.2 % (1.0-10.0) H Eosinophils (%) (Auto) 1.2 % (0.0-3.0) Basophils (%) (Auto) 1.2 % (0.0-2.0) Erythrocyte Sedimentation Rate 2 MM/HR (0-20) Sodium Level 144 MMOL/L (136-145) Potassium Level 3.4 MMOL/L (3.5-5.1) L Chloride Level 111 MMOL/L (98-107) H Carbon Dioxide Level 24 MMOL/L (21-32) Anion Gap 9 mmol/L (5-15) Blood Urea Nitrogen 6 mg/dL (7-18) L Creatinine 0.8 MG/DL (0.55-1.30) Estimat Glomerular Filtration Rate > 60 mL/min (>60) Glucose Level 87 MG/DL (74-106) Uric Acid 2.5 MG/DL (2.6-7.2) L Calcium Level 7.2 MG/DL (8.5-10.1) L Phosphorus Level 2.9 MG/DL (2.5-4.9) Magnesium Level 1.7 MG/DL (1.8-2.4) L Total Bilirubin 0.3 MG/DL (0.2-1.0) Gamma Glutamyl Transpeptidase 38 U/L (5-85) Aspartate Amino Transf (AST/SGOT) 18 U/L (15-37) Alanine Aminotransferase (ALT/SGPT) 38 U/L (12-78) Alkaline Phosphatase 85 U/L (46-116) Total Protein 4.0 G/DL (6.4-8.2) L Albumin 1.5 G/DL (3.4-5.0) L Globulin 2.5 g/dL Albumin/Globulin Ratio 0.6 (1.0-2.7) L Microbiology Date/Time Source Procedure Growth Status 09/28/18 07:00 Stool Clostridium difficile Toxin Assay - Final Complete Intake and Output 09/28/18 09/29/18 19:00 07:00 Intake Total 500 ml Balance 500 ml Other 500 ml # Voids 3 Objective General Appearance: WD/WN, no apparent distress, alert EENT: PERRL/EOMI, normal ENT inspection Neck: non-tender, normal alignment, supple, normal inspection Cardiovascular: normal peripheral pulses, normal rate, regular rhythm, no gallop/murmur, no JVD Respiratory/Chest: chest wall non-tender, lungs clear, normal breath sounds, no respiratory distress, no accessory muscle use Abdomen: normal bowel sounds, soft, no organomegaly, no mass, decreased bowel sounds, tender Extremities: normal range of motion Neurologic: marinator II-XII grossly normal, no motor/sensory deficits Skin: normal pigmentation, warm/dry Assessment/Plan Problem List: (1) Pancytopenia Assessment & Plan: See Heme note. (2) Nausea and vomiting Assessment & Plan: Continue zofran. Possible endoscopy-see GI note. (3) Dehydration (4) Small bowel obstruction due to adhesions Assessment & Plan: See Upper GI with sm bowel follow through. S/P surgery at [facility]. See GI note Status: not improved Adam Figueroa MD Sep 29, 2018 13:59
--- NOTE | 2018-09-29 14:07 | NUR ---
PRESIDENT & CEOFX ARTIST SI:DEHYDRATION . SBO VS: BP 114/79, P 87, T 97.6, RR 18, SpO2 98 WBC 3.9, RBC 2.83, Hgb 8.8, Hct 27.3, K 3.4, BUN 6 IS:DOXEPIN HCI 50mg BUSPAR 15mg MAGNESIUM SULFATE 100ml IVPB K-DUR 40meq NYSTATIN 1ml MED/SURG STATUS
--- NOTE | 2018-09-29 15:11 | Surgery Progress Note ---
Surgery Progress Note Subjective Symptoms: improved Additional Comments no acute events. no new complaints. no n/v/f/c. Objective Last 24 Hour Vital Signs Date Time Temp Pulse Resp B/P (MAP) Pulse Ox O2 Delivery O2 Flow Rate FiO2 09/29/18 12:00 98.0 84 18 114/79 (91) 100 09/29/18 09:00 Room Air 09/29/18 08:00 97.8 78 16 114/77 (89) 97 09/29/18 04:40 97.9 84 19 118/89 (99) 100 09/29/18 00:00 97.9 89 18 105/82 (90) 100 09/28/18 21:00 Room Air 09/28/18 20:47 98.1 09/28/18 19:58 98.1 86 19 117/73 (88) 97 09/28/18 16:00 98.9 98 19 124/90 (101) 97 I&O Intake and Output 09/28/18 09/29/18 19:00 07:00 Intake Total 500 ml Balance 500 ml Other 500 ml # Voids 3 Cardiovascular: RSR Respiratory: clear Abdomen: soft, non-tender, present bowel sounds Extremities: no tenderness, no cyanosis Laboratory Tests Test 09/28/18 23:59 09/29/18 05:40 Urine Color Pale yellow Urine Appearance Clear Urine pH 7 (4.5-8.0) Urine Specific [place] 1.005 (1.005-1.035) Urine Protein Negative (NEGATIVE) Urine Glucose (UA) Negative (NEGATIVE) Urine Ketones Negative (NEGATIVE) Urine Blood Negative (NEGATIVE) Urine Nitrite Negative (NEGATIVE) Urine Bilirubin Negative (NEGATIVE) Urine Urobilinogen Normal MG/DL (0.0-1.0) Urine Leukocyte Esterase Negative (NEGATIVE) Urine RBC 0-2 /HPF (0 - 2) Urine WBC 0 /HPF (0 - 2) Urine Squamous Epithelial Cells Few /LPF (NONE/OCC) Urine Bacteria None /HPF (NONE) White Blood Count 3.9 K/UL (4.8-10.8) L Red Blood Count 2.83 M/UL (4.20-5.40) L Hemoglobin 8.8 G/DL (12.0-16.0) L Hematocrit 27.3 % (37.0-47.0) L Mean Corpuscular Volume 96 FL (80-99) Mean Corpuscular Hemoglobin 31.1 PG (27.0-31.0) H Mean Corpuscular Hemoglobin Concent 32.3 G/DL (32.0-36.0) Red Cell Distribution Width 18.1 % (11.6-14.8) H Platelet Count 212 K/UL (150-450) Mean Platelet Volume 5.7 FL (6.5-10.1) L Neutrophils (%) (Auto) 46.5 % (45.0-75.0) Lymphocytes (%) (Auto) 41.0 % (20.0-45.0) Monocytes (%) (Auto) 10.2 % (1.0-10.0) H Eosinophils (%) (Auto) 1.2 % (0.0-3.0) Basophils (%) (Auto) 1.2 % (0.0-2.0) Erythrocyte Sedimentation Rate 2 MM/HR (0-20) Sodium Level 144 MMOL/L (136-145) Potassium Level 3.4 MMOL/L (3.5-5.1) L Chloride Level 111 MMOL/L (98-107) H Carbon Dioxide Level 24 MMOL/L (21-32) Anion Gap 9 mmol/L (5-15) Blood Urea Nitrogen 6 mg/dL (7-18) L Creatinine 0.8 MG/DL (0.55-1.30) Estimat Glomerular Filtration Rate > 60 mL/min (>60) Glucose Level 87 MG/DL (74-106) Uric Acid 2.5 MG/DL (2.6-7.2) L Calcium Level 7.2 MG/DL (8.5-10.1) L Phosphorus Level 2.9 MG/DL (2.5-4.9) Magnesium Level 1.7 MG/DL (1.8-2.4) L Total Bilirubin 0.3 MG/DL (0.2-1.0) Gamma Glutamyl Transpeptidase 38 U/L (5-85) Aspartate Amino Transf (AST/SGOT) 18 U/L (15-37) Alanine Aminotransferase (ALT/SGPT) 38 U/L (12-78) Alkaline Phosphatase 85 U/L (46-116) Total Protein 4.0 G/DL (6.4-8.2) L Albumin 1.5 G/DL (3.4-5.0) L Globulin 2.5 g/dL Albumin/Globulin Ratio 0.6 (1.0-2.7) L Plan Problems: (1) Vomiting (2) Dehydration (3) Electrolyte imbalance (4) Nausea and vomiting (5) Small bowel obstruction due to adhesions Assessment & Plan: CT noted exam with tenderness but incisional labs noted upper GI without obstruction possible endoscopy by GI no acute surgical intervention planned okay for diet PPI am labs will follow with serial exams thank you Glynn Michelle Sep 29, 2018 15:11
[2018-09-29 16:00] VITALS: BP 111/78
[2018-09-29] MEDS: Nystatin Susp 500,000 units/5ml ORAL SCH (17:55)
--- NOTE | 2018-09-29 18:20 | Infectious Diseases Prog Note ---
Assessment/Plan Problems: (1) Pancytopenia Assessment & Plan: with low bone marrow cellularity on recent bone marrow biopsy , and lack of iron storage . hematology is following (2) Thrush, oral Assessment & Plan: will start oral nystatin swish and swallow for 7 days (3) Hypotension Assessment & Plan: no evidence of sepsis, with negative blood culture x2 , monitor off antibiotics (4) Small bowel obstruction due to adhesions Assessment & Plan: S/P recent adhesions lysis recently , advance diet as tolerated , continue hydration and pain management as needed (5) Dehydration Assessment & Plan: continue IVF with bolus as needed. (6) Nausea and vomiting Assessment & Plan: continue supportive care (7) Diarrhea Assessment & Plan: await stool for C diff , continue hydration Subjective Constitutional: Reports: no symptoms HEENT: Reports: dysphagia, other - ORAL THRUSH Respiratory: Reports: no symptoms Breasts: Reports: no symptoms Cardiovascular: Reports: no symptoms Gastrointestinal/Abdominal: Reports: diarrhea, bloating, other Genitourinary: Reports: no symptoms Neurologic: Reports: no symptoms Psychiatric: Reports: no symptoms Skin: Reports: no symptoms Endocrine: Reports: no symptoms Hematologic: Reports: no symptoms Musculoskeletal: Reports: no symptoms Allergies: Coded Allergies: GABAPENTIN (Verified Allergy, Unknown, 09/24/18) METAXALONE (Verified Allergy, Unknown, 09/24/18) MORPHINE (Verified Allergy, Unknown, 09/24/18) QUETIAPINE (Verified Allergy, Unknown, 09/24/18) Objective Vital Signs Last 24 Hour Vital Signs Date Time Temp Pulse Resp B/P (MAP) Pulse Ox O2 Delivery O2 Flow Rate FiO2 09/29/18 16:00 98.6 84 17 111/78 (89) 100 09/29/18 12:00 98.0 84 18 114/79 (91) 100 09/29/18 09:00 Room Air 09/29/18 08:00 97.8 78 16 114/77 (89) 97 09/29/18 04:40 97.9 84 19 118/89 (99) 100 09/29/18 00:00 97.9 89 18 105/82 (90) 100 09/28/18 21:00 Room Air 09/28/18 20:47 98.1 09/28/18 19:58 98.1 86 19 117/73 (88) 97 Height (Feet): 5 Height (Inches): 4.00 Weight (Pounds): 142 General Appearance: WD/WN, no acute distress HEENT: normocephalic, atraumatic, anicteric, mucous membranes moist, PERRL, EOMI, pharynx normal, supple, no JVD, thrush Respiratory/Chest: chest wall non-tender, lungs clear, no respiratory distress , no accessory muscle use Cardiovascular: normal peripheral pulses, normal rate, regular rhythm, no gallop/murmur, no JVD Abdomen: normal bowel sounds, soft, non tender, no organomegaly, non distended , no mass, no scars Extremities: no cyanosis, no clubbing Skin: no rash, no lesions, no ulcers Neurologic/Psychiatric: de icer installer II-XII grossly normal, no motor/sensory deficits, oriented x 3, responsive Lymphatic: no neck adenopathy, no groin adenopathy Musculoskeletal: normal muscle bulk, no effusion Microbiology Date/Time Source Procedure Growth Status 09/28/18 07:00 Stool Clostridium difficile Toxin Assay - Final Complete Laboratory Tests Test 09/28/18 23:59 09/29/18 05:40 Urine Color Pale yellow Urine Appearance Clear Urine pH 7 (4.5-8.0) Urine Specific [place] 1.005 (1.005-1.035) Urine Protein Negative (NEGATIVE) Urine Glucose (UA) Negative (NEGATIVE) Urine Ketones Negative (NEGATIVE) Urine Blood Negative (NEGATIVE) Urine Nitrite Negative (NEGATIVE) Urine Bilirubin Negative (NEGATIVE) Urine Urobilinogen Normal MG/DL (0.0-1.0) Urine Leukocyte Esterase Negative (NEGATIVE) Urine RBC 0-2 /HPF (0 - 2) Urine WBC 0 /HPF (0 - 2) Urine Squamous Epithelial Cells Few /LPF (NONE/OCC) Urine Bacteria None /HPF (NONE) White Blood Count 3.9 K/UL (4.8-10.8) L Red Blood Count 2.83 M/UL (4.20-5.40) L Hemoglobin 8.8 G/DL (12.0-16.0) L Hematocrit 27.3 % (37.0-47.0) L Mean Corpuscular Volume 96 FL (80-99) Mean Corpuscular Hemoglobin 31.1 PG (27.0-31.0) H Mean Corpuscular Hemoglobin Concent 32.3 G/DL (32.0-36.0) Red Cell Distribution Width 18.1 % (11.6-14.8) H Platelet Count 212 K/UL (150-450) Mean Platelet Volume 5.7 FL (6.5-10.1) L Neutrophils (%) (Auto) 46.5 % (45.0-75.0) Lymphocytes (%) (Auto) 41.0 % (20.0-45.0) Monocytes (%) (Auto) 10.2 % (1.0-10.0) H Eosinophils (%) (Auto) 1.2 % (0.0-3.0) Basophils (%) (Auto) 1.2 % (0.0-2.0) Erythrocyte Sedimentation Rate 2 MM/HR (0-20) Sodium Level 144 MMOL/L (136-145) Potassium Level 3.4 MMOL/L (3.5-5.1) L Chloride Level 111 MMOL/L (98-107) H Carbon Dioxide Level 24 MMOL/L (21-32) Anion Gap 9 mmol/L (5-15) Blood Urea Nitrogen 6 mg/dL (7-18) L Creatinine 0.8 MG/DL (0.55-1.30) Estimat Glomerular Filtration Rate > 60 mL/min (>60) Glucose Level 87 MG/DL (74-106) Uric Acid 2.5 MG/DL (2.6-7.2) L Calcium Level 7.2 MG/DL (8.5-10.1) L Phosphorus Level 2.9 MG/DL (2.5-4.9) Magnesium Level 1.7 MG/DL (1.8-2.4) L Total Bilirubin 0.3 MG/DL (0.2-1.0) Gamma Glutamyl Transpeptidase 38 U/L (5-85) Aspartate Amino Transf (AST/SGOT) 18 U/L (15-37) Alanine Aminotransferase (ALT/SGPT) 38 U/L (12-78) Alkaline Phosphatase 85 U/L (46-116) Total Protein 4.0 G/DL (6.4-8.2) L Albumin 1.5 G/DL (3.4-5.0) L Globulin 2.5 g/dL Albumin/Globulin Ratio 0.6 (1.0-2.7) L Current Medications Medications (Trade) Dose Ordered Sig/[place]et[place] Route PRN Reason Start Time Stop Time Status Last Admin Dose Admin Acetaminophen (Tylenol) 650 mg Q4H PRN ORAL Mild Pain/Temp > 100.5 09/24/18 22:00 10/24/18 21:59 Buspirone HCl (Buspar) 15 mg THREE TIMES A DAY ORAL 09/27/18 18:00 10/27/18 17:59 09/29/18 17:54 Calcium Carbonate (Tums) 1,000 mg Q4H PRN ORAL reflux symptoms 09/27/18 15:00 10/27/18 14:59 09/29/18 07:43 Chlorhexidine Gluconate (Светлана-Hex 2%) 1 applic DAILY@2000 TOPIC 09/28/18 20:00 10/28/18 19:59 09/28/18 20:17 Cyclobenzaprine HCl (Flexeril) 10 mg THREE TIMES A DAY ORAL 09/24/18 23:00 10/25/18 08:59 09/29/18 17:54 Doxepin HCl (SINEquan) 50 mg BEDTIME ORAL 09/25/18 01:30 10/25/18 01:29 09/28/18 20:17 Ergocalciferol (Drisdol) 50,000 intlu QWEEK ORAL 09/27/18 09:30 10/27/18 09:29 09/27/18 11:54 Folic Acid (Folate) 1 mg DAILY ORAL 09/26/18 09:00 10/26/18 08:59 09/29/18 09:23 Hydrocortisone (Cortef) 25 mg DAILY@1400 ORAL 09/29/18 14:00 10/29/18 13:59 09/29/18 13:18 Hydrocortisone (Cortef) 50 mg DAILY@0700 ORAL 09/29/18 07:00 10/29/18 06:59 09/29/18 07:03 Hydroxyzine HCl (Atarax) 100 mg EVERY 6 HOURS ORAL 09/25/18 00:00 10/25/18 00:00 09/29/18 17:53 Levothyroxine Sodium (Synthroid) 50 mcg ACBREAKFAST ORAL 09/25/18 06:30 10/25/18 06:29 09/29/18 05:29 Methocarbamol (Robaxin) 500 mg QID ORAL 09/24/18 22:15 10/24/18 22:14 09/29/18 17:53 Multivitamins (Multivitamins) 1 tab DAILY ORAL 09/26/18 09:00 10/26/18 08:59 09/29/18 09:24 Nystatin (Nystatin) 1 ml TID ORAL 09/29/18 18:00 10/06/18 17:59 09/29/18 17:55 Ondansetron HCl (Zofran) 4 mg Q6H PRN IVP Nausea & Vomiting 09/28/18 14:45 10/28/18 14:44 09/29/18 07:35 Oxycodone HCl (OxyCONTIN) 30 mg Q12HR ORAL 09/28/18 21:00 10/03/18 13:19 09/29/18 09:25 Oxycodone HCl (Roxicodone) 10 mg Q4H PRN ORAL Breakthrough Pain 09/28/18 14:30 10/03/18 14:29 09/29/18 13:45 Pantoprazole (Protonix) 40 mg DAILY ORAL 09/25/18 09:00 10/25/18 08:59 09/29/18 09:22 Potassium Chloride (K-Dur) 40 meq BID ORAL 09/29/18 18:00 10/27/18 09:29 09/29/18 17:55 Sucralfate (Carafate) 1 gm FOUR TIMES A DAY ORAL 09/27/18 09:00 10/27/18 08:59 09/29/18 17:54 Sumatriptan Succinate (Imitrex) 25 mg Q6H PRN ORAL For Headache 09/27/18 22:00 10/27/18 21:59 09/29/18 07:13 Thiamine HCl (Vitamin B1) 100 mg DAILY ORAL 09/29/18 09:00 10/29/18 08:59 09/29/18 09:24 Oralia Mohan M.D. Sep 29, 2018 18:20
--- NOTE | 2018-09-29 19:23 | NUR ---
HAND-OFF: Report given to Bonita Dowell RN.
--- NOTE | 2018-09-29 19:24 | NUR ---
NURSE NOTES: received report from ATWNY Huynh. patient in bed. AOx4. verbally responsive. no respiratory distress noted. port- a cath - left upper chest intact. bed in the lowest position. call light within reach. will continue to monitor.
[2018-09-29 20:00] VITALS: BP 112/76
[2018-09-29] MEDS: Dyna-Hex 2% Top Sol 2oz TOPIC SCH (20:01)
[2018-09-29] MEDS: Doxepin 25mg Cap ORAL SCH (20:02)
--- NOTE | 2018-09-29 21:25 | Psych Consult Progress Note ---
Psychiatry Progress Note Psychiatry Progress Note Medications Current Medications Medications (Trade) Dose Ordered Sig/Cayetano Route PRN Reason Start Time Stop Time Status Last Admin Dose Admin Acetaminophen (Tylenol) 650 mg Q4H PRN ORAL Mild Pain/Temp > 100.5 09/24/18 22:00 10/24/18 21:59 Buspirone HCl (Buspar) 15 mg THREE TIMES A DAY ORAL 09/27/18 18:00 10/27/18 17:59 09/29/18 17:54 Calcium Carbonate (Tums) 1,000 mg Q4H PRN ORAL reflux symptoms 09/27/18 15:00 10/27/18 14:59 09/29/18 07:43 Chlorhexidine Gluconate (Светлана-Hex 2%) 1 applic DAILY@2000 TOPIC 09/28/18 20:00 10/28/18 19:59 09/29/18 20:01 Cyclobenzaprine HCl (Flexeril) 10 mg THREE TIMES A DAY ORAL 09/24/18 23:00 10/25/18 08:59 09/29/18 17:54 Doxepin HCl (SINEquan) 50 mg BEDTIME ORAL 09/25/18 01:30 10/25/18 01:29 09/29/18 20:02 Ergocalciferol (Drisdol) 50,000 intlu QWEEK ORAL 09/27/18 09:30 10/27/18 09:29 09/27/18 11:54 Folic Acid (Folate) 1 mg DAILY ORAL 09/26/18 09:00 10/26/18 08:59 09/29/18 09:23 Hydrocortisone (Cortef) 25 mg DAILY@1400 ORAL 09/29/18 14:00 10/29/18 13:59 09/29/18 13:18 Hydrocortisone (Cortef) 50 mg DAILY@0700 ORAL 09/29/18 07:00 10/29/18 06:59 09/29/18 07:03 Hydroxyzine HCl (Atarax) 100 mg EVERY 6 HOURS ORAL 09/25/18 00:00 10/25/18 00:00 09/29/18 17:53 Levothyroxine Sodium (Synthroid) 50 mcg ACBREAKFAST ORAL 09/25/18 06:30 10/25/18 06:29 09/29/18 05:29 Methocarbamol (Robaxin) 500 mg QID ORAL 09/24/18 22:15 10/24/18 22:14 09/29/18 20:02 Multivitamins (Multivitamins) 1 tab DAILY ORAL 09/26/18 09:00 10/26/18 08:59 09/29/18 09:24 Nystatin (Nystatin) 1 ml TID ORAL 09/29/18 18:00 10/06/18 17:59 09/29/18 17:55 Ondansetron HCl (Zofran) 4 mg Q6H PRN IVP Nausea & Vomiting 09/28/18 14:45 10/28/18 14:44 09/29/18 07:35 Oxycodone HCl (OxyCONTIN) 30 mg Q12HR ORAL 09/28/18 21:00 10/03/18 13:19 09/29/18 20:02 Oxycodone HCl (Roxicodone) 10 mg Q4H PRN ORAL Breakthrough Pain 09/28/18 14:30 10/03/18 14:29 09/29/18 13:45 Pantoprazole (Protonix) 40 mg DAILY ORAL 09/25/18 09:00 10/25/18 08:59 09/29/18 09:22 Potassium Chloride (K-Dur) 40 meq BID ORAL 09/29/18 18:00 10/27/18 09:29 09/29/18 17:55 Sucralfate (Carafate) 1 gm FOUR TIMES A DAY ORAL 09/27/18 09:00 10/27/18 08:59 09/29/18 20:02 Sumatriptan Succinate (Imitrex) 25 mg Q6H PRN ORAL For Headache 09/27/18 22:00 10/27/18 21:59 09/29/18 07:13 Thiamine HCl (Vitamin B1) 100 mg DAILY ORAL 09/29/18 09:00 10/29/18 08:59 09/29/18 09:24 Problems: (1) Anxiety disorder (2) Alcohol dependence Allergies: Coded Allergies: GABAPENTIN (Verified Allergy, Unknown, 09/24/18) METAXALONE (Verified Allergy, Unknown, 09/24/18) MORPHINE (Verified Allergy, Unknown, 09/24/18) QUETIAPINE (Verified Allergy, Unknown, 09/24/18) Objective Data Height (Feet): 5 Height (Inches): 4.00 Weight (Pounds): 142 General Appearance: WD/WN, no apparent distress, alert, agitated Appearance: no abnormalities noted Mental Status Exam - Affect: flat Mental Status Exam - Mood: no abnormalities, depressed, anxious Assessment/Plan Problem List: (1) Anxiety disorder ICD Codes: F41.9 - Anxiety disorder, unspecified SNOMED: 322575639 (2) Alcohol dependence ICD Codes: F10.20 - Alcohol dependence, uncomplicated SNOMED: 77593527 Status: stable Sugey Meléndez MD Sep 29, 2018 21:25
[2018-09-30] VITALS (10 sets, daily range): BP systolic 102–129; BP diastolic 78–95
[2018-09-30] MEDS: SUMAtriptan 50mg tab ORAL PRN ×2 (01:48→18:49)
[2018-09-30] MEDS: oxyCODONE 5mg IR tab ORAL PRN ×3 (04:56→19:58)
[2018-09-30] MEDS: HydrOXYzine 50mg tab ORAL SCH ×3 (06:00→17:31)
[2018-09-30] MEDS: Levothyroxine 25mcg tab ORAL SCH (06:00)
[2018-09-30] MEDS: Hydrocortisone 20mg tab ORAL SCH (06:00)
--- NOTE | 2018-09-30 07:00 | NUR ---
NURSE NOTES: PATIENT DIDN'T FINISH GOLYTELY AND SAVANNAH MERCHANDISING PROFESSOR WAS NOTIFIED BY EVER MARIE RN, AND RECEIVED ORDER FOR FLEETS ENEMA, ENEMA GIVEN, PATIENT TOLERATED. PATIENT'S BM STILL NOT CLEAR AND EVER MARIE RN, NOTIFIED DR. CEDILLO AND RECEIVED ORDER FOR ANOTHER FLEETS ENEMA, ENEMA GIVEN, PATIENT TOLERATED. NOTIFIED LIANA GI NURSE. WILL CONTINUE TO MONITOR. Addendum: 10/01/18 at 0754 by JUAN RAMON ALEXANDER RN RN DISREGARD, WRONG ENTRY/TIMESTAMP.
--- NOTE | 2018-09-30 07:35 | NUR ---
NURSE NOTES: RN received pt in stable condition. No acute distress or SOB. Pt plan is possible EGD, no current order. Pt NPO pending possible procedure; RN to f/u with Dr. Lebron. Bed in low, locked position, call light within reach. Will continue plan of care.
--- NOTE | 2018-09-30 07:35 | NUR ---
HAND-OFF: Report given to TAWNY Seaman.
[2018-09-30] MEDS ORDERED: Alfentanil 2ml Inj ONE (08:40)
[2018-09-30] MEDS: BusPIRone 5mg Tab ORAL SCH ×3 (09:00→17:30)
[2018-09-30] MEDS: oxyCONTIN 10mg tab ORAL SCH ×2 (09:00→21:00)
[2018-09-30] MEDS: Cyclobenzaprine 10mg Tab ORAL SCH ×3 (09:00→17:31)
[2018-09-30] MEDS: Methocarbamol 500mg tab ORAL SCH ×4 (09:00→20:59)
[2018-09-30] MEDS: Thiamine 100mg tab ORAL SCH (09:00)
[2018-09-30] MEDS: Nystatin Susp 500,000 units/5ml ORAL SCH ×3 (09:00→17:32)
[2018-09-30] MEDS: Sucralfate 1gm tab ORAL SCH ×4 (09:00→20:58)
--- NOTE | 2018-09-30 10:05 | NUR ---
NURSE NOTES: Pt left floor for EGD in stable condition.
[2018-09-30] MEDS ORDERED: LR 1000ml 1,000 ML IVLG SCH (10:23)
[2018-09-30] MEDS ORDERED: NS 500ML IVPB ONE (10:25)
--- NOTE | 2018-09-30 10:26 | Pre-Procedure Note/Attestation ---
Pre-Procedure Note/Attestation Complete Prior to Procedure Planned Procedure: not applicable Procedure Narrative: egd Indications for Procedure Pre-Operative Diagnosis: barretts Attestation I attest that I discussed the nature of the procedure; its benefits; risks and complications; and alternatives (and the risks and benefits of such alternatives ), prior to the procedure, with the patient (or the patient's legal lifeline representatives). I attest that, if there was a reasonable possibility of needing a blood transfusion, the patient (or the patient's legal lifeline representatives) was given the [facility] standardized written summary, pursuant to the Theo Aury Blood Safety Act ([place] Health and Safety Code # 1645, as amended). I attest that I re-evaluated the patient just prior to the surgery and that there has been no change in the patient's H&P, except as documented below: eTddy Rosenberg MD Sep 30, 2018 10:26
[2018-09-30] MEDS ORDERED: Lidocaine 1% MPF 10mg/ml 5ml ONE (10:30)
[2018-09-30] MEDS ORDERED: LORazepam Inj 2mg/ml 1ml IV PRN (10:30)
[2018-09-30] MEDS ORDERED: Propofol 200mg/20ml IV ONE (10:30)
[2018-09-30] MEDS ORDERED: Labetalol 5mg/ml 20ml vial IV PRN (10:30)
[2018-09-30] MEDS ORDERED: Atropine Sulfate 0.4mg/ml inj IVP PRN (10:30)
[2018-09-30] MEDS ORDERED: Midazolam 2mg/2ml Inj IVP PRN (10:30)
[2018-09-30] MEDS ORDERED: LR 1000ml ONE (10:30)
[2018-09-30] MEDS ORDERED: DiphenhydrAMINE 50mg/ml Inj IVP PRN (10:30)
[2018-09-30] MEDS ORDERED: fentaNYL 100 mcg/2 mL IV PRN (10:30)
[2018-09-30] MEDS ORDERED: oxyCODONE HCL/Acetaminophen 5/325mg ORAL PRN (10:30)
[2018-09-30] MEDS ORDERED: Metoclopramide 10mg/2ml Inj IVP PRN (10:30)
[2018-09-30] MEDS ORDERED: HYDROcodone/Acetamin 5/325 tab ORAL PRN (10:30)
[2018-09-30] MEDS ORDERED: Ketorolac 30mg Inj IV PRN ×2 (10:30)
[2018-09-30] MEDS ORDERED: Meperidine 50mg/ml Inj(FOR RIGORS ONLY) IVP PRN (10:30)
[2018-09-30] MEDS ORDERED: HYDROcodone/Acetamin 7.5/325 tab ORAL PRN (10:30)
[2018-09-30] MEDS ORDERED: Hydromorphone 0.5mg/0.5ml inj IVP PRN (10:30)
--- NOTE | 2018-09-30 10:48 | Endoscopy Procedure Note ---
Endoscopy Procedure Note General Indication for Procedure: anemia Procedures Performed: EGD Operative Findings/Diagnosis: esophagitis Specimen: yes Pt Tolerated Procedure Well: Yes Estimated Blood Loss: none Anesthesia Anesthesiologist: shreya Anesthesia: MAC Inserted Devices Implant(s) used?: No GI Core Measures 50 yrs or older w/o bx or poly: Not Applicable 10yrs. F/U not recommended: Not Applicable Teddy Rosenberg MD Sep 30, 2018 10:48
--- NOTE | 2018-09-30 10:50 | Anethesia Preoperative Eval ---
Anesthesia Pre-op PMH/ROS General Date of Evaluation: Sep 30, 2018 Time of Evaluation: 10:24 Anesthesiologist: Ashley ASA Score: ASA 3 Mallampati Score Class I : Soft palate, uvula, fauces, pillars visible Class II: Soft palate, uvula, fauces visible Class III: Soft palate, base of uvula visible Class IV: Only hard plate visible Mallampati Classification: Class II Surgeon: Shakira Diagnosis: Abd Pain Surgical Procedure: EGD Anesthesia History: none Social History: alcohol use - Abuse Family History: no anesthesia problems Allergies: Coded Allergies: GABAPENTIN (Verified Allergy, Unknown, 09/24/18) METAXALONE (Verified Allergy, Unknown, 09/24/18) MORPHINE (Verified Allergy, Unknown, 09/24/18) QUETIAPINE (Verified Allergy, Unknown, 09/24/18) Medications: see eMAR Patient NPO?: Yes Past Medical History Gastrointestinal/Genitourinary: Reports: other - SBO, Neurologic/Psychiatric: Reports: depression/anxiety Endocrine: Reports: hypothyroidism PSxH Narrative: Gastric Bypass Surgery Anesthesia Pre-op Phys. Exam Physician Exam Last Vital Signs Date Time Temp Pulse Resp B/P (MAP) Pulse Ox O2 Delivery O2 Flow Rate FiO2 09/30/18 08:00 97.7 95 20 115/81 (92) 95 09/29/18 21:00 Room Air Constitutional: NAD Neurologic: CN 2-12 intact Cardiovascular: RRR Respiratory: CTA Gastrointestinal: S/NT/ND Airway Exam Mallampati Score: Class II MO: full ROM: limited Teeth: missing, intact Anesthesia Pre-op A/P Labs Urine Test Test 09/30/18 09:56 Urine HCG, Qualitative Negative (NEGATIVE) Risk Assessment & Plan Assessment: ASA 3 Plan: TIVA Status Change Before Surgery: No Tim Ramirez MD Sep 30, 2018 10:50
--- NOTE | 2018-09-30 10:57 | Immediate Post-Op Evaluation ---
Immediate Post-Op Evalulation Immediate Post-Op Evalulation Procedure: EGD Date of Evaluation: Sep 30, 2018 Time of Evaluation: 11:09 IV Fluids: 200 LR Blood Products: 0 Estimated Blood Loss: 1 Urinary Output: 0 Blood Pressure Systolic: 102 Blood Pressure Diastolic: 74 Pulse Rate: 83 Respiratory Rate: 16 O2 Sat by Pulse Oximetry: 98 Temperature (Fahrenheit): 97.2 Pain Score (1-10): 1 Nausea: No Vomiting: No Complications 0 Patient Status: awake, reacts, patent, none Hydration Status: adequate Tim Ramirez MD Sep 30, 2018 10:57
--- NOTE | 2018-09-30 10:58 | 48 Hour Post Anesthesia Eval ---
Post Anesthesia Evaluation Procedure: EGD Date of Evaluation: Sep 30, 2018 Time of Evaluation: 13:12 Blood Pressure Systolic: 118 0: 83 Pulse Rate: 84 Respiratory Rate: 18 Temperature (Fahrenheit): 98.2 O2 Sat by Pulse Oximetry: 98 Airway: patent Nausea: No Vomiting: No Pain Intensity: 2 Hydration Status: adequate Cardiopulmonary Status: Stable Mental Status/LOC: patient returned to baseline Follow-up Care/Observations: 0 Post-Anesthesia Complications: 0 Follow-up care needed: N/A Tim Ramirez MD Sep 30, 2018 10:58
--- NOTE | 2018-09-30 11:34 | NUR ---
NURSE NOTES: Pt returned to floor in stable condition; sleeping after procedure. RN to f/u with Dr. Lebron re diet and plan for colonoscopy.
--- NOTE | 2018-09-30 11:46 | Immediate Post-Op Evaluation ---
Immediate Post-Op Evalulation Immediate Post-Op Evalulation Procedure: ERCP Date of Evaluation: Sep 30, 2018 Time of Evaluation: 12:45 IV Fluids: 200 LR Blood Products: 0 Estimated Blood Loss: 5 Urinary Output: 0 Blood Pressure Systolic: 123 Blood Pressure Diastolic: 82 Pulse Rate: 74 Respiratory Rate: 16 O2 Sat by Pulse Oximetry: 100 Temperature (Fahrenheit): 97.2 Pain Score (1-10): 2 Nausea: No Vomiting: No Complications 0 Patient Status: awake, reacts, patent, none Hydration Status: adequate Tim Ramirez MD Sep 30, 2018 11:46
--- NOTE | 2018-09-30 11:52 | 48 Hour Post Anesthesia Eval ---
Post Anesthesia Evaluation Procedure: ERCP Date of Evaluation: Sep 30, 2018 Time of Evaluation: 14:52 Blood Pressure Systolic: 182 0: 89 Pulse Rate: 74 Respiratory Rate: 18 Temperature (Fahrenheit): 98.1 O2 Sat by Pulse Oximetry: 99 Airway: patent Nausea: No Vomiting: No Pain Intensity: 2 Hydration Status: adequate Cardiopulmonary Status: Stable Mental Status/LOC: patient returned to baseline Follow-up Care/Observations: 0 Post-Anesthesia Complications: 0 Follow-up care needed: N/A Tim Ramirez MD Sep 30, 2018 11:51
--- NOTE | 2018-09-30 12:35 | General Progress Note ---
Assessment/Plan Plan: S: I am feeling bad heart burn O: tolerating regular diet PHYSICAL EXAMINATION: HEAD AND NECK: Atraumatic and normocephalic. CHEST: Clear to auscultation. HEART: S1 and S2. Regular rate and rhythm. ABDOMEN: Soft. No organomegaly. MUSCULOSKELETAL: Positive for 2+ edema in the lower extremities. NEUROLOGIC: Awake, alert, and oriented x3. meds: Inclduing Oxycodon ASSESSMENT: 1. Abdominal pain, status post small-bowel obstruction surgery at [facility], 2. Cachexia. Sever Protein malnourishment 3. Alcohol Abuse, h.o of. 4. Anemia, microcytic. 5. Leukemia - history of, reported by the patient. 6. Hypokalemia. 7. GI/DVT prophylaxis. Plan: HypoAlbuminemia Will optimize pain medication Ok to DC home once clear by GI S/p; EGD Subjective Allergies: Coded Allergies: GABAPENTIN (Verified Allergy, Unknown, 09/24/18) METAXALONE (Verified Allergy, Unknown, 09/24/18) MORPHINE (Verified Allergy, Unknown, 09/24/18) QUETIAPINE (Verified Allergy, Unknown, 09/24/18) Objective Last 24 Hour Vital Signs Date Time Temp Pulse Resp B/P (MAP) Pulse Ox O2 Delivery O2 Flow Rate FiO2 09/30/18 11:20 97.4 80 14 120/85 95 Room Air 09/30/18 11:15 86 15 120/95 95 Room Air 09/30/18 11:05 75 13 107/79 98 Simple Mask 6 09/30/18 11:00 79 14 103/79 98 Simple Mask 6 09/30/18 10:58 97.2 83 16 102/78 98 Simple Mask 6 09/30/18 10:58 84 18 98 09/30/18 10:57 83 16 98 09/30/18 09:00 Room Air 09/30/18 08:00 97.7 95 20 115/81 (92) 95 09/30/18 04:05 97.6 83 18 129/88 (102) 98 09/30/18 00:35 97.8 80 18 122/87 (99) 98 09/29/18 21:00 Room Air 09/29/18 20:32 98.6 09/29/18 20:00 97.6 87 18 112/76 (88) 98 09/29/18 16:00 98.6 84 17 111/78 (89) 100 Intake and Output 09/29/18 09/30/18 18:59 06:59 Intake Total 600 ml Balance 600 ml Intake Oral 600 ml # Voids 2 Laboratory Tests 09/30/18 09:56: Urine HCG, Qualitative Negative Height (Feet): 5 Height (Inches): 4.00 Weight (Pounds): 142 Caty Ferreira MD Sep 30, 2018 12:35
--- NOTE | 2018-09-30 13:04 | Nephrology Progress Note ---
Assessment/Plan Problem List: (1) Dehydration (2) Hypotension (3) UTI (urinary tract infection) (4) Hypocalcemia Assessment Severe HypoAlbuminemia, WITHOUT PROTEINURIA per ua likely nutritional and related to liver disease HypoCalcemia , fairly corrects by Hypoalbuminemia Leukopenia and Anemia , likely of chronic disease UTI Low cortisol level Hypotension Plan no labs today mag and K supplement stable from renal stand Vit D Hydrocortisone maintenance dose correct electrolytes antibiotics per consultants Subjective ROS Limited/Unobtainable: No Constitutional: Reports: malaise Objective Objective Last 24 Hour Vital Signs Date Time Temp Pulse Resp B/P (MAP) Pulse Ox O2 Delivery O2 Flow Rate FiO2 09/30/18 12:33 74 18 99 09/30/18 12:32 74 16 100 09/30/18 11:20 97.4 80 14 120/85 95 Room Air 09/30/18 11:15 86 15 120/95 95 Room Air 09/30/18 11:05 75 13 107/79 98 Simple Mask 6 09/30/18 11:00 79 14 103/79 98 Simple Mask 6 09/30/18 10:58 97.2 83 16 102/78 98 Simple Mask 6 09/30/18 10:58 84 18 98 09/30/18 10:57 83 16 98 09/30/18 09:00 Room Air 09/30/18 08:00 97.7 95 20 115/81 (92) 95 09/30/18 04:05 97.6 83 18 129/88 (102) 98 09/30/18 00:35 97.8 80 18 122/87 (99) 98 09/29/18 21:00 Room Air 09/29/18 20:32 98.6 09/29/18 20:00 97.6 87 18 112/76 (88) 98 09/29/18 16:00 98.6 84 17 111/78 (89) 100 Intake and Output 09/29/18 09/30/18 18:59 06:59 Intake Total 600 ml Balance 600 ml Intake Oral 600 ml # Voids 2 Laboratory Tests 09/30/18 09:56: Urine HCG, Qualitative Negative Height (Feet): 5 Height (Inches): 4.00 Weight (Pounds): 142 General Appearance: no apparent distress Objective no change Umberto Causey MD Sep 30, 2018 13:04
--- NOTE | 2018-09-30 14:15 | NUR ---
ROTOGRAVURE PRESS OPERATORVARITYPE OPERATOR SI:DEHYDRATION . SOB VS: BP 107/79, P 86, T 97.4, RR 18, SpO2 99 IS:NS 500ml 550 ml IVPB LACTATED RINGER x1L IVLG K-DUR 40meq NYSTATIN 1ml CORTEF 25mg OXYCODONE HCI 10mg IMITREX 25mg BUSPAR 15mg MED/SURG STATUS
--- NOTE | 2018-09-30 14:32 | Surgery Progress Note ---
Surgery Progress Note Subjective Additional Comments no acute events. comfortable. mild abd pain. mainly esophageal discomfort. pending scope Objective Last 24 Hour Vital Signs Date Time Temp Pulse Resp B/P (MAP) Pulse Ox O2 Delivery O2 Flow Rate FiO2 09/30/18 12:33 74 18 99 09/30/18 12:32 74 16 100 09/30/18 11:20 97.4 80 14 120/85 95 Room Air 09/30/18 11:15 86 15 120/95 95 Room Air 09/30/18 11:05 75 13 107/79 98 Simple Mask 6 09/30/18 11:00 79 14 103/79 98 Simple Mask 6 09/30/18 10:58 97.2 83 16 102/78 98 Simple Mask 6 09/30/18 10:58 84 18 98 09/30/18 10:57 83 16 98 09/30/18 09:00 Room Air 09/30/18 08:00 97.7 95 20 115/81 (92) 95 09/30/18 04:05 97.6 83 18 129/88 (102) 98 09/30/18 00:35 97.8 80 18 122/87 (99) 98 09/29/18 21:00 Room Air 09/29/18 20:32 98.6 09/29/18 20:00 97.6 87 18 112/76 (88) 98 09/29/18 16:00 98.6 84 17 111/78 (89) 100 I&O Intake and Output 09/29/18 09/30/18 18:59 06:59 Intake Total 600 ml Balance 600 ml Intake Oral 600 ml # Voids 2 Drains: none Cardiovascular: RSR Respiratory: clear Abdomen: soft, tenderness, present bowel sounds, non-distended Extremities: no edema, no tenderness, no cyanosis Laboratory Tests Test 09/30/18 09:56 Urine HCG, Qualitative Negative (NEGATIVE) Plan Problems: (1) Vomiting (2) Dehydration (3) Electrolyte imbalance (4) Nausea and vomiting (5) Small bowel obstruction due to adhesions Assessment & Plan: CT noted exam with tenderness but incisional labs noted upper GI without obstruction possible endoscopy by GI soon no acute surgical intervention planned okay for diet PPI am labs will follow with serial exams thank you Glynn Michelle Sep 30, 2018 14:32
--- NOTE | 2018-09-30 15:35 | NUR ---
RD ASSESSMENT & RECOMMENDATIONS SEE CARE ACTIVITY FOR COMPLETE ASSESSMENT DAILY ESTIMATED NEEDS: Needs based on Wt loss, 64.6kg 25-30 kcals/kg 8863-4618 total kcals 1-1.5 g protein/kg 65-97 g total protein 25-30 mL/kg 2303-7801 total fluid mLs NUTRITION DIAGNOSIS: Altered GI function R/T clinical conditions w/ h/o multiple GI surgeries including Marine-en-Y gastric bypass and revision, s/p recent exploratory laparoscopically lysis of adhesions for SBO as evidenced by pt c/o abdominal and esophageal pain, N/V, now w/ improved oral intake. CURRENT DIET:REGULAR PO DIET RECOMMENDATIONS: soft, bland diet, 6 small meals ADDITIONAL RECOMMENDATIONS: * Standing wt for accurate CBW, rec weekly wt monitoring given possible recent wt loss of >8#/5% in less than 1 mo * Monitor lytes, replete as needed (low K) * Monitor PO intake and tolerance closely - Rec small, 6 meals a day - pt does not want Ensure Enlive or Ensure Clear .
[2018-09-30] MEDS: D5 1/2NS w/KCl 20mEq 1,000 ML IV SCH (16:00)
--- NOTE | 2018-09-30 16:00 | NUR ---
NURSE NOTES: Per Dr. Marques RN to clean surgical site wound in abdomen with Iodine, pat dry, dry dressing.
--- NOTE | 2018-09-30 16:06 | NUR ---
*-* INSURANCE *-* ALL CLINICALS AND REVIEWS HAVE BEEN FAXED TO: JULIANNA CHAVEZ/[facility] P:[phone] F:[phone] [employer] P:[phone] X [phone]
--- NOTE | 2018-09-30 16:43 | Infectious Diseases Prog Note ---
Assessment/Plan Problems: (1) Pancytopenia Assessment & Plan: with low bone marrow cellularity on recent bone marrow biopsy , and lack of iron storage . hematology is following (2) Thrush, oral Assessment & Plan: continue oral nystatin swish and swallow for 7 days (3) Hypotension Assessment & Plan: no evidence of sepsis, with negative blood culture x2 , monitor off antibiotics (4) Small bowel obstruction due to adhesions Assessment & Plan: S/P recent adhesions lysis recently , advance diet as tolerated , continue hydration and pain management as needed (5) Diarrhea Assessment & Plan: not due to C diff , continue hydration, avoid laxatives Subjective Constitutional: Reports: no symptoms HEENT: Reports: other - oral thrush and aphthus ulcers Respiratory: Reports: no symptoms Breasts: Reports: no symptoms Cardiovascular: Reports: no symptoms Gastrointestinal/Abdominal: Reports: nausea, bloating Genitourinary: Reports: no symptoms Neurologic: Reports: no symptoms Psychiatric: Reports: no symptoms Skin: Reports: ulcer Endocrine: Reports: no symptoms Hematologic: Reports: no symptoms Musculoskeletal: Reports: no symptoms Allergies: Coded Allergies: GABAPENTIN (Verified Allergy, Unknown, 09/24/18) METAXALONE (Verified Allergy, Unknown, 09/24/18) MORPHINE (Verified Allergy, Unknown, 09/24/18) QUETIAPINE (Verified Allergy, Unknown, 09/24/18) Objective Vital Signs Last 24 Hour Vital Signs Date Time Temp Pulse Resp B/P (MAP) Pulse Ox O2 Delivery O2 Flow Rate FiO2 09/30/18 13:43 98.1 09/30/18 12:33 74 18 99 09/30/18 12:32 74 16 100 09/30/18 11:20 97.4 80 14 120/85 95 Room Air 09/30/18 11:15 86 15 120/95 95 Room Air 09/30/18 11:05 75 13 107/79 98 Simple Mask 6 09/30/18 11:00 79 14 103/79 98 Simple Mask 6 09/30/18 10:58 97.2 83 16 102/78 98 Simple Mask 6 09/30/18 10:58 84 18 98 09/30/18 10:57 83 16 98 09/30/18 09:00 Room Air 09/30/18 08:00 97.7 95 20 115/81 (92) 95 09/30/18 04:05 97.6 83 18 129/88 (102) 98 09/30/18 00:35 97.8 80 18 122/87 (99) 98 09/29/18 21:00 Room Air 09/29/18 20:32 98.6 09/29/18 20:00 97.6 87 18 112/76 (88) 98 Height (Feet): 5 Height (Inches): 4.00 Weight (Pounds): 142 General Appearance: WD/WN, no acute distress HEENT: normocephalic, atraumatic, anicteric, mucous membranes moist, PERRL Respiratory/Chest: chest wall non-tender, lungs clear, normal breath sounds, no respiratory distress, no accessory muscle use Cardiovascular: normal peripheral pulses, normal rate, regular rhythm, no gallop/murmur, no JVD Abdomen: normal bowel sounds, soft, non tender, no organomegaly, non distended , no mass, no scars Genitourinary: normal external genitalia Extremities: no cyanosis, no clubbing Skin: no rash, no lesions, ulcers - superficial abdominal wound Neurologic/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: 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 normal, alert, oriented x 3, responsive Lymphatic: no neck adenopathy, no groin adenopathy Musculoskeletal: normal muscle bulk, no effusion Microbiology Date/Time Source Procedure Growth Status 09/28/18 07:00 Stool Clostridium difficile Toxin Assay - Final Complete 09/28/18 23:59 Urine,Clean Catch Urine Culture - Preliminary NO GROWTH Resulted Laboratory Tests Test 09/30/18 09:56 Urine HCG, Qualitative Negative (NEGATIVE) Current Medications Medications (Trade) Dose Ordered Sig/[place] Route PRN Reason Start Time Stop Time Status Last Admin Dose Admin Acetaminophen (Tylenol) 650 mg Q4H PRN ORAL Mild Pain/Temp > 100.5 09/24/18 22:00 10/24/18 21:59 Acetaminophen/ Hydrocodone Bitart ([place] 5/325) 1 tab Q1H PRN ORAL Mild Pain (Pain Scale 1-3) 09/30/18 10:30 09/30/18 18:00 Acetaminophen/ Hydrocodone Bitart ([place] 7.5/325) 1 tab Q1H PRN ORAL Moderate Pain (Pain Scale 4-6) 09/30/18 10:30 09/30/18 18:00 Al Hydroxide/Mg Hydroxide (Mylanta) 15 ml Q1H PRN ORAL gi upset 09/30/18 10:30 09/30/18 18:00 Atropine Sulfate (Atropine 0.4mg/ ml) 0.5 mg Q5M PRN IVP HR<40 09/30/18 10:30 09/30/18 18:00 Buspirone HCl (Buspar) 15 mg THREE TIMES A DAY ORAL 09/27/18 18:00 10/27/18 17:59 09/30/18 13:25 Calcium Carbonate (Tums) 1,000 mg Q4H PRN ORAL reflux symptoms 09/27/18 15:00 10/27/18 14:59 09/29/18 07:43 Chlorhexidine Gluconate (Светлана-Hex 2%) 1 applic DAILY@2000 TOPIC 09/28/18 20:00 10/28/18 19:59 09/29/18 20:01 Cyclobenzaprine HCl (Flexeril) 10 mg THREE TIMES A DAY ORAL 09/24/18 23:00 10/25/18 08:59 09/30/18 13:13 Dextrose/ Electrolytes 1,000 ml @ 75 mls/hr [id number] IV 09/30/18 16:00 10/30/18 15:59 Diphenhydramine HCl (Benadryl) 25 mg Q15M PRN IVP Itching 09/30/18 10:30 09/30/18 18:00 Diphenhydramine HCl (Benadryl) 25 mg Q6H PRN ORAL Itching 09/30/18 12:30 10/30/18 12:29 Doxepin HCl (SINEquan) 50 mg BEDTIME ORAL 09/25/18 01:30 10/25/18 01:29 09/29/18 20:02 Ergocalciferol (Drisdol) 50,000 intlu QWEEK ORAL 09/27/18 09:30 10/27/18 09:29 09/27/18 11:54 Fentanyl Citrate (Sublimaze 100 mcg/2 mL) 25 mcg Q10M PRN IV Moderate Pain (Pain Scale 4-6) 09/30/18 10:30 09/30/18 18:00 Folic Acid (Folate) 1 mg DAILY ORAL 09/26/18 09:00 10/26/18 08:59 4/21/19 09:23 Hydralazine HCl (Apresoline) 5 mg Q30M PRN IV SBP>160 / DBP>90 09/30/18 10:30 09/30/18 18:00 Hydrocortisone (Cortef) 25 mg DAILY@1400 ORAL 09/29/18 14:00 10/29/18 13:59 09/30/18 13:16 Hydrocortisone (Cortef) 50 mg DAILY@0700 ORAL 09/29/18 07:00 10/29/18 06:59 09/30/18 06:00 Hydromorphone HCl (Dilaudid) 0.5 mg Q15M PRN IVP Severe Pain (Pain Scale 7-10) 09/30/18 10:30 09/30/18 18:00 Hydroxyzine HCl (Atarax) 100 mg EVERY 6 HOURS ORAL 09/25/18 00:00 10/25/18 00:00 09/30/18 06:00 Ketorolac Tromethamine (Toradol 30mg) 15 mg Q1H PRN IV Moderate Breakthru Pain (5-7) 09/30/18 10:30 09/30/18 18:00 Ketorolac Tromethamine (Toradol 30mg) 30 mg Q1H PRN IV Severe Breakthru Pain (>7) 09/30/18 10:30 09/30/18 18:00 Labetalol HCl (Normodyne) 5 mg Q10M PRN IV SBP>160 / DBP>90 09/30/18 10:30 09/30/18 18:00 Levothyroxine Sodium (Synthroid) 50 mcg ACBREAKFAST ORAL 09/25/18 06:30 10/25/18 06:29 09/30/18 06:00 Lorazepam (Ativan 2mg/ml 1ml) 1 mg Q15M PRN IV For Anxiety 09/30/18 10:30 09/30/18 18:00 Meperidine HCl (Demerol) 25 mg Q5M PRN IVP Shivering.May repeat x 1 09/30/18 10:30 09/30/18 18:00 Methocarbamol (Robaxin) 500 mg QID ORAL 09/24/18 22:15 10/24/18 22:14 09/30/18 13:15 Metoclopramide HCl (Reglan) 10 mg Q1H PRN IVP Nausea & Vomiting 09/30/18 10:30 09/30/18 18:00 Midazolam HCl (Versed 2mg/2ml vial) 1 mg Q15M PRN IVP For Anxiety 09/30/18 10:30 09/30/18 18:00 Multivitamins (Multivitamins) 1 tab DAILY ORAL 09/26/18 09:00 10/26/18 08:59 09/29/18 09:24 Nystatin (Nystatin) 1 ml TID ORAL 09/29/18 18:00 10/06/18 17:59 09/30/18 13:17 Ondansetron HCl (Zofran) 4 mg Q1H PRN IVP Nausea & Vomiting 09/30/18 10:30 09/30/18 18:00 Ondansetron HCl (Zofran) 4 mg Q6H PRN IVP Nausea & Vomiting 09/28/18 14:45 10/28/18 14:44 09/30/18 15:20 Oxycodone HCl (OxyCONTIN) 30 mg Q12HR ORAL 09/28/18 21:00 10/03/18 13:19 09/29/18 20:02 Oxycodone HCl (Roxicodone) 10 mg Q4H PRN ORAL Breakthrough Pain 09/28/18 14:30 10/03/18 14:29 09/30/18 13:26 Oxycodone/ Acetaminophen (Percocet 5-325) 1 tab Q1H PRN ORAL Severe Pain (Pain Scale 7-10) 09/30/18 10:30 09/30/18 18:00 Pantoprazole (Protonix) 40 mg DAILY ORAL 09/25/18 09:00 10/25/18 08:59 09/29/18 09:22 Polyethylene Glycol/ Electrolytes (Nulytely) 4,000 ml ONCE ORAL 09/30/18 16:00 09/30/18 23:59 Potassium Chloride (K-Dur) 40 meq BID ORAL 09/29/18 18:00 10/27/18 09:29 09/29/18 17:55 Sucralfate (Carafate) 1 gm FOUR TIMES A DAY ORAL 09/27/18 09:00 10/27/18 08:59 09/30/18 13:13 Sumatriptan Succinate (Imitrex) 25 mg Q6H PRN ORAL For Headache 09/27/18 22:00 10/27/18 21:59 09/30/18 01:48 Thiamine HCl (Vitamin B1) 100 mg DAILY ORAL 09/29/18 09:00 10/29/18 08:59 09/29/18 09:24 Oralia Mohan M.D. Sep 30, 2018 16:43
--- NOTE | 2018-09-30 17:30 | Procedure Note ---
DATE OF PROCEDURE: 09/30/2018 SURGEON: Teddy Rosenberg M.D. PROCEDURE: Upper endoscopy with biopsy. ANESTHESIA: Per Dr. Tim Ramirez. INSTRUMENT: Olympus adult flexible upper endoscope. INDICATION: Anemia, nausea, and vomiting. REASON FOR PROCEDURE: The procedure, risks, benefits, and possible consequences, including hemorrhage, aspiration, perforation and infection, and alternative treatments, were explained to the patient/legal guardian by Dr. Teddy Rosenberg and the patient/legal guardian understood and accepted these risks. PROCEDURE IN DETAIL: After informed consent was obtained and the patient was adequately sedated, Olympus upper endoscope was advanced from the mouth into the esophagus. The patient has evidence of history of gastric bypass with very minimal, small, very tiny pocket of gastric left. There was evidence of esophagitis, erosive at the anastomosis, with some oozing blood at the anastomosis. Biopsy from the distal esophagus was obtained. At this time, the upper endoscope was retrieved and procedure was terminated. SUMMARY OF FINDINGS: 1. Distal esophagitis. 2. History of gastric bypass. RECOMMENDATIONS: 1. Follow up biopsy results. 2. PPI daily. 3. Reflux measures. 4. Given the patient has elevated CRP and ESR and given the patient's complaint of diarrhea and prior history of colonic polyps and evidence of anemia, the patient will benefit from colonoscopy. We will schedule for tomorrow. I want to thank, Dr. Ferreira, for this kind referral. Teddy Rosenberg M.D. DR: JESSEE JOB#: [id number] CC: Caty Ferreira M.D.; Fax#: [phone]
[2018-09-30] MEDS: Nulytely 4L ORAL SCH ×2 (17:46→18:55)
--- NOTE | 2018-09-30 17:49 | NUR ---
NURSE NOTES: RN reviewed colonoscopy procedure with pt, NPO diet order and Golytely. RN attempted to start pt on Golytely per order. Pt stated she wants a meal and will not take till later. Charge nurse made aware.
--- NOTE | 2018-09-30 18:56 | NUR ---
NURSE NOTES: Pt consented to starting Golytely.
--- NOTE | 2018-09-30 19:36 | NUR ---
HAND-OFF: Report given to TAWNY Thompson and TAWNY Johnson.
[2018-09-30] MEDS: Dyna-Hex 2% Top Sol 2oz TOPIC SCH (19:58)
--- NOTE | 2018-09-30 20:30 | NUR ---
NURSE NOTES: Received patient from TAWNY Seaman. Patient is in bed, alert and oriented x4. Room air, no s/s of distress at the moment. Port Cath in the left upper chest, patent, dressing dry and intact. Left lower abdomen dressing is dry and intact. Patient is aware that she will be NPO at midnight. Bed is locked at the lowest position, side rails up x2, and call light within reach. Will continue to monitor.
[2018-09-30] MEDS: Doxepin 25mg Cap ORAL SCH ×2 (21:00→22:42)
[2018-10-01] VITALS (10 sets, daily range): BP systolic 107–140; BP diastolic 67–91
[2018-10-01] MEDS: HydrOXYzine 50mg tab ORAL SCH ×5 (00:41→23:30)
[2018-10-01] MEDS ORDERED: Fleet's Enema 133ml RECTAL ONE ×2 (01:00→06:30)
[2018-10-01] MEDS: oxyCODONE 5mg IR tab ORAL PRN ×2 (02:33→13:46)
[2018-10-01] MEDS: D5 1/2NS w/KCl 20mEq 1,000 ML IV SCH ×2 (05:20→17:48)
[2018-10-01] MEDS: Levothyroxine 25mcg tab ORAL SCH (05:51)
[2018-10-01 06:19] LABS: ANION GAP 5 mmol/L (5-15); BLOOD UREA NITROGEN 7 mg/dL (7-18); CALCIUM 7.1 MG/DL (8.5-10.1); CARBON DIOXIDE 31 MMOL/L (21-32); CHLORIDE 108 MMOL/L (98-107); CREATININE 0.7 MG/DL (0.55-1.30); POTASSIUM 3.1 MMOL/L (3.5-5.1); SODIUM 144 MMOL/L (136-145)
[2018-10-01 06:25] LABS: ALANINE AMINOTRANSFERASE 37 U/L (12-78); ALBUMIN 1.7 G/DL (3.4-5.0); ALKALINE PHOSPHATASE 87 U/L (46-116); ASPARTATE AMINO TRANSFERASE 23 U/L (15-37); BILIRUBIN,DIRECT 0.2 MG/DL (0.0-0.3); BILIRUBIN,TOTAL 0.6 MG/DL (0.2-1.0); PHOSPHORUS 3.4 MG/DL (2.5-4.9)
[2018-10-01 06:28] LABS: BASOPHILS % (AUTO) 1.8 % (0.0-2.0); EOSINOPHILS % (AUTO) 1.2 % (0.0-3.0); HEMATOCRIT 28.5 % (37.0-47.0); HEMOGLOBIN 9.3 G/DL (12.0-16.0); LYMPHOCYTES % (AUTO) 44.9 % (20.0-45.0); MEAN CORPUSCULAR VOLUME 96 FL (80-99); MONOCYTES % (AUTO) 8.9 % (1.0-10.0); NEUTROPHILS % (AUTO) 43.2 % (45.0-75.0); PLATELET COUNT 234 K/UL (150-450); RED BLOOD COUNT 2.98 M/UL (4.20-5.40); RED CELL DISTRIBUTION WIDTH 17.8 % (11.6-14.8); WHITE BLOOD COUNT 4.1 K/UL (4.8-10.8)
[2018-10-01] MEDS ORDERED: fentaNYL 100 mcg/2 mL IV PRN (06:30)
[2018-10-01] MEDS ORDERED: DiphenhydrAMINE 50mg/ml Inj IVP PRN (06:30)
[2018-10-01] MEDS ORDERED: Midazolam 2mg/2ml Inj IVP PRN (06:30)
[2018-10-01] MEDS ORDERED: Atropine Inj 1mg/10ml Syr IV PRN (06:30)
--- NOTE | 2018-10-01 06:34 | Anethesia Preoperative Eval ---
Anesthesia Pre-op PMH/ROS General Date of Evaluation: Oct 01, 2018 Time of Evaluation: 06:29 Anesthesiologist: marilee ASA Score: ASA 3 Mallampati Score Class I : Soft palate, uvula, fauces, pillars visible Class II: Soft palate, uvula, fauces visible Class III: Soft palate, base of uvula visible Class IV: Only hard plate visible Mallampati Classification: Class II Surgeon: lucy Diagnosis: abdominal pain Surgical Procedure: colonoscopy Anesthesia History: none Social History: current smoker, alcohol use Family History: no anesthesia problems Allergies: Coded Allergies: GABAPENTIN (Verified Allergy, Unknown, 09/24/18) METAXALONE (Verified Allergy, Unknown, 09/24/18) MORPHINE (Verified Allergy, Unknown, 09/24/18) QUETIAPINE (Verified Allergy, Unknown, 09/24/18) Medications: see eMAR Patient NPO?: Yes Past Medical History Cardiovascular: Reports: other - hypotension Gastrointestinal/Genitourinary: Reports: other - sbo, nausea and vomiting, uti, Neurologic/Psychiatric: Reports: depression/anxiety Endocrine: Reports: hypothyroidism HEENT: Reports: other - oral thrush Hematology/Immune: Reports: other - pancytopenia, Musculoskeletal/Integumentary: Reports: other - fibromyalgia PSxH Narrative: recent abdominal sx for release of sbo Anesthesia Pre-op Phys. Exam Physician Exam Last Vital Signs Date Time Temp Pulse Resp B/P (MAP) Pulse Ox O2 Delivery O2 Flow Rate FiO2 10/01/18 04:43 98.1 77 18 139/67 (91) 98 09/30/18 21:00 Room Air 09/30/18 11:05 6 Constitutional: NAD Neurologic: CN 2-12 intact Cardiovascular: RRR Respiratory: CTA Gastrointestinal: S/NT/ND, other - healing abdominal surgical wound Airway Exam Mallampati Score: Class II MO: limited Neck: flexible TMD: 2fb ROM: limited Anesthesia Pre-op A/P Labs Labs Test 09/28/18 13:20 09/28/18 23:59 09/29/18 05:40 09/30/18 09:56 White Blood Count 2.6 K/UL (4.8-10.8) 3.9 K/UL (4.8-10.8) Red Blood Count 3.21 M/UL (4.20-5.40) 2.83 M/UL (4.20-5.40) Hemoglobin 10.0 G/DL (12.0-16.0) 8.8 G/DL (12.0-16.0) Hematocrit 30.5 % (37.0-47.0) 27.3 % (37.0-47.0) Mean Corpuscular Volume 95 FL (80-99) 96 FL (80-99) Mean Corpuscular Hemoglobin 31.1 PG (27.0-31.0) 31.1 PG (27.0-31.0) Mean Corpuscular Hemoglobin Concent 32.8 G/DL (32.0-36.0) 32.3 G/DL (32.0-36.0) Red Cell Distribution Width 18.0 % (11.6-14.8) 18.1 % (11.6-14.8) Platelet Count 238 K/UL (150-450) 212 K/UL (150-450) Mean Platelet Volume 5.6 FL (6.5-10.1) 5.7 FL (6.5-10.1) Neutrophils (%) (Auto) % (45.0-75.0) 46.5 % (45.0-75.0) Lymphocytes (%) (Auto) % (20.0-45.0) 41.0 % (20.0-45.0) Monocytes (%) (Auto) % (1.0-10.0) 10.2 % (1.0-10.0) Eosinophils (%) (Auto) % (0.0-3.0) 1.2 % (0.0-3.0) Basophils (%) (Auto) % (0.0-2.0) 1.2 % (0.0-2.0) Differential Total Cells Counted 100 Neutrophils % (Manual) 68 % (45-75) Lymphocytes % (Manual) 30 % (20-45) Monocytes % (Manual) 2 % (1-10) Eosinophils % (Manual) 0 % (0-3) Basophils % (Manual) 0 % (0-2) Band Neutrophils 0 % (0-8) Platelet Estimate Adequate Platelet Morphology Normal Anisocytosis 1+ Sodium Level 138 MMOL/L (136-145) 144 MMOL/L (136-145) Potassium Level 3.5 MMOL/L (3.5-5.1) 3.4 MMOL/L (3.5-5.1) Chloride Level 107 MMOL/L (98-107) 111 MMOL/L (98-107) Carbon Dioxide Level 26 MMOL/L (21-32) 24 MMOL/L (21-32) Anion Gap 5 mmol/L (5-15) 9 mmol/L (5-15) Blood Urea Nitrogen 4 mg/dL (7-18) 6 mg/dL (7-18) Creatinine 0.8 MG/DL (0.55-1.30) 0.8 MG/DL (0.55-1.30) Estimat Glomerular Filtration Rate > 60 mL/min (>60) > 60 mL/min (>60) Glucose Level 162 MG/DL (74-106) 87 MG/DL (74-106) Calcium Level 7.4 MG/DL (8.5-10.1) 7.2 MG/DL (8.5-10.1) Total Bilirubin 0.5 MG/DL (0.2-1.0) 0.3 MG/DL (0.2-1.0) Aspartate Amino Transf (AST/SGOT) 17 U/L (15-37) 18 U/L (15-37) Alanine Aminotransferase (ALT/SGPT) 40 U/L (12-78) 38 U/L (12-78) Alkaline Phosphatase 99 U/L (46-116) 85 U/L (46-116) Total Protein 4.5 G/DL (6.4-8.2) 4.0 G/DL (6.4-8.2) Albumin 1.7 G/DL (3.4-5.0) 1.5 G/DL (3.4-5.0) Globulin 2.8 g/dL 2.5 g/dL Albumin/Globulin Ratio 0.6 (1.0-2.7) 0.6 (1.0-2.7) Urine Color Pale yellow Urine Appearance Clear Urine pH 7 (4.5-8.0) Urine Specific [place] 1.005 (1.005-1.035) Urine Protein Negative (NEGATIVE) Urine Glucose (UA) Negative (NEGATIVE) Urine Ketones Negative (NEGATIVE) Urine Blood Negative (NEGATIVE) Urine Nitrite Negative (NEGATIVE) Urine Bilirubin Negative (NEGATIVE) Urine Urobilinogen Normal MG/DL (0.0-1.0) Urine Leukocyte Esterase Negative (NEGATIVE) Urine RBC 0-2 /HPF (0 - 2) Urine WBC 0 /HPF (0 - 2) Urine Squamous Epithelial Cells Few /LPF (NONE/OCC) Urine Bacteria None /HPF (NONE) Erythrocyte Sedimentation Rate 2 MM/HR (0-20) Uric Acid 2.5 MG/DL (2.6-7.2) Phosphorus Level 2.9 MG/DL (2.5-4.9) Magnesium Level 1.7 MG/DL (1.8-2.4) Gamma Glutamyl Transpeptidase 38 U/L (5-85) Urine HCG, Qualitative Negative (NEGATIVE) Test 10/01/18 05:58 White Blood Count 4.1 K/UL (4.8-10.8) Red Blood Count 2.98 M/UL (4.20-5.40) Hemoglobin 9.3 G/DL (12.0-16.0) Hematocrit 28.5 % (37.0-47.0) Mean Corpuscular Volume 96 FL (80-99) Mean Corpuscular Hemoglobin 31.2 PG (27.0-31.0) Mean Corpuscular Hemoglobin Concent 32.5 G/DL (32.0-36.0) Red Cell Distribution Width 17.8 % (11.6-14.8) Platelet Count 234 K/UL (150-450) Mean Platelet Volume 5.3 FL (6.5-10.1) Neutrophils (%) (Auto) 43.2 % (45.0-75.0) Lymphocytes (%) (Auto) 44.9 % (20.0-45.0) Monocytes (%) (Auto) 8.9 % (1.0-10.0) Eosinophils (%) (Auto) 1.2 % (0.0-3.0) Basophils (%) (Auto) 1.8 % (0.0-2.0) Sodium Level 144 MMOL/L (136-145) Potassium Level 3.1 MMOL/L (3.5-5.1) Chloride Level 108 MMOL/L (98-107) Carbon Dioxide Level 31 MMOL/L (21-32) Anion Gap 5 mmol/L (5-15) Blood Urea Nitrogen 7 mg/dL (7-18) Creatinine 0.7 MG/DL (0.55-1.30) Estimat Glomerular Filtration Rate > 60 mL/min (>60) Glucose Level 71 MG/DL (74-106) Calcium Level 7.1 MG/DL (8.5-10.1) Phosphorus Level 3.4 MG/DL (2.5-4.9) Magnesium Level 1.7 MG/DL (1.8-2.4) Total Bilirubin 0.6 MG/DL (0.2-1.0) Direct Bilirubin 0.2 MG/DL (0.0-0.3) Aspartate Amino Transf (AST/SGOT) 23 U/L (15-37) Alanine Aminotransferase (ALT/SGPT) 37 U/L (12-78) Alkaline Phosphatase 87 U/L (46-116) Total Protein 4.2 G/DL (6.4-8.2) Albumin 1.7 G/DL (3.4-5.0) Urine Test Test 09/30/18 09:56 Urine HCG, Qualitative Negative (NEGATIVE) Risk Assessment & Plan Assessment: asa3 Plan: mac Status Change Before Surgery: No Pre-Antibiotics Drug: Donna Kennedy MD Oct 01, 2018 06:34
[2018-10-01] MEDS: Hydrocortisone 20mg tab ORAL SCH (06:46)
--- NOTE | 2018-10-01 07:00 | NUR ---
NURSE NOTES: PATIENT DIDN'T FINISH GOLYTELY AND SAVANNAH SURFACE TO AIR [employer]APONS OFFICER WAS NOTIFIED BY EVER MARIE RN, AND RECEIVED ORDER FOR FLEETS ENEMA, ENEMA GIVEN, PATIENT TOLERATED. PATIENT'S BM STILL NOT CLEAR AND EVER MARIE RN, NOTIFIED DR. CEDILLO AND RECEIVED ORDER FOR ANOTHER FLEETS ENEMA, ENEMA GIVEN, PATIENT TOLERATED. NOTIFIED LIANA GI NURSE. WILL CONTINUE TO MONITOR.
--- NOTE | 2018-10-01 07:11 | Pre-Procedure Note/Attestation ---
Pre-Procedure Note/Attestation Complete Prior to Procedure Planned Procedure: not applicable Procedure Narrative: colonoscopy Indications for Procedure Pre-Operative Diagnosis: anemia Attestation I attest that I discussed the nature of the procedure; its benefits; risks and complications; and alternatives (and the risks and benefits of such alternatives ), prior to the procedure, with the patient (or the patient's legal herbicide service sales representative). I attest that, if there was a reasonable possibility of needing a blood transfusion, the patient (or the patient's legal herbicide service sales representative) was given the [facility] standardized written summary, pursuant to the Theo Aury Blood Safety Act ([place] Health and Safety Code # 1645, as amended). I attest that I re-evaluated the patient just prior to the surgery and that there has been no change in the patient's H&P, except as documented below: Teddy Rosenberg MD Oct 01, 2018 07:11
[2018-10-01] MEDS ORDERED: NS 500ML IVPB ONE (07:15)
--- NOTE | 2018-10-01 07:29 | Endoscopy Procedure Note ---
Endoscopy Procedure Note General Indication for Procedure: diarrhea, anemia Procedures Performed: colonoscopy Operative Findings/Diagnosis: poor prep Specimen: yes Pt Tolerated Procedure Well: Yes Estimated Blood Loss: none Anesthesia Anesthesiologist: marilee Anesthesia: MAC Inserted Devices Implant(s) used?: No GI Core Measures 50 yrs or older w/o bx or poly: Not Applicable 10yrs. F/U not recommended: Not Applicable Teddy Rosenberg MD Oct 01, 2018 07:29
--- NOTE | 2018-10-01 07:40 | NUR ---
HAND-OFF: Report given to PARAM MANSFIELD RN.
--- NOTE | 2018-10-01 08:00 | NUR ---
NURSE NOTES: NS 1000 cc due 625 and on the report PMDonna reported patient refused the fluid, however forgot to non-administer the bag.
--- NOTE | 2018-10-01 08:00 | Procedure Note ---
DATE OF PROCEDURE: 10/01/2018 SURGEON: Teddy Rosenberg M.D. PROCEDURE: Colonoscopy with biopsy ANESTHESIA: Per Dr. Morrow. INSTRUMENT: Olympus adult flexible colonoscope. REASON FOR PROCEDURE: The procedure, risks, benefits, and possible consequences, including hemorrhage, aspiration, perforation and infection, and alternative treatments, were explained to the patient/legal guardian by Dr. Teddy Rosenberg and the patient/legal guardian understood and accepted these risks. INDICATIONS: 1. Anemia, rule out colitis. 2. Diarrhea. PROCEDURE IN DETAIL: After informed consent was obtained and the patient was adequately sedated, first rectal exam was performed, which was positive for internal hemorrhoids. Then, the scope was advanced from the rectum into the mid transverse colon. Given poor prep, we could not advance the scope beyond this point. The patient has a limited study given very poor prep. There was no active colitis seen. No obvious polyp seen. Random biopsy from the sigmoid was obtained to rule out microscopic colitis. Retroflexion of rectum showed evidence of internal hemorrhoids. SUMMARY OF FINDINGS: 1. Incomplete colonoscopy examination secondary to poor prep. 2. No obvious colitis status post random biopsy of the sigmoid colon. 3. Internal hemorrhoids. RECOMMENDATIONS: 1. Resume diet. 2. Follow biopsy results. 3. Discharge planning per primary team. 4. Follow as an outpatient. I want to thank, Dr. Ferreira for this kind referral. Teddy Rosenberg M.D. DR: Nathan JOB#: [id number] CC: Caty Ferreira M.D.; Fax#: [phone]
--- NOTE | 2018-10-01 08:18 | NUR ---
NURSE NOTES: Patient alert x4, on room air, no sign of chest pain; no sign of shortness of breath; no sign of distress; IV left upper port-cath; flushes well; bed at lowest position, side rails up x2, breaks engaged; call light within reach; will keep monitoring.
--- NOTE | 2018-10-01 09:26 | Immediate Post-Op Evaluation ---
Immediate Post-Op Evalulation Immediate Post-Op Evalulation Procedure: colonoscopy w/bx Date of Evaluation: Oct 01, 2018 Time of Evaluation: 07:55 IV Fluids: 150ml 0.9ns Blood Products: none Estimated Blood Loss: negligible Blood Pressure Systolic: 114 Blood Pressure Diastolic: 88 Pulse Rate: 86 Respiratory Rate: 18 O2 Sat by Pulse Oximetry: 100 Temperature (Fahrenheit): 97.1 Pain Score (1-10): 0 Nausea: No Vomiting: No Complications none Patient Status: awake, reacts, patent Hydration Status: adequate Drug: Donna Kennedy MD Oct 01, 2018 09:26
--- NOTE | 2018-10-01 09:27 | 48 Hour Post Anesthesia Eval ---
Post Anesthesia Evaluation Procedure: colonoscopy w/bx Date of Evaluation: Oct 01, 2018 Time of Evaluation: 07:57 Blood Pressure Systolic: 122 0: 90 Pulse Rate: 81 Respiratory Rate: 18 Temperature (Fahrenheit): 97.1 O2 Sat by Pulse Oximetry: 100 Airway: patent Nausea: No Vomiting: No Pain Intensity: 0 Hydration Status: adequate Cardiopulmonary Status: stable Mental Status/LOC: patient returned to baseline Post-Anesthesia Complications: none Follow-up care needed: N/A Donna Ernst MD Oct 01, 2018 09:27
[2018-10-01] MEDS: BusPIRone 5mg Tab ORAL SCH ×3 (09:45→17:47)
[2018-10-01] MEDS: oxyCONTIN 10mg tab ORAL SCH ×2 (09:48→21:04)
[2018-10-01] MEDS: Sucralfate 1gm tab ORAL SCH ×4 (09:53→21:04)
[2018-10-01] MEDS: Nystatin Susp 500,000 units/5ml ORAL SCH ×3 (09:54→17:46)
[2018-10-01] MEDS: Thiamine 100mg tab ORAL SCH (09:57)
[2018-10-01] MEDS: Cyclobenzaprine 10mg Tab ORAL SCH ×3 (09:57→17:47)
[2018-10-01] MEDS: Methocarbamol 500mg tab ORAL SCH ×4 (09:59→21:04)
--- NOTE | 2018-10-01 10:58 | NUR ---
NURSE NOTES: I communicated Md Ferreira regarding patient's MG 1.7. Waiting for order.
--- NOTE | 2018-10-01 11:27 | NUR ---
*-* INSURANCE *-* ALL CLINICALS AND REVIEWS HAVE BEEN FAXED TO: JULIANNA CHAVEZ/[employer] [facility] P:[phone] F:[phone] NURSE RESEARCHER - [place] P:[phone] X [phone]
[2018-10-01] MEDS: SUMAtriptan 50mg tab ORAL PRN (12:34)
[2018-10-01] MEDS ORDERED: Magnesium Oxide 400mg tab ORAL SCH (13:00)
--- NOTE | 2018-10-01 13:41 | Surgery Progress Note ---
Surgery Progress Note Subjective Additional Comments had EGD and Colon today. doing well after. no complaints. feeling better. Objective Last 24 Hour Vital Signs Date Time Temp Pulse Resp B/P (MAP) Pulse Ox O2 Delivery O2 Flow Rate FiO2 10/01/18 12:42 97.1 10/01/18 12:00 97.8 100 16 107/78 (88) 97 10/01/18 11:38 Room Air 10/01/18 10:58 97.1 10/01/18 09:27 81 18 100 10/01/18 09:26 86 18 100 10/01/18 09:00 Room Air 10/01/18 08:05 97.8 95 15 135/80 100 Room Air 10/01/18 08:00 97.3 98 16 140/91 (107) 97 10/01/18 07:53 81 11 122/90 100 Simple Mask 6 10/01/18 07:48 78 11 119/90 100 Simple Mask 6 10/01/18 07:43 97.1 86 18 119/88 100 Simple Mask 6 10/01/18 04:43 98.1 77 18 139/67 (91) 98 10/01/18 00:00 97.8 77 15 125/87 (100) 99 09/30/18 21:00 Room Air 09/30/18 20:00 97.9 80 18 114/81 (92) 98 09/30/18 16:00 98.0 93 20 117/83 (94) 97 I&O Intake and Output 09/30/18 10/01/18 18:59 06:59 Intake Total 460 ml 1000 ml Output Total 0 ml Balance 460 ml 1000 ml Intake Oral 260 ml 1000 ml IV Total 200 ml Estimated Blood Loss 0 ml # Voids 3 4 Drains: none Cardiovascular: RSR Respiratory: clear Abdomen: soft, flat, non-tender, present bowel sounds, non-distended Extremities: no tenderness, no cyanosis Laboratory Tests Test 10/01/18 05:58 White Blood Count 4.1 K/UL (4.8-10.8) L Red Blood Count 2.98 M/UL (4.20-5.40) L Hemoglobin 9.3 G/DL (12.0-16.0) L Hematocrit 28.5 % (37.0-47.0) L Mean Corpuscular Volume 96 FL (80-99) Mean Corpuscular Hemoglobin 31.2 PG (27.0-31.0) H Mean Corpuscular Hemoglobin Concent 32.5 G/DL (32.0-36.0) Red Cell Distribution Width 17.8 % (11.6-14.8) H Platelet Count 234 K/UL (150-450) Mean Platelet Volume 5.3 FL (6.5-10.1) L Neutrophils (%) (Auto) 43.2 % (45.0-75.0) L Lymphocytes (%) (Auto) 44.9 % (20.0-45.0) Monocytes (%) (Auto) 8.9 % (1.0-10.0) Eosinophils (%) (Auto) 1.2 % (0.0-3.0) Basophils (%) (Auto) 1.8 % (0.0-2.0) Sodium Level 144 MMOL/L (136-145) Potassium Level 3.1 MMOL/L (3.5-5.1) L Chloride Level 108 MMOL/L (98-107) H Carbon Dioxide Level 31 MMOL/L (21-32) Anion Gap 5 mmol/L (5-15) Blood Urea Nitrogen 7 mg/dL (7-18) Creatinine 0.7 MG/DL (0.55-1.30) Estimat Glomerular Filtration Rate > 60 mL/min (>60) Glucose Level 71 MG/DL (74-106) L Calcium Level 7.1 MG/DL (8.5-10.1) L Phosphorus Level 3.4 MG/DL (2.5-4.9) Magnesium Level 1.7 MG/DL (1.8-2.4) L Total Bilirubin 0.6 MG/DL (0.2-1.0) Direct Bilirubin 0.2 MG/DL (0.0-0.3) Aspartate Amino Transf (AST/SGOT) 23 U/L (15-37) Alanine Aminotransferase (ALT/SGPT) 37 U/L (12-78) Alkaline Phosphatase 87 U/L (46-116) Total Protein 4.2 G/DL (6.4-8.2) L Albumin 1.7 G/DL (3.4-5.0) L Plan Problems: (1) Vomiting (2) Dehydration (3) Electrolyte imbalance (4) Nausea and vomiting (5) Small bowel obstruction due to adhesions Assessment & Plan: CT noted exam with tenderness but incisional labs noted upper GI without obstruction s/p EGD and colonoscopy EGD with esophagitis Colon with poor prep no acute surgical intervention planned okay for diet PPI am labs will follow with serial exams d/c planning thank you Glynn Michelle Oct 01, 2018 13:41
--- NOTE | 2018-10-01 14:28 | Psych Consult Progress Note ---
Psychiatry Progress Note Psychiatry Progress Note Medications Current Medications Medications (Trade) Dose Ordered Sig/Cayetano Route PRN Reason Start Time Stop Time Status Last Admin Dose Admin Acetaminophen (Tylenol) 650 mg Q4H PRN ORAL Mild Pain/Temp > 100.5 09/24/18 22:00 10/24/18 21:59 Al Hydroxide/Mg Hydroxide (Mylanta) 15 ml Q1H PRN ORAL gi upset 10/01/18 06:30 10/01/18 15:00 Atropine Sulfate (Atropine) 0.5 mg Q5M PRN IV bpm less than 45 10/01/18 06:30 10/01/18 15:00 Buspirone HCl (Buspar) 15 mg THREE TIMES A DAY ORAL 09/27/18 18:00 10/27/18 17:59 10/01/18 12:13 Calcium Carbonate (Tums) 1,000 mg Q4H PRN ORAL reflux symptoms 09/27/18 15:00 10/27/18 14:59 09/29/18 07:43 Chlorhexidine Gluconate (Светлана-Hex 2%) 1 applic DAILY@2000 TOPIC 09/28/18 20:00 10/28/18 19:59 09/30/18 19:58 Cyclobenzaprine HCl (Flexeril) 10 mg THREE TIMES A DAY ORAL 09/24/18 23:00 10/25/18 08:59 10/01/18 12:12 Dextrose/ Electrolytes 1,000 ml @ 75 mls/hr [id number] IV 09/30/18 16:00 10/30/18 15:59 Diphenhydramine HCl (Benadryl) 25 mg Q15M PRN IVP Itching 10/01/18 06:30 10/01/18 15:00 10/01/18 12:33 Diphenhydramine HCl (Benadryl) 25 mg Q6H PRN ORAL Itching 09/30/18 12:30 10/30/18 12:29 Doxepin HCl (SINEquan) 50 mg BEDTIME ORAL 09/25/18 01:30 10/25/18 01:29 09/30/18 22:42 Ergocalciferol (Drisdol) 50,000 intlu QWEEK ORAL 09/27/18 09:30 10/27/18 09:29 09/27/18 11:54 Fentanyl Citrate (Sublimaze 100 mcg/2 mL) 25 mcg Q10M PRN IV Moderate Pain (Pain Scale 4-6) 10/01/18 06:30 10/01/18 15:00 Folic Acid (Folate) 1 mg DAILY ORAL 09/26/18 09:00 10/26/18 08:59 10/01/18 09:57 Hydralazine HCl (Apresoline) 5 mg Q30M PRN IV SBP>160 OR___/DBP>90 OR___ 10/01/18 06:30 10/01/18 15:00 Hydrocortisone (Cortef) 25 mg DAILY@1400 ORAL 09/29/18 14:00 10/29/18 13:59 10/01/18 13:48 Hydrocortisone (Cortef) 50 mg DAILY@0700 ORAL 09/29/18 07:00 10/29/18 06:59 10/01/18 06:46 Hydroxyzine HCl (Atarax) 100 mg EVERY 6 HOURS ORAL 09/25/18 00:00 10/25/18 00:00 10/01/18 12:13 Levothyroxine Sodium (Synthroid) 50 mcg ACBREAKFAST ORAL 09/25/18 06:30 10/25/18 06:29 10/01/18 05:51 Methocarbamol (Robaxin) 500 mg QID ORAL 09/24/18 22:15 10/24/18 22:14 10/01/18 12:13 Midazolam HCl (Versed 2mg/2ml vial) 1 mg Q15M PRN IVP For Anxiety 10/01/18 06:30 10/01/18 15:00 Multivitamins (Multivitamins) 1 tab DAILY ORAL 09/26/18 09:00 10/26/18 08:59 10/01/18 09:54 Nystatin (Nystatin) 1 ml TID ORAL 09/29/18 18:00 10/06/18 17:59 10/01/18 12:13 Ondansetron HCl (Zofran) 4 mg Q1H PRN IVP Nausea & Vomiting 10/01/18 06:30 10/01/18 15:00 Ondansetron HCl (Zofran) 4 mg Q6H PRN IVP Nausea & Vomiting 09/28/18 14:45 10/28/18 14:44 10/01/18 09:42 Oxycodone HCl (OxyCONTIN) 30 mg Q12HR ORAL 09/28/18 21:00 10/03/18 13:19 10/01/18 09:48 Oxycodone HCl (Roxicodone) 10 mg Q4H PRN ORAL Breakthrough Pain 09/28/18 14:30 10/03/18 14:29 10/01/18 13:46 Pantoprazole (Protonix) 40 mg DAILY ORAL 09/25/18 09:00 10/25/18 08:59 10/01/18 09:43 Potassium Chloride (K-Dur) 40 meq BID ORAL 10/01/18 18:00 10/31/18 17:59 Sodium Chloride 1,000 ml @ 10 mls/hr Q24H IVLG 10/01/18 06:26 10/01/18 15:00 Sucralfate (Carafate) 1 gm FOUR TIMES A DAY ORAL 09/27/18 09:00 10/27/18 08:59 10/01/18 12:13 Sumatriptan Succinate (Imitrex) 25 mg Q6H PRN ORAL For Headache 09/27/18 22:00 10/27/18 21:59 10/01/18 12:34 Thiamine HCl (Vitamin B1) 100 mg DAILY ORAL 09/29/18 09:00 10/29/18 08:59 10/01/18 09:57 Neurological/Psychiatric: Reports: anxiety, depressed, emotional problems Allergies: Coded Allergies: GABAPENTIN (Verified Allergy, Unknown, 09/24/18) METAXALONE (Verified Allergy, Unknown, 09/24/18) MORPHINE (Verified Allergy, Unknown, 09/24/18) QUETIAPINE (Verified Allergy, Unknown, 09/24/18) Objective Data Height (Feet): 5 Height (Inches): 5.00 Weight (Pounds): 142 General Appearance: WD/WN, no apparent distress, alert, alert oriented x3 Assessment/Plan Problem List: (1) Anxiety disorder ICD Codes: F41.9 - Anxiety disorder, unspecified SNOMED: 474607185 (2) Alcohol dependence ICD Codes: F10.20 - Alcohol dependence, uncomplicated SNOMED: 76924463 Sugey Meléndez MD Oct 01, 2018 14:28
--- NOTE | 2018-10-01 14:43 | Nephrology Progress Note ---
Assessment/Plan Problem List: (1) Dehydration (2) Hypotension (3) UTI (urinary tract infection) (4) Hypocalcemia Assessment Severe HypoAlbuminemia, WITHOUT PROTEINURIA per ua likely nutritional and related to liver disease HypoCalcemia , fairly corrects by Hypoalbuminemia Leukopenia and Anemia , likely of chronic disease UTI Low cortisol level Hypotension Plan mag and K supplement stable from renal stand Vit D Hydrocortisone maintenance dose correct electrolytes antibiotics per consultants Subjective ROS Limited/Unobtainable: No Objective Objective Last 24 Hour Vital Signs Date Time Temp Pulse Resp B/P (MAP) Pulse Ox O2 Delivery O2 Flow Rate FiO2 10/01/18 12:42 97.1 10/01/18 12:00 97.8 100 16 107/78 (88) 97 10/01/18 11:38 Room Air 10/01/18 10:58 97.1 10/01/18 09:27 81 18 100 10/01/18 09:26 86 18 100 10/01/18 09:00 Room Air 10/01/18 08:05 97.8 95 15 135/80 100 Room Air 10/01/18 08:00 97.3 98 16 140/91 (107) 97 10/01/18 07:53 81 11 122/90 100 Simple Mask 6 10/01/18 07:48 78 11 119/90 100 Simple Mask 6 10/01/18 07:43 97.1 86 18 119/88 100 Simple Mask 6 10/01/18 04:43 98.1 77 18 139/67 (91) 98 10/01/18 00:00 97.8 77 15 125/87 (100) 99 09/30/18 21:00 Room Air 09/30/18 20:00 97.9 80 18 114/81 (92) 98 09/30/18 16:00 98.0 93 20 117/83 (94) 97 Intake and Output 09/30/18 10/01/18 18:59 06:59 Intake Total 460 ml 1000 ml Output Total 0 ml Balance 460 ml 1000 ml Intake Oral 260 ml 1000 ml IV Total 200 ml Estimated Blood Loss 0 ml # Voids 3 4 Current Medications Medications (Trade) Dose Ordered Sig/Cayetano Route PRN Reason Start Time Stop Time Status Last Admin Dose Admin Acetaminophen (Tylenol) 650 mg Q4H PRN ORAL Mild Pain/Temp > 100.5 09/24/18 22:00 10/24/18 21:59 Al Hydroxide/Mg Hydroxide (Mylanta) 15 ml Q1H PRN ORAL gi upset 10/01/18 06:30 10/01/18 15:00 Atropine Sulfate (Atropine) 0.5 mg Q5M PRN IV bpm less than 45 10/01/18 06:30 10/01/18 15:00 Buspirone HCl (Buspar) 15 mg THREE TIMES A DAY ORAL 09/27/18 18:00 10/27/18 17:59 10/01/18 12:13 Calcium Carbonate (Tums) 1,000 mg Q4H PRN ORAL reflux symptoms 09/27/18 15:00 10/27/18 14:59 09/29/18 07:43 Chlorhexidine Gluconate (Светлана-Hex 2%) 1 applic DAILY@2000 TOPIC 09/28/18 20:00 10/28/18 19:59 09/30/18 19:58 Cyclobenzaprine HCl (Flexeril) 10 mg THREE TIMES A DAY ORAL 09/24/18 23:00 10/25/18 08:59 10/01/18 12:12 Dextrose/ Electrolytes 1,000 ml @ 75 mls/hr [id number] IV 09/30/18 16:00 10/30/18 15:59 Diphenhydramine HCl (Benadryl) 25 mg Q15M PRN IVP Itching 10/01/18 06:30 10/01/18 15:00 10/01/18 12:33 Diphenhydramine HCl (Benadryl) 25 mg Q6H PRN ORAL Itching 09/30/18 12:30 10/30/18 12:29 Doxepin HCl (SINEquan) 50 mg BEDTIME ORAL 09/25/18 01:30 10/25/18 01:29 09/30/18 22:42 Ergocalciferol (Drisdol) 50,000 intlu QWEEK ORAL 09/27/18 09:30 10/27/18 09:29 09/27/18 11:54 Fentanyl Citrate (Sublimaze 100 mcg/2 mL) 25 mcg Q10M PRN IV Moderate Pain (Pain Scale 4-6) 10/01/18 06:30 10/01/18 15:00 Folic Acid (Folate) 1 mg DAILY ORAL 09/26/18 09:00 10/26/18 08:59 10/01/18 09:57 Hydralazine HCl (Apresoline) 5 mg Q30M PRN IV SBP>160 OR___/DBP>90 OR___ 10/01/18 06:30 10/01/18 15:00 Hydrocortisone (Cortef) 25 mg DAILY@1400 ORAL 09/29/18 14:00 10/29/18 13:59 10/01/18 13:48 Hydrocortisone (Cortef) 50 mg DAILY@0700 ORAL 09/29/18 07:00 10/29/18 06:59 10/01/18 06:46 Hydroxyzine HCl (Atarax) 100 mg EVERY 6 HOURS ORAL 09/25/18 00:00 10/25/18 00:00 10/01/18 12:13 Levothyroxine Sodium (Synthroid) 50 mcg ACBREAKFAST ORAL 09/25/18 06:30 10/25/18 06:29 10/01/18 05:51 Methocarbamol (Robaxin) 500 mg QID ORAL 09/24/18 22:15 10/24/18 22:14 10/01/18 12:13 Midazolam HCl (Versed 2mg/2ml vial) 1 mg Q15M PRN IVP For Anxiety 10/01/18 06:30 10/01/18 15:00 Multivitamins (Multivitamins) 1 tab DAILY ORAL 09/26/18 09:00 10/26/18 08:59 10/01/18 09:54 Nystatin (Nystatin) 1 ml TID ORAL 09/29/18 18:00 10/06/18 17:59 10/01/18 12:13 Ondansetron HCl (Zofran) 4 mg Q1H PRN IVP Nausea & Vomiting 10/01/18 06:30 10/01/18 15:00 Ondansetron HCl (Zofran) 4 mg Q6H PRN IVP Nausea & Vomiting 09/28/18 14:45 10/28/18 14:44 10/01/18 09:42 Oxycodone HCl (OxyCONTIN) 30 mg Q12HR ORAL 09/28/18 21:00 10/03/18 13:19 10/01/18 09:48 Oxycodone HCl (Roxicodone) 10 mg Q4H PRN ORAL Breakthrough Pain 09/28/18 14:30 10/03/18 14:29 10/01/18 13:46 Pantoprazole (Protonix) 40 mg DAILY ORAL 09/25/18 09:00 10/25/18 08:59 10/01/18 09:43 Potassium Chloride (K-Dur) 40 meq BID ORAL 10/01/18 18:00 10/31/18 17:59 Sodium Chloride 1,000 ml @ 10 mls/hr Q24H IVLG 10/01/18 06:26 10/01/18 15:00 Sucralfate (Carafate) 1 gm FOUR TIMES A DAY ORAL 09/27/18 09:00 10/27/18 08:59 10/01/18 12:13 Sumatriptan Succinate (Imitrex) 25 mg Q6H PRN ORAL For Headache 09/27/18 22:00 10/27/18 21:59 10/01/18 12:34 Thiamine HCl (Vitamin B1) 100 mg DAILY ORAL 09/29/18 09:00 10/29/18 08:59 10/01/18 09:57 Laboratory Tests 10/01/18 05:58: White Blood Count 4.1L, Red Blood Count 2.98L, Hemoglobin 9.3L, Hematocrit 28.5L , Mean Corpuscular Volume 96, Mean Corpuscular Hemoglobin 31.2H, Mean Corpuscular Hemoglobin Concent 32.5, Red Cell Distribution Width 17.8H, Platelet Count 234, Mean Platelet Volume 5.3L, Neutrophils (%) (Auto) 43.2L, Lymphocytes (%) (Auto) 44.9, Monocytes (%) (Auto) 8.9, Eosinophils (%) (Auto) 1.2, Basophils (%) (Auto) 1.8, Sodium Level 144, Potassium Level 3.1L, Chloride Level 108H, Carbon Dioxide Level 31, Anion Gap 5, Blood Urea Nitrogen 7, Creatinine 0.7, Estimat Glomerular Filtration Rate > 60, Glucose Level 71L, Calcium Level 7.1L, Phosphorus Level 3.4, Magnesium Level 1.7L, Total Bilirubin 0.6, Direct Bilirubin 0.2, Aspartate Amino Transf (AST/SGOT) 23, Alanine Aminotransferase (ALT/SGPT) 37, Alkaline Phosphatase 87, Total Protein 4.2L, Albumin 1.7L Height (Feet): 5 Height (Inches): 5.00 Weight (Pounds): 142 General Appearance: no apparent distress Objective no change Umberto Causey MD Oct 01, 2018 14:43
--- NOTE | 2018-10-01 16:02 | Infectious Diseases Prog Note ---
Assessment/Plan Problems: (1) Pancytopenia Assessment & Plan: with low bone marrow cellularity on recent bone marrow biopsy , and lack of iron storage . hematology is following (2) Thrush, oral Assessment & Plan: continue oral nystatin swish and swallow for 7 days (3) Hypotension Assessment & Plan: no evidence of sepsis, with negative blood culture x2 , monitor off antibiotics (4) Small bowel obstruction due to adhesions Assessment & Plan: S/P recent adhesions lysis recently , advance diet as tolerated , continue hydration and pain management as needed (5) Diarrhea Assessment & Plan: not due to C diff , continue hydration, avoid laxatives Subjective Constitutional: Reports: no symptoms HEENT: Reports: no symptoms Respiratory: Reports: no symptoms Breasts: Reports: no symptoms Cardiovascular: Reports: no symptoms Gastrointestinal/Abdominal: Reports: no symptoms Genitourinary: Reports: no symptoms Neurologic: Reports: no symptoms Psychiatric: Reports: no symptoms Skin: Reports: no symptoms Endocrine: Reports: no symptoms Hematologic: Reports: no symptoms Musculoskeletal: Reports: no symptoms Allergies: Coded Allergies: GABAPENTIN (Verified Allergy, Unknown, 09/24/18) METAXALONE (Verified Allergy, Unknown, 09/24/18) MORPHINE (Verified Allergy, Unknown, 09/24/18) QUETIAPINE (Verified Allergy, Unknown, 09/24/18) Objective Vital Signs Last 24 Hour Vital Signs Date Time Temp Pulse Resp B/P (MAP) Pulse Ox O2 Delivery O2 Flow Rate FiO2 10/01/18 12:42 97.1 10/01/18 12:00 97.8 100 16 107/78 (88) 97 10/01/18 11:38 Room Air 10/01/18 10:58 97.1 10/01/18 09:27 81 18 100 10/01/18 09:26 86 18 100 10/01/18 09:00 Room Air 10/01/18 08:05 97.8 95 15 135/80 100 Room Air 10/01/18 08:00 97.3 98 16 140/91 (107) 97 10/01/18 07:53 81 11 122/90 100 Simple Mask 6 10/01/18 07:48 78 11 119/90 100 Simple Mask 6 10/01/18 07:43 97.1 86 18 119/88 100 Simple Mask 6 10/01/18 04:43 98.1 77 18 139/67 (91) 98 10/01/18 00:00 97.8 77 15 125/87 (100) 99 09/30/18 21:00 Room Air 09/30/18 20:00 97.9 80 18 114/81 (92) 98 09/30/18 16:00 98.0 93 20 117/83 (94) 97 Height (Feet): 5 Height (Inches): 5.00 Weight (Pounds): 142 General Appearance: WD/WN, no acute distress HEENT: normocephalic, atraumatic, anicteric, mucous membranes moist, PERRL, EOMI, pharynx normal, supple, no JVD Respiratory/Chest: chest wall non-tender, lungs clear, normal breath sounds, no respiratory distress, no accessory muscle use Cardiovascular: normal peripheral pulses, normal rate, regular rhythm, no gallop/murmur, no JVD Abdomen: normal bowel sounds, soft, non tender, no organomegaly, non distended , no mass, no scars Genitourinary: normal external genitalia Extremities: no cyanosis, no clubbing Skin: no rash, no lesions, no ulcers 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, alert, oriented x 3, responsive Lymphatic: no neck adenopathy, no groin adenopathy Musculoskeletal: normal muscle bulk, no effusion Microbiology Date/Time Source Procedure Growth Status 09/28/18 23:59 Urine,Clean Catch Urine Culture - Final NO GROWTH AFTER 48 HOURS Complete Laboratory Tests Test 10/01/18 05:58 White Blood Count 4.1 K/UL (4.8-10.8) L Red Blood Count 2.98 M/UL (4.20-5.40) L Hemoglobin 9.3 G/DL (12.0-16.0) L Hematocrit 28.5 % (37.0-47.0) L Mean Corpuscular Volume 96 FL (80-99) Mean Corpuscular Hemoglobin 31.2 PG (27.0-31.0) H Mean Corpuscular Hemoglobin Concent 32.5 G/DL (32.0-36.0) Red Cell Distribution Width 17.8 % (11.6-14.8) H Platelet Count 234 K/UL (150-450) Mean Platelet Volume 5.3 FL (6.5-10.1) L Neutrophils (%) (Auto) 43.2 % (45.0-75.0) L Lymphocytes (%) (Auto) 44.9 % (20.0-45.0) Monocytes (%) (Auto) 8.9 % (1.0-10.0) Eosinophils (%) (Auto) 1.2 % (0.0-3.0) Basophils (%) (Auto) 1.8 % (0.0-2.0) Sodium Level 144 MMOL/L (136-145) Potassium Level 3.1 MMOL/L (3.5-5.1) L Chloride Level 108 MMOL/L (98-107) H Carbon Dioxide Level 31 MMOL/L (21-32) Anion Gap 5 mmol/L (5-15) Blood Urea Nitrogen 7 mg/dL (7-18) Creatinine 0.7 MG/DL (0.55-1.30) Estimat Glomerular Filtration Rate > 60 mL/min (>60) Glucose Level 71 MG/DL (74-106) L Calcium Level 7.1 MG/DL (8.5-10.1) L Phosphorus Level 3.4 MG/DL (2.5-4.9) Magnesium Level 1.7 MG/DL (1.8-2.4) L Total Bilirubin 0.6 MG/DL (0.2-1.0) Direct Bilirubin 0.2 MG/DL (0.0-0.3) Aspartate Amino Transf (AST/SGOT) 23 U/L (15-37) Alanine Aminotransferase (ALT/SGPT) 37 U/L (12-78) Alkaline Phosphatase 87 U/L (46-116) Total Protein 4.2 G/DL (6.4-8.2) L Albumin 1.7 G/DL (3.4-5.0) L Current Medications Medications (Trade) Dose Ordered Sig/Cayetano Route PRN Reason Start Time Stop Time Status Last Admin Dose Admin Acetaminophen (Tylenol) 650 mg Q4H PRN ORAL Mild Pain/Temp > 100.5 09/24/18 22:00 10/24/18 21:59 Buspirone HCl (Buspar) 15 mg THREE TIMES A DAY ORAL 09/27/18 18:00 10/27/18 17:59 10/01/18 12:13 Calcium Carbonate (Tums) 1,000 mg Q4H PRN ORAL reflux symptoms 09/27/18 15:00 10/27/18 14:59 09/29/18 07:43 Chlorhexidine Gluconate (Светлана-Hex 2%) 1 applic DAILY@2000 TOPIC 09/28/18 20:00 10/28/18 19:59 09/30/18 19:58 Cyclobenzaprine HCl (Flexeril) 10 mg THREE TIMES A DAY ORAL 09/24/18 23:00 10/25/18 08:59 10/01/18 12:12 Dextrose/ Electrolytes 1,000 ml @ 75 mls/hr [id number] IV 09/30/18 16:00 10/30/18 15:59 Diphenhydramine HCl (Benadryl) 25 mg Q6H PRN ORAL Itching 09/30/18 12:30 10/30/18 12:29 Doxepin HCl (SINEquan) 50 mg BEDTIME ORAL 09/25/18 01:30 10/25/18 01:29 09/30/18 22:42 Ergocalciferol (Drisdol) 50,000 intlu QWEEK ORAL 09/27/18 09:30 10/27/18 09:29 09/27/18 11:54 Folic Acid (Folate) 1 mg DAILY ORAL 09/26/18 09:00 10/26/18 08:59 10/01/18 09:57 Hydrocortisone (Cortef) 25 mg DAILY@1400 ORAL 09/29/18 14:00 10/29/18 13:59 10/01/18 13:48 Hydrocortisone (Cortef) 50 mg DAILY@0700 ORAL 09/29/18 07:00 10/29/18 06:59 10/01/18 06:46 Hydroxyzine HCl (Atarax) 100 mg EVERY 6 HOURS ORAL 09/25/18 00:00 10/25/18 00:00 10/01/18 12:13 Levothyroxine Sodium (Synthroid) 50 mcg ACBREAKFAST ORAL 09/25/18 06:30 10/25/18 06:29 10/01/18 05:51 Methocarbamol (Robaxin) 500 mg QID ORAL 09/24/18 22:15 10/24/18 22:14 10/01/18 12:13 Multivitamins (Multivitamins) 1 tab DAILY ORAL 09/26/18 09:00 10/26/18 08:59 10/01/18 09:54 Nystatin (Nystatin) 1 ml TID ORAL 09/29/18 18:00 10/06/18 17:59 10/01/18 12:13 Ondansetron HCl (Zofran) 4 mg Q6H PRN IVP Nausea & Vomiting 09/28/18 14:45 10/28/18 14:44 10/01/18 09:42 Oxycodone HCl (OxyCONTIN) 30 mg Q12HR ORAL 09/28/18 21:00 10/03/18 13:19 10/01/18 09:48 Oxycodone HCl (Roxicodone) 10 mg Q4H PRN ORAL Breakthrough Pain 09/28/18 14:30 10/03/18 14:29 10/01/18 13:46 Pantoprazole (Protonix) 40 mg DAILY ORAL 09/25/18 09:00 10/25/18 08:59 10/01/18 09:43 Potassium Chloride (K-Dur) 40 meq BID ORAL 10/01/18 18:00 10/31/18 17:59 Sucralfate (Carafate) 1 gm FOUR TIMES A DAY ORAL 09/27/18 09:00 10/27/18 08:59 10/01/18 12:13 Sumatriptan Succinate (Imitrex) 25 mg Q6H PRN ORAL For Headache 09/27/18 22:00 10/27/18 21:59 10/01/18 12:34 Thiamine HCl (Vitamin B1) 100 mg DAILY ORAL 09/29/18 09:00 10/29/18 08:59 10/01/18 09:57 Oralia Mohan M.D. Oct 01, 2018 16:02
--- NOTE | 2018-10-01 19:37 | NUR ---
HAND-OFF: Report given to TAWNY Smith.
--- NOTE | 2018-10-01 19:40 | NUR ---
NURSE NOTES: Received a report from TAWNY Cardenas. Pt is in stable condition. AAOX4. Able to make needs known. No c/o pain/discomfort. L upper chest port-a-cath, is patent and intact. Bed in lowest position. Call light within reach. Will continue to monitor.
[2018-10-01] MEDS: Dyna-Hex 2% Top Sol 2oz TOPIC SCH (21:03)
[2018-10-01] MEDS: Doxepin 25mg Cap ORAL SCH (21:04)
[2018-10-02] VITALS: BP 112/78
[2018-10-02 03:53] VITALS: BP 144/56
[2018-10-02] MEDS: oxyCODONE 5mg IR tab ORAL PRN ×2 (04:00→13:55)
[2018-10-02] MEDS: Levothyroxine 25mcg tab ORAL SCH (05:59)
[2018-10-02] MEDS: HydrOXYzine 50mg tab ORAL SCH ×2 (05:59→12:24)
[2018-10-02] MEDS: Hydrocortisone 20mg tab ORAL SCH (06:00)
[2018-10-02] MEDS: D5 1/2NS w/KCl 20mEq 1,000 ML IV SCH (07:20)
--- NOTE | 2018-10-02 07:26 | NUR ---
HAND-OFF: Report given to TAWNY Cardenas.
--- NOTE | 2018-10-02 07:27 | NUR ---
NURSE NOTES: Patient alert x4, on room air, no sign of shortness of breath, no sign of distress; no sign of chest pain; IV Left-Upper port-a-cath and D51/2NSW/KCL 20mEq running at 75cc; side rails up x2, bed at lowest position, breaks engaged. call light within reach. will keep monitoring.
[2018-10-02 08:00] VITALS: BP 127/81
[2018-10-02] MEDS: BusPIRone 5mg Tab ORAL SCH ×2 (08:43→12:23)
[2018-10-02] MEDS: Methocarbamol 500mg tab ORAL SCH ×2 (08:47→12:24)
[2018-10-02] MEDS: Thiamine 100mg tab ORAL SCH (08:53)
[2018-10-02] MEDS: Nystatin Susp 500,000 units/5ml ORAL SCH ×2 (08:53→12:24)
[2018-10-02] MEDS: Sucralfate 1gm tab ORAL SCH ×2 (08:54→12:23)
[2018-10-02] MEDS: Cyclobenzaprine 10mg Tab ORAL SCH ×2 (09:20→12:24)
[2018-10-02] MEDS: oxyCONTIN 10mg tab ORAL SCH (09:24)
--- NOTE | 2018-10-02 10:18 | GI Progress Note ---
Assessment/Plan Problems: (1) Nausea and vomiting ICD Codes: R11.2 - Nausea with vomiting, unspecified SNOMED: 40542624 (2) Dehydration ICD Codes: E86.0 - Dehydration SNOMED: 03380859 (3) Small bowel obstruction due to adhesions ICD Codes: K56.50 - Intestinal adhesions [bands], unspecified as to partial versus complete obstruction SNOMED: 716485265 (4) History of gastric bypass ICD Codes: Z98.84 - Bariatric surgery status SNOMED: 267240395 (5) Electrolyte imbalance ICD Codes: E87.8 - Other disorders of electrolyte and fluid balance, not elsewhere classified SNOMED: 724093272 Status: stable Status Narrative Discussed with Dr. Rosenberg Assessment/Plan Abdominal pelvis CT reviewed. - Evidence of prior Marine-en-Y gastric bypass. - There is air-fluid levels and dilatation of portions of the proximal jejunum/ biliopancreatic limb leading up to the enteroenteric anastomosis concerning for a degree of obstruction or stasis. - No evidence of free intraperitoneal air, ascites, pneumatosis intestinalis or portalvenous gas. - Status post cholecystectomy. Upper GI series reviewed okay for DC per GI standpoint Follow up surgical recommendations regular diet zofran prn, reglan prn for persistent vomiting anemia work up OB stool r/o GI bleed monitor H&H, prn transfusions ppi electrolyte correction fu labs The patient was seen and examined at bedside and all new and available data was reviewed in the patients chart. I agree with the above findings, impression and plan. (Patient seen earlier today. Signature stamp does not reflect patient encounter time.). - Teddy Rosenberg MD Subjective Subjective No nausea or vomiting today Objective Last 24 Hour Vital Signs Date Time Temp Pulse Resp B/P (MAP) Pulse Ox O2 Delivery O2 Flow Rate FiO2 10/02/18 08:00 97.0 119 18 127/81 (96) 100 10/02/18 03:53 98.2 106 18 144/56 (85) 97 10/02/18 00:00 97.9 96 18 112/78 (89) 95 10/01/18 21:00 Room Air 10/01/18 20:00 98.1 83 18 133/83 (100) 96 10/01/18 18:17 97.9 10/01/18 16:00 97.9 90 18 133/86 (102) 97 10/01/18 12:00 97.8 100 16 107/78 (88) 97 10/01/18 11:38 Room Air 10/01/18 10:58 97.1 Intake and Output 10/01/18 10/02/18 19:00 07:00 Intake Total 1445 ml 900 ml Balance 1445 ml 900 ml Intake Oral 1220 ml IV Total 225 ml 900 ml # Voids 4 # Bowel Movements 1 Height (Feet): 5 Height (Inches): 5.00 Weight (Pounds): 150 General Appearance: WD/WN, no apparent distress, alert Cardiovascular: normal rate Respiratory/Chest: normal breath sounds, no respiratory distress Abdominal Exam: normal bowel sounds, non tender, soft Extremities: normal range of motion, non-tender aCssie Sanchez [employer] Oct 02, 2018 10:18
--- NOTE | 2018-10-02 10:27 | NUR ---
*-* INSURANCE *-* ALL CLINICALS HAVE BEEN FAXED TO: [facility] [employer] P:[phone] F:[phone] [employer] - GINA P:[phone] X [phone]
[2018-10-02 12:00] VITALS: BP 116/82
[2018-10-02] MEDS ORDERED: IMITREX50 MG ORAL (12:58)
[2018-10-02] MEDS ORDERED: CORTEF20 MG ORAL (12:58)
[2018-10-02] MEDS ORDERED: CORTEF10 MG ORAL (12:58)
[2018-10-02] MEDS ORDERED: K-TAB ER20 MEQ ORAL (12:58)
--- NOTE | 2018-10-02 13:56 | General Progress Note ---
Assessment/Plan Status: stable Plan: S: I am feeling bad heart burn O: tolerating regular diet PHYSICAL EXAMINATION: HEAD AND NECK: Atraumatic and normocephalic. CHEST: Clear to auscultation. HEART: S1 and S2. Regular rate and rhythm. ABDOMEN: Soft. No organomegaly. MUSCULOSKELETAL: Positive for 2+ edema in the lower extremities. NEUROLOGIC: Awake, alert, and oriented x3. meds: Inclduing Oxycodon ASSESSMENT: 1. Abdominal pain, status post small-bowel obstruction surgery at [facility], 2. Cachexia. Sever Protein malnourishment 3. Alcohol Abuse, h.o of. 4. Anemia, microcytic. 5. Leukemia - history of, reported by the patient. 6. Hypokalemia. 7. GI/DVT prophylaxis. Plan: Ok to DC home once clear by GI S/p; EGD and colonoscopy Medically stable for out patient followup comment: Patient refused to be Dc ed home. I had a detailed conversation about the need for outpatient followup. She agreed . Resources and prescription are provided to patient Subjective Allergies: Coded Allergies: GABAPENTIN (Verified Allergy, Unknown, 09/24/18) METAXALONE (Verified Allergy, Unknown, 09/24/18) MORPHINE (Verified Allergy, Unknown, 09/24/18) QUETIAPINE (Verified Allergy, Unknown, 09/24/18) Objective Last 24 Hour Vital Signs Date Time Temp Pulse Resp B/P (MAP) Pulse Ox O2 Delivery O2 Flow Rate FiO2 10/02/18 12:54 97.0 10/02/18 12:00 97.7 91 18 116/82 (93) 100 10/02/18 09:50 97.0 10/02/18 09:00 Room Air 10/02/18 08:00 97.0 119 18 127/81 (96) 100 10/02/18 03:53 98.2 106 18 144/56 (85) 97 10/02/18 00:00 97.9 96 18 112/78 (89) 95 10/01/18 21:00 Room Air 10/01/18 20:00 98.1 83 18 133/83 (100) 96 10/01/18 16:00 97.9 90 18 133/86 (102) 97 Intake and Output 10/01/18 10/02/18 19:00 07:00 Intake Total 1445 ml 900 ml Balance 1445 ml 900 ml Intake Oral 1220 ml IV Total 225 ml 900 ml # Voids 4 # Bowel Movements 1 Height (Feet): 5 Height (Inches): 5.00 Weight (Pounds): 150 Caty Ferreira MD Oct 02, 2018 13:56
--- NOTE | 2018-10-02 13:58 | Nephrology Progress Note ---
Assessment/Plan Problem List: (1) Dehydration (2) Hypotension (3) UTI (urinary tract infection) (4) Hypocalcemia Assessment Severe HypoAlbuminemia, WITHOUT PROTEINURIA per ua likely nutritional and related to liver disease HypoCalcemia , fairly corrects by Hypoalbuminemia Leukopenia and Anemia , likely of chronic disease UTI Low cortisol level Hypotension Plan no labs today- mag and K supplement stable from renal stand Vit D Hydrocortisone maintenance dose correct electrolytes antibiotics per consultants Subjective ROS Limited/Unobtainable: No Objective Objective Last 24 Hour Vital Signs Date Time Temp Pulse Resp B/P (MAP) Pulse Ox O2 Delivery O2 Flow Rate FiO2 10/02/18 12:54 97.0 10/02/18 12:00 97.7 91 18 116/82 (93) 100 10/02/18 09:50 97.0 10/02/18 09:00 Room Air 10/02/18 08:00 97.0 119 18 127/81 (96) 100 10/02/18 03:53 98.2 106 18 144/56 (85) 97 10/02/18 00:00 97.9 96 18 112/78 (89) 95 10/01/18 21:00 Room Air 10/01/18 20:00 98.1 83 18 133/83 (100) 96 10/01/18 16:00 97.9 90 18 133/86 (102) 97 Intake and Output 10/01/18 10/02/18 18:59 06:59 Intake Total 1445 ml 900 ml Balance 1445 ml 900 ml Intake Oral 1220 ml IV Total 225 ml 900 ml # Voids 4 # Bowel Movements 1 Height (Feet): 5 Height (Inches): 5.00 Weight (Pounds): 150 General Appearance: no apparent distress Objective no change Umberto Causey MD Oct 02, 2018 13:58
[2018-10-02 16:00] VITALS: BP 120/83
[2018-10-02] MEDS ORDERED: Fluconazole 100mg tab ORAL SCH (16:45)
--- NOTE | 2018-10-02 16:46 | Surgery Progress Note ---
Surgery Progress Note Subjective Additional Comments plan for d/c today. does not want to leave. otherwise well Objective Last 24 Hour Vital Signs Date Time Temp Pulse Resp B/P (MAP) Pulse Ox O2 Delivery O2 Flow Rate FiO2 10/02/18 16:00 98.4 118 18 120/83 (95) 96 10/02/18 12:54 97.0 10/02/18 12:00 97.7 91 18 116/82 (93) 100 10/02/18 09:50 97.0 10/02/18 09:00 Room Air 10/02/18 08:00 97.0 119 18 127/81 (96) 100 10/02/18 03:53 98.2 106 18 144/56 (85) 97 10/02/18 00:00 97.9 96 18 112/78 (89) 95 10/01/18 21:00 Room Air 10/01/18 20:00 98.1 83 18 133/83 (100) 96 I&O Intake and Output 10/01/18 10/02/18 18:59 06:59 Intake Total 1445 ml 900 ml Balance 1445 ml 900 ml Intake Oral 1220 ml IV Total 225 ml 900 ml # Voids 4 # Bowel Movements 1 Cardiovascular: RSR Respiratory: clear Abdomen: soft, flat, non-tender, present bowel sounds Extremities: no tenderness, no cyanosis Plan Problems: (1) Vomiting (2) Dehydration (3) Electrolyte imbalance (4) Nausea and vomiting (5) Small bowel obstruction due to adhesions Assessment & Plan: CT noted exam with tenderness but incisional labs noted upper GI without obstruction s/p EGD and colonoscopy EGD with esophagitis Colon with poor prep no acute surgical intervention planned okay for diet PPI am labs will follow with serial exams d/c planning thank you Glynn Michelle Oct 02, 2018 16:46
--- NOTE | 2018-10-02 17:13 | NUR ---
NURSE NOTES: Patient left the floor around 1630 by wheelchair accompanied by chief nursing officer, Sarai. prescription for medication by MD Ferreira given to patient and copy on file. Patient teaching provided and printed material regarding patient's visit, diagnosis and when to seek for medical help provided to patient. Patient and discharging nurse signed belonging list. IV access and name tag removed upon discharge. Patient changed abdominal dressing. Patient was stable upon discharge.
--- NOTE | 2018-10-02 21:07 | Psych Consult Progress Note ---
Psychiatry Progress Note Psychiatry Progress Note Neurological/Psychiatric: Reports: anxiety, depressed Allergies: Coded Allergies: GABAPENTIN (Verified Allergy, Unknown, 09/24/18) METAXALONE (Verified Allergy, Unknown, 09/24/18) MORPHINE (Verified Allergy, Unknown, 09/24/18) QUETIAPINE (Verified Allergy, Unknown, 09/24/18) Objective Data Height (Feet): 5 Height (Inches): 5.00 Weight (Pounds): 150 General Appearance: WD/WN, no apparent distress, alert, alert oriented x3 Appearance: well groomed Behavior Mannerisms: good eye contact Mental Status Exam - Mood: irritable, anxious Assessment/Plan Problem List: (1) Anxiety disorder ICD Codes: F41.9 - Anxiety disorder, unspecified SNOMED: 608972956 (2) Alcohol dependence ICD Codes: F10.20 - Alcohol dependence, uncomplicated SNOMED: 19660613 Status: stable Sugey Meléndez MD Oct 02, 2018 21:07
--- NOTE | 2018-10-02 21:53 | Infectious Diseases Prog Note ---
Assessment/Plan Problems: (1) Fungal esophagitis Assessment & Plan: proven with EGD and pathology , will start fluconazole for two weeks . follow up with GI (2) Pancytopenia Assessment & Plan: with low bone marrow cellularity on recent bone marrow biopsy , and lack of iron storage . hematology is following (3) Thrush, oral Assessment & Plan: continue oral nystatin swish and swallow for 7 days (4) Hypotension Assessment & Plan: no evidence of sepsis, with negative blood culture x2 , monitor off antibiotics (5) Small bowel obstruction due to adhesions Assessment & Plan: S/P recent adhesions lysis recently , advance diet as tolerated , continue hydration and pain management as needed (6) Diarrhea Assessment & Plan: not due to C diff , continue hydration, avoid laxatives Assessment/Plan TIME OF STAMP DOESN'T REFLECT TIME PATIENT WAS SEEN Subjective Constitutional: Reports: no symptoms HEENT: Reports: no symptoms Respiratory: Reports: no symptoms Breasts: Reports: no symptoms Cardiovascular: Reports: no symptoms Gastrointestinal/Abdominal: Reports: no symptoms Genitourinary: Reports: no symptoms Neurologic: Reports: no symptoms Psychiatric: Reports: no symptoms Skin: Reports: no symptoms Endocrine: Reports: no symptoms Hematologic: Reports: no symptoms Musculoskeletal: Reports: no symptoms Allergies: Coded Allergies: GABAPENTIN (Verified Allergy, Unknown, 09/24/18) METAXALONE (Verified Allergy, Unknown, 09/24/18) MORPHINE (Verified Allergy, Unknown, 09/24/18) QUETIAPINE (Verified Allergy, Unknown, 09/24/18) Objective Vital Signs Last 24 Hour Vital Signs Date Time Temp Pulse Resp B/P (MAP) Pulse Ox O2 Delivery O2 Flow Rate FiO2 10/02/18 16:00 98.4 118 18 120/83 (95) 96 10/02/18 12:54 97.0 10/02/18 12:00 97.7 91 18 116/82 (93) 100 10/02/18 09:50 97.0 10/02/18 09:00 Room Air 10/02/18 08:00 97.0 119 18 127/81 (96) 100 10/02/18 03:53 98.2 106 18 144/56 (85) 97 10/02/18 00:00 97.9 96 18 112/78 (89) 95 Height (Feet): 5 Height (Inches): 5.00 Weight (Pounds): 150 General Appearance: WD/WN, no acute distress HEENT: normocephalic, atraumatic, anicteric, mucous membranes moist, PERRL, EOMI, pharynx normal, supple, no JVD Respiratory/Chest: chest wall non-tender, lungs clear, normal breath sounds, no respiratory distress, no accessory muscle use Cardiovascular: normal peripheral pulses, normal rate, regular rhythm, no gallop/murmur, no JVD Abdomen: normal bowel sounds, soft, non tender, no organomegaly, non distended , no mass, no scars Genitourinary: normal external genitalia Extremities: no cyanosis, no clubbing Skin: no rash, no lesions, no ulcers Neurologic/Psychiatric: alert, oriented x 3, responsive Lymphatic: no neck adenopathy, no groin adenopathy Musculoskeletal: normal muscle bulk, no effusion Oralia Mohan M.D. Oct 02, 2018 21:53
--- NOTE | 2018-10-03 12:12 | Discharge Summary ---
Discharge Summary Discharge Summary _ DATE OF ADMISSION: 09/24/2018 DATE OF DISCHARGE: 10/02/2018 DISCHARGED BY: Dr. Caty Ferreira CONSULTANTS: Dr. Vaibhav Sands my last Dr. Sugey Smyth BRIEF HOSPITAL COURSE: Patient is a 43-year-old female, with history of partial bowel obstruction, status post surgery at [facility]. The patient presented to ED complaining of not tolerating p.o. diet and multiple persistent episodes of vomitus and nausea. She also complained of swelling and edema of the lower extremities. She has medical history significant for alcoholism, hypothyroidism , leukemia and migraine. On evaluation at the ED, vital signs were stable. Blood work showed WBC of 2.8. Hemoglobin 9.3, hematocrit 28.2. Potassium 3.1. BUN 10, creatinine 0.7. Urinalysis with +3 leukocyte esterase, +1 bilirubin, 0-2 RBC and 2-4 WBC. Amylase and lipase were normal. CT of the abdomen and pelvis showed evidence of prior Marine-en-Y gastric bypass. There was air-fluid levels and dilatation of portions of the proximal jejunum/biliopancreatic limb leading up to the enteroenteric anastomosis concerning for obstruction. She was then admitted for evaluation of abdominal pain, status post small bowel obstruction surgery at [facility]. She was placed on n.p.o. She was given IV hydration. GI and surgeon were consulted. Patient has a complex surgical history. She had gastric bypass a year ago, cholecystectomy, reversal of gastric bypass, abdominoplasty and few weeks ago required urgent laparoscopic lysis of adhesions due to SBO. There was no acute surgical intervention needed. She was started on clear liquid diet. Had an episode of hypotension. Rule out sepsis, patient has a history of sepsis in the past. She was started empirically on Zosyn and vancomycin. Cultures were sent. Lockstitch Waistline Joiner was consulted. Patient has pancytopenia. Bone marrow biopsy done at [facility] on 09/18/[address] Pena showed hypocellular marrow with trilineage hematopoiesis with no evidence of dysplasia, no evidence of myeloma blastic process, lymphoma, granuloma or metastatic disease, rare small lymphoid aggregates noted and potentially some decreased iron storage and normal karyotype. Flow cytometry was negative for any blasts. Patient had severe hypoalbuminemia without proteinuria, likely nutritional and related to liver disease. Program Proposals Coordinator was consulted. Patient also with hypoglycemia and low cortisol level. She was given vitamin D. She was given hydrocortisone. On 09/26/2018, she underwent upper GI small bowel. There was no evidence of obstruction of the alimentary limb of distal small bowel. There was mild distention of a loop of small bowel to the right of the spine in the region of the anastomosis of the biliopancreatic limb consistent with findings of CT. Findings were concerning for a degree of either stasis or obstruction. She was passing flatus and BM. Blood culture did not isolate any growth. Zosyn and vancomycin were discontinued. She had diarrhea, C. difficile was negative. On 09/30/2018, she underwent EGD. Findings showed distal esophagitis. She was recommended reflux measures. She was given proton pump inhibitors. Pathology results showed fungal organisms with Ana Cristina. She was given fluconazole. She had oral thrush, she was given nystatin. Urine culture did not isolate any growth. Given patient has elevated CRP and ESR and complaints of diarrhea and prior history of colonic polyps and anemia, she underwent colonoscopy on 10/01/2018. There was no obvious colitis. Examination was incomplete due to's poor prep. She had internal hemorrhoids. She was ordered for discharge home, however, refused. Patient was advised need for outpatient follow-up. She was medically stable for outpatient follow-up. Resources and prescriptions were provided to the patient. She eventually was discharged home. FINAL DIAGNOSES: Abdominal pain, status post recent small bowel obstruction surgery at [facility] Severe protein malnutrition History of alcohol abuse Microcytic anemia Leukemia/cytopenia Hypokalemia Ana Cristina esophagitis, oral thrush Hypotension with no evidence of sepsis Sepsis present on admission, ruled out Diarrhea not due to C. difficile Hypocalcemia Low cortisol level UTI History of gastric bypass Nausea and vomiting Dehydration Anxiety disorder Alcohol dependence Anemia of chronic disease due to chronic medical conditions DISPOSITION: Patient was discharged home. DISCHARGE MEDICATIONS: Refer to Discharge Medication List. DISCHARGE INSTRUCTIONS: Follow-up in a week. I have been assigned to complete a discharge summary on this account, I was not involved with the patient's management. Pina Burns NP Oct 03, 2018 12:12
== END 2018-10-02 16:30 | disposition home or self-care (01) | DRG 388 ==
LOC: EMR 16:22 → 4E 17:49 → EDBEDREQ 18:40 → 4E 21:10
PROC: 0DB38ZX Excision of Lower Esophagus, Via Natural or Artificial Opening Endoscopic, Diagnostic (ICD-10-PCS; principal; 2018-09-30 10:37)
PROC: 0DBN8ZX Excision of Sigmoid Colon, Via Natural or Artificial Opening Endoscopic, Diagnostic (ICD-10-PCS; 2018-10-01)
DX: K56.51 Intestinal adhesions [bands], with partial obstruction (principal); E43 Unspecified severe protein-calorie malnutrition; D61.818 Other pancytopenia; B37.81 Candidal esophagitis; N39.0 Urinary tract infection, site not specified; G89.18 Other acute postprocedural pain; R10.9 Unspecified abdominal pain; Z88.6 Allergy status to analgesic agent; Z88.8 Allergy status to other drugs, medicaments and biological substances; E03.9 Hypothyroidism, unspecified; I95.9 Hypotension, unspecified; D50.9 Iron deficiency anemia, unspecified; D75.9 Disease of blood and blood-forming organs, unspecified; E87.6 Hypokalemia; R19.7 Diarrhea, unspecified; E83.51 Hypocalcemia; R11.2 Nausea with vomiting, unspecified; E86.0 Dehydration; K64.8 Other hemorrhoids; F41.9 Anxiety disorder, unspecified; D63.8 Anemia in other chronic diseases classified elsewhere; M79.7 Fibromyalgia; F10.20 Alcohol dependence, uncomplicated; Z98.84 Bariatric surgery status; Z85.6 Personal history of leukemia
CPT/HCPCS: 36415; 71045; 74177; 74249; 80048; 80053; 80061; 80076; 80202; 81001; 81025; 82150; 82270; 82378; 82533; 82607; 82728; 82746; 82977; 83036; 83540; 83550; 83690; 83735; 83880; 84100; 84439; 84443; 84550; 85007; 85025; 85044; 85610; 85613; 85651; 85730; 86039; 86140; 87040; 87086; 87324; 93970; 94003; 94150; 96360; 99285; J2405; J3490; J8499

== ENCOUNTER 2018-10-23 09:44 | Inpatient (IN) | payer BC ==
[~2018-10-23] VITALS: Ht 162.6 cm; Wt 62.1 kg
[~2018-10-23 09:44] MED LIST: BUSPAR10 MG ORAL; CORTEF10 MG ORAL; CORTEF20 MG ORAL; CYCLOBENZAPRINE10 MG ORAL; IMITREX50 MG ORAL; K-TAB ER20 MEQ ORAL; MAXALT10 MG PO; PROTONIX40 MG ORAL; ROBAXIN500 MG PO; SYNTHROID25 MCG ORAL; VISTARIL50 MG ORAL; ZOFRAN4 M3 ORAL
--- NOTE | 2018-10-23 10:05 | NUR ---
ED Nurse Note: Patient walked into Ed c/o intermittent chest pain for 2 weeks, 6/10 sharp pain patient reports it feels like "heartburn" patient also c/o feeling difficulty in swelling, patient's primary doctor Dr. Ferreira referred her to ED.
[2018-10-23] MEDS ORDERED: Aspirin Baby 81mg ORAL ONE (10:15)
--- NOTE | 2018-10-23 10:24 | Emergency Room Report ---
History of Present Illness General Chief Complaint: Chest Pain Source: Patient, Medical Record Present Illness HPI 43-year-old female with a history of hysterectomy, gastric bypass, bowel obstruction, sepsis, sent by Dr. Ferreira for 2 weeks of intermittent ull, left- sided mild to moderate intensity nonradiating chest pain, 2 months of bilateral leg swelling, intermittent difficulty swallowing solids. She also complains of vomiting all day yesterday, and being constipated, but denies obstipation. She also denies fever/chills, cough, shortness of breath, hemoptysis, urinary complaints, syncope. Allergies: Coded Allergies: GABAPENTIN (Verified Allergy, Unknown, 09/24/18) METAXALONE (Verified Allergy, Unknown, 09/24/18) MORPHINE (Verified Allergy, Unknown, 09/24/18) QUETIAPINE (Verified Allergy, Unknown, 09/24/18) Patient History Past Medical History: see triage record Reviewed Nursing Documentation: PMH: Agreed; PSxH: Agreed Nursing Documentation-PMH Past Medical History: No History, Except For Hx Cardiac Problems: No - HYPOTHYROIDISM Hx Cancer: No Hx Gastrointestinal Problems: Yes - gastric bypass Hx Neurological Problems: Yes - FIBROMYALGIA Review of Systems All Other Systems: negative except mentioned in HPI Physical Exam Vital Signs Date Time Temp Pulse Resp B/P (MAP) Pulse Ox O2 Delivery O2 Flow Rate FiO2 10/23/18 09:58 98.2 98 16 97 Room Air Sp02 EP Interpretation: reviewed, normal General Appearance: no apparent distress, alert, non-toxic Head: normocephalic Eyes: bilateral eye normal inspection, bilateral eye PERRL, bilateral eye EOMI ENT: normal ENT inspection, hearing grossly normal, normal pharynx, no angioedema, normal voice, dry mucus membranes Neck: normal inspection, full range of motion, supple, supple/symm/no masses Respiratory: chest non-tender, lungs clear, normal breath sounds, no rhonchi, no respiratory distress, no retraction, no accessory muscle use, speaking full sentences, other - Left chest wall port site clean, no erythema, no warmth, no tenderness, chest symmetrical, palpation of chest normal Cardiovascular #1: normal peripheral pulses, regular rate, rhythm, no gallop, no murmur, no rub, edema - 2+ B/L LE edema Cardiovascular #2: 2+ radial (R), 2+ radial (L), 2+ dorsalis pedis (R), 2+ dorsalis pedis (L) Gastrointestinal: normal inspection, non tender, soft, no mass, no guarding, no rebound, other - Multiple scars Rectal: deferred Genitourinary: normal inspection, no CVA tenderness Musculoskeletal: back normal, gait/station normal, normal range of motion, non- tender, no calf tenderness Neurologic: alert, responsive, commercial real estate manager III-XII nml as tested, motor strength/tone normal, sensory intact, speech normal Psychiatric: judgement/insight normal, memory normal, mood/affect normal Skin: normal color, no rash, warm/dry, normal turgor Lymphatic: no adenopathy Medical Decision Making Diagnostic Impression: Primary Impression: Chest pain Additional Impression: Dehydration ER Course patient with dehydration, possible bowel obstruction, possible ACS. CT with no obstruction, no free air, will admit to Dr. Ferreira EKG Diagnostic Results EKG Time: 10:07 EP Interpretation: no stemi Rate: normal Rhythm: NSR ST Segments: no acute changes ASA given to the pt in ED: Yes Rhythm Strip Diag. Results Rhythm Strip Time: 10:15 EP Interpretation: yes Rate: 86 Rhythm: NSR, no PVC's, no ectopy Chest X-Ray Diagnostic Results Chest X-Ray Diagnostic Results : Chest X-Ray Ordered: Yes # of Views/Limited/Complete: 1 View Indication: Chest Pain EP Interpretation: Yes Interpretation: no consolidation, no effusion, no pneumothorax, no acute cardiopulmonary disease Impression: No acute disease Electronically Signed by: Grisel Abdullahi MD CT/MRI/US Diagnostic Results CT/MRI/US Diagnostic Results : Imaging Test Ordered: noncontrast ct abd/pelvis Last Vital Signs Date Time Temp Pulse Resp B/P (MAP) Pulse Ox O2 Delivery O2 Flow Rate FiO2 10/23/18 09:58 98.2 98 16 97 Room Air Disposition: ADMITTED INPATIENT Condition: Stable GRISEL ABDULLAHI M.D October 23, 2018 10:24
--- NOTE | 2018-10-23 10:30 | NUR ---
ED Nurse Note: patient's portacath on the left chest accessed using sterile technique without complication, blood drawn, flushed, infusing IVF as ordered.
[2018-10-23 10:38] VITALS: BP 94/81
[2018-10-23 10:47] LABS: ANION GAP 8 mmol/L (5-15); BASOPHILS % (AUTO) 1.3 % (0.0-2.0); BLOOD UREA NITROGEN 12 mg/dL (7-18); CALCIUM 7.7 MG/DL (8.5-10.1); CARBON DIOXIDE 25 MMOL/L (21-32); CHLORIDE 102 MMOL/L (98-107); CREATININE 0.8 MG/DL (0.55-1.30); EOSINOPHILS % (AUTO) 0.8 % (0.0-3.0); HEMATOCRIT 29.4 % (37.0-47.0); HEMOGLOBIN 9.8 G/DL (12.0-16.0); LYMPHOCYTES % (AUTO) 30.5 % (20.0-45.0); MEAN CORPUSCULAR VOLUME 97 FL (80-99); MONOCYTES % (AUTO) 9.4 % (1.0-10.0); NEUTROPHILS % (AUTO) 58.1 % (45.0-75.0); PLATELET COUNT 208 K/UL (150-450); POTASSIUM 3.4 MMOL/L (3.5-5.1); RED BLOOD COUNT 3.04 M/UL (4.20-5.40); SODIUM 135 MMOL/L (136-145); WHITE BLOOD COUNT 3.5 K/UL (4.8-10.8)
[2018-10-23 10:57] LABS: ALANINE AMINOTRANSFERASE 49 U/L (12-78); ALBUMIN 2.1 G/DL (3.4-5.0); ALBUMIN/GLOBULIN RATIO 0.7 (1.0-2.7); ALKALINE PHOSPHATASE 186 U/L (46-116); ASPARTATE AMINO TRANSFERASE 29 U/L (15-37); BILIRUBIN,TOTAL 0.5 MG/DL (0.2-1.0)
--- NOTE | 2018-10-23 11:00 | NUR ---
ED Nurse Note: patient went to CT
--- NOTE | 2018-10-23 11:38 | NUR ---
ED Nurse Note: telephone report given to TAWNY Mcdaniel. bed is not available yet
--- NOTE | 2018-10-23 12:00 | NUR ---
ED Nurse Note: Per Dr. Rosales to hold patient for CT scan result at this time.
--- NOTE | 2018-10-23 12:35 | History & Physical ---
History and Physical History & Physicial DATE OF ADMISSION: 09/24/2018 SOURCE OF INFORMATION: The patient and EMR. HISTORY OF PRESENT ILLNESS: The patient is a 43-year-old female with history of partial bowel obstruction, status post surgery in [facility]. The patient today is again complaining of not tolerating the p.o. diet and multiple persistent episodes of vomitus and nausea. Also complaining of swelling and edema of the lower extremities. At the time of evaluation, patient is complaining of persistent positional chest pain and shortness of breath. No fever. No chills. ALLERGIES: including morphine and Seroquel. FAMILY HISTORY: Positive for history of cancer in the mother and heart disease in the father. SOCIAL HISTORY: The patient has 4 children. Positive for prior history of heavy alcohol intake, also positive for tobacco use on a daily basis. The patient is currently actively registered in the sober living. PAST SURGICAL HISTORY: Including but not limited to bowel obstruction, status post laparoscopic surgery at [facility]. CURRENT Home MEDICATIONS: Including but not limited to following. Buspirone, doxepin, levothyroxine, multivitamin. PAST MEDICAL HISTORY: History of alcoholism, , hypothyroidism, leukemia and migraine. PHYSICAL EXAMINATION: HEAD AND NECK: Atraumatic and normocephalic. CHEST: Clear to auscultation. HEART: S1 and S2. Regular rate and rhythm. ABDOMEN: mild tenderness on deep palpation . No organomegaly. MUSCULOSKELETAL: Positive for 2+ edema in the lower extremities. NEUROLOGIC: Awake, alert, and oriented x3. meds: Including Subuxan ASSESSMENT: 1. Abdominal pain, status post small-bowel obstruction surgery at [facility], possible partial obstruction 2. Lower extremity edema: likely secondary to hypoalbuminemia 3. Cachexia. Sever Protein malnourishment 3. Alcohol Abuse, h.o of. 4. Chronic pain/ Narcotid dependence , on out patient rehab program 5. Anemia, microcytic. 5. Leukemia - history of, reported by the patient. 6. Hypokalemia. 7. GI/DVT prophylaxis. PLAN OF CARE: I will consult GI and Nephrology. We will keep the patient NPO.Nutrition consult. We have consulted psychiatrist regarding the optimization of psychotropic medication Caty Ferreira MD October 23, 2018 12:35
--- NOTE | 2018-10-23 12:39 | NUR ---
ED Nurse Note: per Dr. Rosales good to be transferred up now. transferring patient to 2E with all of her belonings.
[2018-10-23 12:40] VITALS: BP 100/82
--- NOTE | 2018-10-23 12:51 | NUR ---
NURSE NOTES: Patient arrived from ER. received report from TAWNY Marks. Belongings checklist completed. Patient's belongings will remain at bedside per patient. Applied heart monitor. v/s completed. Bed is locked and side rails x 2 are up. Bed is in lowest position. Will paged Dr. Ferreira.
[2018-10-23 12:56] VITALS: BP 109/75
--- NOTE | 2018-10-23 13:36 | Consultation ---
History of Present Illness General Chief Complaint: Chest Pain Present Illness Allergies: Coded Allergies: GABAPENTIN (Verified Allergy, Unknown, 09/24/18) METAXALONE (Verified Allergy, Unknown, 09/24/18) MORPHINE (Verified Allergy, Unknown, 09/24/18) QUETIAPINE (Verified Allergy, Unknown, 09/24/18) Medication History Scheduled Buspirone Hcl* (Buspar*), 10 MG ORAL THREE TIMES A DAY, (Reported) Cyclobenzaprine Hcl* (Flexeril*), 10 MG ORAL THREE TIMES A DAY, (Reported) Hydrocortisone (Cortef), 50 MG ORAL DAILY@0700 Hydrocortisone (Cortef), 25 MG ORAL DAILY@1400 Hydroxyzine Pamoate* (Vistaril*), 100 MG ORAL EVERY 6 HOURS, (Reported) Levothyroxine Sodium* (Synthroid*), 50 MCG ORAL DAILY, (Reported) Methocarbamol* (Robaxin*), 500 MG PO QID, (Reported) Pantoprazole* (Protonix*), 40 MG ORAL DAILY, (Reported) Potassium Chloride (K-Tab ER), 40 MEQ ORAL BID Scheduled PRN Ondansetron* (Zofran*), 4 MG ORAL Q6H PRN for Nausea & Vomiting, (Reported) Sumatriptan Succinate* (Imitrex*), 25 MG ORAL Q6H PRN Miscellaneous Medications Rizatriptan Benzoate (Maxalt), 10 MG PO, (Reported) Patient History Healthcare decision maker Resuscitation status Advanced Directive on File Physical Exam Last 24 Hour Vital Signs Date Time Temp Pulse Resp B/P (MAP) Pulse Ox O2 Delivery O2 Flow Rate FiO2 10/23/18 12:56 96.3 72 18 109/75 (86) 100 72 10/23/18 12:41 98.2 84 16 94/81 99 Room Air 10/23/18 12:40 98.2 82 15 100/82 97 Room Air 10/23/18 10:39 98 16 Room Air 10/23/18 10:38 98.2 84 15 94/81 99 Room Air 10/23/18 09:58 98.2 98 16 97 Room Air Laboratory Tests Test 10/23/18 10:29 White Blood Count 3.5 K/UL (4.8-10.8) L Red Blood Count 3.04 M/UL (4.20-5.40) L Hemoglobin 9.8 G/DL (12.0-16.0) L Hematocrit 29.4 % (37.0-47.0) L Mean Corpuscular Volume 97 FL (80-99) Mean Corpuscular Hemoglobin 32.3 PG (27.0-31.0) H Mean Corpuscular Hemoglobin Concent 33.4 G/DL (32.0-36.0) Red Cell Distribution Width 15.0 % (11.6-14.8) H Platelet Count 208 K/UL (150-450) Mean Platelet Volume 5.6 FL (6.5-10.1) L Neutrophils (%) (Auto) 58.1 % (45.0-75.0) Lymphocytes (%) (Auto) 30.5 % (20.0-45.0) Monocytes (%) (Auto) 9.4 % (1.0-10.0) Eosinophils (%) (Auto) 0.8 % (0.0-3.0) Basophils (%) (Auto) 1.3 % (0.0-2.0) Sodium Level 135 MMOL/L (136-145) L Potassium Level 3.4 MMOL/L (3.5-5.1) L Chloride Level 102 MMOL/L (98-107) Carbon Dioxide Level 25 MMOL/L (21-32) Anion Gap 8 mmol/L (5-15) Blood Urea Nitrogen 12 mg/dL (7-18) Creatinine 0.8 MG/DL (0.55-1.30) Estimat Glomerular Filtration Rate > 60 mL/min (>60) Glucose Level 70 MG/DL (74-106) L Calcium Level 7.7 MG/DL (8.5-10.1) L Total Bilirubin 0.5 MG/DL (0.2-1.0) Aspartate Amino Transf (AST/SGOT) 29 U/L (15-37) Alanine Aminotransferase (ALT/SGPT) 49 U/L (12-78) Alkaline Phosphatase 186 U/L (46-116) H Troponin I 0.003 ng/mL (0.000-0.056) Pro-B-Type Natriuretic Peptide 171 pg/mL (0-125) H Total Protein 4.9 G/DL (6.4-8.2) L Albumin 2.1 G/DL (3.4-5.0) L Globulin 2.8 g/dL Albumin/Globulin Ratio 0.7 (1.0-2.7) L Height (Feet): 5 Height (Inches): 4.00 Weight (Pounds): 137 Assessment/Plan Assessment/Plan: Hematology Consultation DOS: 10/23/18 RFC: Panctyopenia, ongoing REQ MD: Caty Ferreira Chief Complaint: Vomiting, potential sbp ID [id number] female presents with complaints of continuous nausea vomiting, Patient reports previous significant history of gastric bypass, Competitions from that leading to malnutrition, Patient has had previous abdominal surgeries for adhesions Recently had surgery at [facility] for similar problems, Patient has not remained increasingly nauseated persistently vomiting, Denies any chest pain denies any fevers or chills, Patient has a Port-A-Cath which she has had for many years, Also secondary to malnutrition reasons, and presents for further evaluation, psych, surgery and gi as well Allergies: GABAPENTIN (Verified Allergy, Unknown, 09/24/18) METAXALONE (Verified Allergy, Unknown, 09/24/18) MORPHINE (Verified Allergy, Unknown, 09/24/18) QUETIAPINE (Verified Allergy, Unknown, 09/24/18) Past Medical History: see triage record Pertinent Family History: none Last Menstrual Period: 2008 Now: No Reviewed Nursing Documentation: PMH: Agreed; PSxH: Agreed Past Medical History: No History, Except For Hx Cardiac Problems: No - HYPOTHYROIDISM History Of Psychiatric Problem: No - ANXIETY Hx Neurological Problems: Yes - FIBROMYALGIA Review of Systems: negative except mentioned in HPI PE Vital Signs Last 24 Hour Vital Signs Date Time Temp Pulse Resp B/P (MAP) Pulse Ox O2 Delivery O2 Flow Rate FiO2 10/23/18 12:56 96.3 72 18 109/75 (86) 100 72 10/23/18 12:41 98.2 84 16 94/81 99 Room Air 10/23/18 12:40 98.2 82 15 100/82 97 Room Air 10/23/18 10:39 98 16 Room Air 10/23/18 10:38 98.2 84 15 94/81 99 Room Air 10/23/18 09:58 98.2 98 16 97 Room Air Vitals: reviewed, normal Gen: mild distress - Uncomfortable Head: normocephalic, atraumatic ENT: dry mucus membranes Neck: supple Respiratory: lungs clear, no retraction, no accessory muscle use Cardiovascular: regular rate, rhythm Gastrointestinal: some questionable decreased bowel sounds, patient has evidence of laparoscopic surgical sites in the left in the upper lower abdominal region Musculoskeletal: normal inspection Neurologic: alert, oriented x3, responsive Psychiatric: normal inspection Skin: other - Pallor Lymphatic: no adenopathy Laboratory Tests Test 10/23/18 10:29 White Blood Count 3.5 K/UL (4.8-10.8) L Red Blood Count 3.04 M/UL (4.20-5.40) L Hemoglobin 9.8 G/DL (12.0-16.0) L Hematocrit 29.4 % (37.0-47.0) L Mean Corpuscular Volume 97 FL (80-99) Mean Corpuscular Hemoglobin 32.3 PG (27.0-31.0) H Mean Corpuscular Hemoglobin Concent 33.4 G/DL (32.0-36.0) Red Cell Distribution Width 15.0 % (11.6-14.8) H Platelet Count 208 K/UL (150-450) Mean Platelet Volume 5.6 FL (6.5-10.1) L Neutrophils (%) (Auto) 58.1 % (45.0-75.0) Lymphocytes (%) (Auto) 30.5 % (20.0-45.0) Monocytes (%) (Auto) 9.4 % (1.0-10.0) Eosinophils (%) (Auto) 0.8 % (0.0-3.0) Basophils (%) (Auto) 1.3 % (0.0-2.0) Sodium Level 135 MMOL/L (136-145) L Potassium Level 3.4 MMOL/L (3.5-5.1) L Chloride Level 102 MMOL/L (98-107) Carbon Dioxide Level 25 MMOL/L (21-32) Anion Gap 8 mmol/L (5-15) Blood Urea Nitrogen 12 mg/dL (7-18) Creatinine 0.8 MG/DL (0.55-1.30) Estimat Glomerular Filtration Rate > 60 mL/min (>60) Glucose Level 70 MG/DL (74-106) L Calcium Level 7.7 MG/DL (8.5-10.1) L Total Bilirubin 0.5 MG/DL (0.2-1.0) Aspartate Amino Transf (AST/SGOT) 29 U/L (15-37) Alanine Aminotransferase (ALT/SGPT) 49 U/L (12-78) Alkaline Phosphatase 186 U/L (46-116) H Troponin I 0.003 ng/mL (0.000-0.056) Pro-B-Type Natriuretic Peptide 171 pg/mL (0-125) H Total Protein 4.9 G/DL (6.4-8.2) L Albumin 2.1 G/DL (3.4-5.0) L Globulin 2.8 g/dL Albumin/Globulin Ratio 0.7 (1.0-2.7) L Active Scripts Medications Dose Route/Sig Max Daily Dose Days Date Category Dose Instructions Cortef (Hydrocortisone) 10 Mg Tablet 25 Mg ORAL DAILY@1400 10 10/02/18 Rx Imitrex* (Sumatriptan Succinate) 50 Mg Tablet 25 Mg ORAL Q6H PRN 10 10/02/18 Rx K-Tab ER (Potassium Chloride) 20 Meq Tablet.er 40 Meq ORAL BID 10 10/02/18 Rx Cortef (Hydrocortisone) 20 Mg Tablet 50 Mg ORAL DAILY@0700 30 10/02/18 Rx Zofran* (Ondansetron HCl) 4 Mg Tablet 4 Mg ORAL Q6H PRN 09/24/18 Reported Maxalt (Rizatriptan Benzoate) 10 Mg Tablet 10 Mg PO 09/24/18 Reported Protonix* (Pantoprazole) 40 Mg Tablet.dr 40 Mg ORAL DAILY 09/24/18 Reported Vistaril* (Hydroxyzine Pamoate) 50 Mg Capsule 100 Mg ORAL EVERY 6 HOURS 09/24/18 Reported Buspar* (Buspirone HCl) 10 Mg Tablet 10 Mg ORAL THREE TIMES A DAY 09/24/18 Reported Synthroid* (Levothyroxine Sodium) 25 Mcg Tablet 50 Mcg ORAL DAILY 09/24/18 Reported Take in the morning on an empty stomach, at least 30 minutes before food. Flexeril* (Cyclobenzaprine HCl) 10 Mg Tablet 10 Mg ORAL THREE TIMES A DAY 09/24/18 Reported Robaxin* (Methocarbamol) 500 Mg Tablet 500 Mg PO QID 09/24/18 Reported Assessment/Recs: # PANCYTOPENIA, CHRONIC -- with Decreased white blood cell count, unspec (aka leukopenia) - wbc under 4k, could be related to infection v meds v ethanol use she reports. Bone marrow biopsy from [facility] 09/[address] Pena show hypocellular marrow with trilineage hematopoiesis with no evidence of dysplasia , no evidence of myelophystic process, lymphoma, granduloma or metastatic disease, rare small lympjh aggregates is snoted and potentially some small deccreased iron storage, and normal karyotype, flow cytometry is negative for any blast population --> if the total ANC is less than 2000, consider Neupogen --> continue antibiotics with ID service, appreciate recs --> medications have been reviewed --> hepatitis and hiv have been ordered --> consider neupogen if wbc decreases any further --> recommend better diet, does have severe protein caloric malnutrition --> us of the abdomen has been ordered # Anemia of chronic disease due to underlying chronic medical issues, multifactorial --> Anemia workup has been ordered, rule out gi bleed --> No evidence of hemolysis is noted, peripheral smear has been reviewed. --> Hgb goal >7. Transfuse prn. --> Epogen or iron at this time is not particularly indicated --> Medications have been reviewed --> low threshold for gi evaluation in case has occult + # Adhesions of the abd --> as per surg recs # Nausea and vomiting --> zofran iv prn has been started # Dehydration -- on ivf prn # Electrolyte abnml as per renal # Chronic pain disorder The timing of this note does not necessarily reflect the time of the patient was seen. Greatly appreciate consultation! Scott Smyth MD October 23, 2018 13:36
--- NOTE | 2018-10-23 13:54 | Diagnostic Imaging Report ---
Indication: Chest pain Comparison: 09/24/2018 A single view chest radiograph was obtained. Findings: Left chest port is present in good position. The tip projects over the right atrium. Heart size is normal. Lungs are clear. Bones are unremarkable. There are surgical clips in the abdomen. IMPRESSION: No acute disease.
--- NOTE | 2018-10-23 13:54 | Diagnostic Imaging Report ---
Indication: Abdominal pain Technique: Continuous helical transaxial imaging of the abdomen and pelvis was obtained from the lung bases to the pubic symphysis. No intravenous contrast was administered. Coronal 2-D reformats were also obtained. Automatic Exposure Control was utilized. Total Dose length Product (DLP): 764.[address] Dose Index Volume (CTDIvol): 15.47 mGy Comparison: none Findings: Bilateral breast implants noted. The lung bases are clear. Surgical sutures consistent with gastric bypass noted. Cholecystectomy also noted. The gastrojejunostomy is demonstrated but not evaluated well. There was no oral contrast given on this exam. There is no free air. There is no evidence of abscess. No generalized free fluid identified. On the mid left side of the abdomen, there is a distended loop of small bowel associated with anastomotic sutures containing fecal-like material. The biliary small bowel proximal to this do not appear dilated. This is not likely to represent an obstruction. However the presence of dilatation and fecal-like material suggests stasis. The dilatation may be post surgical in nature (denervation). Suggest a follow-up small bowel series or repeat CT with oral contrast. Secondary of small bowel anastomosis noted in the right lower quadrant. There is a fairly extensive amount of formed stool within moderately distended colon. Findings consistent with constipation. The appendix is normal. There is no evidence of appendicitis. The bladder is mildly distended. There is no hydronephrosis. IMPRESSION: Distended possibly denervated segment of small bowel containing fecal-like material within the left mid abdomen likely at jejunojejunal anastomosis; Marine-en-Y gastric bypass present. Evaluation is limited since no IV or oral contrast was given for this examination. Constipation with moderate formed stool within nondistended colon. No evidence of abdominal abscess or bowel obstruction. Status post cholecystectomy Bilateral breast implants The [facility] scanner at [facility] is accredited by the [employer] and the scans are performed using dose optimization techniques as appropriate to a performed exam including Automatic Exposure control.
[2018-10-23] MEDS ORDERED: Barium EZ HD MC PRN (14:45)
[2018-10-23] MEDS ORDERED: Varibar Thin Liquid powder 148gm MC PRN (14:45)
[2018-10-23] MEDS ORDERED: Barium EZ Gas II granules MC PRN (14:45)
[2018-10-23 14:49] LABS: INR 1.1 (0.9-1.1)
--- NOTE | 2018-10-23 14:55 | GI Initial Consult Note ---
History of Present Illness General Date patient seen: October 23, 2018 Time patient seen: 14:54 Reason for Hospitalization: Chest Pain Referring physician: DANIELA Reason for Consultation: DYSPHAGIA/ODYNOPHAGIA Present Illness HPI 43-year-old female with a history of hysterectomy, gastric bypass, bowel obstruction, sepsis, sent by Dr. Ferreira for 2 weeks of intermittent ull, left- sided mild to moderate intensity nonradiating chest pain, 2 months of bilateral leg swelling, intermittent difficulty swallowing solids. She also complains of vomiting all day yesterday, and being constipated, but denies obstipation. She also denies fever/chills, cough, shortness of breath, hemoptysis, urinary complaints, syncope. GI consulted for reported odynophagia and dysphagia. Patient with a recent admission here at [facility] rule out small bowel obstruction, had a small bowel follow-through and upper GI series in which both was negative. The patient has history of gastric bypass in 2004, had revision 2012. Had recent history of exploratory laparoscopic lysis of adhesions done at [facility]. The patient presents today has complaint of chest pain and odynophagia, states that the intake of food causes pain in her esophagus. The patient complains of the feeling of food being stuck in her esophagus. Patient has a Port-A-Cath which she has had for many years. Abdominal pelvic CT was performed, noted that the patient had constipation with moderate formed stool within the nondistended colon. There is no evidence of abdominal abscess or bowel obstruction. Home Meds Active Scripts Hydrocortisone (Cortef) 10 Mg Tablet, 25 MG ORAL DAILY@1400 for 10 Days, #10 TAB Prov:Caty Ferreira MD 10/02/18 Sumatriptan Succinate* (IMITREX*) 50 Mg Tablet, 25 MG ORAL Q6H PRN for 10 Days, #40 TAB Prov:Caty Ferreira MD 10/02/18 Potassium Chloride (K-Tab ER) 20 Meq Tablet.er, 40 MEQ ORAL BID for 10 Days, # 20 TAB Prov:Caty Ferreira MD 10/02/18 Hydrocortisone (CORTEF) 20 Mg Tablet, 50 MG ORAL DAILY@0700 for 30 Days, TAB Prov:Caty Ferreira MD 10/02/18 Reported Medications Ondansetron* (ZOFRAN*) 4 Mg Tablet, 4 MG ORAL Q6H PRN for Nausea & Vomiting, TAB 09/24/18 Rizatriptan Benzoate (MAXALT) 10 Mg Tablet, 10 MG PO, TAB 09/24/18 Pantoprazole* (PROTONIX*) 40 Mg Tablet.dr, 40 MG ORAL DAILY, TAB 09/24/18 Hydroxyzine Pamoate* (VISTARIL*) 50 Mg Capsule, 100 MG ORAL EVERY 6 HOURS, #20 TAB 0 Refills 09/24/18 Buspirone Hcl* (BUSPAR*) 10 Mg Tablet, 10 MG ORAL THREE TIMES A DAY, #15 TAB 0 Refills 09/24/18 Levothyroxine Sodium* (SYNTHROID*) 25 Mcg Tablet, 50 MCG ORAL DAILY, TAB Take in the morning on an empty stomach, at least 30 minutes before food. 09/24/18 Cyclobenzaprine Hcl* (FLEXERIL*) 10 Mg Tablet, 10 MG ORAL THREE TIMES A DAY, TAB 09/24/18 Methocarbamol* (ROBAXIN*) 500 Mg Tablet, 500 MG PO QID, #28 TAB 0 Refills 09/24/18 Med list reviewed/reconciled: Yes Allergies: Coded Allergies: GABAPENTIN (Verified Allergy, Unknown, 09/24/18) METAXALONE (Verified Allergy, Unknown, 09/24/18) MORPHINE (Verified Allergy, Unknown, 09/24/18) QUETIAPINE (Verified Allergy, Unknown, 09/24/18) Patient History PMH Narrative SOCIAL HISTORY: The patient has 4 children. Positive for prior history of heavy alcohol intake, also positive for tobacco use on a daily basis. The patient is currently actively registered in the sober living. PAST SURGICAL HISTORY: Including but not limited to bowel obstruction, status post laparoscopic surgery at [facility]. CURRENT HOSPITAL MEDICATIONS: Including but not limited to following. Buspirone, doxepin, Lovenox, levothyroxine, multivitamin. PAST MEDICAL HISTORY: History of alcoholism, , hypothyroidism, leukemia and migraine. Review of Systems All Other Systems: negative except mentioned in HPI Physical Exam Vital Signs Date Time Temp Pulse Resp B/P (MAP) Pulse Ox O2 Delivery O2 Flow Rate FiO2 10/23/18 09:58 98.2 98 16 97 Room Air 10/23/18 10:38 94/81 Sp02 EP Interpretation: reviewed, normal Labs Laboratory Tests Test 10/23/18 10:29 White Blood Count 3.5 K/UL (4.8-10.8) L Red Blood Count 3.04 M/UL (4.20-5.40) L Hemoglobin 9.8 G/DL (12.0-16.0) L Hematocrit 29.4 % (37.0-47.0) L Mean Corpuscular Volume 97 FL (80-99) Mean Corpuscular Hemoglobin 32.3 PG (27.0-31.0) H Mean Corpuscular Hemoglobin Concent 33.4 G/DL (32.0-36.0) Red Cell Distribution Width 15.0 % (11.6-14.8) H Platelet Count 208 K/UL (150-450) Mean Platelet Volume 5.6 FL (6.5-10.1) L Neutrophils (%) (Auto) 58.1 % (45.0-75.0) Lymphocytes (%) (Auto) 30.5 % (20.0-45.0) Monocytes (%) (Auto) 9.4 % (1.0-10.0) Eosinophils (%) (Auto) 0.8 % (0.0-3.0) Basophils (%) (Auto) 1.3 % (0.0-2.0) Reticulocyte Count Pending Prothrombin Time 11.2 SEC (9.30-11.50) Prothromb Time International Ratio 1.1 (0.9-1.1) Sodium Level 135 MMOL/L (136-145) L Potassium Level 3.4 MMOL/L (3.5-5.1) L Chloride Level 102 MMOL/L (98-107) Carbon Dioxide Level 25 MMOL/L (21-32) Anion Gap 8 mmol/L (5-15) Blood Urea Nitrogen 12 mg/dL (7-18) Creatinine 0.8 MG/DL (0.55-1.30) Estimat Glomerular Filtration Rate > 60 mL/min (>60) Glucose Level 70 MG/DL (74-106) L Calcium Level 7.7 MG/DL (8.5-10.1) L Ferritin 59 NG/ML (8-388) Total Bilirubin 0.5 MG/DL (0.2-1.0) Aspartate Amino Transf (AST/SGOT) 29 U/L (15-37) Alanine Aminotransferase (ALT/SGPT) 49 U/L (12-78) Alkaline Phosphatase 186 U/L (46-116) H Troponin I 0.003 ng/mL (0.000-0.056) Pro-B-Type Natriuretic Peptide 171 pg/mL (0-125) H Total Protein 4.9 G/DL (6.4-8.2) L Albumin 2.1 G/DL (3.4-5.0) L Globulin 2.8 g/dL Albumin/Globulin Ratio 0.7 (1.0-2.7) L Vitamin B12 Level Pending Thyroid Stimulating Hormone (TSH) 4.261 uiU/mL (0.358-3.740) HIV (1&2) Antibody Rapid Negative (NEGATIVE) General Appearance: well appearing, no apparent distress, alert, thin Head: normocephalic EENT: PERRL/EOMI, normal ENT inspection Neck: supple Respiratory: normal breath sounds, no respiratory distress Cardiovascular: normal rate Gastrointestinal: normal inspection, non tender, soft, normal bowel sounds, non -distended Rectal: deferred Genitourinary: no CVA tenderness Musculoskeletal: normal inspection, back normal Neurologic: normal inspection, alert, oriented x3, responsive Psychiatric: normal inspection, judgement/insight normal, memory normal Skin: normal inspection, normal color, no rash, warm/dry, palpation normal, well hydrated Lymphatic: normal inspection, no adenopathy Current Medications Current Medications Medications (Trade) Dose Ordered Sig/Cayetano Route PRN Reason Start Time Stop Time Status Last Admin Dose Admin Barium Sulfate (Barium EZ Gas II) 1 ea NOW PRN Radiology Procedure 10/23/18 14:45 10/26/18 14:35 Barium Sulfate (Barium EZ HD) 1 ea NOW PRN Radiology Procedure 10/23/18 14:45 10/26/18 14:35 Barium Sulfate (Varibar Thin Liquid powder) 148 gm NOW PRN Radiology Procedure 10/23/18 14:45 10/26/18 14:35 Buspirone HCl (Buspar) 10 mg THREE TIMES A DAY ORAL 10/23/18 18:00 11/22/18 17:59 Cyclobenzaprine HCl (Flexeril) 10 mg THREE TIMES A DAY ORAL 10/23/18 18:00 11/22/18 17:59 Dextrose/Sodium Chloride 1,000 ml @ 80 mls/hr [id number] IV 10/23/18 14:36 11/22/18 14:35 Hydroxyzine HCl (Atarax) 50 mg Q6HR ORAL 10/23/18 18:00 11/22/18 17:59 Levothyroxine Sodium (Synthroid) 25 mcg DAILY@0630 ORAL 10/24/18 06:30 11/23/18 06:29 Ondansetron HCl (Zofran ODT) 4 mg Q6H PRN ORAL Nausea & Vomiting 10/23/18 14:30 11/22/18 14:29 Pantoprazole (Protonix) 40 mg DAILY ORAL 10/24/18 09:00 11/23/18 08:59 GI: Plan Problems: (1) Odynophagia (2) Dysphagia (3) Constipation (4) History of gastric bypass (5) Alcohol dependence (6) Nausea and vomiting Plan Recent history of SBFT and UGI series, both negative. Abdominal pelvis CT reviewed >> Distended possibly denervated segment of small bowel containing fecal-like material within the left mid abdomen likely at jejunojejunal anastomosis; Marine- en-Y gastric bypass present. Evaluation is limited since no IV or oral contrast was given for this examination. Constipation with moderate formed stool within nondistended colon. No evidence of abdominal abscess or bowel obstruction. Status post cholecystectomy Bilateral breast implants Cardiac work-up Esophagram Okay to advance diet Bowel regimen, miralax + colace zofran prn, reglan prn for persistent vomiting OB stool r/o GI bleed monitor H&H, prn transfusions ppi electrolyte correction fu labs Discussed with Dr. Rosenberg. Thank you for this patient referral, we will follow. The patient was seen and examined at bedside and all new and available data was reviewed in the patients chart. I agree with the above findings, impression and plan. (Patient seen earlier today. Signature stamp does not reflect patient encounter time.). - MD Laura Mckeon AnhLadonna OCONNOR October 23, 2018 14:55
--- NOTE | 2018-10-23 15:00 | Diagnostic Imaging Report ---
Indication:Abdominal pain Technique: Grayscale and duplex Doppler imaging of the abdomen performed. Comparison: None Findings: The liver is unremarkable. CBD is 5 mm. The gallbladder is absent. The demonstrated part of the pancreas, aorta and IVC show no abnormalities although largely obscured by bowel gas. Both kidneys appear unremarkable. The spleen is normal in size. There is no biliary ductal dilatation identified. Doppler evaluation of the main portal vein shows patency. There is no ascites. Impression: No acute findings. Status post cholecystectomy
[2018-10-23 16:00] VITALS: BP 123/72
[2018-10-23] MEDS: D5NS 1,000 ML IV SCH (17:09)
[2018-10-23] MEDS ORDERED: HYDROcodone/Acetamin 5/325 tab ORAL PRN (18:00)
[2018-10-23] MEDS ORDERED: HYDROcodone/Acetamin 7.5/325 tab ORAL PRN (18:00)
[2018-10-23] MEDS ORDERED: oxyCODONE 5mg IR tab ORAL PRN (18:00)
--- NOTE | 2018-10-23 18:00 | NUR ---
NURSE NOTES: Spoke to ELVIN Keen. States patient can eat regular diet tray. Notified Dr. Ferreira about order and diet change.
[2018-10-23] MEDS: HydrOXYzine 50mg tab ORAL SCH ×2 (18:23→23:11)
[2018-10-23] MEDS: BusPIRone 5mg Tab ORAL SCH (18:24)
[2018-10-23] MEDS: Cyclobenzaprine 10mg Tab ORAL SCH (18:27)
--- NOTE | 2018-10-23 19:14 | NUR ---
HAND-OFF: Report given to TAWNY Fountain. Patient is resting in bed.
--- NOTE | 2018-10-23 19:14 | NUR ---
NURSE NOTES: Report received from Whitney Allison RN. Pt is walking around room in stable condition. Pt is awake, alert, and oriented x4. Pt is on room air and breathing is even and unlabored. No acute distress noted. IV site is L upper chest portacath which was accessed in ER upon admission on 10/23/2018. IV fluids are running at rx rate. Port-a-cath site and dressing are patent, dry and intact. Bed is placed in lowest position with brake engaged and side rails up x2. Pt fall education provided. Pt independently ambulatory with steady gait. Call light and side table placed within reach at bedside. Will continue to monitor.
--- NOTE | 2018-10-23 19:56 | NUR ---
NURSE NOTES: MEDIA TRAFFIC MANAGER Osmani noted in provider note to collect for OB stool but no order placed. Provider notified and gave order for OB stool collect. Pt education provided regarding collection of stool. Hat and specimen collection bottle placed in pt bathroom. Pt agreeable and verbalized understanding. Pt stated that she is constipated and did have a small bloody stool today. Will update care team and continue to monitor.
[2018-10-23 20:00] VITALS: BP 119/80
--- NOTE | 2018-10-23 20:13 | Cardiology Progress Note ---
Assessment/Plan Assessment/Plan The patient is seen and examined, full consult note will be dictated shortly. Objective Last 24 Hour Vital Signs Date Time Temp Pulse Resp B/P (MAP) Pulse Ox O2 Delivery O2 Flow Rate FiO2 10/23/18 18:57 96.3 10/23/18 16:00 98.1 83 18 123/72 (89) 100 83 10/23/18 15:55 98 10/23/18 14:26 86 10/23/18 12:56 96.3 72 18 109/75 (86) 100 72 10/23/18 12:55 Room Air 10/23/18 12:41 98.2 84 16 94/81 99 Room Air 10/23/18 12:40 98.2 82 15 100/82 97 Room Air 10/23/18 10:39 98 16 Room Air 10/23/18 10:38 98.2 84 15 94/81 99 Room Air 10/23/18 09:58 98.2 98 16 97 Room Air Laboratory Tests Test 10/23/18 10:29 10/23/18 17:30 White Blood Count 3.5 K/UL (4.8-10.8) L Red Blood Count 3.04 M/UL (4.20-5.40) L Hemoglobin 9.8 G/DL (12.0-16.0) L Hematocrit 29.4 % (37.0-47.0) L Mean Corpuscular Volume 97 FL (80-99) Mean Corpuscular Hemoglobin 32.3 PG (27.0-31.0) H Mean Corpuscular Hemoglobin Concent 33.4 G/DL (32.0-36.0) Red Cell Distribution Width 15.0 % (11.6-14.8) H Platelet Count 208 K/UL (150-450) Mean Platelet Volume 5.6 FL (6.5-10.1) L Neutrophils (%) (Auto) 58.1 % (45.0-75.0) Lymphocytes (%) (Auto) 30.5 % (20.0-45.0) Monocytes (%) (Auto) 9.4 % (1.0-10.0) Eosinophils (%) (Auto) 0.8 % (0.0-3.0) Basophils (%) (Auto) 1.3 % (0.0-2.0) Reticulocyte Count 2.2 % (0.5-2.0) H Prothrombin Time 11.2 SEC (9.30-11.50) Prothromb Time International Ratio 1.1 (0.9-1.1) Sodium Level 135 MMOL/L (136-145) L Potassium Level 3.4 MMOL/L (3.5-5.1) L Chloride Level 102 MMOL/L (98-107) Carbon Dioxide Level 25 MMOL/L (21-32) Anion Gap 8 mmol/L (5-15) Blood Urea Nitrogen 12 mg/dL (7-18) Creatinine 0.8 MG/DL (0.55-1.30) Estimat Glomerular Filtration Rate > 60 mL/min (>60) Glucose Level 70 MG/DL (74-106) L Calcium Level 7.7 MG/DL (8.5-10.1) L Ferritin 59 NG/ML (8-388) Total Bilirubin 0.5 MG/DL (0.2-1.0) Aspartate Amino Transf (AST/SGOT) 29 U/L (15-37) Alanine Aminotransferase (ALT/SGPT) 49 U/L (12-78) Alkaline Phosphatase 186 U/L (46-116) H Troponin I 0.003 ng/mL (0.000-0.056) Pro-B-Type Natriuretic Peptide 171 pg/mL (0-125) H Total Protein 4.9 G/DL (6.4-8.2) L Albumin 2.1 G/DL (3.4-5.0) L Globulin 2.8 g/dL Albumin/Globulin Ratio 0.7 (1.0-2.7) L Vitamin B12 Level 935 PG/ML (193-986) Thyroid Stimulating Hormone (TSH) 4.261 uiU/mL (0.358-3.740) HIV (1&2) Antibody Rapid Negative (NEGATIVE) Hepatitis A IgM Antibody Pending Hepatitis B Surface Antigen Pending Hepatitis B Core IgM Antibody Pending Hepatitis C Antibody Pending Ajith Macario MD October 23, 2018 20:13
--- NOTE | 2018-10-23 21:00 | NUR ---
NURSE NOTES: Pt states that medication reconciliation is incorrect and that pain medications/dosages that were continued in hospital are not the same as what she takes at home for chronic pain management. MD Ferreira notified, per MD no changes to pain medications at this time. Pt declining Oxycontin 10mg AUGUSTA for 2100 and wanting to change dosage to 30mg. stated, no changes to pain medications at this time. Pt aware and still declining oxycontin at this time.
[2018-10-23] MEDS: HYDROcodone/Acetamin 10/325 tab ORAL PRN (21:39)
--- NOTE | 2018-10-23 22:00 | NUR ---
NURSE NOTES: Pt requesting one time dose of flexeril 10mg PO now and also to be continued on Doxepin 100mg PO QHS. MD Ferreira notified and agreeable to stated orders. Orders noted and carried out. Pt is also requesting Robaxin 500mg QID, declined by MD Ferreira at this time. Medication reconciliation updated in pt eMAR.
[2018-10-23] MEDS ORDERED: Cyclobenzaprine 10mg Tab ORAL SCH (22:45)
[2018-10-23] MEDS ORDERED: DOXEPIN 100 MG ORAL SCH (22:45)
[2018-10-23] MEDS: oxyCONTIN 10mg tab ORAL SCH (23:11)
--- NOTE | 2018-10-23 23:46 | NUR ---
NURSE NOTES: Doxepin 100mng not available in [facility] in pyxis. Spoke with Marcelle from [facility] who stated available in 25mg in ER. Attempted to pull from ER but still not available. 2nd call to [facility], spoke with Janice, pharmacist, who stated that a new order for Doxepin 25mg tablets x 4 PO ONCE to be placed in order to pull from ER. MD eFrreira states okay for new order placement. Orders noted and carried out.
[2018-10-24] VITALS: BP 98/71
[2018-10-24] MEDS ORDERED: Doxepin 25mg Cap ORAL SCH ×2 (00:15→21:00)
[2018-10-24] MEDS: D5NS 1,000 ML IV SCH ×2 (03:08→15:36)
[2018-10-24 04:00] VITALS: BP 99/62
--- NOTE | 2018-10-24 05:00 | Consultation ---
DATE OF CONSULTATION: 10/23/2018 PSYCHIATRY CONSULTATION CONSULTING PHYSICIAN: Sugey Meléndez M.D. REFERRING PHYSICIAN: Caty Ferreira M.D. HISTORY OF PRESENT ILLNESS: This is a 43-year-old female with anxiety disorder and depression who has been admitted to the hospital due to dysphagia and chest pain. Psychiatry was consulted to assess the patient. The patient has a history of hysterectomy, gastric bypass, bowel obstruction, and now presenting with chest pain. She also complains of anxiety and fatigue. She has been on BuSpar and Atarax for anxiety. The patient suicidal or homicidal ideation. No psychotic symptoms. PAST PSYCHIATRIC HISTORY: Anxiety disorder. No suicide attempt. No known psychiatric hospitalization. PAST MEDICAL HISTORY: As above. ALLERGIES: Morphine and Seroquel as well as metaxalone and gabapentin. SUBSTANCE ABUSE HISTORY: No known history. Questionable history of alcoholism. MENTAL STATUS EXAMINATION: The patient is oriented x3. Mood is anxious. Affect is constricted. Congruent with mood. Thought process is concrete. Thought content, no suicidal or homicidal ideations. Cognition is intact. ASSESSMENT: Sheridan I Alcohol dependence. Opiate dependence. Anxiety disorder. Sheridan II Deferred. Sheridan III As above. Sheridan IV Low. Sheridan V 60. PLAN: 1. We will continue BuSpar. The patient is on Suboxone. We do not have Suboxone , therefore, we will not ordering it. The patient may her own Suboxone to the hospital and take. 2. Continue Atarax. 3. Avoid opiate pain medication . Sugey Meléndez M.D. DR: MANOJ JOB#: [id number] CC:
[2018-10-24] MEDS ORDERED: BUSPAR10 MG ORAL (05:17)
[2018-10-24] MEDS ORDERED: OXYCONTIN20 MG ORAL (05:17)
[2018-10-24] MEDS ORDERED: OXYCODONE HCL5 MG ORAL (05:17)
[2018-10-24] MEDS ORDERED: DOXEPIN HCL100 MG ORAL (05:17)
[2018-10-24 05:23] LABS: HEMATOCRIT 27.2 % (37.0-47.0); MEAN CORPUSCULAR VOLUME 97 FL (80-99); PLATELET COUNT 174 K/UL (150-450); RED BLOOD COUNT 2.79 M/UL (4.20-5.40); RED CELL DISTRIBUTION WIDTH 15.1 % (11.6-14.8); WHITE BLOOD COUNT 2.7 K/UL (4.8-10.8)
[2018-10-24 05:52] LABS: ALANINE AMINOTRANSFERASE 38 U/L (12-78); ALBUMIN 1.7 G/DL (3.4-5.0); ALBUMIN/GLOBULIN RATIO 0.7 (1.0-2.7); ALKALINE PHOSPHATASE 155 U/L (46-116); ANION GAP 5 mmol/L (5-15); ASPARTATE AMINO TRANSFERASE 22 U/L (15-37); BILIRUBIN,TOTAL 0.3 MG/DL (0.2-1.0); BLOOD UREA NITROGEN 11 mg/dL (7-18); CALCIUM 7.2 MG/DL (8.5-10.1); CARBON DIOXIDE 27 MMOL/L (21-32); CHLORIDE 111 MMOL/L (98-107); CREATININE 0.8 MG/DL (0.55-1.30); POTASSIUM 3.7 MMOL/L (3.5-5.1); SODIUM 143 MMOL/L (136-145)
[2018-10-24] MEDS: Levothyroxine 25mcg tab ORAL SCH (06:13)
[2018-10-24] MEDS: HydrOXYzine 50mg tab ORAL SCH ×4 (06:13→22:52)
[2018-10-24] MEDS: HYDROcodone/Acetamin 10/325 tab ORAL PRN (06:14)
--- NOTE | 2018-10-24 06:59 | NUR ---
NURSE NOTES: MD Smyth made aware of abnormal WBC, hct, hgb, calcium, and albumin. No new orders per MD Smyth. Will endorse to AM shift.
--- NOTE | 2018-10-24 07:00 | NUR ---
NURSE NOTES: MD Ferreira made aware that pt BP trending high 90s diastolic/ 60 - 70s systolic during the night. Per MD Ferreira, no new orders at this time. Will endorse to AM shift.
--- NOTE | 2018-10-24 07:39 | NUR ---
HAND-OFF: Report given to Pat Bernardo RN. Pt is resting in bed in stable condition. No acute distress noted. Endorsed plan of care.
--- NOTE | 2018-10-24 07:46 | NUR ---
NURSE NOTES: Received report from Essie/TAWNY. Patient is awake and resting on bed, No acute distress at this time. Bed in lowest position, Call light within reach. Will continue plan of care.
[2018-10-24 08:00] VITALS: BP 105/65
--- NOTE | 2018-10-24 08:35 | NUR ---
RADIOLOGY DEPT., ESOPHAGRAM ON HOLD DUE TO EQUIPMENT FAILURE. CALL OR CONTACT CENTRE COACH IS ENGAGED TO HAVING SERVICE PROVIDE REPAIR EQUIPMENT. NURSE WILL INFORM RU WALL OF ISSUE.-PD
[2018-10-24] MEDS: Cyclobenzaprine 10mg Tab ORAL SCH ×3 (08:52→17:42)
[2018-10-24] MEDS: BusPIRone 5mg Tab ORAL SCH ×3 (08:53→17:42)
[2018-10-24] MEDS: oxyCONTIN 10mg tab ORAL SCH (08:53)
--- NOTE | 2018-10-24 09:00 | Consultation ---
History of Present Illness General Date patient seen: October 24, 2018 Chief Complaint: Referring physician: Reason for Consultation: Present Illness Allergies: Coded Allergies: GABAPENTIN (Verified Allergy, Unknown, 09/24/18) METAXALONE (Verified Allergy, Unknown, 09/24/18) MORPHINE (Verified Allergy, Unknown, 09/24/18) QUETIAPINE (Verified Allergy, Unknown, 09/24/18) Medication History Scheduled Buspirone Hcl* (Buspar*), 15 MG ORAL THREE TIMES A DAY, (Reported) Cyclobenzaprine Hcl* (Flexeril*), 10 MG ORAL THREE TIMES A DAY, (Reported) Doxepin Hcl (Doxepin Hcl*), 100 MG ORAL QHS, (Reported) Hydrocortisone (Cortef), 50 MG ORAL DAILY@0700 Hydrocortisone (Cortef), 25 MG ORAL DAILY@1400 Hydroxyzine Pamoate* (Vistaril*), 100 MG ORAL EVERY 6 HOURS, (Reported) Levothyroxine Sodium* (Synthroid*), 50 MCG ORAL DAILY, (Reported) Methocarbamol* (Robaxin*), 500 MG PO QID, (Reported) Oxycodone Hcl Er* (Oxycontin*), 30 MG ORAL EVERY 12 HOURS, (Reported) Pantoprazole* (Protonix*), 40 MG ORAL DAILY, (Reported) Potassium Chloride (K-Tab ER), 40 MEQ ORAL BID Scheduled PRN Ondansetron* (Zofran*), 4 MG ORAL Q6H PRN for Nausea & Vomiting, (Reported) Oxycodone Hcl Ir* (Roxicodone Ir*), 10 MG ORAL Q4H PRN for For Pain, (Reported) Sumatriptan Succinate* (Imitrex*), 25 MG ORAL Q6H PRN Miscellaneous Medications Rizatriptan Benzoate (Maxalt), 10 MG PO, (Reported) Discontinued Medications Buspirone Hcl* (Buspar*), 10 MG ORAL THREE TIMES A DAY, (Reported) Discontinued Reason: Medication dose changed Patient History Healthcare decision maker Resuscitation status Full Code Advanced Directive on File Physical Exam Last 24 Hour Vital Signs Date Time Temp Pulse Resp B/P (MAP) Pulse Ox O2 Delivery O2 Flow Rate FiO2 10/24/18 08:00 97.6 82 17 105/65 (78) 98 92 10/24/18 04:00 98.3 92 16 99/62 (74) 99 92 10/24/18 04:00 85 10/24/18 00:00 97.6 89 18 98/71 (80) 95 89 10/24/18 00:00 77 10/23/18 21:00 Room Air 10/23/18 20:00 98.0 87 18 119/80 (93) 96 87 10/23/18 20:00 70 10/23/18 18:57 96.3 10/23/18 16:00 98.1 83 18 123/72 (89) 100 83 10/23/18 15:55 98 10/23/18 14:26 86 10/23/18 12:56 96.3 72 18 109/75 (86) 100 72 10/23/18 12:55 Room Air 10/23/18 12:41 98.2 84 16 94/81 99 Room Air 10/23/18 12:40 98.2 82 15 100/82 97 Room Air 10/23/18 10:39 98 16 Room Air 10/23/18 10:38 98.2 84 15 94/81 99 Room Air 10/23/18 09:58 98.2 98 16 97 Room Air Intake and Output 10/23/18 10/24/18 18:59 06:59 Intake Total 240 ml 1160 ml Balance 240 ml 1160 ml Intake Oral 240 ml 360 ml IV Total 800 ml # Voids 3 # Bowel Movements 1 Laboratory Tests Test 10/23/18 10:29 10/23/18 17:30 10/24/18 04:45 White Blood Count 3.5 K/UL (4.8-10.8) L 2.7 K/UL (4.8-10.8) L Red Blood Count 3.04 M/UL (4.20-5.40) L 2.79 M/UL (4.20-5.40) L Hemoglobin 9.8 G/DL (12.0-16.0) L 9.0 G/DL (12.0-16.0) L Hematocrit 29.4 % (37.0-47.0) L 27.2 % (37.0-47.0) L Mean Corpuscular Volume 97 FL (80-99) 97 FL (80-99) Mean Corpuscular Hemoglobin 32.3 PG (27.0-31.0) H 32.4 PG (27.0-31.0) H Mean Corpuscular Hemoglobin Concent 33.4 G/DL (32.0-36.0) 33.3 G/DL (32.0-36.0) Red Cell Distribution Width 15.0 % (11.6-14.8) H 15.1 % (11.6-14.8) H Platelet Count 208 K/UL (150-450) 174 K/UL (150-450) Mean Platelet Volume 5.6 FL (6.5-10.1) L 5.7 FL (6.5-10.1) L Neutrophils (%) (Auto) 58.1 % (45.0-75.0) % (45.0-75.0) Lymphocytes (%) (Auto) 30.5 % (20.0-45.0) % (20.0-45.0) Monocytes (%) (Auto) 9.4 % (1.0-10.0) % (1.0-10.0) Eosinophils (%) (Auto) 0.8 % (0.0-3.0) % (0.0-3.0) Basophils (%) (Auto) 1.3 % (0.0-2.0) % (0.0-2.0) Reticulocyte Count 2.2 % (0.5-2.0) H Prothrombin Time 11.2 SEC (9.30-11.50) Prothromb Time International Ratio 1.1 (0.9-1.1) Sodium Level 135 MMOL/L (136-145) L 143 MMOL/L (136-145) Potassium Level 3.4 MMOL/L (3.5-5.1) L 3.7 MMOL/L (3.5-5.1) Chloride Level 102 MMOL/L (98-107) 111 MMOL/L (98-107) H Carbon Dioxide Level 25 MMOL/L (21-32) 27 MMOL/L (21-32) Anion Gap 8 mmol/L (5-15) 5 mmol/L (5-15) Blood Urea Nitrogen 12 mg/dL (7-18) 11 mg/dL (7-18) Creatinine 0.8 MG/DL (0.55-1.30) 0.8 MG/DL (0.55-1.30) Estimat Glomerular Filtration Rate > 60 mL/min (>60) > 60 mL/min (>60) Glucose Level 70 MG/DL (74-106) L 100 MG/DL (74-106) Calcium Level 7.7 MG/DL (8.5-10.1) L 7.2 MG/DL (8.5-10.1) L Ferritin 59 NG/ML (8-388) Total Bilirubin 0.5 MG/DL (0.2-1.0) 0.3 MG/DL (0.2-1.0) Aspartate Amino Transf (AST/SGOT) 29 U/L (15-37) 22 U/L (15-37) Alanine Aminotransferase (ALT/SGPT) 49 U/L (12-78) 38 U/L (12-78) Alkaline Phosphatase 186 U/L (46-116) H 155 U/L (46-116) H Troponin I 0.003 ng/mL (0.000-0.056) Pro-B-Type Natriuretic Peptide 171 pg/mL (0-125) H Total Protein 4.9 G/DL (6.4-8.2) L 4.0 G/DL (6.4-8.2) L Albumin 2.1 G/DL (3.4-5.0) L 1.7 G/DL (3.4-5.0) L Globulin 2.8 g/dL 2.3 g/dL Albumin/Globulin Ratio 0.7 (1.0-2.7) L 0.7 (1.0-2.7) L Vitamin B12 Level 935 PG/ML (193-986) Thyroid Stimulating Hormone (TSH) 4.261 uiU/mL (0.358-3.740) HIV (1&2) Antibody Rapid Negative (NEGATIVE) Hepatitis A IgM Antibody Pending Hepatitis B Surface Antigen Pending Hepatitis B Core IgM Antibody Pending Hepatitis C Antibody Pending Differential Total Cells Counted 100 Neutrophils % (Manual) 48 % (45-75) Lymphocytes % (Manual) 40 % (20-45) Monocytes % (Manual) 9 % (1-10) Eosinophils % (Manual) 2 % (0-3) Basophils % (Manual) 1 % (0-2) Band Neutrophils 0 % (0-8) Platelet Estimate Adequate Platelet Morphology Normal Hypochromasia 2+ Anisocytosis 1+ Height (Feet): 5 Height (Inches): 4.00 Weight (Pounds): 137 Medications Current Medications Medications (Trade) Dose Ordered Sig/[place] Route PRN Reason Start Time Stop Time Status Last Admin Dose Admin Acetaminophen/ Hydrocodone Bitart ([place] 10/325) 1 tab Q6H PRN ORAL Severe Pain (Pain Scale 7-10) 10/23/18 18:00 10/30/18 17:59 10/24/18 06:14 Acetaminophen/ Hydrocodone Bitart ([place] 5/325) 1 tab Q6H PRN ORAL Mild Pain (Pain Scale 1-3) 10/23/18 18:00 10/30/18 17:59 Acetaminophen/ Hydrocodone Bitart ([place] 7.5/325) 1 tab Q6H PRN ORAL Moderate Pain (Pain Scale 4-6) 10/23/18 18:00 10/30/18 17:59 Barium Sulfate (Barium EZ Gas II) 1 ea NOW PRN Radiology Procedure 10/23/18 14:45 10/26/18 14:35 Barium Sulfate (Barium EZ HD) 1 ea NOW PRN Radiology Procedure 10/23/18 14:45 10/26/18 14:35 Barium Sulfate ([place] Thin Liquid powder) 148 gm NOW PRN Radiology Procedure 10/23/18 14:45 10/26/18 14:35 Buspirone HCl (Buspar) 10 mg THREE TIMES A DAY ORAL 10/23/18 18:00 11/22/18 17:59 10/24/18 08:53 Cyclobenzaprine HCl (Flexeril) 10 mg THREE TIMES A DAY ORAL 10/23/18 18:00 11/22/18 17:59 10/24/18 08:52 Dextrose/Sodium Chloride 1,000 ml @ 80 mls/hr [id number] IV 10/23/18 14:36 11/22/18 14:35 10/24/18 03:08 Doxepin HCl (SINEquan) 100 mg BEDTIME ORAL 10/23/18 22:45 11/22/18 22:44 Hydroxyzine HCl (Atarax) 50 mg Q6HR ORAL 10/23/18 18:00 11/22/18 17:59 10/24/18 06:13 Levothyroxine Sodium (Synthroid) 25 mcg DAILY@0630 ORAL 10/24/18 06:30 11/23/18 06:29 10/24/18 06:13 Ondansetron HCl (Zofran ODT) 4 mg Q6H PRN ORAL Nausea & Vomiting 10/23/18 14:30 11/22/18 14:29 10/24/18 06:13 Oxycodone HCl (OxyCONTIN) 10 mg Q12HR ORAL 10/23/18 21:00 10/30/18 20:59 10/24/18 08:53 Oxycodone HCl (Roxicodone) 5 mg Q4H PRN ORAL Breakthrough Pain 10/23/18 18:00 10/30/18 17:59 Pantoprazole (Protonix) 40 mg DAILY ORAL 10/24/18 09:00 11/23/18 08:59 10/24/18 08:53 Assessment/Plan Assessment/Plan: (1) Opioid dependency (2) Lumbar Spondylosis (3) Lumbar DDD (4) Lumbar Radiculopathy (5) H/o Lumbar surgery (6) Abdominal pain (7) H/o Gastric bypass seen dictated. Jarrod Irizarry October 24, 2018 09:00
[2018-10-24] MEDS ORDERED: Gadavist 7.5mMol/7.5ml vial IV PRN (09:30)
--- NOTE | 2018-10-24 09:49 | NUR ---
ST NOTE: BEDSIDE SWALLOW EVAL RECEIVED BEDSIDE SWALLOW EVAL ORDER CHART REVIEWED PRIOR THE EVALUATION. REFERRED BY SAVANNAH Rey(GI) DUE TO PT STATES THAT SHE HAS ODYNOPHAGIA, INTERMITTENT DIFFICULTY SWALLOWING SOLIDS. FOOD GETS STUCK IN HER ESOPHAGUS. PT IS A 43-YEAR-OLD FEMALE WHO, LIVES AT HOME, WAS ADMITTED FOR CHEST PAIN AND SEPSIS. PT HAS MEDICAL HISTORY OF REUBEN-EN-Y GASTRIC BYPASS(2004, REVISION 2013), H/O BOWEL OBSTRUCTION, RESOLVED, LAPAROSCOPIC SURGERY AT [facility], H/O ALCOHOLISM, TOBACCO USE ON DAILY BASIS. PT IS ON PROTONIX, ZOFRAN, SINEQUAN, OXYCONTIN, BUSPAR AND NORCO. CURRENT STATUS: PT SEEN AT BEDSIDE IN AM WITH BREAKFAST TRAY. PT STATES THAT FOOD, ESPECIALLY WITH SOLID FOOD GET STUCK IN HER MIDDLE OF ESOPHAGEUS POST SWALLOW. SHE FEELS BETTER AFTER BELCHING. PT ALSO STATES THAT SHE HAS DRY MOUTH. ORAL MOTOR EXAMINATION: FUNCTIONAL GIVEN PO TRIALS: THIN(CUP), PILLS WITH LIQUID, PUREE(TSP) AND MASTICATED SOLID INITIAL IMPRESSION: PROBABLE ESOPHAGEAL DYSPHAGIA. SLOW BUT FUNCTIONAL MASTICATION TIME SLOW ORAL TRANSIT TIME AND ADEQUATE LARYNGEAL ELEVATION, NO OVERT S/S OF ASPIRATION WAS NOTED. HOWEVER, PT REPORTED HAVING PAIN THE MIDDLE OF HER CHEST POST SWALLOW; AND REQUIRED LIQUID WASH. RECOMMENDATIONS: 1. CONTINUE REGULAR WITH THIN LIQUIDS DIET 2. ASPIRATION/REFLUX PRECAUTIONS 3. MODIFIED BARIUM SWALLOW STUDY WITH AP VIEW. D/W PT AND RNDEANNA. DISCUSSED WITH SAVANNAH Rey. AGREED WITH MODIFIED BARIUM SWALLOW STUDY WITH AP VIEW. WILL FOLLOW
--- NOTE | 2018-10-24 10:14 | GI Progress Note ---
Assessment/Plan Problems: (1) Constipation ICD Codes: K59.00 - Constipation, unspecified SNOMED: 55098166 (2) Odynophagia ICD Codes: R13.10 - Dysphagia, unspecified SNOMED: 73611108 (3) Dehydration ICD Codes: E86.0 - Dehydration SNOMED: 90984126 (4) Alcohol dependence ICD Codes: F10.20 - Alcohol dependence, uncomplicated SNOMED: 84025834 (5) Dysphagia ICD Codes: R13.10 - Dysphagia, unspecified SNOMED: 73866397, 266880451 (6) Nausea and vomiting ICD Codes: R11.2 - Nausea with vomiting, unspecified SNOMED: 17993262 (7) Vomiting ICD Codes: R11.10 - Vomiting, unspecified SNOMED: 225507392 (8) Electrolyte imbalance ICD Codes: E87.8 - Other disorders of electrolyte and fluid balance, not elsewhere classified SNOMED: 956468163 Status: unchanged Status Narrative Discussed with Dr. Rosenberg Assessment/Plan Recent history of SBFT and UGI series, both negative. Abdominal pelvis CT reviewed >> Distended possibly denervated segment of small bowel containing fecal-like material within the left mid abdomen likely at jejunojejunal anastomosis; Marine- en-Y gastric bypass present. Evaluation is limited since no IV or oral contrast was given for this examination. Constipation with moderate formed stool within nondistended colon. No evidence of abdominal abscess or bowel obstruction. Status post cholecystectomy Bilateral breast implants Cardiac work-up ST evaluation / Esophagram vs video swallow study regular diet Bowel regimen, miralax + colace zofran prn, reglan prn for persistent vomiting OB stool r/o GI bleed monitor H&H, prn transfusions ppi electrolyte correction fu labs The patient was seen and examined at bedside and all new and available data was reviewed in the patients chart. I agree with the above findings, impression and plan. (Patient seen earlier today. Signature stamp does not reflect patient encounter time.). - Teddy Rosenberg MD Subjective Subjective Complaint of painful swallowing Objective Last 24 Hour Vital Signs Date Time Temp Pulse Resp B/P (MAP) Pulse Ox O2 Delivery O2 Flow Rate FiO2 10/24/18 09:00 Room Air 10/24/18 08:00 97.6 82 17 105/65 (78) 98 92 10/24/18 04:00 98.3 92 16 99/62 (74) 99 92 10/24/18 04:00 85 10/24/18 00:00 97.6 89 18 98/71 (80) 95 89 10/24/18 00:00 77 10/23/18 21:00 Room Air 10/23/18 20:00 98.0 87 18 119/80 (93) 96 87 10/23/18 20:00 70 10/23/18 18:57 96.3 10/23/18 16:00 98.1 83 18 123/72 (89) 100 83 10/23/18 15:55 98 10/23/18 14:26 86 10/23/18 12:56 96.3 72 18 109/75 (86) 100 72 10/23/18 12:55 Room Air 10/23/18 12:41 98.2 84 16 94/81 99 Room Air 10/23/18 12:40 98.2 82 15 100/82 97 Room Air 10/23/18 10:39 98 16 Room Air 10/23/18 10:38 98.2 84 15 94/81 99 Room Air Intake and Output 10/23/18 10/24/18 18:59 06:59 Intake Total 240 ml 1160 ml Balance 240 ml 1160 ml Intake Oral 240 ml 360 ml IV Total 800 ml # Voids 3 # Bowel Movements 1 Laboratory Tests Test 10/23/18 10:29 10/23/18 17:30 10/24/18 04:45 White Blood Count 3.5 K/UL (4.8-10.8) L 2.7 K/UL (4.8-10.8) L Red Blood Count 3.04 M/UL (4.20-5.40) L 2.79 M/UL (4.20-5.40) L Hemoglobin 9.8 G/DL (12.0-16.0) L 9.0 G/DL (12.0-16.0) L Hematocrit 29.4 % (37.0-47.0) L 27.2 % (37.0-47.0) L Mean Corpuscular Volume 97 FL (80-99) 97 FL (80-99) Mean Corpuscular Hemoglobin 32.3 PG (27.0-31.0) H 32.4 PG (27.0-31.0) H Mean Corpuscular Hemoglobin Concent 33.4 G/DL (32.0-36.0) 33.3 G/DL (32.0-36.0) Red Cell Distribution Width 15.0 % (11.6-14.8) H 15.1 % (11.6-14.8) H Platelet Count 208 K/UL (150-450) 174 K/UL (150-450) Mean Platelet Volume 5.6 FL (6.5-10.1) L 5.7 FL (6.5-10.1) L Neutrophils (%) (Auto) 58.1 % (45.0-75.0) % (45.0-75.0) Lymphocytes (%) (Auto) 30.5 % (20.0-45.0) % (20.0-45.0) Monocytes (%) (Auto) 9.4 % (1.0-10.0) % (1.0-10.0) Eosinophils (%) (Auto) 0.8 % (0.0-3.0) % (0.0-3.0) Basophils (%) (Auto) 1.3 % (0.0-2.0) % (0.0-2.0) Reticulocyte Count 2.2 % (0.5-2.0) H Prothrombin Time 11.2 SEC (9.30-11.50) Prothromb Time International Ratio 1.1 (0.9-1.1) Sodium Level 135 MMOL/L (136-145) L 143 MMOL/L (136-145) Potassium Level 3.4 MMOL/L (3.5-5.1) L 3.7 MMOL/L (3.5-5.1) Chloride Level 102 MMOL/L (98-107) 111 MMOL/L (98-107) H Carbon Dioxide Level 25 MMOL/L (21-32) 27 MMOL/L (21-32) Anion Gap 8 mmol/L (5-15) 5 mmol/L (5-15) Blood Urea Nitrogen 12 mg/dL (7-18) 11 mg/dL (7-18) Creatinine 0.8 MG/DL (0.55-1.30) 0.8 MG/DL (0.55-1.30) Estimat Glomerular Filtration Rate > 60 mL/min (>60) > 60 mL/min (>60) Glucose Level 70 MG/DL (74-106) L 100 MG/DL (74-106) Calcium Level 7.7 MG/DL (8.5-10.1) L 7.2 MG/DL (8.5-10.1) L Ferritin 59 NG/ML (8-388) Total Bilirubin 0.5 MG/DL (0.2-1.0) 0.3 MG/DL (0.2-1.0) Aspartate Amino Transf (AST/SGOT) 29 U/L (15-37) 22 U/L (15-37) Alanine Aminotransferase (ALT/SGPT) 49 U/L (12-78) 38 U/L (12-78) Alkaline Phosphatase 186 U/L (46-116) H 155 U/L (46-116) H Troponin I 0.003 ng/mL (0.000-0.056) Pro-B-Type Natriuretic Peptide 171 pg/mL (0-125) H Total Protein 4.9 G/DL (6.4-8.2) L 4.0 G/DL (6.4-8.2) L Albumin 2.1 G/DL (3.4-5.0) L 1.7 G/DL (3.4-5.0) L Globulin 2.8 g/dL 2.3 g/dL Albumin/Globulin Ratio 0.7 (1.0-2.7) L 0.7 (1.0-2.7) L Vitamin B12 Level 935 PG/ML (193-986) Thyroid Stimulating Hormone (TSH) 4.261 uiU/mL (0.358-3.740) HIV (1&2) Antibody Rapid Negative (NEGATIVE) Hepatitis A IgM Antibody Pending Hepatitis B Surface Antigen Pending Hepatitis B Core IgM Antibody Pending Hepatitis C Antibody Pending Differential Total Cells Counted 100 Neutrophils % (Manual) 48 % (45-75) Lymphocytes % (Manual) 40 % (20-45) Monocytes % (Manual) 9 % (1-10) Eosinophils % (Manual) 2 % (0-3) Basophils % (Manual) 1 % (0-2) Band Neutrophils 0 % (0-8) Platelet Estimate Adequate Platelet Morphology Normal Hypochromasia 2+ Anisocytosis 1+ Height (Feet): 5 Height (Inches): 4.00 Weight (Pounds): 137 General Appearance: WD/WN, no apparent distress, alert Cardiovascular: normal rate Respiratory/Chest: normal breath sounds, no respiratory distress Abdominal Exam: normal bowel sounds, non tender, soft Extremities: normal range of motion, non-tender Cassie Sanchez NP October 24, 2018 10:14
[2018-10-24] MEDS ORDERED: Sennosides 8.6mg tab ORAL PRN (10:15)
--- NOTE | 2018-10-24 10:40 | NUR ---
CASE MANAGEMENT:REVIEW 43 YR OLD FEMALE PRESENTED TO ER CC: CHEST PAIN, BLE SWELLING AND DIFFICULTY SWALLOWING SI: CHEST PAIN. DEHYDRATION 98.2 98 16 94/81 97% ON RA GLUCOSE-70 CA-7.7 TROPONIN(-) IS: ASA PO 1L NS BOLUS IV ZOFRAN K-DUR PO CT ABD/PELVIS CXR : TO TELEMETRY INTERQUAL CRITERIA MET
--- NOTE | 2018-10-24 10:53 | NUR ---
RD ASSESSMENT & RECOMMENDATIONS SEE CARE ACTIVITY FOR COMPLETE ASSESSMENT DAILY ESTIMATED NEEDS: Needs based on Wt loss, 62kg 25-30 kcals/kg 2642-6864 total kcals 1-1.5 g protein/kg 62-93 g total protein 25-30 mL/kg 8940-4604 total fluid mLs NUTRITION DIAGNOSIS: Altered GI function R/T clinical conditions w/ h/o multiple GI surgeries including Marine-en-Y gastric bypass and revision, s/p recent exploratory laparoscopically lysis of adhesions for SBO as evidenced by pt adm w. N/V, abdominal pain. CURRENT DIET: REGULAR PO DIET RECOMMENDATIONS: Soft, bland diet, 6 small meals ADDITIONAL RECOMMENDATIONS: * Standing wt for accurate CBW, rec weekly wt monitoring given possible recent possible 5# wt loss x1mo * Monitor lytes, replete as needed . * Monitor PO intake and tolerance closely - Rec small, 6 meals a day .
[2018-10-24] MEDS ORDERED: LORazepam Inj 2mg/ml 1ml IV SCH (11:00)
--- NOTE | 2018-10-24 11:00 | NUR ---
NURSE NOTES: Patient refused Spine MRI
--- NOTE | 2018-10-24 11:45 | NUR ---
NURSE NOTES: WBC count is 2.7, Dr. Smyth is aware. No new order at this time.
[2018-10-24 12:00] VITALS: BP 96/61
[2018-10-24] MEDS: Docusate 100mg cap ORAL SCH ×2 (13:16→17:41)
--- NOTE | 2018-10-24 13:33 | NUR ---
ST NOTE: MODIFIED BARIUM SWALLOW STUDY(LATERAL AND AP VIEW) COMPLETED MODIFIED BARIUM SWALLOW STUDY FULL REPORT WILL FOLLOW AFTER REVIEWED THE IMAGES UNDER ST NOTE IN CARE ACTIVITY. PT ALERT, VERBAL, COOPERATIVE, FOLLOWS DIRECTIONS. GIVEN PO TRIALS: LATERAL VIEW: THIN([id number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ey.
--- NOTE | 2018-10-24 13:55 | General Progress Note ---
Assessment/Plan Status: unchanged Assessment/Plan: S: My stomach hurts O: Appears, comfotable . Is walking in hallway. tolerating PO PHYSICAL EXAMINATION: HEAD AND NECK: Atraumatic and normocephalic. CHEST: Clear to auscultation. HEART: S1 and S2. Regular rate and rhythm. ABDOMEN: mild tenderness on deep palpation . No organomegaly. MUSCULOSKELETAL: Positive for 2+ edema in the lower extremities. NEUROLOGIC: Awake, alert, and oriented x3. meds: Including Subuxan, as an out patient ASSESSMENT: 1. Abdominal pain, status post small-bowel obstruction surgery at [facility], possible partial obstruction 2. Lower extremity edema: likely secondary to hypoalbuminemia 3. Cachexia. Sever Protein malnourishment 3. Alcohol Abuse, h.o of. 4. Chronic pain/ Narcotid dependence , on out patient rehab program 5. Anemia, microcytic. 5. Leukemia - history of, reported by the patient. 6. Hypokalemia. 7. GI/DVT prophylaxis. PLAN OF CARE: Discussed the care with Psych Defer pain management to specialist current GI workup Refusal of MRI of the spine Subjective Allergies: Coded Allergies: GABAPENTIN (Verified Allergy, Unknown, 09/24/18) METAXALONE (Verified Allergy, Unknown, 09/24/18) MORPHINE (Verified Allergy, Unknown, 09/24/18) QUETIAPINE (Verified Allergy, Unknown, 09/24/18) Objective Last 24 Hour Vital Signs Date Time Temp Pulse Resp B/P (MAP) Pulse Ox O2 Delivery O2 Flow Rate FiO2 10/24/18 09:00 Room Air 10/24/18 08:00 86 10/24/18 08:00 97.6 82 17 105/65 (78) 98 92 10/24/18 04:00 98.3 92 16 99/62 (74) 99 92 10/24/18 04:00 85 10/24/18 00:00 97.6 89 18 98/71 (80) 95 89 10/24/18 00:00 77 10/23/18 21:00 Room Air 10/23/18 20:00 98.0 87 18 119/80 (93) 96 87 10/23/18 20:00 70 10/23/18 18:57 96.3 10/23/18 16:00 98.1 83 18 123/72 (89) 100 83 10/23/18 15:55 98 10/23/18 14:26 86 Intake and Output 10/23/18 10/24/18 19:00 07:00 Intake Total 320 ml 1080 ml Balance 320 ml 1080 ml Intake Oral 240 ml 360 ml IV Total 80 ml 720 ml # Voids 3 # Bowel Movements 1 Laboratory Tests 10/23/18 17:30: Hepatitis A IgM Antibody Negative, Hepatitis B Surface Antigen Negative, Hepatitis B Core IgM Antibody Negative, Hepatitis C Antibody <0.1 10/24/18 04:45: White Blood Count 2.7L, Red Blood Count 2.79L, Hemoglobin 9.0L, Hematocrit 27.2L , Mean Corpuscular Volume 97, Mean Corpuscular Hemoglobin 32.4H, Mean Corpuscular Hemoglobin Concent 33.3, Red Cell Distribution Width 15.1H, Platelet Count 174, Mean Platelet Volume 5.7L, Neutrophils (%) (Auto) , Lymphocytes (%) (Auto) , Monocytes (%) (Auto) , Eosinophils (%) (Auto) , Basophils (%) (Auto) , Differential Total Cells Counted 100, Neutrophils % ( Manual) 48, Lymphocytes % (Manual) 40, Monocytes % (Manual) 9, Eosinophils % ( Manual) 2, Basophils % (Manual) 1, Band Neutrophils 0, Platelet Estimate Adequate, Platelet Morphology Normal, Hypochromasia 2+, Anisocytosis 1+, Sodium Level 143, Potassium Level 3.7, Chloride Level 111H, Carbon Dioxide Level 27, Anion Gap 5, Blood Urea Nitrogen 11, Creatinine 0.8, Estimat Glomerular Filtration Rate > 60, Glucose Level 100, Calcium Level 7.2L, Total Bilirubin 0.3 , Aspartate Amino Transf (AST/SGOT) 22, Alanine Aminotransferase (ALT/SGPT) 38, Alkaline Phosphatase 155H, Total Protein 4.0L, Albumin 1.7L, Globulin 2.3, Albumin/Globulin Ratio 0.7L Height (Feet): 5 Height (Inches): 4.00 Weight (Pounds): 137 Caty Ferreira MD October 24, 2018 13:55
[2018-10-24] MEDS ORDERED: SUBOXONE SL SCH (14:00)
--- NOTE | 2018-10-24 15:25 | NUR ---
*-* NO INSURANCE INFORMATION IN THE BAR UNABLE TO SEND CLINICALS OR REVIEWS *-*
[2018-10-24 16:00] VITALS: BP 107/75
--- NOTE | 2018-10-24 16:05 | General Progress Note ---
Assessment/Plan Status: unchanged Assessment/Plan: Assessment/Recs: # PANCYTOPENIA, chronic -- with secreased white blood cell count, unspec (aka leukopenia) - wbc under 4k, could be related to infection v meds v ethanol use she reports. Bone marrow biopsy from [facility] 09/[address] Pena show hypocellular marrow with trilineage hematopoiesis with no evidence of dysplasia , no evidence of myelophystic process, lymphoma, granduloma or metastatic disease, rare small lympjh aggregates is snoted and potentially some small deccreased iron storage, and normal karyotype, flow cytometry is negative for any blast population --> if the total ANC is less than 2000, consider Neupogen --> continue antibiotics with ID service, appreciate recs --> medications have been reviewed --> hepatitis and hiv are negative --> recommend better diet, does have severe protein caloric malnutrition --> us of the abdomen shows no acute findings. Status post cholecystectomy # Anemia of iron deficiency, ferritin is 58 --> Anemia workup has been ordered and reviewed --> No evidence of hemolysis is noted, peripheral smear has been reviewed. --> Hgb goal >7. Transfuse prn. --> Medications have been reviewed --> low threshold for gi evaluation in case has occult + --> Venofer has been started x 5 days # Adhesions of the abd --> as per surg recs # Nausea and vomiting --> zofran iv prn has been started # Dehydration -- on ivf prn # Electrolyte abnml as per renal # Chronic pain disorder The timing of this note does not necessarily reflect the time of the patient was seen. Greatly appreciate consultation! Subjective Constitutional: Denies: no symptoms, chills, diaphoresis, fever, malaise, weakness, other HEENT: Denies: no symptoms, eye pain, blurred vision, tearing, double vision, ear pain, ear discharge, nose pain, nose congestion, throat pain, throat swelling, mouth pain, mouth swelling, other Cardiovascular: Denies: no symptoms, chest pain, edema, irregular heart rate, lightheadedness, palpitations, syncope, other Respiratory: Denies: no symptoms, cough, orthopnea, shortness of breath, SOB with excertion, SOB at rest, sputum, stridor, wheezing, other Gastrointestinal/Abdominal: Denies: no symptoms, abdomen distended, abdominal pain, black stools, tarry stools, blood in stool, constipated, diarrhea, difficulty swallowing, nausea, poor appetite, poor fluid intake, rectal bleeding , vomiting, other Genitourinary: Denies: no symptoms, burning, discharge, frequency, flank pain, hematuria, incontinence, pain, urgency, other Neurologic/Psychiatric: Denies: no symptoms, anxiety, depressed, emotional problems, headache, numbness, paresthesia, pre-existing deficit, seizure, tingling, tremors, weakness, other Endocrine: Denies: no symptoms, excessive sweating, flushing, intolerance to cold, intolerance to heat, increased hunger, increased thirst, increased urine, unexplained weight gain, unexplained weight loss, other Hematologic/Lymphatic: Denies: no symptoms, anemia, easy bleeding, easy bruising, other Allergies: Coded Allergies: GABAPENTIN (Verified Allergy, Unknown, 09/24/18) METAXALONE (Verified Allergy, Unknown, 09/24/18) MORPHINE (Verified Allergy, Unknown, 09/24/18) QUETIAPINE (Verified Allergy, Unknown, 09/24/18) Subjective 10/24: no events to report, wbc remains relatively stable, wbc is 2.7 Objective Last 24 Hour Vital Signs Date Time Temp Pulse Resp B/P (MAP) Pulse Ox O2 Delivery O2 Flow Rate FiO2 10/24/18 09:00 Room Air 10/24/18 08:00 86 10/24/18 08:00 97.6 82 17 105/65 (78) 98 92 10/24/18 04:00 98.3 92 16 99/62 (74) 99 92 10/24/18 04:00 85 10/24/18 00:00 97.6 89 18 98/71 (80) 95 89 10/24/18 00:00 77 10/23/18 21:00 Room Air 10/23/18 20:00 98.0 87 18 119/80 (93) 96 87 10/23/18 20:00 70 10/23/18 18:57 96.3 Intake and Output 10/23/18 10/24/18 19:00 07:00 Intake Total 320 ml 1080 ml Balance 320 ml 1080 ml Intake Oral 240 ml 360 ml IV Total 80 ml 720 ml # Voids 3 # Bowel Movements 1 Laboratory Tests 5/15/19 17:30: Hepatitis A IgM Antibody Negative, Hepatitis B Surface Antigen Negative, Hepatitis B Core IgM Antibody Negative, Hepatitis C Antibody <0.1 10/24/18 04:45: White Blood Count 2.7L, Red Blood Count 2.79L, Hemoglobin 9.0L, Hematocrit 27.2L , Mean Corpuscular Volume 97, Mean Corpuscular Hemoglobin 32.4H, Mean Corpuscular Hemoglobin Concent 33.3, Red Cell Distribution Width 15.1H, Platelet Count 174, Mean Platelet Volume 5.7L, Neutrophils (%) (Auto) , Lymphocytes (%) (Auto) , Monocytes (%) (Auto) , Eosinophils (%) (Auto) , Basophils (%) (Auto) , Differential Total Cells Counted 100, Neutrophils % ( Manual) 48, Lymphocytes % (Manual) 40, Monocytes % (Manual) 9, Eosinophils % ( Manual) 2, Basophils % (Manual) 1, Band Neutrophils 0, Platelet Estimate Adequate, Platelet Morphology Normal, Hypochromasia 2+, Anisocytosis 1+, Sodium Level 143, Potassium Level 3.7, Chloride Level 111H, Carbon Dioxide Level 27, Anion Gap 5, Blood Urea Nitrogen 11, Creatinine 0.8, Estimat Glomerular Filtration Rate > 60, Glucose Level 100, Calcium Level 7.2L, Total Bilirubin 0.3 , Aspartate Amino Transf (AST/SGOT) 22, Alanine Aminotransferase (ALT/SGPT) 38, Alkaline Phosphatase 155H, Total Protein 4.0L, Albumin 1.7L, Globulin 2.3, Albumin/Globulin Ratio 0.7L Height (Feet): 5 Height (Inches): 4.00 Weight (Pounds): 137 Objective Vitals: reviewed, normal Gen: mild distress - Uncomfortable Head: normocephalic, atraumatic ENT: dry mucus membranes Respiratory: lungs clear, no retraction, no accessory muscle use Cardiovascular: regular rate, rhythm Gastrointestinal: some questionable decreased bowel sounds, patient has evidence of laparoscopic surgical sites in the left in the upper lower abdominal region Musculoskeletal: normal inspection Neurologic: alert, oriented x3, responsive Psychiatric: normal inspection Skin: other - Pallor Lymphatic: no adenopathy Scott Smyth MD October 24, 2018 16:05
[2018-10-24 16:45] LABS: % IRON SATURATION 17 % (15-50); IRON 29 ug/dL (50-175); TOTAL IRON BINDING CAPACITY 167 ug/dL (250-450)
--- NOTE | 2018-10-24 17:20 | NUR ---
NURSE NOTES: called and asked for list of medications patient is taking. I got permission from the to tell him all the medications she's taking. He said " She is off and that's not her, her personality changed." and He said He want to speaks with the doctors.
--- NOTE | 2018-10-24 17:45 | Consultation ---
DATE OF CONSULTATION: 10/23/2018 CARDIOLOGY CONSULTATION CONSULTING PHYSICIAN: Ajith Macario M.D. REFERRING PHYSICIAN: Caty Ferreira M.D. REASON FOR CONSULTATION: Management of chest pain. HISTORY OF PRESENT ILLNESS: The patient is a very unfortunate 43-year-old female with prior history of gastric bypass surgery, bowel obstruction, sepsis, who is sent by Dr. Ferreira to the emergency department for evaluation and management of chest pain that has been going on for the past two weeks described as constant left-sided precordial tightness, which is mostly after swallowing food and nonradiating with associated bilateral lower extremity edema that has been going on for 2 months as well as dysphagia. The patient claims that she had upper endoscopy done about a week ago and was told that everything was within normal limits. In addition she suffers from constipation, nausea, and vomiting. At the time of arrival to the hospital, blood pressure is 94/81 mmHg and heart rate was 84. A 12 lead electrocardiogram showed sinus rhythm at a rate of 86 with no acute ischemic changes. The patient was admitted to telemetry unit for further evaluation and management of the above complaints. Cardiology consultation was made at the request of Dr. Ferreira. PAST MEDICAL HISTORY: As mentioned above including gastric bypass surgery, bowel obstruction, sepsis, history of dysphagia, status post upper endoscopy, which apparently was within normal limits, history of hypothyroidism, and history of fibromyalgia. PAST SURGICAL HISTORY: Including gastric bypass surgery. ALLERGIES: Gabapentin, metolazone, morphine, and Seroquel. SOCIAL HISTORY: Denies any tobacco, alcohol, or illicit drug use. She comes from home. FAMILY HISTORY: No premature coronary artery disease in first-degree relatives. REVIEW OF SYSTEMS: HEENT: Denies any headache, diplopia, or blurred vision. CONSTITUTIONAL: Denies any fever, chills, night sweats, or weight loss. CARDIOVASCULAR: Chest pain as mentioned above. Denies any shortness of breath. Denies any PND or orthopnea. Positive for bilateral lower extremity edema. No syncope. PULMONARY: Denies any cough, hemoptysis, or wheezing. GASTROINTESTINAL: Nausea, vomiting, and dysphagia. Recent endoscopy was done. No GI bleed. GENITOURINARY: Denies any hematuria, dysuria, or incontinence. NEUROLOGY: Denies any motor dysfunction, sensory deficit, or altered speech. PHYSICAL EXAMINATION: VITAL SIGNS: Blood pressure is 94/81 mmHg, heart rate of 84, respirations of 15, O2 saturation 99% on room air, and temperature 98.2 degrees Fahrenheit. GENERAL: The patient is an ambulatory 43-year-old lady, in no apparent respiratory distress. Awake and alert x4. HEENT: Atraumatic and normocephalic. Anicteric. Pupils are equal, round, and reactive to light and accommodation. Conjunctiva pallor present. NECK: JVP less than 5 cm. No carotid bruit. Carotid upstroke is 2+ bilaterally. CARDIOVASCULAR: Normal S1, S2. Regular rate and rhythm. No murmurs, gallops, or rubs. PMI is at fourth intercostal space in the midclavicular line. LUNGS: Clear to auscultation bilaterally. ABDOMEN: Soft, nontender, and nondistended. No hepatosplenomegaly. Positive bowel sounds. EXTREMITIES: No evidence of edema, clubbing, or cyanosis. LABORATORY FINDINGS: Chemistry shows sodium of 135, potassium 3.4, chloride 102, bicarbonate 25, BUN of 12, creatinine 0.8, glucose is 70, and calcium is 7.7. Troponin I was 0.003. ProBNP was 171. TSH was elevated at 4.2. Hematology showed WBC 3.5, hemoglobin 9.8, hematocrit of 29.4, and platelet count is 208,000. INR was 1.1. Chest x-ray showed no acute cardiopulmonary disease. ASSESSMENT AND PLAN: The patient is a very unfortunate 43-year-old lady, who is seen in Cardiology consultation. 1. Most likely noncardiac chest pain in view of an extensive gastrointestinal symptoms. The fact that chest pain occurs after swallowing food and the fact that 12 lead electrocardiogram does not show any ischemic features, we believe that no further cardiac workup is necessary in this patient, whose risk factors for coronary artery disease is basically zero. We, however, like to obtain a fasting lipid panel in a.m. for CAD risk stratification. We will obtain 2D echocardiography for assessment of LV systolic and diastolic function. 2. Hypotension, most likely secondary to intractable nausea and vomiting. There is associated electrolyte abnormality with hyponatremia and hypokalemia, intravascular volume expanders with the potassium supplementation is the mainstay of therapy. GI consultation. I would like to thank, Dr. Ferreira, for the courtesy of this consultation. Ajith Macario M.D. DR: NGUYEN JOB#: [id number] CC:
--- NOTE | 2018-10-24 19:48 | NUR ---
HAND-OFF: Report given to Yessy/RN, Patient is walking around in the room, in stable condition. Endorsed plan of care.
--- NOTE | 2018-10-24 19:50 | NUR ---
NURSE NOTES: Received pt from TAWNY Shanks. Pt awake, alert, and expressing hallucinations. Pt restless and walking around the unit speaking inappropriately. Port-a-cath in place and running IV fluids. Will continue to monitor.
[2018-10-24 20:00] VITALS: BP 108/87
--- NOTE | 2018-10-24 20:47 | Cardiology Report ---
APPROVED REPORT EXAM: Two-dimensional and M-mode echocardiogram with Doppler and color Doppler. INDICATION LV FUNCTION M-Mode DIMENSIONS IVSd0.8 (0.7-1.1cm)Left Atrium (MM)2.8 (1.6-4.0cm) LVDd5.4 (3.5-5.6cm)Aortic Root3.4 (2.0-3.7cm) PWd0.9 (0.7-1.1cm)Aortic Cusp Exc.2.1 (1.5-2.0cm) IVSs1.2 cm LVDs3.9 (2.5-4.0cm) PWs1.1 cm Normal left ventricular chamber size, systolic function and wall motion . Left ventricular ejection fraction estimated to be 55%. No evidence of left ventricular hypertrophy . No evidence of pericardial effusion. All other cardiac chamber sizes are within normal limits. Aortic valve calcification with normal cusp excursion . Mildly thickened mitral valve leaflets with normal excursion. Mild mitral annulus and aortic root calcification. Pulmonic valve not well visualized. Subcostal views are not obtained due to pt's scars . A color flow and spectral Doppler study was performed and revealed: No aortic insufficiency . Mitral inflow indicates normal left ventricular diastolic function. Mild mitral regurgitation. Mild tricuspid regurgitation. Tricuspid systolic velocities suggests peak right ventricular systolic pressure of 20 mmHg.
[2018-10-24] MEDS ORDERED: Iron Sucrose 100 MG in NS 55 ML IV SCH (21:00)
[2018-10-24] MEDS ORDERED: Miralax 17gm pkt ORAL SCH (21:00)
[2018-10-24] MEDS: SUBOXONE SL SCH (22:50)
--- NOTE | 2018-10-24 23:43 | Cardiology Progress Note ---
Assessment/Plan Assessment/Plan 1. Most likely noncardiac chest pain in view of an extensive gastrointestinal symptoms. The fact that chest pain occurs after swallowing food and the fact that 12 lead electrocardiogram does not show any ischemic features, no further cardiac workup is necessary in this patient, whose risk factors for coronary artery disease is basically zero. Echo reveals normal LVEF with no WMA. 2. Hypotension, most likely secondary to intractable nausea and vomiting. Continue fluid and electrolyte replacement. Subjective Subjective Sinus rhythm at rate of 92. Objective Last 24 Hour Vital Signs Date Time Temp Pulse Resp B/P (MAP) Pulse Ox O2 Delivery O2 Flow Rate FiO2 10/24/18 16:00 97.6 100 22 107/75 (86) 100 92 10/24/18 16:00 110 10/24/18 12:00 98.2 105 24 96/61 (73) 98 92 10/24/18 09:00 Room Air 10/24/18 08:00 86 10/24/18 08:00 97.6 82 17 105/65 (78) 98 92 10/24/18 04:00 98.3 92 16 99/62 (74) 99 92 10/24/18 04:00 85 10/24/18 00:00 97.6 89 18 98/71 (80) 95 89 10/24/18 00:00 77 Intake and Output 10/23/18 10/24/18 19:00 07:00 Intake Total 320 ml 1080 ml Balance 320 ml 1080 ml Intake Oral 240 ml 360 ml IV Total 80 ml 720 ml # Voids 3 # Bowel Movements 1 2D Echo: LVEF 55%, Mild MR, RVSP 20 mmHg Laboratory Tests Test 10/24/18 04:45 White Blood Count 2.7 K/UL (4.8-10.8) L Red Blood Count 2.79 M/UL (4.20-5.40) L Hemoglobin 9.0 G/DL (12.0-16.0) L Hematocrit 27.2 % (37.0-47.0) L Mean Corpuscular Volume 97 FL (80-99) Mean Corpuscular Hemoglobin 32.4 PG (27.0-31.0) H Mean Corpuscular Hemoglobin Concent 33.3 G/DL (32.0-36.0) Red Cell Distribution Width 15.1 % (11.6-14.8) H Platelet Count 174 K/UL (150-450) Mean Platelet Volume 5.7 FL (6.5-10.1) L Neutrophils (%) (Auto) % (45.0-75.0) Lymphocytes (%) (Auto) % (20.0-45.0) Monocytes (%) (Auto) % (1.0-10.0) Eosinophils (%) (Auto) % (0.0-3.0) Basophils (%) (Auto) % (0.0-2.0) Differential Total Cells Counted 100 Neutrophils % (Manual) 48 % (45-75) Lymphocytes % (Manual) 40 % (20-45) Monocytes % (Manual) 9 % (1-10) Eosinophils % (Manual) 2 % (0-3) Basophils % (Manual) 1 % (0-2) Band Neutrophils 0 % (0-8) Platelet Estimate Adequate Platelet Morphology Normal Hypochromasia 2+ Anisocytosis 1+ Sodium Level 143 MMOL/L (136-145) Potassium Level 3.7 MMOL/L (3.5-5.1) Chloride Level 111 MMOL/L (98-107) H Carbon Dioxide Level 27 MMOL/L (21-32) Anion Gap 5 mmol/L (5-15) Blood Urea Nitrogen 11 mg/dL (7-18) Creatinine 0.8 MG/DL (0.55-1.30) Estimat Glomerular Filtration Rate > 60 mL/min (>60) Glucose Level 100 MG/DL (74-106) Calcium Level 7.2 MG/DL (8.5-10.1) L Iron Level 29 ug/dL (50-175) L Total Iron Binding Capacity 167 ug/dL (250-450) L Percent Iron Saturation 17 % (15-50) Unsaturated Iron Binding 138 ug/dL (112-346) Total Bilirubin 0.3 MG/DL (0.2-1.0) Aspartate Amino Transf (AST/SGOT) 22 U/L (15-37) Alanine Aminotransferase (ALT/SGPT) 38 U/L (12-78) Alkaline Phosphatase 155 U/L (46-116) H Total Protein 4.0 G/DL (6.4-8.2) L Albumin 1.7 G/DL (3.4-5.0) L Globulin 2.3 g/dL Albumin/Globulin Ratio 0.7 (1.0-2.7) L Objective HEENT: Atraumatic and normocephalic. Anicteric. Pupils are equal, round, and reactive to light and accommodation. Conjunctiva pallor present. NECK: JVP less than 5 cm. No carotid bruit. Carotid upstroke is 2+ bilaterally. CARDIOVASCULAR: Normal S1, S2. Regular rate and rhythm. No murmurs, gallops, or rubs. PMI is at fourth intercostal space in the midclavicular line. LUNGS: Clear to auscultation bilaterally. ABDOMEN: Soft, nontender, and nondistended. No hepatosplenomegaly. Positive bowel sounds. EXTREMITIES: No evidence of edema, clubbing, or cyanosis. Ajith Macario MD October 24, 2018 23:43
[2018-10-25] VITALS: BP 122/82
--- NOTE | 2018-10-25 00:45 | Progress Note ---
DATE: 10/24/2018 SUBJECTIVE: The patient is . Mental condition is unchanged since previous encounter. The patient is not endorsing any suicidal or homicidal ideation. MENTAL STATUS EXAMINATION: Alert and oriented times self, place, and situation. Mood is dysphoric. Affect is constricted, congruent with mood. Thought process is concrete. Thought content, no suicidal or homicidal ideations. ASSESSMENT: Anxiety and depression. The patient is having medication-seeking behaviors. The patient would like to take oxycodone and does not want to take the Suboxone anymore. We had a long conversation in regard to taking Suboxone as she has a history of addiction, the patient disagreed and would like continue taking opiate pain medications like Edwards. She was requesting pain medication. However, if the patient decides to stop taking pain medication, I could manage her Suboxone. Sugey Meléndez M.D. DR: Dipak JOB#: [id number] CC:
--- NOTE | 2018-10-25 02:00 | NUR ---
NURSE NOTES: Changed port-a-cath dressing from tegaderm to central line dressing. Will continue to monitor.
[2018-10-25 03:56] VITALS: BP 105/57
[2018-10-25] MEDS: D5NS 1,000 ML IV SCH (04:06)
--- NOTE | 2018-10-25 04:30 | Consultation ---
DATE OF CONSULTATION: 10/24/2018 PAIN MANAGEMENT CONSULTATION REFERRING PHYSICIAN: Caty Ferreira M.D. CONSULTING PHYSICIAN: Tiarra Lebron M.D. PHYSICIAN OPTICAL EFFECTS LAYOUT PERSON: Lexis Ortiz CHIEF COMPLAINT: Low back pain and abdominal pain. HISTORY OF PRESENT ILLNESS: This is a 43-year-old female, who is being seen on the telemetry floor of [facility] for initial pain management consultation. The patient reports that she has been having lower back pain for the past 10 years. It is a constant chronic pain, rating it a 10/10, describing the pain as a sharp, numbness, and radiating down to bilateral lower extremities. The pain is worse with movement, and it is not reduced with anything at this time. Also having abdominal pain for the past month. It is a constant chronic pain, which she states has been at 8/10, describing the pain as a shooting sharp pain. The patient explained that she had a lumbar surgery in March 2016, which she feels is a laminectomy and decompression; however, has continued pain after surgery. Also, recently had a bowel obstruction due to multiple abdominal gastric bypass surgeries and found to have abdominal adhesions in [facility], which were laparoscopically and surgically corrected. Prior to admission, the patient was living in a board and [facility]. She had been taking Suboxone, which was seen on the [place] PDMP report, which she states she was taking half a film twice a day, which is being prescribed by Dr. Doll, who is a psychiatrist, last prescribed on October 15. She claims that she was put on Suboxone due to taking Xtampza 27 mg twice a day and oxycodone 10 mg 46 tablets, however, was found to be taking alcohol with this medication and that is why she was put on the Suboxone. At this time, upon admission, the patient was started as per the primary care physician on OxyContin 10 mg b.i.d., oxycodone 5 mg every four hours as needed for breakthrough pain, and Darien 5, 7.5, and 10/325 mg tablets every six hours as needed for [id number]-uq-cdvoroud severe pain. Hospital does not have Suboxone on formulary. Due to this, we were consulted, so the patient would be returned on to the Suboxone. We discussed with the patient in detail about switching her back to the Suboxone, which will be prescribed from an outside pharmacy and we will increase the dosage due to patient stated that she had no pain relief while in the board and care. The patient seems to understand. PAST MEDICAL HISTORY: Hypotension, autoimmune, and anemia. PAST SURGICAL HISTORY: Laparoscopic gastric bypass, lumbar surgery, and lysis of adhesions. SOCIAL HISTORY: She is a smoker of tobacco with a history of alcohol abuse and denies IV drug abuse. ALLERGIES: Gabapentin, metaxalone, morphine, and quetiapine. REVIEW OF SYSTEMS: Denies rash, fever, chills, sweating, dizziness, drowsiness, blurred vision, sore throat, or change in her weight. No shortness of breath, chest pain, palpitations, or cough. No nausea, vomiting, diarrhea, or blood in the stool or urine. No bowel or bladder incontinence. No dysuria. She is complaining of abdominal and back pain. PHYSICAL EXAMINATION: GENERAL: Alert, awake, and oriented. VITAL SIGNS: Blood pressure 105/65, heart rate is 82, oxygen saturation 98%, respiratory rate 17, and temperature is 97.6 degrees Fahrenheit. HEENT: PERRLA. NECK: Range of motion is full in all directions. There is no tenderness to paracervical muscles. No adenopathy. LUNGS: Clear bilaterally. HEART: S1 and S2 regular. ABDOMEN: Tenderness to palpation. Surgical scars noted. BACK: Range of motion is decreased in flexion and extension with surgical scar noted on midline of lumbar spine with tenderness to paraspinal, trapezius, and rhomboid muscles. EXTREMITIES: Upper and lower extremity range of motion is decreased due to the patient's condition. No cyanosis. No clubbing. Sensory is reduced. Reflexes are not obtainable. No adenopathy. ASSESSMENT AND PLAN: This is a 43-year-old female with lumbar degenerative disk disease, lumbar spondylosis, lumbar radiculopathy, history of lumbar surgery, abdominal pain, history of gastric bypass, status post lysis of adhesions, opioid dependency. The patient will be discontinued off the OxyContin, oxycodone, and Darien. We will send the prescription for Suboxone 8 mg film to the outside pharmacy and it will be started here in the hospital as Suboxone 8 mg every eight hours once the patient started withdrawal symptoms. It was discussed with the patient, seems to understand. We will order an MRI of Lumbar spine with and without contrast to r/o any further pathology in the lower back, The patient was discussed with Dr. Lebron and Dr. Lebron concurred. We will follow up the patient. Thank you very much for the courtesy of this consultation. Tiarra Lebron M.D. RU Ortiz DR: CHRIS JOB#: [id number] CC: JACKELINE
[2018-10-25] MEDS ORDERED: SUBOXONE SL SCH (06:00)
[2018-10-25] MEDS: HydrOXYzine 50mg tab ORAL SCH ×2 (06:20→12:00)
[2018-10-25] MEDS: Levothyroxine 25mcg tab ORAL SCH (06:22)
--- NOTE | 2018-10-25 07:13 | NUR ---
HAND-OFF: Report given to TAWNY Ojeda. Pt still expressing halucinations but stable.
--- NOTE | 2018-10-25 07:15 | NUR ---
NURSE NOTES: Received report from Yessy/RN, Patient is walking around in the room. no acute distress/SOB noted. Bed in lowest position and locked, Call light within reach. Will continue plan of care.
--- NOTE | 2018-10-25 07:37 | NUR ---
CASE MANAGEMENT:REVIEW 10/25/18 SI: ABDOMINAL PAIN. CACHEXIA. ANEMIA CHRONIC PAIN. HYPOKALEMIA. DYSPHAGIA HALLUCINATING PER NURSES REPORT 98.0 115 20 105/57 97% ON RA IS: IV VENOFER QHS DOXEPIN PO QHS PROTONIX PO QD SYNTHROID PO QD BUSPAR PO TID FLEXERIL PO TID ATARAX PO Q6 : TELEMETRY DCP: FROM HOME
[2018-10-25 08:00] VITALS: BP 97/67
[2018-10-25 08:05] LABS: BASOPHILS % (AUTO) 0.9 % (0.0-2.0); EOSINOPHILS % (AUTO) 0.8 % (0.0-3.0); HEMATOCRIT 34.1 % (37.0-47.0); HEMOGLOBIN 10.9 G/DL (12.0-16.0); LYMPHOCYTES % (AUTO) 38.3 % (20.0-45.0); MEAN CORPUSCULAR VOLUME 97 FL (80-99); PLATELET COUNT 212 K/UL (150-450); RED BLOOD COUNT 3.52 M/UL (4.20-5.40); RED CELL DISTRIBUTION WIDTH 15.4 % (11.6-14.8); WHITE BLOOD COUNT 4.2 K/UL (4.8-10.8)
[2018-10-25 08:11] LABS: ANION GAP 8 mmol/L (5-15); BLOOD UREA NITROGEN 13 mg/dL (7-18); CALCIUM 7.6 MG/DL (8.5-10.1); CARBON DIOXIDE 26 MMOL/L (21-32); CHLORIDE 109 MMOL/L (98-107); CREATININE 0.9 MG/DL (0.55-1.30); POTASSIUM 3.7 MMOL/L (3.5-5.1); SODIUM 143 MMOL/L (136-145)
[2018-10-25] MEDS: BusPIRone 5mg Tab ORAL SCH ×2 (08:11→13:00)
[2018-10-25] MEDS: Docusate 100mg cap ORAL SCH ×2 (08:11→13:00)
[2018-10-25] MEDS: Cyclobenzaprine 10mg Tab ORAL SCH ×2 (08:12→13:00)
[2018-10-25] MEDS: SUBOXONE SL SCH (08:13)
--- NOTE | 2018-10-25 09:05 | General Progress Note ---
Assessment/Plan Status: unchanged Assessment/Plan: (1) Opioid dependency (2) Lumbar Spondylosis (3) Lumbar DDD (4) Lumbar Radiculopathy (5) H/o Lumbar surgery (6) Abdominal pain (7) H/o Gastric bypass Patient will be continued on Suboxone. Will order Ativan 2mg IV prior to MRI. D/w Dr. Lebron and he concurred. Subjective Date patient seen: October 25, 2018 Time patient seen: 08:00 - am Constitutional: Reports: weakness HEENT: Reports: no symptoms Cardiovascular: Reports: no symptoms Respiratory: Reports: no symptoms Gastrointestinal/Abdominal: Reports: abdominal pain Genitourinary: Reports: no symptoms Neurologic/Psychiatric: Reports: anxiety, weakness Endocrine: Reports: no symptoms Hematologic/Lymphatic: Reports: no symptoms Allergies: Coded Allergies: GABAPENTIN (Verified Allergy, Unknown, 09/24/18) METAXALONE (Verified Allergy, Unknown, 09/24/18) MORPHINE (Verified Allergy, Unknown, 09/24/18) QUETIAPINE (Verified Allergy, Unknown, 09/24/18) Subjective Patient has started the Suboxone receiving 2 doses. She had not been able to have the MRI due to anxiety even after getting an one time dose of Ativan. Is will to perform the MRI. She has no new complaints at this time. Objective Last 24 Hour Vital Signs Date Time Temp Pulse Resp B/P (MAP) Pulse Ox O2 Delivery O2 Flow Rate FiO2 10/25/18 08:00 96.4 105 18 97/67 (77) 97 10/25/18 04:00 95 10/25/18 03:56 98.0 115 20 105/57 (73) 97 10/25/18 00:00 98.1 115 20 122/82 (95) 98 10/25/18 00:00 116 10/24/18 21:00 Room Air 10/24/18 20:00 105 10/24/18 20:00 98.6 100 20 108/87 (94) 100 114 10/24/18 16:00 97.6 100 22 107/75 (86) 100 92 10/24/18 16:00 110 10/24/18 12:00 98.2 105 24 96/61 (73) 98 92 Intake and Output 10/24/18 10/25/18 19:00 07:00 Intake Total 360 ml Balance 360 ml Intake Oral 360 ml # Voids 3 4 # Bowel Movements 1 Laboratory Tests 10/25/18 07:58: White Blood Count 4.2#L, Red Blood Count 3.52L, Hemoglobin 10.9L, Hematocrit 34.1L, Mean Corpuscular Volume 97, Mean Corpuscular Hemoglobin 31.1H, Mean Corpuscular Hemoglobin Concent 32.0, Red Cell Distribution Width 15.4H, Platelet Count 212, Mean Platelet Volume 5.9L, Neutrophils (%) (Auto) 49.0, Lymphocytes (%) (Auto) 38.3, Monocytes (%) (Auto) 11.0H, Eosinophils (%) (Auto) 0.8, Basophils (%) (Auto) 0.9, Sodium Level 143, Potassium Level 3.7, Chloride Level 109H, Carbon Dioxide Level 26, Anion Gap 8, Blood Urea Nitrogen 13, Creatinine 0.9, Estimat Glomerular Filtration Rate > 60, Glucose Level 89, Calcium Level 7.6L Height (Feet): 5 Height (Inches): 4.00 Weight (Pounds): 137 General Appearance: no apparent distress, alert EENT: PERRL/EOMI, normal ENT inspection Neck: non-tender, normal alignment Cardiovascular: normal rate, regular rhythm Abdomen: tender Extremities: normal range of motion Edema: moderate edema Neurologic: abnormal gait, alert, responsive Skin: warm/dry Jarrod Irizarry October 25, 2018 09:05
--- NOTE | 2018-10-25 09:21 | General Progress Note ---
Assessment/Plan Status: unchanged Assessment/Plan: S: My Body hurts O: Appears, comfotable . Is walking in hallway. tolerating PO and Had BM yesterday PHYSICAL EXAMINATION: HEAD AND NECK: Atraumatic and normocephalic. CHEST: Clear to auscultation. HEART: S1 and S2. Regular rate and rhythm. ABDOMEN: mild tenderness on deep palpation . No organomegaly. MUSCULOSKELETAL: Positive for 2+ edema in the lower extremities. NEUROLOGIC: Awake, alert, and oriented x3. meds: Including Subuxan, ASSESSMENT: 1. Abdominal pain, status post small-bowel obstruction surgery at [facility], possible partial obstruction 2. Lower extremity edema: likely secondary to hypoalbuminemia 3. Cachexia. Sever Protein malnourishment 3. Alcohol Abuse, h.o of. 4. Chronic pain/ Narcotid dependence , on out patient rehab program 5. Anemia, microcytic. 5. Leukemia - history of, reported by the patient. 6. Hypokalemia. 7. GI/DVT prophylaxis. PLAN OF CARE: Discussed the care with Psych Defer pain management to specialist current GI workup Refusal of MRI of the spine I called and spoke to , in [place]. 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 Subjective Allergies: Coded Allergies: GABAPENTIN (Verified Allergy, Unknown, 09/24/18) METAXALONE (Verified Allergy, Unknown, 09/24/18) MORPHINE (Verified Allergy, Unknown, 09/24/18) QUETIAPINE (Verified Allergy, Unknown, 09/24/18) Objective Last 24 Hour Vital Signs Date Time Temp Pulse Resp B/P (MAP) Pulse Ox O2 Delivery O2 Flow Rate FiO2 10/25/18 08:00 96.4 105 18 97/67 (77) 97 10/25/18 04:00 95 10/25/18 03:56 98.0 115 20 105/57 (73) 97 10/25/18 00:00 98.1 115 20 122/82 (95) 98 10/25/18 00:00 116 10/24/18 21:00 Room Air 10/24/18 20:00 105 10/24/18 20:00 98.6 100 20 108/87 (94) 100 114 10/24/18 16:00 97.6 100 22 107/75 (86) 100 92 10/24/18 16:00 110 10/24/18 12:00 98.2 105 24 96/61 (73) 98 92 Intake and Output 10/24/18 10/25/18 18:59 06:59 Intake Total 360 ml Balance 360 ml Intake Oral 360 ml # Voids 3 4 # Bowel Movements 1 Laboratory Tests 10/25/18 07:58: White Blood Count 4.2#L, Red Blood Count 3.52L, Hemoglobin 10.9L, Hematocrit 34.1L, Mean Corpuscular Volume 97, Mean Corpuscular Hemoglobin 31.1H, Mean Corpuscular Hemoglobin Concent 32.0, Red Cell Distribution Width 15.4H, Platelet Count 212, Mean Platelet Volume 5.9L, Neutrophils (%) (Auto) 49.0, Lymphocytes (%) (Auto) 38.3, Monocytes (%) (Auto) 11.0H, Eosinophils (%) (Auto) 0.8, Basophils (%) (Auto) 0.9, Sodium Level 143, Potassium Level 3.7, Chloride Level 109H, Carbon Dioxide Level 26, Anion Gap 8, Blood Urea Nitrogen 13, Creatinine 0.9, Estimat Glomerular Filtration Rate > 60, Glucose Level 89, Calcium Level 7.6L Height (Feet): 5 Height (Inches): 4.00 Weight (Pounds): 137 Caty Ferreira MD October 25, 2018 09:21
--- NOTE | 2018-10-25 09:35 | GI Progress Note ---
Assessment/Plan Problems: (1) Constipation ICD Codes: K59.00 - Constipation, unspecified SNOMED: 19198314 (2) Odynophagia ICD Codes: R13.10 - Dysphagia, unspecified SNOMED: 44036511 (3) Dehydration ICD Codes: E86.0 - Dehydration SNOMED: 18672770 (4) Alcohol dependence ICD Codes: F10.20 - Alcohol dependence, uncomplicated SNOMED: 34935265 (5) Dysphagia ICD Codes: R13.10 - Dysphagia, unspecified SNOMED: 99129018, 663386590 (6) Nausea and vomiting ICD Codes: R11.2 - Nausea with vomiting, unspecified SNOMED: 79399788 (7) Vomiting ICD Codes: R11.10 - Vomiting, unspecified SNOMED: 211779283 (8) Electrolyte imbalance ICD Codes: E87.8 - Other disorders of electrolyte and fluid balance, not elsewhere classified SNOMED: 263540754 Status: stable Status Narrative Discussed with Dr. Rosenberg Assessment/Plan Recent history of SBFT and UGI series, both negative. Barium swallow study reviewed, patient noted with mild dysphagia and esophageal dysmotility Abdominal pelvis CT reviewed >> Distended possibly denervated segment of small bowel containing fecal-like material within the left mid abdomen likely at jejunojejunal anastomosis; Marine- en-Y gastric bypass present. Evaluation is limited since no IV or oral contrast was given for this examination. Constipation with moderate formed stool within nondistended colon. No evidence of abdominal abscess or bowel obstruction. Status post cholecystectomy Bilateral breast implants okay for DC per GI standpoint Recommending outpatient follow-up for esophageal manometry to evaluate dysphagia Reglan prn for GI motility Bowel regimen, miralax + colace zofran prn, reglan prn for persistent vomiting monitor H&H, prn transfusions ppi electrolyte correction fu labs The patient was seen and examined at bedside and all new and available data was reviewed in the patients chart. I agree with the above findings, impression and plan. (Patient seen earlier today. Signature stamp does not reflect patient encounter time.). - Teddy Rosenberg MD Subjective Subjective Complaint of painful swallowing Left lower extremity pain and swelling Objective Last 24 Hour Vital Signs Date Time Temp Pulse Resp B/P (MAP) Pulse Ox O2 Delivery O2 Flow Rate FiO2 10/25/18 08:00 96.4 105 18 97/67 (77) 97 10/25/18 04:00 95 10/25/18 03:56 98.0 115 20 105/57 (73) 97 10/25/18 00:00 98.1 115 20 122/82 (95) 98 10/25/18 00:00 116 10/24/18 21:00 Room Air 10/24/18 20:00 105 10/24/18 20:00 98.6 100 20 108/87 (94) 100 114 10/24/18 16:00 97.6 100 22 107/75 (86) 100 92 10/24/18 16:00 110 10/24/18 12:00 98.2 105 24 96/61 (73) 98 92 Intake and Output 10/24/18 10/25/18 18:59 06:59 Intake Total 360 ml Balance 360 ml Intake Oral 360 ml # Voids 3 4 # Bowel Movements 1 Laboratory Tests Test 10/25/18 07:58 White Blood Count 4.2 K/UL (4.8-10.8) #L Red Blood Count 3.52 M/UL (4.20-5.40) L Hemoglobin 10.9 G/DL (12.0-16.0) L Hematocrit 34.1 % (37.0-47.0) L Mean Corpuscular Volume 97 FL (80-99) Mean Corpuscular Hemoglobin 31.1 PG (27.0-31.0) H Mean Corpuscular Hemoglobin Concent 32.0 G/DL (32.0-36.0) Red Cell Distribution Width 15.4 % (11.6-14.8) H Platelet Count 212 K/UL (150-450) Mean Platelet Volume 5.9 FL (6.5-10.1) L Neutrophils (%) (Auto) 49.0 % (45.0-75.0) Lymphocytes (%) (Auto) 38.3 % (20.0-45.0) Monocytes (%) (Auto) 11.0 % (1.0-10.0) H Eosinophils (%) (Auto) 0.8 % (0.0-3.0) Basophils (%) (Auto) 0.9 % (0.0-2.0) Sodium Level 143 MMOL/L (136-145) Potassium Level 3.7 MMOL/L (3.5-5.1) Chloride Level 109 MMOL/L (98-107) H Carbon Dioxide Level 26 MMOL/L (21-32) Anion Gap 8 mmol/L (5-15) Blood Urea Nitrogen 13 mg/dL (7-18) Creatinine 0.9 MG/DL (0.55-1.30) Estimat Glomerular Filtration Rate > 60 mL/min (>60) Glucose Level 89 MG/DL (74-106) Calcium Level 7.6 MG/DL (8.5-10.1) L Height (Feet): 5 Height (Inches): 4.00 Weight (Pounds): 137 General Appearance: WD/WN, no apparent distress, alert Cardiovascular: normal rate Respiratory/Chest: normal breath sounds, no respiratory distress Abdominal Exam: normal bowel sounds, non tender, soft Extremities: normal range of motion, non-tender Cassie Sanchez NP October 25, 2018 09:35
[2018-10-25] MEDS ORDERED: Gadavist 7.5mMol/7.5ml vial IV PRN (09:45)
--- NOTE | 2018-10-25 10:00 | NUR ---
Social Work This SW met with patient who explains she is from [place] and here in [place], currently in the sober living at the following: "[address]" [address] [place] [address] Patient explains she has a history of substance abuse, but has not been using since last May 2018. Patient admitted to a history of depression and auditory hallucinations, but is currently not on any medications. Patient has been managed with medication from her primary M.D (according to patient). Patient has a history of suicidal ideations and was hospitalized in the past at [facility]. Patient denied any current suicidal ideations. Patient remains independent. This Sw recommended a Psych consult here, while provided patient with outpatient mental health follow up. Patient requesting to apply for SSI (this Sw provided Social Security locations and instructed patient to follow up with them to apply for SSI).
--- NOTE | 2018-10-25 10:52 | NUR ---
*-* NO INSURANCE INFORMATION IN THE BAR UNABLE TO SEND CLINICALS OR REVIEWS *-*
[2018-10-25] MEDS ORDERED: LORazepam Inj 2mg/ml 1ml IV SCH (11:00)
[2018-10-25 12:00] VITALS: BP 100/69
--- NOTE | 2018-10-25 12:03 | NUR ---
ST NOTE: SWALLOW/SPEECH/COGNITION STATUS: REVIEWED MODIFIED BARIUM SWALLOW STUDY IMAGES WITH RADIOLOGIST, DR. CALVIN. PER RADIOLOGIST, PT HAS SIGNIFICANT ESOPHAGEAL DYSMOTILITY, REDUCED ESOPHAGEAL CONTRACTION. CONSIDER ESOPHAGRAM IP OR OP. (ESOPHAGRAM HAS BEEN ORDERED). DISCUSSED WITH SAVANNAH Rey RE: PT'S CONDITIONS AFTER REVIEWING IMAGES WITH RADIOLOGIST. PER N.P., AGREED WITH ESOPHAGRAM AND ESOPHAGEAL MANOMETRY OP. PT IS ALSO PUT ON REGLAN FOR ESOPHAGEAL DYSMOTILITY. PT SEEN AT BEDSIDE IN AM. ALERT, COOPERATIVE. DISCUSSED WITH PT RE: MODIFIED BARIUM SWALLOW STUDY RESULT AND RECOMMENDATIONS. PT SHOULD BE ON BLAND DIET WITH 6 SMALL MEALS PER DAY; AND ALSO USES ALTERNATE SOLIDS AND LIQUID WASH DURING MEAL. PT VERBALIZED THE GOOD UNDERSTANDING OF INFO IS GIVEN. PER PT, SHE WAS INTUBATED FOR 2 TO 3 WEEKS IN 2012 DUE TO SHE WAS IN A COMA. BUT PT WAS UNABLE TO STATE WHAT CAUSED THE COMA. D/W PT, RN, GENETT, N.P.
--- NOTE | 2018-10-25 13:14 | General Progress Note ---
Assessment/Plan Status: stable Assessment/Plan: Assessment/Recs: # PANCYTOPENIA, chronic -- with secreased white blood cell count, unspec (aka leukopenia) - wbc under 4k, could be related to infection v meds v ethanol use she reports. Bone marrow biopsy from [facility] 09/[address] Pena show hypocellular marrow with trilineage hematopoiesis with no evidence of dysplasia , no evidence of myelophystic process, lymphoma, granduloma or metastatic disease, rare small lympjh aggregates is snoted and potentially some small deccreased iron storage, and normal karyotype, flow cytometry is negative for any blast population --> if the total ANC is less than 2000, consider Neupogen --> continue antibiotics with ID service, appreciate recs --> medications have been reviewed --> hepatitis and hiv are negative --> recommend better diet, does have severe protein caloric malnutrition --> us of the abdomen shows no acute findings. Status post cholecystectomy # Anemia of iron deficiency, ferritin is 58 --> Anemia workup has been ordered and reviewed --> No evidence of hemolysis is noted, peripheral smear has been reviewed. --> Hgb goal >7. Transfuse prn. --> Medications have been reviewed --> low threshold for gi evaluation in case has occult + --> Venofer has been started x 5 days # Adhesions of the abd --> as per surg recs # Nausea and vomiting --> zofran iv prn has been started # Dehydration -- on ivf prn per renal # Chronic pain disorder The timing of this note does not necessarily reflect the time of the patient was seen. Greatly appreciate consultation! Subjective HEENT: Denies: no symptoms, eye pain, blurred vision, tearing, double vision, ear pain, ear discharge, nose pain, nose congestion, throat pain, throat swelling, mouth pain, mouth swelling, other Cardiovascular: Denies: no symptoms, chest pain, edema, irregular heart rate, lightheadedness, palpitations, syncope, other Respiratory: Denies: no symptoms, cough, orthopnea, shortness of breath, SOB with excertion, SOB at rest, sputum, stridor, wheezing, other Gastrointestinal/Abdominal: Denies: no symptoms, abdomen distended, abdominal pain, black stools, tarry stools, blood in stool, constipated, diarrhea, difficulty swallowing, nausea, poor appetite, poor fluid intake, rectal bleeding , vomiting, other Genitourinary: Denies: no symptoms, burning, discharge, frequency, flank pain, hematuria, incontinence, pain, urgency, other Neurologic/Psychiatric: Denies: no symptoms, anxiety, depressed, emotional problems, headache, numbness, paresthesia, pre-existing deficit, seizure, tingling, tremors, weakness, other Endocrine: Denies: no symptoms, excessive sweating, flushing, intolerance to cold, intolerance to heat, increased hunger, increased thirst, increased urine, unexplained weight gain, unexplained weight loss, other Hematologic/Lymphatic: Denies: no symptoms, anemia, easy bleeding, easy bruising, other Allergies: Coded Allergies: GABAPENTIN (Verified Allergy, Unknown, 09/24/18) METAXALONE (Verified Allergy, Unknown, 09/24/18) MORPHINE (Verified Allergy, Unknown, 09/24/18) QUETIAPINE (Verified Allergy, Unknown, 09/24/18) Subjective 10/24: no events to report, wbc remains relatively stable, wbc is 2.7 10/25: wbc is 4.2, no fevers or chills, to get oupatient manometry study, no fevers Objective Last 24 Hour Vital Signs Date Time Temp Pulse Resp B/P (MAP) Pulse Ox O2 Delivery O2 Flow Rate FiO2 10/25/18 12:00 96.7 106 18 100/69 (79) 95 10/25/18 09:00 Room Air 10/25/18 08:00 103 10/25/18 08:00 96.4 105 18 97/67 (77) 97 10/25/18 04:00 95 10/25/18 03:56 98.0 115 20 105/57 (73) 97 10/25/18 00:00 98.1 115 20 122/82 (95) 98 10/25/18 00:00 116 10/24/18 21:00 Room Air 10/24/18 20:00 105 10/24/18 20:00 98.6 100 20 108/87 (94) 100 114 10/24/18 16:00 97.6 100 22 107/75 (86) 100 92 10/24/18 16:00 110 Intake and Output 10/24/18 10/25/18 18:59 06:59 Intake Total 360 ml Balance 360 ml Intake Oral 360 ml # Voids 3 4 # Bowel Movements 1 Laboratory Tests 10/25/18 07:58: White Blood Count 4.2#L, Red Blood Count 3.52L, Hemoglobin 10.9L, Hematocrit 34.1L, Mean Corpuscular Volume 97, Mean Corpuscular Hemoglobin 31.1H, Mean Corpuscular Hemoglobin Concent 32.0, Red Cell Distribution Width 15.4H, Platelet Count 212, Mean Platelet Volume 5.9L, Neutrophils (%) (Auto) 49.0, Lymphocytes (%) (Auto) 38.3, Monocytes (%) (Auto) 11.0H, Eosinophils (%) (Auto) 0.8, Basophils (%) (Auto) 0.9, Sodium Level 143, Potassium Level 3.7, Chloride Level 109H, Carbon Dioxide Level 26, Anion Gap 8, Blood Urea Nitrogen 13, Creatinine 0.9, Estimat Glomerular Filtration Rate > 60, Glucose Level 89, Calcium Level 7.6L Height (Feet): 5 Height (Inches): 4.00 Weight (Pounds): 137 Objective Vitals: reviewed, normal Gen: mild distress - Uncomfortable Head: normocephalic, atraumatic ENT: dry mucus membranes Respiratory: lungs clear, no retraction, no accessory muscle use Cardiovascular: regular rate, rhythm Gastrointestinal: some questionable decreased bowel sounds, patient has evidence of laparoscopic surgical sites in the left in the upper lower abdominal region Musculoskeletal: normal inspection Neurologic: alert, oriented x3, responsive Psychiatric: normal inspection Skin: other - Pallor Lymphatic: no adenopathy Scott Smyth MD October 25, 2018 13:14
[2018-10-25] MEDS ORDERED: D5NS 1000ml IV ONE (13:34)
--- NOTE | 2018-10-25 13:35 | NUR ---
NURSE NOTES: Discharge instruction given, Patient verbalized understanding. Heart Monitor removed, Portha-cath access removed. No bleeding, no sign of distress noted. Belonging check done. Medication from pharmacy given to patient. Patient left with stable condition. Escorted to downstairs and left via Taxi.
--- NOTE | 2018-10-26 06:00 | Progress Note ---
DATE: 10/25/2018 SUBJECTIVE: The patient is having medication seeking behavior, anxiety, depressed mood, anhedonia, worthlessness, hopelessness, decreased energy, MENTAL STATUS EXAMINATION: The patient is alert and oriented x2. Mood is anxious. Affect is constricted, congruent with mood. Thought process is concrete. Thought content, no suicidal or homicidal ideation. ASSESSMENT: 1. Major depressive disorder. 2. Opiate dependence. PLAN: We will continue current medication. Provide the patient with reality orientation and supportive therapy. Sugey Meléndez M.D. DR: MANOJ JOB#: [id number] CC:
--- NOTE | 2018-10-26 08:00 | Diagnostic Imaging Report ---
APPROVED REPORT CPT Code: 90860 Present Symptoms Comments: BILATERAL LEGS PAIN AND SWELLING. BILATERAL: Imaging reveals a patent deep venous system bilaterally. There is no evidence of thrombus within the femoral, popliteal or tibial segments. The greater saphenous veins are also within normal limits. Doppler indicates normal spontaneous flow within these segments.
--- NOTE | 2018-10-27 20:49 | Discharge Summary ---
Discharge Summary Discharge Summary _ DATE OF ADMISSION: 10/23/2018 DATE OF DISCHARGE: 10/25/2018 DISCHARGED BY: Dr Ferreira REASON FOR ADMISSION: 43 years old female with past medical history of partial small bowel obstruction , history of gastric bypass, hypothyroidism, pancytopenia, migraine , history of alcoholism, presented with persistent episodes of vomiting and nausea, not able to tolerate oral diet. Patient also complained of swelling and edema of lower extremities. At the time of evaluation patient also reported chest pain after swallowing food . No SOB. No fever , no chills. Upon evaluation vital signs were stable. Laboratory work-up revealed leukopenia with WBC 3.5 , anemia with hemoglobin 9.8 ,hematocrit 29.4, platelet count 208. Sodium 135, potassium 3.8, stable renal parameters. Glucose 70. Calcium 7.7. Stable LFT. Albumin 2.1. Pro BNP 133 Troponin negative. EKG revealed normal sinus rhythm, no acute ischemic changes. Chest x-ray demonstrated no acute cardiopulmonary pathology. CT of the abdomen and pelvis revealed distended, possibly denervated segment of small bowel containing fecal-like material within the left mid abdomen likely at jejunojejunal anastomosis; Marine-en-Y gastric bypass present. or oral contrast was given for Constipation with moderate formed stool within nondistended colon. No evidence of abdominal abscess or bowel obstruction. Status post cholecystectomy. Bilateral breast implants. Patient subsequently was admitted for further evaluation and management due to inability to tolerate oral diet , dehydration , rule out small bowel obstruction and chest pain. CONSULTANTS: career services assistant Dr. Macario GI specialist Dr. Rosenberg transcripter/oncologist Dr. Smyth psychiatrist pain specialist Dr. Dumont HOSPITAL COURSE: Patient admitted to telemetry floor. Patient started on the IV fluids. Due to an initial complain of chest pain, cardiology consult was requested. Per cardiology, chest pain was noncardiac , given the fact that it occurred after swallowing food. EKG revealed no acute ischemic changes . Per cardiology n, o further cardiac work-up was necessary for this patient. However, echocardiogram was obtained to evaluate ejection fraction. Echocardiogram revealed preserved ejection fraction 55%. No evidence of left ventricular hypertrophy. No evidence of wall motion abnormality. Right ventricular systolic pressure of 20. Venous duplex bilateral lower extremity revealed no evidence of acute DVT. DVT prophylaxis provided. Patient initially with hypotension, likely due to intractable nausea and vomiting with resulting dehydration , contributing to hypovolemia and subsequently hypotension. Hemodynamic status was closely monitored. Lower extremities edema was likely due to hypoalbuminemia. Patient was continued on IV fluids. Blood pressure stabilized. GI specialist followed. Abdominal ultrasound revealed no acute findings. Status post cholecystectomy. LFT repeated and were stable. Patient had recent small bowel follow-through and upper GI series , and both were negative. Barium swallow study reviewed by GI specialist. Patient noted to have mild dysphagia and esophageal dysmotility. Swallow evaluation was done, which pointed out for probable esophageal dysphagia. Diet provided as per speech therapist recommendations with strict aspiration precaution and one-to-one supervision. Reglan provided as needed for GI motility. Bowel regimen instituted. Symptomatic treatment with Zofran and Reglan provided as needed. Hemoglobin and hematocrit were closely monitored with goal to keep hemoglobin above 7. Electrolytes were closely monitored and corrected as needed. Patient started on GI prophylaxis with PPI. Patient slowly started on diet and advanced as tolerated. Nausea and vomiting resolved, patient was able to tolerate diet. Pain management provided as per pain specialist recommendations. Patient with extensive lumbar DDD, s/p surgery. Patient declined MRI L spine Operations Leader seen patient for pancytopenia . Apparently pancytopenia chronic with leukopenia WBC under 4 . Per transcripter, it could be related to infection versus medication versus alcohol use. Bone marrow biopsy from [facility] done on revealed hypocellular marrow with trilineage hematopoiesis , with no evidence of dysplasia, no evidence of myelodysplastic process, lymphoma, granuloma or metastatic disease, rare small lymph aggregates noted and potentially some small decreased iron storage, normal karyotype, flow cytometry was negative for any blast population . Medications were reviewed by transcripter. Hepatitis panel negative , HIV test nonreactive. Anemia work-up revealed anemia of iron deficiency with ferritin 58. No evidence of hemolysis. Venofer was given while in the hospital. Psychiatrist seen and evaluated the patient, and diagnosed patient with a major depressive disorder and opiate dependency. Patient was provided with reality orientation and supportive therapy. Current medications were continued. Patient was counseled to continue abstinence from ETOH and continue with outpatient rehabilitation program as before. Patient clinically stabilized and was ready for discharge home. FINAL DIAGNOSES: Noncardiac chest pain (in setting of extensive gastrointestinal symptoms) Abdominal pain ( likely related to gastric bypass surgery and prior small bowel obstruction, s/p surgery at [facility]) History of gastric bypass surgery Lower extremity edema, likely secondary to hypoalbuminemia Hypotension Dehydration Electrolyte imbalance Constipation Dysphagia Pancytopenia Anemia of iron deficiency Severe protein calorie malnutrition Odynophagia Alcohol dependency History of alcohol abuse Major depressive disorder Opiate dependency Lumbar DDD Lumbar spondylosis Lumbar radiculopathy History of lumbar surgery DISCHARGE MEDICATIONS: See Medication Reconciliation list. DISCHARGE INSTRUCTIONS: Patient was discharged home . Follow up with primary care provider in one week. I have been assigned to dictate discharge summary for this account. I was not involved in the patient's management. Zakia Langston NP October 27, 2018 20:49
--- NOTE | 2018-10-28 14:15 | Diagnostic Imaging Report ---
Indication: Dysphasia Procedure and findings: Real-time fluoroscopic imaging performed in a lateral projection in conjunction with the speech pathologist evaluation. Variable consistencies of barium given per mouth. Findings: Significant abnormalities of both oral and pharyngeal phases of swallowing are demonstrated. No aspiration identified. Incidentally there was impaired esophageal motility noted with reverse peristalsis. Total fluoroscopic time: 278 seconds. Abnormal video swallow. Please refer to speech pathology evaluation for more information. Impaired esophageal motility
--- NOTE | 2018-10-28 19:50 | Cardiology Report ---
APPROVED REPORT EKG Measurement Heart [id number] Normal sinus rhythm Nonspecific T wave abnormality Abnormal ECG
== END 2018-10-25 13:35 | disposition home or self-care (01) | DRG 388 ==
LOC: EMR 10:40 → 2E 11:02 → EDBEDREQ 11:27
DX: K56.690 Other partial intestinal obstruction (principal); E43 Unspecified severe protein-calorie malnutrition; F11.20 Opioid dependence, uncomplicated; C95.91 Leukemia, unspecified, in remission; D61.818 Other pancytopenia; F10.10 Alcohol abuse, uncomplicated; Z88.6 Allergy status to analgesic agent; Z88.8 Allergy status to other drugs, medicaments and biological substances; E03.9 Hypothyroidism, unspecified; G89.29 Other chronic pain; E87.6 Hypokalemia; F32.9 Major depressive disorder, single episode, unspecified; R07.89 Other chest pain; I95.9 Hypotension, unspecified; E86.0 Dehydration; K59.00 Constipation, unspecified; R13.10 Dysphagia, unspecified; M51.16 Intervertebral disc disorders with radiculopathy, lumbar region; M47.896 Other spondylosis, lumbar region; D50.9 Iron deficiency anemia, unspecified; R11.2 Nausea with vomiting, unspecified; M79.7 Fibromyalgia; Z98.84 Bariatric surgery status; F41.8 Other specified anxiety disorders; Z76.5 Malingerer [conscious simulation]; K22.4 Dyskinesia of esophagus; Z68.23 Body mass index [BMI] 23.0-23.9, adult
CPT/HCPCS: 36415; 71045; 74176; 74230; 76700; 80048; 80053; 82607; 82728; 82962; 83540; 83550; 83880; 84443; 84484; 85007; 85025; 85044; 85610; 86703; 86705; 86709; 86803; 87081; 87340; 93005; 93306; 93970; 96361; 96374; 99285; J2405; J8499